=== PATIENT | male | born 1945 | race Caucasian/White ===

== ENCOUNTER 2020-11-02 16:21 | Observation (INO) ==
--- NOTE | 2020-11-02 16:33 | Emergency Department Note ---
Impression & Plan ICD (implantable cardioverter-defibrillator) discharge, Elevated troponin, High serum chloride ED Provider Note NAME: REGINA CONTI AGE: 75 SEX: M : 1945 ARRIVES VIA: Ambulance INFORMANT: Patient ED PROVIDER(S): Mark Mays DO CHIEF COMPLAINT: Pacemaker firing HPI: Patient is a 75-year-old male with a past medical history of A. fib and CVA with left-sided deficit that presents the to the ER from [facility]. Patient believes that he was shocked about 10-15 times over the course of 15 minutes. He has no other complaints at this time. Denies any headache or change in vision. No chest pain or shortness of breath. No nausea, vomiting, or diar boris. No dysuria, urgency, or frequency. ROS: See above HPI for pertinent positives & negatives. A total of 10 systems reviewed and were otherwise negative. PAST MEDICAL HISTORY:See Below PAST SURGICAL HISTORY:See Below FAMILY HISTORY:See Below SOCIAL HISTORY:See Below HOME MEDICATIONS:See Below ALLERGIES:See Below VITALS:See Below PHYSICAL EXAMINATION: GENERAL: Lying in bed, disheveled, chronically ill-appearing EYE EXAM: normal conjunctiva. PERRL and EOM's grossly intact. OROPHARYNX: no exudate, no erythema, lips, buccal mucosa, and tongue normal and mucous membranes are moist NECK: supple, no nuchal rigidity, no adenopathy, non-tender CHEST: Pacemaker located in left upper chest LUNGS: Clear to auscultation. Normal chest wall mechanics HEART: no murmurs, S1 normal and S2 normal ABDOMEN: abdomen soft, non-tender, normo-active bowel sounds, no masses, no rebound or guarding. UPPER EXTREMITIES: upper extremities are grossly normal. LOWER EXTREMITIES: No pitting edema. NEURO EXAM: Normal sensorium, cranial nerves II-XII grossly intact, normal speech, weakness of the left upper and left lower extremity which the patient notes is old MEDICAL DECISION MAKING: Patient is a 75-year-old male who presents to the ER for concerns of being shocked. IV was established blood work was obtained. Labs show no significant leukocytosis or anemia. INR was therapeutic at 2.3. BMP with LFTs bilirubin was unremarkable. Troponin was elevated at 0.1. Lipase was normal. Covid was negative. Per report patient was shocked about 10-15 times. It took us a protracted period of time to track down the type pacemaker that he had as it was a [employer]. He and his family were unsure of what it was and there is no records here. We are eventually able to track these records down. Following this we contacted the rep and she initially got back to us and noted that she did not see anything acutely and then eventually called back after she was able to review everything just before 9 PM and said that there is no shocks at that time. She said that she did review today and yesterday's. Previously had discussed with Dr. Juan Hoskins and he agreed placing/starting amiodarone bolus and drip. I updated Dr. Amin who admitted the patient. When she called back around 9 PM I did update Dr. Greer who who at that time noted that the patient had just been shocked. Shortly after I rediscussed with Dr. Juan Hoskins and we connected him with the rep and he was able to find out that she did not interrogate the device this afternoon but just reviewed previous old data. Patient was already up on the floor at this time. Triage Nursing notes reviewed. Limited review of prior medical records performed Vital Signs: reviewed and remarkable for no significant abnormalities Differential diagnosis: Differential diagnoses includes but is not limited to acute coronary syndrome, myocardial infarction, pericarditis, pulmonary embolus, aortic dissection, pneumonia, pneumothorax, musculoskeletal, shingles, esophageal. ER treatment provided: See below Diagnostics interpreted by me: ECG: Sinus rhythm rate of 62 Normal axis PVCs First-degree AV block T wave inversion in the inferior leads T wave inversion in the lateral leads QTC 466 Cardiac Monitoring: An order was placed for continuous cardiac monitoring. The monitor shows a rate of 70 with sinus rhythm. Laboratory studies: As stated above and show below. Imaging studies: Portable AP upright 1 view chest shows no focal infiltrate pneumothorax Consultation(s): As discussed above Procedures: none Critical Care: I have personally spent 45 minutes of critical care time in the direct management of this patient. This includes bedside care, interpretation of diagnostic studies, and testing, discussion with consultants, patient, and family members, and other required patient management activities. This 45 minutes is in excess of all separately billable procedures. 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 Beliefs That Will Affect Care: None Current Living Situation: Half-Way Feels Safe at Home: Yes Safety Concerns: Feels Safe At This Time Assistive Devices: Glasses and Wheelchair Allergies Allergies Allergy/AdvReac Type Severity Reaction Status Date / Time No Known Allergies Allergy Unverified 11/02/20 18:03 Home Meds Home Medications Medication Instructions Recorded Confirmed acetaminophen [Tylenol Extra 500 mg PO TID 11/02/20 11/02/20 Strength] acetaminophen [Tylenol] 650 mg PO Q4 PRN 11/02/20 11/02/20 bupropion HCl 150 mg PO QAM 11/02/20 11/02/20 calcium carbonate-simethicone 1 tab PO Q6 PRN 11/02/20 11/02/20 [Tums Anti-Gas/Antacid] carbamide peroxide [Orajel] 0 ml MUCOUS MEMBRANE .Q2HR PRN 11/02/20 11/02/20 carvedilol 6.25 mg PO AMHS 11/02/20 11/02/20 cholecalciferol (vitamin D3) 25 mcg PO DAILY 11/02/20 11/02/20 [Vitamin D3] docusate sodium 100 mg PO DAILY 11/02/20 11/02/20 guaifenesin [Siltussin] 200 mg PO Q4H PRN 11/02/20 11/02/20 ipratropium-albuterol 3 ml INHALATION Q4 PRN 11/02/20 11/02/20 magnesium hydroxide [Milk of 400 mg PO DAILY PRN 11/02/20 11/02/20 Magnesia] simvastatin 80 mg PO PM 11/02/20 11/02/20 sodium phosphates [Fleet Enema] 118 ml MA DAILY PRN 11/02/20 11/02/20 warfarin 2 mg PO TU@1600 11/02/20 11/02/20 warfarin 4 mg PO SUMOWETHFRSA@1600 11/02/20 11/02/20 Results & Data (ED) Vital Signs Vital Signs - 24 hr 11/02/20 16:31 11/02/20 16:45 11/02/20 16:50 Temperature Temperature Source Pulse Rate 62 63 59 L Pulse Rate from SpO2 Sensor 57 L 63 59 L Respiratory Rate 21 31 H 30 H Respiratory Depth Blood Pressure 166/72 H 162/83 H Blood Pressure Mean 103 109 Blood Pressure Position Pulse Oximetry 96 97 97 Oxygen Delivery Method Sepsis Recent Fever Within 48 Hours Sepsis New/Unexplained Change in Mental Status Sepsis Action Taken by Nursing 11/02/20 16:54 11/02/20 16:58 11/02/20 17:00 Temperature 36.7 C Temperature Source Oral Pulse Rate 59 L 62 62 Pulse Rate from SpO2 Sensor 62 Respiratory Rate 20 30 H Respiratory Depth Normal Blood Pressure 157/97 H 157/97 H Blood Pressure Mean 117 117 Blood Pressure Position Lying Pulse Oximetry 97 97 98 Oxygen Delivery Method Room Air Room Air Sepsis Recent Fever Within 48 Hours No Sepsis New/Unexplained Change in Mental Status N/A Sepsis Action Taken by Nursing No Action Required 11/02/20 17:10 11/02/20 17:20 11/02/20 17:30 Temperature Temperature Source Pulse Rate 61 61 66 Pulse Rate from SpO2 Sensor Respiratory Rate 23 30 H 31 H Respiratory Depth Blood Pressure 157/88 H Blood Pressure Mean 111 Blood Pressure Position Pulse Oximetry Oxygen Delivery Method Sepsis Recent Fever Within 48 Hours Sepsis New/Unexplained Change in Mental Status Sepsis Action Taken by Nursing 11/02/20 17:40 11/02/20 17:50 11/02/20 18:00 Temperature Temperature Source Pulse Rate 68 63 Pulse Rate from SpO2 Sensor Respiratory Rate 34 H 28 H 27 H Respiratory Depth Blood Pressure 152/72 H Blood Pressure Mean 98 Blood Pressure Position Pulse Oximetry Oxygen Delivery Method Sepsis Recent Fever Within 48 Hours Sepsis New/Unexplained Change in Mental Status Sepsis Action Taken by Nursing 11/02/20 18:10 11/02/20 18:20 11/02/20 18:28 Temperature Temperature Source Pulse Rate 62 64 62 Pulse Rate from SpO2 Sensor 62 63 61 Respiratory Rate 31 H 27 H 32 H Respiratory Depth Blood Pressure 165/85 H 157/76 H Blood Pressure Mean 111 103 Blood Pressure Position Pulse Oximetry 97 97 97 Oxygen Delivery Method Sepsis Recent Fever Within 48 Hours Sepsis New/Unexplained Change in Mental Status Sepsis Action Taken by Nursing 11/02/20 18:30 11/02/20 18:40 Temperature Temperature Source Pulse Rate 62 61 Pulse Rate from SpO2 Sensor 64 60 Respiratory Rate 21 29 H Respiratory Depth Blood Pressure 168/83 H Blood Pressure Mean 111 Blood Pressure Position Pulse Oximetry 98 98 Oxygen Delivery Method Sepsis Recent Fever Within 48 Hours Sepsis New/Unexplained Change in Mental Status Sepsis Action Taken by Nursing Laboratory Data Result diagrams: 11/02/20 16:42 11/02/20 16:42 Lab Results 11/02/20 11/02/20 11/02/20 Range/Units 16:42 16:42 16:42 WBC 4.86 (4.8-10.8) K/uL RBC 4.57 L (4.7-6.1) M/uL Hgb 15.5 (14.0-18.0) g/dL Hct 45.8 (42-52) % MCV 100.2 H (80-100) fL MCH 33.9 (25-34) pg MCHC 33.8 (32-36) g/dL RDW Std Deviation 52.3 H (36.4-46.3) fL RDW Coeff of Reyna 14.3 (11.5-14.5) % Plt Count 153 (130-400) K/uL MPV 11.5 H (7.4-10.4) fL Immature Gran % (Auto) 0.2 % Neut % (Auto) 64.3 % Lymph % (Auto) 23.5 % [place] % (Auto) 9.9 % Eos % (Auto) 1.9 % Baso % (Auto) 0.2 % Neut # (Auto) 3.13 (1.4-6.5) K/uL Lymph # (Auto) 1.14 L (1.2-3.4) K/uL [place] # (Auto) 0.48 (0.11-0.59) K/uL Eos # (Auto) 0.09 (0-0.5) K/uL Baso # (Auto) 0.01 (0-0.2) K/uL Immature Gran # (Auto) 0.01 (0.00-0.02) K/uL PT 21.6 H (9.0-12.0) Seconds INR 2.3 H (0.9-1.1) Sodium 143 (136-145) mmol/L Potassium 4.9 (3.5-5.1) mmol/L Chloride 112 H (98-107) mmol/L Carbon Dioxide 31 (21-32) mmol/L Anion Gap 0 L (3-11) BUN 24 H (7-18) mg/dl Creatinine 1.03 (0.6-1.4) mg/dl Est Cr Clr Drug Dosing 80.1 ml/min Est GFR ( Amer) 82.0 ml/min Est GFR (Non-Af Amer) 70.7 ml/min BUN/Creatinine Ratio 23.2 H (10-20) Glucose 102 H (70-99) mg/dl Calcium 7.2 L (8.5-10.1) mg/dl Total Bilirubin 0.7 (0.2-1) mg/dl AST 32 (15-37) U/L ALT 43 (12-78) U/L Alkaline Phosphatase 77 (45-117) U/L Troponin I 0.126 H* (0-0.045) ng/ml Total Protein 6.3 L (6.4-8.2) gm/dl Albumin 2.8 L (3.4-5.0) gm/dl Globulin 3.5 (2.5-4.0) gm/dl Albumin/Globulin Ratio 0.8 L (0.9-2) Lipase 106 (73-393) U/L Specimen Hemolysis COVID-19 Eval Order SARS-CoV-2 (PCR) (Negative) 11/02/20 11/02/20 Range/Units 17:52 17:52 WBC (4.8-10.8) K/uL RBC (4.7-6.1) M/uL Hgb (14.0-18.0) g/dL Hct (42-52) % MCV (80-100) fL MCH (25-34) pg MCHC (32-36) g/dL RDW Std Deviation (36.4-46.3) fL RDW Coeff of Reyna (11.5-14.5) % Plt Count (130-400) K/uL MPV (7.4-10.4) fL Immature Gran % (Auto) % Neut % (Auto) % Lymph % (Auto) % [place] % (Auto) % Eos % (Auto) % Baso % (Auto) % Neut # (Auto) (1.4-6.5) K/uL Lymph # (Auto) (1.2-3.4) K/uL [place] # (Auto) (0.11-0.59) K/uL Eos # (Auto) (0-0.5) K/uL Baso # (Auto) (0-0.2) K/uL Immature Gran # (Auto) (0.00-0.02) K/uL PT (9.0-12.0) Seconds INR (0.9-1.1) Sodium (136-145) mmol/L Potassium (3.5-5.1) mmol/L Chloride (98-107) mmol/L Carbon Dioxide (21-32) mmol/L Anion Gap (3-11) BUN (7-18) mg/dl Creatinine (0.6-1.4) mg/dl Est Cr Clr Drug Dosing ml/min Est GFR ( Amer) ml/min Est GFR (Non-Af Amer) ml/min BUN/Creatinine Ratio (10-20) Glucose (70-99) mg/dl Calcium (8.5-10.1) mg/dl Total Bilirubin (0.2-1) mg/dl AST (15-37) U/L ALT (12-78) U/L Alkaline Phosphatase (45-117) U/L Troponin I (0-0.045) ng/ml Total Protein (6.4-8.2) gm/dl Albumin (3.4-5.0) gm/dl Globulin (2.5-4.0) gm/dl Albumin/Globulin Ratio (0.9-2) Lipase (73-393) U/L Specimen Hemolysis COVID-19 Eval Order Covid19 at [facility] SARS-CoV-2 (PCR) NEGATIVE (Negative) Administered Medications Acetaminophen (Acetaminophen 500 Mg Tab) 500 mg PO TID TONYA Stop: 12/02/20 20:59 Last Admin: 11/02/20 21:22 Dose: 500 mg Documented by: [id number] Carvedilol (Carvedilol 6.25 Mg Tab) 6.25 mg PO AMHS TONYA Stop: 12/02/20 20:59 Last Admin: 11/02/20 21:22 Dose: 6.25 mg Documented by: [id number] Discontinued Medications Amiodarone HCl (Amiodarone Iv Bolus & Drip) 1 ea IV NOW STA; Protocol Stop: 11/02/20 17:59 Last Admin: 11/02/20 18:45 Dose: 1 ea Documented by: [id number] Amiodarone HCl/Dextrose (Nexterone / D5w) 150 mg in 100 mls @ 600 mls/hr IV NOW STA Stop: 11/02/20 18:07 Last Infusion: 11/02/20 18:48 Dose: 0 mls/hr Documented by: [id number] Cosigned by: [id number] Admin: 11/02/20 18:13 Dose: 600 mls/hr Documented by: [id number] Cosigned by: [id number] Amiodarone HCl/Dextrose (Nexterone / D5w) 360 mg in 200 mls @ 33.333 mls/hr IV ONE ONE Stop: 11/02/20 23:57 Last Infusion: 11/02/20 22:15 Dose: 0 mls/hr Documented by: [id number] Cosigned by: [id number] Infusion: 11/02/20 21:45 Dose: 0 mls/hr Documented by: [id number] Cosigned by: [id number] Admin: 11/02/20 18:44 Dose: 33.3 mls/hr Documented by: [id number] Cosigned by: [id number] Miscellaneous (Stat Iv Infusion Titration Per Protocol) 1 ea N/A NOW STA Stop: 11/02/20 17:59 Last Admin: 11/02/20 18:48 Dose: Not Given Documented by: [id number] Imaging Data Radiologist's Impression: Chest X-Ray 11/02/20 16:30 XR chest 1V portable CLINICAL HISTORY: Chest Pain COMPARISON STUDY: No previous studies for comparison. FINDINGS: The heart is enlarged. There is aortic tortuosity/ectasia. There is a left subclavian dual-chamber centimeters pacemaker there is no failure. There is no focal pulmonary consolidation. There are no large pleural effusions[ IMPRESSION: Avi abraham. No evidence of focal pulmonary consolidation ACT 112: Negative or not required by law. Electronically signed by: Avi Adkins M.D. 11/02/2020 5:05 PM Discharge Plan Visit Data Chief Complaint: Cardiac Assessment Stated Complaint: CARDIAC PACER/DEFIB KEPT FIRING ED Provider: Mark Mays Discharge Problem: ICD (implantable cardioverter-defibrillator) discharge, Elevated troponin, High serum chloride Patient Disposition: Admitted As Inpatient Discharge Instructions Interventions: ED Discharge Assessment Last Done: 11/02/20 20:01
[2020-11-02 16:58] LABS: Basophils # (auto) 0.01 K/uL (0-0.2); Basophils % (auto) 0.2 %; Eosinophils # (auto) 0.09 K/uL (0-0.5); Eosinophils % (auto) 1.9 %; Hematocrit (blood only) 45.8 % (42-52); Hemoglobin 15.5 g/dL (14.0-18.0); Immature Granulocytes # (auto) 0.01 K/uL (0.00-0.02); Immature Granulocytes % (auto) 0.2 %; Lymphocytes # (auto) 1.14 K/uL (1.2-3.4); Lymphocytes % (auto) 23.5 %; Mean Corpuscular Hemoglobin 33.9 pg (25-34); Mean Corpuscular Hgb Conc 33.8 g/dL (32-36); Mean Corpuscular Volume 100.2 fL (80-100); Mean Platelet Volume 11.5 fL (7.4-10.4); Monocytes # (auto) 0.48 K/uL (0.11-0.59); Monocytes % (auto) 9.9 %; Neutrophils # (auto) 3.13 K/uL (1.4-6.5); Neutrophils % (auto) 64.3 %; Platelet Count 153 K/uL (130-400); RDW Coefficient of Variation 14.3 % (11.5-14.5); RDW Standard Deviation 52.3 fL (36.4-46.3); Red Blood Count 4.57 M/uL (4.7-6.1); White Blood Count 4.86 K/uL (4.8-10.8)
--- NOTE | 2020-11-02 17:06 | XRay Report ---
XR chest 1V portable CLINICAL HISTORY: Chest Pain COMPARISON STUDY: No previous studies for comparison. FINDINGS: The heart is enlarged. There is aortic tortuosity/ectasia. There is a left subclavian dual- chamber centimeters pacemaker there is no failure. There is no focal pulmonary consolidation. There a re no large pleural effusions[ IMPRESSION: Avi abraham. No evidence of focal pulmonary consolidation ACT 112: Negative or not required by law. Electronically signed by: Avi Adkins M.D. 11/02/2020 5:05 PM
[2020-11-02 17:12] LABS: INR 2.3 (0.9-1.1); Prothrombin Time 21.6 Seconds (9.0-12.0)
[2020-11-02 17:29] LABS: Albumin Level 2.8 gm/dl (3.4-5.0); BUN Creatinine Ratio 23.2 (10-20); Calcium 7.2 mg/dl (8.5-10.1); Creatinine Clr Calc Pharmacy 80.1 ml/min; Est GFR (Non-African American) 70.7 ml/min; Potassium 4.9 mmol/L (3.5-5.1)
[2020-11-02 17:34] LABS: Albumin Globulin Ratio 0.8 (0.9-2); Bilirubin,Total 0.7 mg/dl (0.2-1); Globulin 3.5 gm/dl (2.5-4.0); Total Protein 6.3 gm/dl (6.4-8.2); Troponin I 0.126 ng/ml (0-0.045)
[2020-11-02] MEDS ORDERED: 0.2 MICRON FILTER SET 1 EA IV ONE (17:58)
[2020-11-02] MEDS ORDERED: STAT IV Infusion **Titration per Protocol STA (17:58)
[2020-11-02] MEDS ORDERED: AMIODARONE / D5W 360 MG/200 ML BAG IV ONE (17:58)
[2020-11-02] MEDS ORDERED: AMIODARONE / D5W 150 MG/100 ML BAG IV STA (17:58)
[2020-11-02] MEDS ORDERED: AMIODARONE IV BOLUS & DRIP IV STA (17:58)
--- NOTE | 2020-11-02 18:56 | History & Physical Report ---
Date of Service November 02, 2020 Assessment & Plan (1) ICD (implantable cardioverter-defibrillator) discharge: Shocks from ICD. ER physician already called [employer] rep for interrogation Awaiting interrogation to assess if appropriate and cause EKG at this time show sinus rhythm with first-degree AV block. No prior to compare Chest x-ray showed cardiomegaly. No evidence of focal pulmonary consolidation. Troponin elevated at 0.126. Trend Telemetry monitoring [place] Dr. Garza made aware. Patient currently on amiodarone. Continue amiodarone drip. Nurseryman Assistant informed. (2) CAD (coronary artery disease): (3) History of coronary artery bypass graft: (4) Ischemic cardiomyopathy with implantable cardioverter-defibrillator (ICD): Continue carvedilol, simvastatin Cardiology consult Get 2D echo (5) Atrial fibrillation: Telemetry monitoring Continue Coreg INR is therapeutic Continue warfarin (6) History of CVA (cerebrovascular accident): With left hemiplegia Fall precautions Assist with ADL as needed Regular turning and skin care (7) Adjustment disorder with depressed mood: Stable Continue home Wellbutrin (8) COPD (chronic obstructive pulmonary disease): Stable Continue nebs as needed (9) DVT prophylaxis: Continue warfarin History of Present Illness 75-year-old man with history of CAD status post CABG, ischemic cardiomyopathy with EF of 25 to 30% status post ICD, A. fib on Coumadin, hypertension, COPD, CVA with left hemiplegia who presented to the ER from [facility] for defibrillator shocks. History provided by patient and who was at bedside. Patient reported that around 2 PM today he had about 10 shocks from his ICD within an hour and a half. Denied any chest pain, palpitation, nausea, dizziness prior to episode. Only reported some 'rattling' breathing some days ago. Denied any cough, shortness of breath Patient has left hemiplegia and usually bedbound, transferred with left to wheelchair at long-term if needed. Denies any nausea, vomiting, abdominal pain, diarrhea or constipation Denies any dysuria, frequency, urgency, hematuria Patient currently denies any symptoms Per long-term records, patient had a recent echo on 09/24/2020 which showed EF of 25 to 30% side ER physician called [employer] rep to interrogate device Family history of heart disease in father Quit smoking over 7yrs ago Primary Care Provider: [facility] Allergies Allergy/AdvReac Type Severity Reaction Status Date / Time No Known Allergies Allergy Unverified 11/02/20 18:03 Home Medications Medication Instructions Recorded Confirmed Type acetaminophen [Tylenol Extra 500 mg PO TID 11/02/20 11/02/20 History Strength] acetaminophen [Tylenol] 650 mg PO Q4 PRN 11/02/20 11/02/20 History bupropion HCl 150 mg PO QAM 11/02/20 11/02/20 History calcium carbonate-simethicone 1 tab PO Q6 PRN 11/02/20 11/02/20 History [Tums Anti-Gas/Antacid] carbamide peroxide [Orajel] 0 ml MUCOUS MEMBRANE .Q2HR PRN 11/02/20 11/02/20 History carvedilol 6.25 mg PO AMHS 11/02/20 11/02/20 History cholecalciferol (vitamin D3) 25 mcg PO DAILY 11/02/20 11/02/20 History [Vitamin D3] docusate sodium 100 mg PO DAILY 11/02/20 11/02/20 History guaifenesin [Siltussin] 200 mg PO Q4H PRN 11/02/20 11/02/20 History ipratropium-albuterol 3 ml INHALATION Q4 PRN 11/02/20 11/02/20 History magnesium hydroxide [Milk of 400 mg PO DAILY PRN 11/02/20 11/02/20 History Magnesia] simvastatin 80 mg PO PM 11/02/20 11/02/20 History sodium phosphates [Fleet Enema] 118 ml ID DAILY PRN 11/02/20 11/02/20 History warfarin 2 mg PO TU@1600 11/02/20 11/02/20 History warfarin 4 mg PO SUMOWETHFRSA@1600 11/02/20 11/02/20 History Past Med/Surg History Medical History (Updated 11/02/20 @ 19:35 by Divine Meza MD) Adjustment disorder with depressed mood Atrial fibrillation CAD (coronary artery disease) COPD (chronic obstructive pulmonary disease) History of tobacco use ICD (implantable cardioverter-defibrillator) in place Surgical History (Updated 11/02/20 @ 19:30 by Divine Meza MD) Status post coronary artery bypass graft Social History Smoking Status: Former smoker Preferred Language: Romanian Feels Safe at Home: Yes Review of Systems Constitutional: no fever, no chills and no fatigue Eyes: no blind spots and no problem reported Ear, Nose, Mouth, Throat: no ear pain, no ear discharge, no hearing loss and no sore throat Respiratory: no cough, no chest congestion and no dyspnea Cardiovascular: no chest pain, no dyspnea, no orthopnea and no palpitations Additional Comments: ICD shocks Gastrointestinal: no abdominal pain, no heartburn, no nausea and no vomiting Genitourinary: no dysuria, no difficulty urinating and no urinary frequency Musculoskeletal: Left sided weakness Integumentary: Left elbow skin tear at long-term Neurologic: + paralysis (Left UE and LE) and + loss of sensation (Left leg) Psychiatric: no depression and no anxiety Physical Exam Constitutional: + well hydrated and + obese; no acute distress Eyes: PERRL, conjunctivae normal, anicteric sclerae ENMT: external ear and nose normal, oropharynx normal Respiratory: normal respiratory effort, lungs clear to auscultation Cardiovascular: Rate/Rhythm: regular rate and regular rhythm S1 S2 Chest (Breasts): Additional Comments: Old Surgical scar Gastrointestinal (Abdomen): normal bowel sounds, soft, nontender, no hepatosplenomegaly Musculoskeletal: No pedal edema Dressing over skin tear on left elbow Neurologic: PERRL, EOMI, accommodation nl, no face palsy, no dysarthria Left hemiplegia +sensory deficits to light touch on LLE Psychiatric: A+Ox3, euthymic affect Results & Data Results & Data ([facility]) Vital Signs (Past 12 Hours) Vital Signs Temp Pulse Resp BP Pulse Ox 11/02/20 16:58 36.7 C 62 20 157/97 H 97 11/02/20 16:54 59 L 97 Laboratory Results Laboratory Results - last 24 hr 11/02/20 11/02/20 11/02/20 16:42 16:42 16:42 WBC 4.86 RBC 4.57 L Hgb 15.5 Hct 45.8 MCV 100.2 H MCH 33.9 MCHC 33.8 RDW Std Deviation 52.3 H RDW Coeff of Reyna 14.3 Plt Count 153 MPV 11.5 H Immature Gran % (Auto) 0.2 Neut % (Auto) 64.3 Lymph % (Auto) 23.5 [place] % (Auto) 9.9 Eos % (Auto) 1.9 Baso % (Auto) 0.2 Neut # (Auto) 3.13 Lymph # (Auto) 1.14 L [place] # (Auto) 0.48 Eos # (Auto) 0.09 Baso # (Auto) 0.01 Immature Gran # (Auto) 0.01 PT 21.6 H INR 2.3 H Sodium 143 Potassium 4.9 Chloride 112 H Carbon Dioxide 31 Anion Gap 0 L BUN 24 H Creatinine 1.03 Est Cr Clr Drug Dosing 80.1 Est GFR ( Amer) 82.0 Est GFR (Non-Af Amer) 70.7 BUN/Creatinine Ratio 23.2 H Glucose 102 H Calcium 7.2 L Total Bilirubin 0.7 AST 32 ALT 43 Alkaline Phosphatase 77 Troponin I 0.126 H* Total Protein 6.3 L Albumin 2.8 L Globulin 3.5 Albumin/Globulin Ratio 0.8 L Lipase 106 Specimen Hemolysis COVID-19 Eval Order SARS-CoV-2 (PCR) 11/02/20 11/02/20 17:52 17:52 WBC RBC Hgb Hct MCV MCH MCHC RDW Std Deviation RDW Coeff of Reyna Plt Count MPV Immature Gran % (Auto) Neut % (Auto) Lymph % (Auto) [place] % (Auto) Eos % (Auto) Baso % (Auto) Neut # (Auto) Lymph # (Auto) [place] # (Auto) Eos # (Auto) Baso # (Auto) Immature Gran # (Auto) PT INR Sodium Potassium Chloride Carbon Dioxide Anion Gap BUN Creatinine Est Cr Clr Drug Dosing Est GFR ( Amer) Est GFR (Non-Af Amer) BUN/Creatinine Ratio Glucose Calcium Total Bilirubin AST ALT Alkaline Phosphatase Troponin I Total Protein Albumin Globulin Albumin/Globulin Ratio Lipase Specimen Hemolysis COVID-19 Eval Order Covid19 at [facility] SARS-CoV-2 (PCR) NEGATIVE Code Status & VTE Plan VTE Prophylaxis Plan VTE Prophylaxis will be ordered: Yes
[2020-11-02] MEDS ORDERED: MAGNESIUM HYDROXIDE SUSP 30 ML UDC PO PRN (20:29)
[2020-11-02] MEDS ORDERED: SOD PHOSPHATE/SOD BIPHOSPHATE ENEMA 132 ML BTL PR PRN (20:29)
[2020-11-02] MEDS ORDERED: CALCIUM CARBONATE 500 MG CHEWABLE TAB PO PRN (20:29)
[2020-11-02] MEDS ORDERED: ACETAMINOPHEN 325 MG TAB PO PRN (20:29)
[2020-11-02] MEDS ORDERED: ALBUT/IPRATROP 3MG/0.5MG NEB 3 ML VIAL INH PRN (20:29)
[2020-11-02] MEDS ORDERED: POLYETHYLENE (MIRALAX) 17 GM PACK PO PRN (20:29)
[2020-11-02] MEDS ORDERED: guaiFENesin 200 MG TAB PO PRN (20:29)
[2020-11-02] MEDS ORDERED: SIMVASTATIN 80 MG TAB PO SCH (21:00)
[2020-11-02] MEDS: carvediloL 6.25 MG TAB PO SCH (21:22)
[2020-11-02] MEDS: ACETAMINOPHEN 500 MG TAB PO SCH (21:22)
[2020-11-02] MEDS ORDERED: Nursing to Pharmacy Communication SCH (22:00)
--- NOTE | 2020-11-02 22:14 | Cardiology Consultation ---
Date of Consultation November 02, 2020 Assessment & Plan (1) Inappropriate shocks from ICD (implantable cardioverter-defibrillator): Telemetry reviewed demonstrating ICD discharges during sinus rhythm. Magnet placed on ICD to prevent further therapies. Intravenous amiodarone discontinued. Case discussed with [employer] auto body technician. She will come to hospital in a.m. 11/03 to interrogate device and likely deactivate defibrillator function. Electrophysiology consultation in a.m. (2) Ischemic cardiomyopathy with implantable cardioverter-defibrillator (ICD): Compensated without evidence of pulmonary edema on x-ray. Outpatient medication list reviewed, patient prescribed Aldactone 25 mg daily, lisinopril 10 mg daily and furosemide 20 mg daily in addition to carvedilol. Serum potassium top normal on admission. Review a.m. BMP prior to restarting Aldactone. (3) History of CVA (cerebrovascular accident): Left-sided hemiplegia. No new focal deficits. Continue warfarin. (4) Atrial fibrillation: Sinus rhythm on telemetry. Continue beta-felisha therapy and anticoagulation with warfarin. 45 minutes critical care time spent evaluating patient, implementing plan of care, and discussion with consultants, hospitalist, and device auto body technician. (5) Elevated troponin I level: History of Present Illness Reason for Consultation: Multiple ICD shocks Requesting Physician: Dr. Arauz Attending Physician: Divine Meza MD History of Present Illness 75-year-old patient presents from [facility] secondary to multiple ICD discharges. Patient describes at least 10 shocks earlier today. ICD shocks began at approximately 2 PM while he was watching a movie. Denies any associated palpitations, shortness of breath, or preceding chest discomfort. No recent weight gain, orthopnea, PND, or worsening edema. Carries a history of myocardial infarction, ischemic cardiomyopathy dating back to 2009. At that time he underwent coronary artery bypass grafting. His most recent ejection fraction is 30-35%. Suffered a cerebrovascular accident in 2013 resulting in left-sided hemiplegia. Patient was admitted to the telemetry floor. IV amiodarone initiated in the ER due to ICD discharges. While on telemetry, patient suffered additional 5 ICD discharges. Telemetry reviewed revealing sinus rhythm. No evidence of ventricular tachycardia, ventricular fibrillation, or tachydysrhythmia. Allergies Allergy/AdvReac Type Severity Reaction Status Date / Time No Known Allergies Allergy Unverified 11/02/20 18:03 Home Medications Medication Instructions Recorded Confirmed Type acetaminophen [Tylenol Extra 500 mg PO TID 11/02/20 11/02/20 History Strength] acetaminophen [Tylenol] 650 mg PO Q4 PRN 11/02/20 11/02/20 History bupropion HCl 150 mg PO QAM 11/02/20 11/02/20 History calcium carbonate-simethicone 1 tab PO Q6 PRN 11/02/20 11/02/20 History [Tums Anti-Gas/Antacid] carbamide peroxide [Orajel] 0 ml MUCOUS MEMBRANE .Q2HR PRN 11/02/20 11/02/20 History carvedilol 6.25 mg PO AMHS 11/02/20 11/02/20 History cholecalciferol (vitamin D3) 25 mcg PO DAILY 11/02/20 11/02/20 History [Vitamin D3] docusate sodium 100 mg PO DAILY 11/02/20 11/02/20 History guaifenesin [Siltussin] 200 mg PO Q4H PRN 11/02/20 11/02/20 History ipratropium-albuterol 3 ml INHALATION Q4 PRN 11/02/20 11/02/20 History magnesium hydroxide [Milk of 400 mg PO DAILY PRN 11/02/20 11/02/20 History Magnesia] simvastatin 80 mg PO PM 11/02/20 11/02/20 History sodium phosphates [Fleet Enema] 118 ml VT DAILY PRN 11/02/20 11/02/20 History warfarin 2 mg PO TU@1600 11/02/20 11/02/20 History warfarin 4 mg PO SUMOWETHFRSA@1600 11/02/20 11/02/20 History Patient History Medical History (Updated 11/02/20 @ 22:17 by Antwan Hoskins DO) Adjustment disorder with depressed mood Atrial fibrillation CAD (coronary artery disease) COPD (chronic obstructive pulmonary disease) History of tobacco use ICD (implantable cardioverter-defibrillator) in place Surgical History (Updated 11/02/20 @ 19:30 by Divine Meza MD) Status post coronary artery bypass graft Social History Smoking Status: Former smoker Hx Alcohol Use: No Hx Substance Use: No Preferred Language: Mongolian Senior Accounting Specialist Required: No Beliefs That Will Affect Care: None Current Living Situation: Custodial Feels Safe at Home: Yes Safety Concerns: Feels Safe At This Time Assistive Devices: Glasses and Wheelchair Review of Systems Review of Systems: All systems reviewed & are unremarkable except as noted in Subjective Physical Exam Constitutional: well nourished and + obese; no acute distress Respiratory: normal respiratory effort; no respiratory distress and no labored breathing Auscultation: no crackles, no rales, no rhonchi and no wheezes Cardiovascular: Rate/Rhythm: regular rate and regular rhythm Heart Sounds: normal S1 and normal S2; no murmur Vessels: no JVD and no carotid bruit Extremities: + edema (Trace to mild bilateral pedal edema.) Gastrointestinal (Abdomen): Inspection/Auscultation: abdomen normal to inspection and normal bowel sounds; abdomen not distended Percussion/Palpation: abdomen soft; abdomen nontender, no guarding and abdomen not rigid Neurologic: Motor/Sensory: + abnormal movement (Left-sided hemiplegia) Psychiatric: A+Ox3, euthymic affect Results & Data ([facility]) Vital Signs (Past 12 Hours) Vital Signs Temp Pulse Pulse Resp BP BP Pulse Ox 11/02/20 21:23 64 149/86 H 11/02/20 20:30 36.6 C 60 20 121/61 94 11/02/20 19:40 61 29 H 96 11/02/20 19:30 62 27 H 154/70 H 96 11/02/20 19:20 65 36 H 95 11/02/20 19:10 62 32 H 97 11/02/20 19:01 62 31 H 153/63 H 97 11/02/20 19:00 62 33 H 97 11/02/20 18:57 62 32 H 168/83 H 96 11/02/20 18:50 63 31 H 98 11/02/20 18:40 61 29 H 98 11/02/20 18:30 62 21 168/83 H 98 11/02/20 18:28 62 32 H 157/76 H 97 11/02/20 18:20 64 27 H 165/85 H 97 11/02/20 18:10 62 31 H 97 11/02/20 18:00 63 27 H 152/72 H 11/02/20 17:50 28 H 11/02/20 17:40 68 34 H 11/02/20 17:30 66 31 H 157/88 H 11/02/20 17:20 61 30 H 11/02/20 17:10 61 23 11/02/20 17:00 62 30 H 157/97 H 98 11/02/20 16:58 36.7 C 62 20 157/97 H 97 11/02/20 16:54 59 L 97 11/02/20 16:50 59 L 30 H 97 11/02/20 16:45 63 31 H 162/83 H 97 11/02/20 16:31 62 21 166/72 H 96 (1) Inappropriate shocks from ICD (implantable cardioverter-defibrillator) Encounter type: initial encounter Qualified Code(s): T82.198A - Other mechanical complication of other cardiac electronic device, initial encounter (2) Atrial fibrillation Atrial fibrillation type: paroxysmal Qualified Code(s): I48.0 - Paroxysmal atrial fibrillation
[2020-11-02] MEDS ORDERED: AMIODARONE / D5W 360 MG/200 ML BAG IV SCH (23:58)
[2020-11-03 05:18] LABS: Hematocrit (blood only) 45.7 % (42-52); Hemoglobin 14.9 g/dL (14.0-18.0); Mean Corpuscular Hemoglobin 32.5 pg (25-34); Mean Corpuscular Hgb Conc 32.6 g/dL (32-36); Mean Corpuscular Volume 99.8 fL (80-100); Mean Platelet Volume 11.2 fL (7.4-10.4); Platelet Count 108 K/uL (130-400); RDW Coefficient of Variation 14.4 % (11.5-14.5); RDW Standard Deviation 51.6 fL (36.4-46.3); Red Blood Count 4.58 M/uL (4.7-6.1); White Blood Count 4.81 K/uL (4.8-10.8)
[2020-11-03 05:38] LABS: BUN Creatinine Ratio 28.8 (10-20); Calcium 7.8 mg/dl (8.5-10.1); Creatinine Clr Calc Pharmacy 88.6 ml/min; Est GFR (Non-African American) 81.1 ml/min; Potassium 4.9 mmol/L (3.5-5.1)
[2020-11-03 05:43] LABS: Troponin I 0.25 ng/ml (0-0.045)
[2020-11-03] MEDS ORDERED: CHOLECALCIFEROL 1,000 UNITS 25 MCG TAB PO SCH (09:00)
--- NOTE | 2020-11-03 09:43 | Hospitalist Progress Note ---
Date of Service November 03, 2020 Assessment & Plan (1) Inappropriate shocks from ICD (implantable cardioverter-defibrillator): Had inappropriate shocks overnight while on telemetry which did not show dysrhythmia at the time Shank Inspector deactivated ICD therapies. Amiodarone discontinued. Patient will need generator change and lead revision versus lead extraction per corporate operations compliance manager. Neurologist recommendation appreciated (2) CAD (coronary artery disease): (3) History of coronary artery bypass graft: (4) Ischemic cardiomyopathy with implantable cardioverter-defibrillator (ICD): Continue carvedilol, simvastatin Cardiology recommendations appreciated. On lisinopril per card F/u BMP tomorrow and consider aldactone per recommendations (5) Atrial fibrillation: Currently in sinus Telemetry monitoring Continue Coreg INR is therapeutic Continue warfarin (6) History of CVA (cerebrovascular accident): With left hemiplegia Fall precautions Assist with ADL as needed Regular turning and skin care (7) Adjustment disorder with depressed mood: Stable Continue home Wellbutrin (8) COPD (chronic obstructive pulmonary disease): Stable Continue nebs as needed (9) DVT prophylaxis: Continue warfarin Admission and Anticipated Discharge Date Admission Date: November 02, 2020 Subjective 75-year-old man with history of CAD status post CABG, ischemic cardiomyopathy with EF of 25 to 30% status post ICD, A. fib on Coumadin, hypertension, COPD, CVA with left hemiplegia who presented to the ER from [facility] for defibrillator shocks. Patient seen and examined. Current more shocks overnight, requiring deactivation magnet. Patient has been seen by EP and ICD defibrillator deactivated. Denies any complaints at this time Review of Systems Constitutional: no fever and no chills Eyes: no problem reported Ear, Nose, Mouth, Throat: no problem reported Respiratory: no cough and no dyspnea Cardiovascular: Additional Comments: ICD shocks Gastrointestinal: no abdominal pain, no nausea and no vomiting Genitourinary: no dysuria, no urinary frequency and no hematuria Musculoskeletal: Left sided weakness Integumentary: Left elbow skin tear at [facility] Neurologic: + paralysis (Left UE and LE) and + loss of sensation (Left leg) Psychiatric: no depression and no anxiety Physical Exam Constitutional: + well hydrated and + obese; no acute distress Eyes: PERRL, conjunctivae normal, anicteric sclerae ENMT: external ear and nose normal, oropharynx normal Respiratory: normal respiratory effort, lungs clear to auscultation Cardiovascular: Rate/Rhythm: regular rate and regular rhythm S1 S2 Gastrointestinal (Abdomen): normal bowel sounds, soft, nontender, no hepatosplenomegaly Musculoskeletal: No pedal edema Neurologic: PERRL, EOMI, accommodation nl, no face palsy, no dysarthria Psychiatric: A+Ox3, euthymic affect Results & Data Results & Data ([facility]) Vital Signs (Past 12 Hours) Vital Signs Temp Pulse Resp BP Pulse Ox 11/03/20 07:48 37.4 C 65 20 145/82 H 95 11/03/20 04:09 36.7 C 69 20 116/61 95 11/02/20 23:00 36.7 C 63 16 144/87 H 94 Laboratory Results Abnormal lab results 11/02/20 11/02/20 11/02/20 Range/Units 16:42 16:42 16:42 RBC 4.57 L (4.7-6.1) M/uL MCV 100.2 H (80-100) fL RDW Std Deviation 52.3 H (36.4-46.3) fL Plt Count (130-400) K/uL MPV 11.5 H (7.4-10.4) fL Lymph # (Auto) 1.14 L (1.2-3.4) K/uL PT 21.6 H (9.0-12.0) Seconds INR 2.3 H (0.9-1.1) Chloride 112 H (98-107) mmol/L Anion Gap 0 L (3-11) BUN 24 H (7-18) mg/dl BUN/Creatinine Ratio 23.2 H (10-20) Glucose 102 H (70-99) mg/dl Calcium 7.2 L (8.5-10.1) mg/dl Troponin I 0.126 H* (0-0.045) ng/ml Total Protein 6.3 L (6.4-8.2) gm/dl Albumin 2.8 L (3.4-5.0) gm/dl Albumin/Globulin Ratio 0.8 L (0.9-2) Nasal Screen MRSA (PCR) (Negative) 11/02/20 11/02/20 11/02/20 Range/Units 20:43 21:10 22:17 RBC (4.7-6.1) M/uL MCV (80-100) fL RDW Std Deviation (36.4-46.3) fL Plt Count (130-400) K/uL MPV (7.4-10.4) fL Lymph # (Auto) (1.2-3.4) K/uL PT (9.0-12.0) Seconds INR (0.9-1.1) Chloride (98-107) mmol/L Anion Gap (3-11) BUN (7-18) mg/dl BUN/Creatinine Ratio (10-20) Glucose (70-99) mg/dl Calcium (8.5-10.1) mg/dl Troponin I 0.641 H* 0.623 H* (0-0.045) ng/ml Total Protein (6.4-8.2) gm/dl Albumin (3.4-5.0) gm/dl Albumin/Globulin Ratio (0.9-2) Nasal Screen MRSA (PCR) Positive A (Negative) 11/03/20 11/03/20 Range/Units 05:07 05:07 RBC 4.58 L (4.7-6.1) M/uL MCV (80-100) fL RDW Std Deviation 51.6 H (36.4-46.3) fL Plt Count 108 L (130-400) K/uL MPV 11.2 H (7.4-10.4) fL Lymph # (Auto) (1.2-3.4) K/uL PT (9.0-12.0) Seconds INR (0.9-1.1) Chloride 112 H (98-107) mmol/L Anion Gap 1.0 L (3-11) BUN 26 H (7-18) mg/dl BUN/Creatinine Ratio 28.8 H (10-20) Glucose 110 H (70-99) mg/dl Calcium 7.8 L (8.5-10.1) mg/dl Troponin I 0.250 H* (0-0.045) ng/ml Total Protein (6.4-8.2) gm/dl Albumin (3.4-5.0) gm/dl Albumin/Globulin Ratio (0.9-2) Nasal Screen MRSA (PCR) (Negative) (1) Atrial fibrillation Atrial fibrillation type: paroxysmal Qualified Code(s): I48.0 - Paroxysmal atrial fibrillation (2) Inappropriate shocks from ICD (implantable cardioverter-defibrillator) Encounter type: initial encounter Qualified Code(s): T82.198A - Other mechanical complication of other cardiac electronic device, initial encounter
[2020-11-03] MEDS: DOCUSATE SODIUM 100 MG CAP PO SCH (10:12)
[2020-11-03] MEDS: lisinopril 10 MG TAB PO SCH (10:12)
[2020-11-03] MEDS: carvediloL 6.25 MG TAB PO SCH ×2 (10:12→19:52)
[2020-11-03] MEDS: ACETAMINOPHEN 500 MG TAB PO SCH ×3 (10:12→19:52)
[2020-11-03] MEDS: CHOLECALCIFEROL 1,000 UNITS 25 MCG TAB PO SCH (10:13)
[2020-11-03] MEDS: buPROPion XL 150 MG TABCR PO SCH (10:13)
--- NOTE | 2020-11-03 10:46 | Cardiology Progress Note ---
Date of Service November 03, 2020 Assessment & Plan (1) Inappropriate shocks from ICD (implantable cardioverter-defibrillator): ICD therapies deactivated. Patient is scheduled for generator change with lead revision today. (2) Ischemic cardiomyopathy with implantable cardioverter-defibrillator (ICD): Compensated without evidence of pulmonary edema on x-ray. Outpatient medication list reviewed, patient prescribed Aldactone 25 mg daily, lisinopril 1 0 mg daily and furosemide 20 mg daily in the past. I have restarted lisinopril without side effects. Restart Aldactone today, 11/04/2020. (3) History of CVA (cerebrovascular accident): Left-sided hemiplegia. No new focal deficits. Continue warfarin at this time as discussed with electrophysiology (4) Atrial fibrillation: Sinus rhythm on telemetry. Continue beta-felisha and warfarin. Repeat INR today. (5) Elevated troponin I level: Admission and Anticipated Discharge Date Admission Date: November 02, 2020 Subjective Patient seen and examined the bedside. Denies chest pain or shortness of breath. No further ICD therapies on telemetry overnight. Denies shortness of breath, orthopnea, or PND. Tolerated a.m. meal. Denies palpitations, lightheadedness, or dizziness. Telemetry demonstrates sinus rhythm at 60 bpm and demand ventricular pacing. Review of Systems Review of Systems: All systems reviewed & are unremarkable except as noted in Subjective Physical Exam Constitutional: well nourished and + obese; no acute distress Respiratory: normal respiratory effort; no respiratory distress and no labored breathing Auscultation: no crackles, no rales, no rhonchi and no wheezes Cardiovascular: Rate/Rhythm: regular rate and regular rhythm Heart Sounds: normal S1 and normal S2; no murmur Vessels: no JVD and no carotid bruit Extremities: + edema (Trace to mild bilateral pedal edema.) Gastrointestinal (Abdomen): Inspection/Auscultation: abdomen normal to inspection and normal bowel sounds; abdomen not distended Per cussion/Palpation: abdomen soft; abdomen nontender, no guarding and abdomen not rigid Neurologic: Motor/Sensory: + abnormal movement (Left-sided hemiplegia) Psychiatric: A+Ox3, euthymic affect Results & Data ([facility]) Vital Signs (Past 12 Hours) Vital Signs Temp Pulse Resp BP Pulse Ox 11/03/20 07:48 37.4 C 65 20 145/82 H 95 11/03/20 04:09 36.7 C 69 20 116/61 95 11/02/20 23:00 36.7 C 63 16 144/87 H 94 (1) Inappropriate shocks from ICD (implantable cardioverter-defibrillator) Encounter type: initial encounter Qualified Code(s): T82.198A - Other mechanical complication of other cardiac electronic device, initial encounter (2) Atrial fibrillation Atrial fibrillation type: paroxysmal Qualified Code(s): I48.0 - Paroxysmal atrial fibrillation
[2020-11-03 12:17] LABS: INR 1.6 (0.9-1.1); Prothrombin Time 15.8 Seconds (9.0-12.0)
[2020-11-03] MEDS: WARFARIN SOD 4 MG TAB PO SCH (15:55)
--- NOTE | 2020-11-03 18:43 | Cardiology Consultation ---
Date of Consultation November 03, 2020 Assessment & Plan (1) ICD (implantable cardioverter-defibrillator) malfunction: He appears to have a right ventricular lead malfunction, likely a fracture. Review of his intracardiac electrograms associated with the therapies suggests artifact on the RV sensing channel. This resulted in appropriate therapies. He will require a lead revision. We discussed the nuances of a lead revision and options which would include abandoning the current lead and adding another RV lead. Alternatively the current lead could be extracted and a new lead added. This has the advantage of maintaining MRI compatibility of his device. However, this is at the cost of the higher procedural complication rate and risk. He has decided to simply have a lead revision in which case we will abandon the current RV lead. He does use the device for ventricular pacing on occasion. Proximally 30% ventricular pacing. He is a nonspecific interventricular conduction delay on EKG. We could debate whether he benefits from an upgrade of his device to include a coronary sinus lead. However, he does not have symptoms of heart failure, he does not pace more than 40% of the time, he does not have a classic left bundle branch block and I think with the advanced hysteresis we can achieve with the [employer] device addition of a left ventricular lead likely has little benefit. (2) Ischemic cardiomyopathy with implantable cardioverter-defibrillator (ICD): He continues to have severely reduced LV systolic function. He does not report symptoms consistent with decompensation. He is very sedentary. Currently on spironolactone, lisinopril and carvedilol. (3) Atrial fibrillation: On warfarin for anticoagulation. (4) CAD (coronary artery disease): No current symptoms suggestive of coronary insufficiency or ischemia. Mildly elevated cardiac troponins likely due to his defibrillations. He will continue on his outpatient medical regimen which includes carvedilol, warfarin and simvastatin. History of Present Illness Reason for Consultation: Defibrillator malfunction Requesting Physician: Aidee Attending Physician: Divine Meza MD History of Present Illness The patient is a 75-year-old gentleman with a history of coronary artery disease having previously undergone surgical revascularization, and ischemic cardiomyopathy and prior implantation of a dual-chamber Biotronik ICD. On the evening of admission the patient was in his usual state of health when he began to experience therapy from his device. He received several shocks from his ICD and was brought to the emergency room for evaluation. While in the hospital he received additional therapies. Telemetry at that time did not reveal any vent ricular arrhythmias and the device was felt to be malfunctioning. A magnet was applied and no additional events occurred. The patient had previously suffered a cerebrovascular accident and this resulted in dense left hemiplegia. As result, he is essentially bed-bound or mobile with an motorized scooter. He has not report any specific complaints recently. He has not report symptoms of chest discomfort or breathing difficulty. He has not been aware of any palpitations. He cannot recall ever receiving therapy from the device previously. Allergies Allergy/AdvReac Type Severity Reaction Status Date / Time No Known Allergies Allergy Unverified 11/02/20 18:03 Home Medications Medication Instructions Recorded Confirmed Type Fleet Enema 118 ml MD DAILY PRN 11/02/20 11/02/20 History acetaminophen [Tylenol Extra 500 mg PO TID 11/02/20 11/02/20 History Strength] acetaminophen [Tylenol] 650 mg PO Q4 PRN 11/02/20 11/02/20 History bupropion HCl 150 mg PO QAM 11/02/20 11/02/20 History calcium carbonate-simethicone 1 tab PO Q6 PRN 11/02/20 11/02/20 History carbamide peroxide 0 ml MUCOUS MEMBRANE .Q2HR PRN 11/02/20 11/02/20 History carvedilol 6.25 mg PO AMHS 11/02/20 11/02/20 History cholecalciferol (vitamin D3) 25 mcg PO DAILY 11/02/20 11/02/20 History [Vitamin D3] docusate sodium 100 mg PO DAILY 11/02/20 11/02/20 History guaifenesin 200 mg PO Q4H PRN 11/02/20 11/02/20 History ipratropium-albuterol 3 ml INHALATION Q4 PRN 11/02/20 11/02/20 History magnesium hydroxide [Milk of 400 mg PO DAILY PRN 11/02/20 11/02/20 History Magnesia] simvastatin 80 mg PO PM 11/02/20 11/02/20 History warfarin 2 mg PO TU@1600 11/02/20 11/02/20 History warfarin 4 mg PO SUMOWETHFRSA@1600 11/02/20 11/02/20 History lisinopril 10 mg PO QAM #30 tab 11/05/20 Rx Patient History Medical History Adjustment disorder with depressed mood Atrial fibrillation CAD (coronary artery disease) COPD (chronic obstructive pulmonary disease) History of tobacco use ICD (implantable cardioverter-defibrillator) in place Surgical History Status post coronary artery bypass graft Social History Smoking Status: Former smoker Hx Alcohol Use: No Hx Substance Use: No Preferred Language: [place] Islander Motor Pool Clerk Required: No Beliefs That Will Affect Care: None marital status: Current Living Situation: Senior Care How many Children do You have: 1 Feels Safe at Home: Yes Assistive Devices: Glasses and Mechanical Lift Review of Systems Review of Systems: Per HPI Physical Exam Physical Exam: The patient is alert and oriented. Mood and affect appeared normal. He answered all questions appropriately. HEENT: Pupils are equal and reactive to light and accommodation. Extraocular movements are intact. The sclerae are anicteric. Lungs: Clear to auscultation bilaterally. He has good air movement without use of accessory muscles. No rales wheezes or rhonchi. Cardiac: Heart demonstrates a regular rate and rhythm. Normal S1 and S2. No murmurs on examination. Chest: Well-healed ICD implant site in the left upper pectoral area. Pulses: The patient has palpable radial pulses bilaterally that are equal in intensity Extremities: There was no evidence of hypoperfusion. There is no cyanosis or clubbing. Skin: I did not appreciate any rashes on examination today. Abrasion to the left arm. Some ecchymosis on the left arm. Results & Data ([facility]) Vital Signs (Past 12 Hours) Vital Signs Temp Pulse Pulse Resp BP Pulse Ox 11/03/20 15:52 36.8 C 60 19 120/72 95 11/03/20 15:40 50 L 11/03/20 12:45 36.8 C 76 19 154/78 H 94 11/03/20 08:00 63 11/03/20 07:48 37.4 C 65 20 145/82 H 95 Laboratory Results Abnormal Lab Results 11/02/20 11/02/20 11/02/20 17:52 20:43 21:10 WBC RBC Hgb Hct MCV MCH MCHC RDW Std Deviation RDW Coeff of Reyna Plt Count MPV PT INR Sodium Potassium Chloride Carbon Dioxide Anion Gap BUN Creatinine Est Cr Clr Drug Dosing Est GFR ( Amer) Est GFR (Non-Af Amer) BUN/Creatinine Ratio Glucose Calcium Troponin I 0.641 H* Specimen Hemolysis Nasal Screen MRSA (PCR) Positive A SARS-CoV-2 (PCR) NEGATIVE 11/02/20 11/03/20 11/03/20 22:17 05:07 05:07 WBC 4.81 RBC 4.58 L Hgb 14.9 Hct 45.7 MCV 99.8 MCH 32.5 MCHC 32.6 RDW Std Deviation 51.6 H RDW Coeff of Reyna 14.4 Plt Count 108 L MPV 11.2 H PT INR Sodium 140 Potassium 4.9 Chloride 112 H Carbon Dioxide 27 Anion Gap 1.0 L BUN 26 H Creatinine 0.92 Est Cr Clr Drug Dosing 88.6 Est GFR ( Amer) 94.0 Est GFR (Non-Af Amer) 81.1 BUN/Creatinine Ratio 28.8 H Glucose 110 H Calcium 7.8 L Troponin I 0.623 H* 0.250 H* Specimen Hemolysis Nasal Screen MRSA (PCR) SARS-CoV-2 (PCR) 11/03/20 11:50 WBC RBC Hgb Hct MCV MCH MCHC RDW Std Deviation RDW Coeff of Reyna Plt Count MPV PT 15.8 H INR 1.6 H Sodium Potassium Chloride Carbon Dioxide Anion Gap BUN Creatinine Est Cr Clr Drug Dosing Est GFR ( Amer) Est GFR (Non-Af Amer) BUN/Creatinine Ratio Glucose Calcium Troponin I Specimen Hemolysis Nasal Screen MRSA (PCR) SARS-CoV-2 (PCR) Diagnostic Findings Chest x-ray obtained the time admission revealed no acute cardiopulmonary process. Echocardiogram performed today revealed severely reduced LV systolic function with an ejection fraction of 25-30%. Mild mitral regurgitation. PG Care Time/CCT Total # of Minutes Spent Total Time Spent with Patient: Total time spent is greater than 50% in coordination of care (as documented) at patient's floor/unit and/or counseling patient: Coding Level of Care Code 12151 Initial Inpt Care Lvl 3 Diagnoses ICD (implantable cardioverter-defibrillator) malfunction T82.118A Ischemic cardiomyopathy with implantable cardioverter-defibrillator (ICD) I25.5; Z95.810 Atrial fibrillation I48.0 Atrial fibrillation type: paroxysmal CAD (coronary artery disease) I25.10 (1) Atrial fibrillation Atrial fibrillation type: paroxysmal Qualified Code(s): I48.0 - Paroxysmal atrial fibrillation
--- NOTE | 2020-11-03 18:46 | Electrocardiogram Report ---
Test Reason : Blood Pressure : / mmHG Vent. Rate : 063 BPM Atrial Rate : 063 BPM P-R Int : 294 ms QRS Dur : 138 ms QT Int : 458 ms P-R-T Axes : 039 -11 220 degrees QTc Int : 468 ms Sinus rhythm with 1st degree A-V block Non-specific intra-ventricular conduction block Inferior infarct (cited on or before 02-NOV-2020) Anterolateral infarct (cited on or before 02-NOV-2020) Abnormal ECG When compared with ECG of 02-NOV-2020 16:31, (unconfirmed) Premature ventricular complexes are no longer Present Confirmed by Agustin Craft ([id number]) on 11/03/2020 6:46:16 PM Referred By: REFERRED SELF Confirmed By:Jonel Craft
--- NOTE | 2020-11-03 18:46 | Electrocardiogram Report ---
Test Reason : Blood Pressure : / mmHG Vent. Rate : 062 BPM Atrial Rate : 062 BPM P-R Int : 284 ms QRS Dur : 134 ms QT Int : 460 ms P-R-T Axes : 044 009 207 degrees QTc Int : 466 ms Sinus rhythm with 1st degree A-V block with occasional Premature ventricular complexes Non-specific intra-ventricular conduction block Inferior infarct , age undetermined Anterolateral infarct , age undetermined Abnormal ECG No previous ECGs available Confirmed by Agustin Craft ([id number]) on 11/03/2020 6:45:43 PM Referred By: REFERRED SELF Confirmed By:Jonel Craft
--- NOTE | 2020-11-03 18:47 | Electrocardiogram Report ---
Test Reason : Blood Pressure : / mmHG Vent. Rate : 063 BPM Atrial Rate : 063 BPM P-R Int : 306 ms QRS Dur : 130 ms QT Int : 470 ms P-R-T Axes : 030 -09 215 degrees QTc Int : 480 ms Sinus rhythm with 1st degree A-V block Non-specific intra-ventricular conduction block Inferior infarct (cited on or before 02-NOV-2020) Anterolateral infarct (cited on or before 02-NOV-2020) Abnormal ECG When compared with ECG of 02-NOV-2020 18:40, (unconfirmed) No significant change was found Confirmed by Agustin Craft ([id number]) on 11/03/2020 6:47:28 PM Referred By: REFERRED SELF Confirmed By:Jonel Craft
--- NOTE | 2020-11-03 18:51 | Electrocardiogram Report ---
Test Reason : Blood Pressure : / mmHG Vent. Rate : 063 BPM Atrial Rate : 063 BPM P-R Int : 296 ms QRS Dur : 130 ms QT Int : 464 ms P-R-T Axes : 023 -03 208 degrees QTc Int : 474 ms Sinus rhythm with 1st degree A-V block with Premature ventricular complexes or Fusion complexes Non-specific intra-ventricular conduction block Inferior infarct (cited on or before 02-NOV-2020) Anterolateral infarct (cited on or before 02-NOV-2020) Abnormal ECG When compared with ECG of 02-NOV-2020 22:27, (unconfirmed) Fusion complexes are now Present Premature ventricular complexes are now Present Confirmed by Agustin Craft ([id number]) on 11/03/2020 6:50:41 PM Referred By: REFERRED SELF Confirmed By:Jonel Craft
[2020-11-04 06:48] LABS: Appearance Urine Clear (Clear); Bacteria Urine Automated 4+ (Negative); Bilirubin Urine Negative (Negative); Blood Urine 3+ (Negative); Color Urine Dark Yellow; Glucose Urine UA Negative (Negative); Ketones Urine Trace (Negative); Leukocyte Esterase Urine 1+ (Negative); Nitrite Urine Negative (Negative); Protein Urine Negative (Negative); RBC Urine Automated >30 /hpf (0-4); Specific Gravity Urine 1.027 (1.000-1.030); Urobilinogen Urine Negative (Negative); WBC Urine Automated >30 /hpf (0-5)
[2020-11-04 07:15] LABS: Hematocrit (blood only) 46.4 % (42-52); Hemoglobin 15.2 g/dL (14.0-18.0); Mean Corpuscular Hemoglobin 33.8 pg (25-34); Mean Corpuscular Hgb Conc 32.8 g/dL (32-36); Mean Corpuscular Volume 103.1 fL (80-100); Mean Platelet Volume 11.6 fL (7.4-10.4); Platelet Count 131 K/uL (130-400); RDW Coefficient of Variation 14.6 % (11.5-14.5); RDW Standard Deviation 55.7 fL (36.4-46.3); White Blood Count 6.17 K/uL (4.8-10.8)
[2020-11-04 07:24] LABS: INR 1.5 (0.9-1.1); Prothrombin Time 14.3 Seconds (9.0-12.0)
[2020-11-04 07:39] LABS: BUN Creatinine Ratio 28.3 (10-20); Calcium 8.1 mg/dl (8.5-10.1); Creatinine Clr Calc Pharmacy 87.1 ml/min; Est GFR (African American) 91.6 ml/min; Potassium 4.5 mmol/L (3.5-5.1)
[2020-11-04] MEDS: DOCUSATE SODIUM 100 MG CAP PO SCH (08:57)
[2020-11-04] MEDS: carvediloL 6.25 MG TAB PO SCH ×2 (08:57→21:00)
[2020-11-04] MEDS: buPROPion XL 150 MG TABCR PO SCH (08:58)
[2020-11-04] MEDS: CHOLECALCIFEROL 1,000 UNITS 25 MCG TAB PO SCH (08:58)
[2020-11-04] MEDS: ACETAMINOPHEN 500 MG TAB PO SCH ×3 (08:58→22:36)
[2020-11-04] MEDS: lisinopril 10 MG TAB PO SCH (08:58)
--- NOTE | 2020-11-04 10:02 | Hospitalist Progress Note ---
Date of Service November 04, 2020 Assessment & Plan (1) Inappropriate shocks from ICD (implantable cardioverter-defibrillator): Had inappropriate shocks overnight while on telemetry which did not show dysrhythmia at the time Feller Buncher Operator deactivated ICD therapies. Planned for lead revision change today If only lead revision, Will have to avoid MRI in the future as much as possible per Dr Craft's note (2) CAD (coronary artery disease): (3) History of coronary artery bypass graft: (4) Ischemic cardiomyopathy with implantable cardioverter-defibrillator (ICD): Continue carvedilol, simvastatin Cardiology recommendations appreciated. On lisinopril per card Spironolactone added from tomorrow per Cardiology (5) Atrial fibrillation: Currently in sinus Telemetry monitoring Continue Coreg INR is subtherapeutic today. Continue warfarin. If still subtherapeutic tomorrow, will adjust dose as appropriate (6) History of CVA (cerebrovascular accident): With left hemiplegia Fall precautions Assist with ADL as needed Regular turning and skin care (7) Adjustment disorder with depressed mood: Stable Continue home Wellbutrin (8) COPD (chronic obstructive pulmonary disease): Stable Continue nebs as needed (9) DVT prophylaxis: Continue warfarin Admission and Anticipated Discharge Date Admission Date: November 02, 2020 Subjective 75-year-old man with history of CAD status post CABG, ischemic cardiomyopathy with EF of 25 to 30% status post ICD, A. fib on Coumadin, hypertension, COPD, CVA with left hemiplegia who presented to the ER from [facility] for defibrillator shocks. Patient seen and examined. Except for patient's known left hemiplegia, he has no new complaint Per Dr Craft's note, patient is planned for lead revision today Review of Systems Review of Systems: All systems reviewed & are unremarkable except as noted in Subjective Physical Exam Constitutional: + well hydrated and + obese; no acute distress Eyes: PERRL, conjunctivae normal, anicteric sclerae ENMT: external ear and nose normal, oropharynx normal Respiratory: normal respiratory effort, lungs clear to auscultation Cardiovascular: Rate/Rhythm: regular rate and regular rhythm S1 S2 Gastrointestinal (Abdomen): normal bowel sounds, soft, nontender, no hepatosplenomegaly Musculoskeletal: No pedal edema Neurologic: PERRL, EOMI, accommodation nl, no face palsy, no dysarthria +left hemiplegia Psychiatric: A+Ox3, euthymic affect Results & Data Results & Data ([facility]) Vital Signs (Past 12 Hours) Vital Signs Temp Pulse Resp BP Pulse Ox 11/04/20 08:17 36.6 C 65 18 127/75 97 11/04/20 03:30 36.9 C 67 18 127/75 94 11/03/20 23:39 36.9 C 69 19 108/68 108 H Laboratory Results Abnormal lab results 11/03/20 11/04/20 11/04/20 Range/Units 11:50 06:20 06:22 RBC (4.7-6.1) M/uL MCV (80-100) fL RDW Std Deviation (36.4-46.3) fL RDW Coeff of Reyna (11.5-14.5) % MPV (7.4-10.4) fL PT 15.8 H 14.3 H (9.0-12.0) Seconds INR 1.6 H 1.5 H (0.9-1.1) Chloride (98-107) mmol/L Anion Gap (3-11) BUN (7-18) mg/dl BUN/Creatinine Ratio (10-20) Calcium (8.5-10.1) mg/dl Urine Ketones Trace H (Negative) Urine Blood 3+ H (Negative) Ur Leukocyte Esterase 1+ H (Negative) Urine WBC (Auto) >30 H (0-5) /hpf Urine RBC (Auto) >30 H (0-4) /hpf U Hyaline Cast (Auto) 5-10 H (0-5) /lpf U Epithel Cells (Auto) 10-20 H (0-5) /lpf Urine Bacteria (Auto) 4+ H (Negative) 11/04/20 11/04/20 Range/Units 06:22 06:22 RBC 4.50 L (4.7-6.1) M/uL MCV 103.1 H (80-100) fL RDW Std Deviation 55.7 H (36.4-46.3) fL RDW Coeff of Reyna 14.6 H (11.5-14.5) % MPV 11.6 H (7.4-10.4) fL PT (9.0-12.0) Seconds INR (0.9-1.1) Chloride 109 H (98-107) mmol/L Anion Gap 2.0 L (3-11) BUN 27 H (7-18) mg/dl BUN/Creatinine Ratio 28.3 H (10-20) Calcium 8.1 L (8.5-10.1) mg/dl Urine Ketones (Negative) Urine Blood (Negative) Ur Leukocyte Esterase (Negative) Urine WBC (Auto) (0-5) /hpf Urine RBC (Auto) (0-4) /hpf U Hyaline Cast (Auto) (0-5) /lpf U Epithel Cells (Auto) (0-5) /lpf Urine Bacteria (Auto) (Negative) (1) Inappropriate shocks from ICD (implantable cardioverter-defibrillator) Encounter type: initial encounter Qualified Code(s): T82.198A - Other mechanical complication of other cardiac electronic device, initial encounter (2) Atrial fibrillation Atrial fibrillation type: paroxysmal Qualified Code(s): I48.0 - Paroxysmal atrial fibrillation
--- NOTE | 2020-11-04 13:06 | Pre Anesthesia Assessment ---
Date of Service November 04, 2020 Pre Sedation Assessment Vital Signs Temp Pulse Pulse Resp BP Pulse Ox 11/04/20 11:34 36.4 C L 62 18 119/71 94 11/04/20 09:00 62 11/04/20 08:17 36.6 C 65 18 127/75 97 11/04/20 03:30 36.9 C 67 18 127/75 94 11/03/20 23:39 36.9 C 69 19 108/68 108 H 11/03/20 19:46 36.8 C 63 20 121/78 96 11/03/20 15:52 36.8 C 60 19 120/72 95 11/03/20 15:40 50 L Cardiovascular + regular rate Respiratory + respiratory effort normal Pre-Sedation Airway Assessment Smoking Status: Former smoker Hx Sleep Apnea: No Hx Difficult Intubation: No Short, Thick Neck: No Thyromental Distance: > or= 3.5 Finger Breadths Oral Cavity: + WNL Mallampati Class: III ASA: ASA3 Procedure Planning Contraindications for Sedation: none Current Medications Reviewed: Yes Notes The planned sedation has been discussed with the patient. Informed Consent was obtained. I have identified the patient, determined the appropriateness of sedation and have assessed the patient immediately prior to the procedure. All medicine(s) and interventions are by my order.
[2020-11-04] MEDS ORDERED: VANCOMYCIN HCL 1000MG/20ML VIAL ONE (13:08)
[2020-11-04] MEDS ORDERED: BUPIVACAINE 0.25% 30 ML VIAL ONE (13:08)
[2020-11-04] MEDS ORDERED: WATER, STERILE FOR INJ 10 ML VIAL ONE (13:08)
[2020-11-04] MEDS ORDERED: fentaNYL citrate 100 MCG/2 ML VIAL ONE (13:08)
[2020-11-04] MEDS ORDERED: MIDAZOLAM HCL 5 MG/ML 1 ML VIAL ONE (13:08)
[2020-11-04] MEDS ORDERED: LIDOCAINE 1% LOCAL 20 ML VIAL ONE (13:08)
[2020-11-04] MEDS ORDERED: oxyCODONE HCL IR 5 MG TAB (IMMEDIATE RELEASE) PO PRN (14:37)
[2020-11-04] MEDS ORDERED: ACETAMINOPHEN 325 MG TAB PO PRN (14:37)
--- NOTE | 2020-11-04 14:37 | Post Anesthesia Assessment ---
Date of Service November 04, 2020 Post Sedation Assessment Vital Signs Temp Pulse Pulse Resp BP Pulse Ox 11/04/20 11:34 36.4 C L 62 18 119/71 94 11/04/20 09:00 62 11/04/20 08:17 36.6 C 65 18 127/75 97 11/04/20 03:30 36.9 C 67 18 127/75 94 11/03/20 23:39 36.9 C 69 19 108/68 108 H 11/03/20 19:46 36.8 C 63 20 121/78 96 11/03/20 15:52 36.8 C 60 19 120/72 95 11/03/20 15:40 50 L Recovery Score Activity: Moves 4 extremities Respiration: Deep Breath/Cough Circulation: +/-20% PreAnes Value Consciousness: Fully Awake Oxygen Saturation: > 92% On Room Air Discharge Sedation Level of Care: Fast Track Phase II Post Sedation Plan On clinical assessment, the patient appears to have tolerated the sedation without complications. Patient is recovering as anticipated. Patient will continue to be monitored by nursing and may be discharged when sedation discharge criteria are met per below protocol. Upon Completions of procedure up to 15 minutes continue every 5 minute vital signs and the P.A.R. score; then discharge to a Phase I or Fast Track to Phase II per the following guidelines: * Discharge Patient to appropriate Phase II area if PAR is 8 or greater or return to pre- procedure baseline. The post - procedure orders will be as directed. * If PAR score is less than 8 or not return to pre-procedure baseline then patient will follow Phase I monitoring till PAR is reached for Phase II. The Phase I may be done in procedure room or may call to secure a Phase I area. * If naloxone or flumazenil are used for reversal, hold in Phase I for continued monitoring from when last reversal dose was given for a minimum of 60 minutes or longer pending the nurse and/or physician discretion of patient condition before discharge to Phase II. Please call the Sedation Physician to re-evaluate and complete post-note for discharge to Phase II area. Do NOT discharge from procedure sedation or Phase 1 until post- sedation evaluation note is complete by procedure /sedation MD Sedation Discharge Instructions to be given to the patient at discharge to home.
--- NOTE | 2020-11-04 14:37 | Electrophysiology Report ---
Date of Service November 04, 2020 Electrophysiology Procedure Electrophysiology Procedure Report Procedure performed: Right ventricular lead revision and pulse generator change for dual-chamber ICD Staff cotton roll packer: Agustin Craft MD Indication: The patient is a 75-year-old gentleman with a history of an ischemic cardiomyopathy and prior implantation of a dual-chamber ICD. Patient received multiple inappropriate shocks from the device recently due to a RV lead fracture. He was therefore advised to undergo RV lead revision and based on the longevity of the device a pulse generator change. Procedure in detail: The patient was informed of the risks benefits and alternatives to the intended procedure and she wished to proceed. He was taken to the electrophysiology suite in a fasting state. A preoperative antibiotic had been administered. The patient was monitored electrocardiographically throughout today's procedure and conscious sedation was administered per protocol. The left upper pectoral area is prepped and draped in usual sterile fashion. This area was anesthetized using subcutaneous administration of a xylocaine solution. An incision was made over the previously implanted device with a PlasmaBlade. The PlasmaBlade was also used for hemostasis during the dissection. Dissection was performed down to the previously implanted device and leads which were freed from the surrounding scar tissue. At this point, a partial capsulotomy was performed. The left subclavian vein was subsequently accessed using modified Seldinger technique and a sheath was placed over guidewire at the site. It should be noted that the distal portion of the left subclavian and axillary vein would not pass a guidewire. The vein was accessed more proximally. This sheath was used to facilitate passage of a new ICD lead to the right ventricular apex under fluoroscopic guidance. Adequate sensing and threshold parameters were obtained prior to active-fixation of lead to the endocardial surface. The proximal portion of lead was then sutured to the prepectoral/using nonabsorbable suture. The leads were detached from the old pulse generator. The ICD lead was capped. The atrial lead and the new ICD lead were then inserted into a new pulse generator. The pocket was irrigated with an antibiotic solution. The new device was then placed in an antibiotic impregnated envelope and placed in the pocket. The device and leads were then placed in the pocket and pocket was closed in 3 layers of absorbable suture. Steri-Strips and sterile dressing were applied. The device was tested noninvasively prior to conclusion the procedure. The patient tolerated procedure well there no immediate complications. Equipment used: New pulse generator: 3D Modeler Tigerstripe. Model number: [id number] serial number [id number] Retained right atrial lead: 3D Modeler Biotronik. Model number: S53 serial #[id number] Right ventricular lead: 3D Modeler Medtronic. Model number: 6935M serial number [id number] Retained and capped right ventricular lead yard clerk Biotronik model number S65 serial #[id number] Explanted pulse generator: 3D Modeler Biotronik model #740 DR T serial #[id number] Measured data: Right atrial lead: P waves measured 2 mV. Pacing threshold 1 V at 0.4 ms with a pacing impedance of 532 ohms Right ventricular lead: R waves measured 7.1 mV. Pacing threshold was 0.75 V at 0.4 ms with a pacing impedance of 418 ohms Impression: Successful right ventricular lead revision for dual-chamber ICD Pulse generator change for dual-chamber ICD MN[facility] Electrophysiology codes ICD Procedure 1: ICD: 92168 Insert single or dual ICD system PG Moderate Sedation Codes Moderate Sedation Codes Procedure 1: Sedation/Anesthesia: 74870 Mod Sedation by the same physician;Init15 Min Child Age 5 & Up Procedure 2: Sedation/Anesthesia: 25619 Mod Sedation by the same physician; Ea [id number] Minutes
--- NOTE | 2020-11-04 15:17 | XRay Report ---
XR chest 1V portable HISTORY: 75 years-old Male sob post op ICD acute shortness of breath. COMPARISON: Chest radiograph 11/02/2020 TECHNIQUE: Portable AP view of the chest FINDINGS: Cardiac silhouette is enlarged. Prior median sternotomy. Surgical clips project over the mediastinum. Left subclavian pacer/AICD. No pneumothorax, pleural effusion, airspace consolidation or overt pulmo nary edema. Extravasated contrast within the left supraclavicular tissues. Degenerative changes of th e shoulders and spine. IMPRESSION: 1. Cardiomegaly. No acute cardiopulmonary abnormality. 2. Extravasated contrast of the left supraclavicular tissues. ACT 112: Negative or not required by law. The above report was generated using voice recognition software. It may contain grammatical, syntax o r spelling errors. Electronically signed by: Red Hess M.D. 11/04/2020 3:15 PM
[2020-11-04] MEDS: WARFARIN SOD 4 MG TAB PO SCH (16:51)
--- NOTE | 2020-11-04 17:58 | Electrocardiogram Report ---
Test Reason : Blood Pressure : / mmHG Vent. Rate : 062 BPM Atrial Rate : 062 BPM P-R Int : 352 ms QRS Dur : 130 ms QT Int : 456 ms P-R-T Axes : 026 -01 213 degrees QTc Int : 462 ms Sinus rhythm with 1st degree A-V block Non-specific intra-ventricular conduction block Inferior infarct (cited on or before 02-NOV-2020) Anterolateral infarct (cited on or before 02-NOV-2020) Abnormal ECG When compared with ECG of 03-NOV-2020 05:53, Fusion complexes are no longer Present Premature ventricular complexes are no longer Present Confirmed by Agustin Craft ([id number]) on 11/04/2020 5:58:22 PM Referred By: REFERRED SELF Confirmed By:Jonel Craft
--- NOTE | 2020-11-04 18:07 | Electrocardiogram Report ---
Test Reason : Blood Pressure : / mmHG Vent. Rate : 075 BPM Atrial Rate : 075 BPM P-R Int : 320 ms QRS Dur : 128 ms QT Int : 406 ms P-R-T Axes : 016 -02 215 degrees QTc Int : 453 ms Sinus rhythm with 1st degree A-V block with occasional Premature ventricular complexes Non-specific intra-ventricular conduction block Inferior infarct (cited on or before 02-NOV-2020) Anterolateral infarct (cited on or before 02-NOV-2020) Abnormal ECG When compared with ECG of 04-NOV-2020 06:04, (unconfirmed) Premature ventricular complexes are now Present Confirmed by Agustin Craft ([id number]) on 11/04/2020 6:07:30 PM Referred By: REFERRED SELF Confirmed By:Jonel Craft
[2020-11-04] MEDS: ceFAZolin 1000MG 1,000 MG/7.5 ML SYR IV SCH (21:02)
[2020-11-05] MEDS: ceFAZolin 1000MG 1,000 MG/7.5 ML SYR IV SCH ×2 (05:38→14:48)
[2020-11-05] MEDS: carvediloL 6.25 MG TAB PO SCH (08:02)
[2020-11-05] MEDS: DOCUSATE SODIUM 100 MG CAP PO SCH (08:03)
[2020-11-05] MEDS: lisinopril 10 MG TAB PO SCH (08:03)
[2020-11-05] MEDS: CHOLECALCIFEROL 1,000 UNITS 25 MCG TAB PO SCH (08:03)
[2020-11-05] MEDS: buPROPion XL 150 MG TABCR PO SCH (08:03)
[2020-11-05] MEDS: ACETAMINOPHEN 500 MG TAB PO SCH ×2 (08:09→14:48)
[2020-11-05 08:33] LABS: Hematocrit (blood only) 43.6 % (42-52); Hemoglobin 14.2 g/dL (14.0-18.0); Mean Corpuscular Hemoglobin 33.1 pg (25-34); Mean Corpuscular Hgb Conc 32.6 g/dL (32-36); Mean Corpuscular Volume 101.6 fL (80-100); Mean Platelet Volume 10.7 fL (7.4-10.4); Platelet Count 103 K/uL (130-400); RDW Coefficient of Variation 14.5 % (11.5-14.5); Red Blood Count 4.29 M/uL (4.7-6.1); White Blood Count 3.44 K/uL (4.8-10.8)
[2020-11-05 08:45] LABS: INR 1.6 (0.9-1.1); Prothrombin Time 15.8 Seconds (9.0-12.0)
[2020-11-05 08:55] LABS: BUN Creatinine Ratio 26.6 (10-20); Calcium 8.3 mg/dl (8.5-10.1); Creatinine Clr Calc Pharmacy 81.2 ml/min; Est GFR (Non-African American) 73.3 ml/min; Potassium 4.1 mmol/L (3.5-5.1)
[2020-11-05] MEDS ORDERED: SPIRONOLACTONE 25 MG TAB PO SCH (09:00)
--- NOTE | 2020-11-05 09:15 | XRay Report ---
XR chest 2V PA/lateral HISTORY: Status post pacemaker placement. EXACT TIME ORDERED Evaluate for pneumothorax and l COMPARISON: Chest 11/04/2020. FINDINGS: No pneumothorax. No pleural effusions. The heart remains mildly enlarged. There are postste rnotomy changes. Left-sided pacemaker/defibrillator is again noted. The leads appear intact. No new f ocal lung consolidations to suggest pneumonia. No evidence for pulmonary edema. IMPRESSION: 1. Left-sided pacemaker remains unchanged in position. No pneumothorax. 2. Stable mild cardiomegaly. ACT 112: Negative or not required by law. Electronically signed by: Jarrett Alfaro M.D. 11/05/2020 9:13 AM
--- NOTE | 2020-11-05 10:35 | Cardiology Progress Note ---
Date of Service November 05, 2020 Assessment & Plan (1) ICD (implantable cardioverter-defibrillator) malfunction: He underwent successful lead revision yesterday. There was some difficulty accessing the subclavian and axillary veins due to likely stenosis from prior lead implant. However, lead was successfully delivered without additional complication. Normal function today. I think he would be stable for discharge from a device standpoint. He should avoid getting the device incision wet for 7 days. He should have follow-up within a week for wound evaluation. Perhaps this could be done at his facility (2) Ischemic cardiomyopathy with implantable cardioverter-defibrillator (ICD): (3) Atrial fibrillation: On warfarin for anticoagulation. (4) CAD (coronary artery disease): Admission and Anticipated Discharge Date Admission Date: November 02, 2020 Subjective This morning patient claimed he feeling well. Did not describe significant discomfort at the device implant site. No breathing difficulty. Anxious for discharge Physical Exam Physical Exam: Evaluation of the device implant site did not reveal any significant drainage or hematoma. Mild erythema likely related to the adhesive. Nontender. Results & Data ([facility]) Vital Signs (Past 12 Hours) Vital Signs Temp Pulse Pulse Resp BP Pulse Ox 11/05/20 08:42 70 11/05/20 07:33 37.2 C 70 18 105/65 91 11/05/20 04:40 36.5 C 71 20 112/73 94 11/04/20 23:26 36.8 C 75 18 101/58 L 92 Diagnostic Findings Chest x-ray this morning demonstrated stable lead position without evidence of pneumothorax Device interrogation revealed good function on both atrial and ventricular leads. (1) Atrial fibrillation Atrial fibrillation type: paroxysmal Qualified Code(s): I48.0 - Paroxysmal atrial fibrillation
--- NOTE | 2020-11-05 11:47 | Discharge Summary ---
Date of Service November 05, 2020 Admission HPI Per Admitting Provider 75-year-old man with history of CAD status post CABG, ischemic cardiomyopathy with EF of 25 to 30% status post ICD, A. fib on Coumadin, hypertension, COPD, CVA with left hemiplegia who presented to the ER from [facility] for defibrillator shocks. History provided by patient and who was at bedside. Patient reported that around 2 PM today he had about 10 shocks from his ICD within an hour and a half. Denied any chest pain, palpitation, nausea, dizziness prior to episode. Only reported some 'rattling' breathing some days ago. Denied any cough, shortness of breath Patient has left hemiplegia and usually bedbound, transferred with left to wheelchair at [facility] if needed. Denies any nausea, vomiting, abdominal pain, diarrhea or constipation Denies any dysuria, frequency, urgency, hematuria Patient currently denies any symptoms Per [facility] records, patient had a recent echo on 09/24/2020 which showed EF of 25 to 30% side ER physician called [employer] to interrogate device Family history of heart disease in father Quit smoking over 7yrs ago Admission Exam Per Admitting Provider Constitutional: + well hydrated and + obese; no acute distress Eyes: PERRL, conjunctivae normal, anicteric sclerae ENMT: external ear and nose normal, oropharynx normal Respiratory: normal respiratory effort, lungs clear to auscultation Cardiovascular: Rate/Rhythm: regular rate and regular rhythm S1 S2 Chest (Breasts): Additional Comments: Old Surgical scar Gastrointestinal (Abdomen): normal bowel sounds, soft, nontender, no hepatosplenomegaly Musculoskeletal: No pedal edema Dressing over skin tear on left elbow Neurologic: PERRL, EOMI, accommodation nl, no face palsy, no dysarthria Left hemiplegia +sensory deficits to light touch on LLE Psychiatric: A+Ox3, euthymic affect Principal Diagnosis Inappropriate ICD firing ICD malfunction S/P Lead revision on 11/04/20 Discharge Exam Constitutional + well hydrated and + obese; no acute distress Eyes PERRL, conjunctivae normal, anicteric sclerae ENMT external ear and nose normal, oropharynx normal Respiratory normal respiratory effort, lungs clear to auscultation Cardiovascular Rate/Rhythm: regular rate and regular rhythm S1 S2 Chest (Breasts) Additional Comments: Clean dressing over surgical site anterior chest wall Gastrointestinal (Abdomen) normal bowel sounds, soft, nontender, no hepatosplenomegaly Neurologic PERRL, EOMI, accommodation nl, no face palsy, no dysarthria +Left hemiplegia Psychiatric A+Ox3, euthymic affect Discharge Data Allergies Allergy/AdvReac Type Severity Reaction Status Date / Time No Known Allergies Allergy Unverified 11/02/20 18:03 Consultations 11/02/20 18:01 ED Decision to Admit Stat 11/02/20 20:29 Consult Cardiology Routine 11/03/20 07:22 Consult Cardiac Electrophysiology Routine Procedures Performed Operation Date: 11/04/20 12:00 Actual Procedures p Insertion ICD w/Existing Dual - Micky Craft MD s Venogram, Unilateral - Micky Craft MD Electrophysiology Procedure Report Procedure performed: Right ventricular lead revision and pulse generator change for dual-chamber ICD Staff risk management director: Agustin Craft MD Indication: The patient is a 75-year-old gentleman with a history of an ischemic cardiomyopathy and prior implantation of a dual-chamber ICD. Patient received multiple inappropriate shocks from the device recently due to a RV lead fracture. He was therefore advised to undergo RV lead revision and based on the longevity of the device a pulse generator change. Procedure in detail: The patient was informed of the risks benefits and alternatives to the intended procedure and she wished to proceed. He was taken to the electrophysiology suite in a fasting state. A preoperative antibiotic had been administered. The patient was monitored electrocardiographically throughout today's procedure and conscious sedation was administered per protocol. The left upper pectoral area is prepped and draped in usual sterile fashion. This area was anesthetized using subcutaneous administration of a xylocaine solution. An incision was made over the previously implanted device with a PlasmaBlade. The PlasmaBlade was also us ed for hemostasis during the dissection. Dissection was performed down to the previously implanted device and leads which were freed from the surrounding scar tissue. At this point, a partial capsulotomy was performed. The left subclavian vein was subsequently accessed using modified Seldinger technique and a sheath was placed over guidewire at the site. It should be noted that the distal portion of the left subclavian and axillary vein would not pass a guidewire. The vein was accessed more proximally. This sheath was used to facilitate passage of a new ICD lead to the right ventricular apex under fluoroscopic guidance. Adequate sensing and threshold parameters were obtained prior to active-fixation of lead to the endocardial surface. The proximal portion of lead was then sutured to the prepectoral/using nonabsorbable suture. The leads were detached from the old pulse generator. The ICD lead was capped. The atrial lead and the new ICD lead were then inserted into a new pulse generator. The pocket was irrigated with an antibiotic solution. The new device was then placed in an antibiotic impregnated envelope and placed in the pocket. The device and leads were then placed in the pocket and pocket was closed in 3 layers of absorbable suture. Steri-Strips and sterile dressing were applied. The device was tested noninvasively prior to conclusion the procedure. The patient tolerated procedure well there no immediate complications. Equipment used: New pulse generator: Plasma Specialist Medtronic. Model number: [id number] serial number [id number] Retained right atrial lead: Plasma Specialist Biotronik. Model number: S53 serial #[id number] Right ventricular lead: Plasma Specialist Medtronic. Model number: 6935M serial number [id number] Retained and capped right ventricular lead scale mechanic Biotronik model number S65 serial #[id number] Explanted pulse generator: Plasma Specialist Biotronik model #740 DR T serial #[id number] Measured data: Right atrial lead: P waves measured 2 mV. Pacing threshold 1 V at 0.4 ms with a pacing impedance of 532 ohms Right ventricular lead: R waves measured 7.1 mV. Pacing threshold was 0.75 V at 0.4 ms with a pacing impedance of 418 ohms Impression: Successful right ventricular lead revision for dual-chamber ICD Pulse generator change for dual-chamber ICD Ordered Studies 11/04/20 06:39 CL Cath Imgs for PACS use only Routine Hospital Course (1) Inappropriate shocks from ICD (implantable cardioverter-defibrillator): Had inappropriate shocks overnight while on telemetry which did not show dysrhythmia at the time Equity Analyst deactivated ICD therapies. Had lead revision on 11/04/20. Device changed from biotronik to medtronik Old lead retained. Hence, patient should not have MRIs in the future. Patient and updated about this Should avoid getting device incision site wet for the next 7 days. Should follow up within a week for wound evaluation or can have that done at facility Avoid using left upper extremity much in the next week (2) CAD (coronary artery disease): (3) History of coronary artery bypass graft: (4) Ischemic cardiomyopathy with implantable cardioverter-defibrillator (ICD): Continue carvedilol, simvastatin Was evaluated by Cardiology while inpatient Lisinopril 10mg daily was added to home meds. Patient needs BMP in 1 week to monitor renal function and potassium. Follow up with Cardiology outpatient (5) Atrial fibrillation: Currently in sinus Continue Coreg INR is subtherapeutic today 1.6 Continue warfarin Monitor INR and adjust dose as needed (6) History of CVA (cerebrovascular accident): With left hemiplegia Fall precautions Assist with ADL as needed (7) Adjustment disorder with depressed mood: Stable Continue home Wellbutrin (8) COPD (chronic obstructive pulmonary disease): Stable Continue nebs as needed Total Time Total Time Spent Total Time Spent (In Minutes): 50 Total Time Includes: Examination of the Patient, Discharge Planning, Medication Reconciliation and Communication With Other Providers Discharge Plan Discharge Items Patient Disposition: Transfer [facility] Reason For Visit: PACER FIRING Discharge Diagnosis: Inappropriate ICD firing S/P Lead revision on 11/04/20 Activity: Resume your previous activity Non-emergency contact: Primary Care Provider and Chief Solution Architect Call non-emergency contact if: you have any medication questions Follow-up/Referrals: Mike Mcknight [Primary Care Provider] - Diet: Heart Healthy Ambulatory Orders: Basic Metabolic Panel (Routine) Timeframe: 1 Week Location: Determined by Patient Ordered By: Divine Garrido Attending Provider Instructions: Mr Funez. You presented to the hospital after multiple shocks by your ICD. You were evaluated and found to have inappropriate ICD firing. You required change of your ICD lead. Your previous reduced change from Biotronik to Medtronic. The old lead was not removed as will be a higher risk procedure. Due to this, please avoid MRIs in the future You were also evaluated by cardiology and started on lisinopril 10 mg daily. Please continue days in addition to your other home medication. Please get the blood work [basic metabolic panel] in 1 week and follow-up results with your risk management director. Please avoid getting the device incision wet for 7days and you can have follow- up within a week for wound evaluation. This can also be done at your facility. It was a pleasure taking care of you Pending Studies at Discharge: No Stand-Alone Forms: My [facility] Skilled Items Patient informed of condition?: Yes DNR: No Discharge Level of Care: Skilled Communicable Disease: No Discharge Prognosis: Stable Lines: None Urinary Catheter: No Medications and DC Order Prescriptions: New lisinopril 10 mg Tablet 10 mg PO QAM Qty: 30 RF: 0 Continued carvedilol 6.25 mg Tablet 6.25 mg PO AMHS RF: 0 simvastatin 80 mg Tablet 80 mg PO PM RF: 0 acetaminophen [Tylenol Extra Strength] 500 mg Tablet 500 mg PO TID RF: 0 warfarin 4 mg Tablet 4 mg PO SUMOWETHFRSA@1600 RF: 0 warfarin 2 mg Tablet 2 mg PO TU@1600 RF: 0 docusate sodium 100 mg Tablet 100 mg PO DAILY RF: 0 bupropion HCl 150 mg Tablet Extended Release 24 Hr 150 mg PO QAM RF: 0 cholecalciferol (vitamin D3) [Vitamin D3] 25 mcg (1,000 unit) Tablet 25 mcg PO DAILY RF: 0 acetaminophen [Tylenol] 325 mg Tablet 650 mg PO Q4 PRN (Reason: Fever Or Pain) RF: 0 ipratropium-albuterol 0.5 mg-3 mg(2.5 mg base)/3 mL solution for nebulization 3 ml INHALATION Q4 PRN (Reason: Shortness Of Breath Or Wheezing) RF: 0 carbamide peroxide 10 % Solution 0 ml MUCOUS MEMBRANE .Q2HR PRN (Reason: DISCOMFORT) RF: 0 magnesium hydroxide [Milk of Magnesia] 400 mg/5 mL Suspension 400 mg PO DAILY PRN (Reason: Constipation) RF: 0 calcium carbonate-simethicone 500-20 mg Tablet,Chewable 1 tab PO Q6 PRN (Reason: Indigestion) RF: 0 Fleet Enema 19-7 gram/118 mL Enema 118 ml DC DAILY PRN (Reason: Constipation) RF: 0 guaifenesin 100 mg/5 mL Syrup 200 mg PO Q4H PRN (Reason: Cough) RF: 0 Discharge Orders: Discharge Order (Routine); Ordered 11/05/20 Ordered By: Divine Meza Admission Data Admit Date/Time: 11/02/20 18:49 Attending Provider: Divine Meza I. Admit Provider: Divine Meza I. Primary Care Provider: Mike Mcknight Other Providers: Divien Meza I. ; Antwan Hoskins ; Micky Craft Other Interventions: Discharge Summary Assessment (RN) Last Done: 11/05/20 14:55
--- NOTE | 2020-11-05 12:34 | Cardiology Progress Note ---
Date of Service November 05, 2020 Assessment & Plan (1) Inappropriate shocks from ICD (implantable cardioverter-defibrillator): Status post Medtronic ICD implant with lead revision. No complications. Patient will require a wound check in 1 week. (2) Ischemic cardiomyopathy with implantable cardioverter-defibrillator (ICD): Patient remains compensated during hospitalization. Lisinopril and Aldactone added during hospitalization, however, borderline hypotension noted. Will hold Aldactone at this time. Continue lisinopril and carvedilol. Repeat basic metabolic panel in the outpatient setting in 1 week. Cardiology follow-up in 2 weeks. (3) History of CVA (cerebrovascular accident): Left-sided hemiplegia. No new focal deficits. Continue warfarin at this time as discussed with electrophysiology (4) Atrial fibrillation: Sinus rhythm on telemetry. Continue beta-felisha and warfarin. Repeat INR today. (5) Elevated troponin I level: Admission and Anticipated Discharge Date Admission Date: November 02, 2020 Subjective Patient seen and examined the bedside. ICD implanted 11/04/2020 without complication. Telemetry reveals sinus rhythm with intermittent pacing. No sustained dysrhythmias. Denies chest pain or shortness of breath. Lisinopril and Aldactone restarted during hospitalization. Borderline hypotension noted. Patient offers no complaints. Review of Systems Review of Systems: All systems reviewed & are unremarkable except as noted in Subjective Physical Exam Constitutional: well nourished and + obese; no acute distress Respiratory: normal respiratory effort; no respiratory distress and no labored breathing Auscultation: no crackles, no rales, no rhonchi and no wheezes Cardiovascular: Rate/Rhythm: regular rate and regular rhythm Heart Sounds: normal S1 and normal S2; no murmur Vessels: no JVD and no carotid bruit Extremities: + edema (Trace to mild bilateral pedal edema.) Chest (Breasts): Additional Comments: Pacemaker site clean, dry, intact. No erythema or drainage. Gastrointestinal (Abdomen): Inspection/Auscultation: abdomen normal to inspection and normal bowel sounds; abdomen not distended Percussion/Palpation: abdomen soft; abdomen nontender, no guarding and abdomen not rigid Neurologic: Motor/Sensory: + abnormal movement (Left-sided hemiplegia) Psychiatric: A+Ox3, euthymic affect Results & Data ([facility]) Vital Signs (Past 12 Hours) Vital Signs Temp Pulse Pulse Resp BP Pulse Ox 05/18/21 11:45 36.6 C 61 16 114/49 L 94 11/05/20 08:42 70 11/05/20 07:33 37.2 C 70 18 105/65 91 11/05/20 04:40 36.5 C 71 20 112/73 94 (1) Inappropriate shocks from ICD (implantable cardioverter-defibrillator) Encounter type: initial encounter Qualified Code(s): T82.198A - Other mechanical complication of other cardiac electronic device, initial encounter (2) Atrial fibrillation Atrial fibrillation type: paroxysmal Qualified Code(s): I48.0 - Paroxysmal atrial fibrillation
[2020-11-05] MEDS ORDERED: WARFARIN SOD 2 MG TAB PO SCH (16:00)
== END 2020-11-05 15:17 | DRG 243 ==
LOC: ED 16:21 → 2S 18:49 → INTOOBSV 18:49 → 2S 20:01 → 2E 11-05 07:15

== ENCOUNTER 2023-03-24 03:55 | Inpatient (IN) ==
[2023-03-24] MEDS ORDERED: ALBUT/IPRATROP 3MG/0.5MG NEB 3 ML VIAL INH STA (04:02)
--- NOTE | 2023-03-24 04:11 | Emergency Department Note ---
Impression & Plan Respiratory failure, COPD (chronic obstructive pulmonary disease), Fluid overload, Elevated troponin, Acute hyperkalemia ED Provider Note Provider: Charles Herring MD DATE OF SERVICE: 03/23/2023 CHIEF COMPLAINT: Shortness of breath HISTORY OF PRESENT ILLNESS: Patient is a 78-year-old gentleman past medical history including COPD, CVA with left hemiplegia, AICD, CAD, atrial fibrillation on warfarin presenting here today via ambulance from his nursing facility. Patient evidently states that just this evening began more short of breath. EMS report that facility noted to be somewhat hypoxic and placed him on 3 L of oxygen. Upon arrival the patient was satting in the 50s on room air. Improved and the low 90s with a nonrebreather prior to arrival. Patient states he feels short of breath. Denies any pain. No falls reported. Discussion with the patient upon arrival he does state very clearly he does not want to be intubated or to have CPR. Was agreeable to a trial of BiPAP. Received IM dose of steroids at the facility. PAST MEDICAL HISTORY: As noted above MEDICATIONS: Reviewed home medication list from facility SOCIAL HISTORY: Former smoker quit 10 years ago by his report PHYSICAL EXAM: GENERAL: alert and oriented on nonrebreather somewhat tachypneic upon arrival and appears somewhat fatigued Head: normocephalic and atraumatic EYES: No injection, discharge or icterus. NECK: Trachea midline. ENT: Mucous membranes pink and moist. LUNGS: Airway patent. Some tachypnea and increased work of breathing with diminished lung sounds throughout HEART: Regular rate and rhythm. No chest wall tenderness ABDOMEN: Soft and non-tender, without guarding or rebound. SKIN: Acyanotic, warm, dry with some scattered contusions on the upper extremities. EXTREMITIES: Patient with trace bilateral edema of the lower extremities NEUROLOGICAL: Chronic left-sided hemiplegia. No obvious facial droop. Will answer some questions a little bit drowsy. Arousable to stimuli verbally EK bpm sinus tachycardia with first-degree AV block. What appears to be an intraventricular conduction delay like left bundle is present with a QTc of 526. No clear acute ischemic ST segment elevation. Compared to previous from November 04, 2020 appears to have a much more prominent interventricular conduction delay at this time. CONTINUOUS CARDIAC MONITORING: was ordered and showed a heart rate of 90s-100s bpm in sinus rhythm to sinus tach 1 view chest x-ray by my interpretation: Diffuse bilateral infiltrates questioning some pulmonary edema versus multifocal pneumonia. Prior sternotomy and AICD noted without pneumothorax or free air. Patient's laboratory studies and imaging reviewed. Differential includes Reactive airway disease, pneumonia, pneumothorax, COPD, CHF, infections, cardiac ischemia, pulmonary embolism, musculoskeletal, gastrointestinal, as well as other pathologies. IMPRESSION/MEDICAL DECISION MAKING: Alerted by EMS prior to arrival. Patient upon arrival switch from nonrebreather to BiPAP with his permission but declines any further interventions such as intubation or CPR by his report. Sent respiratory viral panel. History of COPD. Received IM dose of steroids prior to arrival. Blood work sent including VBG. Anticoagulated and INR checked but lower suspicion with this for PE/DVT. Chest x-ray ordered to look for signs of pneumonia, pneumothorax, or fluid overload. Patient denying any chest pain. EKG with intraventricular conduction delay but lower suspicion for acute ACS given his lack of pain. Troponin was sent again as well as BNP. Cultures and lactate sent. Given additional DuoNeb here given his significant history of COPD. Chest x-ray is concerning for possibly pneumonia versus more likely pulmonary edema. Positive pressure ventilation hopefully will help as well as some hypercarbia on the VBG. Again patient is already stated he declines intubation or CPR. Lactate noted to be elevated. Given his critical illness will cover empirically with a dose of ceftriaxone. Given concern for heart failure and some listed CHF on paperwork from the facility with the x-ray results, will avoid aggressive fluid hydration and only received about 10 mL of IV fluid here. Small additional volume with medications. Lactate elevated 3.1. White blood count of 10.5 not severely elevated and again lower suspicion for sepsis. He moglobin normal. BNP elevated again concerning for fluid overload. INR therapeutic. Stable renal function. Hyperkalemia noted to 6.3. Troponin is elevated 122. Will need to be trended. Given hyperkalemia and the elevated blood sugar given a dose of insulin here as well as calcium gluconate. Does have some interventricular conduction delay. Given the hypercarbia will need to try to avoid bicarb if possible. Already receiving DuoNeb. Will need to monitor blood sugars but elevated already. Procalcitonin not significantly elevated again low suspicion this represents sepsis or bacteremia. 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 Respiratory viral panel negative. DIAGNOSIS: Hypoxic respiratory failure, hyperkalemia, elevated troponin, fluid overload DISPOSITION: Hospitalist will evaluate Patient was agreeable with this plan. Critical Care I have personally spent 36 minutes of critical care time in the direct management of this patient. This includes bedside care, interpretation of diagnostic studies, and testing, discussion with consultants, patient, and other required patient management activities. These 36 minutes is in excess of all separately billable procedures. Past Med/Surg History Medical History Adjustment disorder with depressed mood Atrial fibrillation CAD (coronary artery disease) COPD (chronic obstructive pulmonary disease) History of tobacco use ICD (implantable cardioverter-defibrillator) in place Surgical History Status post coronary artery bypass graft Social History Smoking Status: Former smoker Hx Alcohol Use: No Hx Substance Use: No Preferred Language: Lithuanian Math Instructor Required: No Beliefs That Will Affect Care: None marital status: Current Living Situation: [facility] How many Children do You have: 1 Feels Safe at Home: Yes Assistive Devices: Glasses and Mechanical Lift Allergies Allergies Allergy/AdvReac Type Severity Reaction Status Date / Time No Known Allergies Allergy Unverified 11/02/20 18:03 Home Meds Home Medications Medication Instructions Recorded Confirmed acetaminophen 325 mg tablet 650 mg PO Q4 PRN Fever Or Pain 11/02/20 11/02/20 (Tylenol) acetaminophen 500 mg tablet 500 mg PO TID 11/02/20 11/02/20 (Tylenol Extra Strength) bupropion HCl 150 mg 24 hr tablet, 150 mg PO QAM 11/02/20 11/02/20 extended release calcium carbonate 500 1 tab PO Q6 PRN Indigestion 11/02/20 11/02/20 mg-simethicone 20 mg chewable tablet carbamide peroxide 10 % oral rinse 0 ml mucous membrane .Q2HR PRN 11/02/20 11/02/20 DISCOMFORT carvedilol 6.25 mg tablet 6.25 mg PO AMHS 11/02/20 11/02/20 cholecalciferol (vitamin D3) 25 25 mcg PO DAILY 11/02/20 11/02/20 mcg (1,000 unit) tablet (Vitamin D3) docusate sodium 100 mg tablet 100 mg PO DAILY 11/02/20 11/02/20 guaifenesin 100 mg/5 mL oral syrup 200 mg PO Q4H PRN Cough 11/02/20 11/02/20 ipratropium 0.5 mg-albuterol 3 mg 3 ml inhalation Q4 PRN Shortness 11/02/20 11/02/20 (2.5 mg base)/3 mL nebulization Of Breath Or Wheezing soln magnesium hydroxide 400 mg/5 mL 400 mg PO DAILY PRN Constipation 11/02/20 oral suspension (Milk of Magnesia) simvastatin 80 mg tablet 80 mg PO PM 11/02/20 11/02/20 sodium phosphates 19 gram-7 118 ml SC DAILY PRN Constipation 11/02/20 11/02/20 gram/118 mL enema (Fleet Enema) warfarin 2 mg tablet 2 mg PO TU@1600 11/02/20 11/02/20 warfarin 4 mg tablet 4 mg PO SUMOWETHFRSA@1600 11/02/20 11/02/20 Previous Rx's Medication Instructions Recorded lisinopril 10 mg tablet 10 mg PO QAM #30 tabs 11/05/20 Results & Data (ED) Vital Signs Vital Signs - 24 hr 03/24/23 03:58 03/24/23 04:04 03/24/23 04:00 Pulse Rate 100 H 100 H Pulse Rate [Apical] Pulse Rate from SpO2 Sensor Pulse Rhythm Regular Pulse Rhythm [Apical] Pulse Strength Normal Respiratory Rate 41 H 35 H Respiratory Effort / Characteristics Spontaneous Labored Short of Breath Spontaneous Labored Spontaneous Short of Breath Respiratory Depth Normal Shallow Respiratory Pattern Rapid/Shallow Tachypnea Tachypnea Blood Pressure 112/86 Blood Pressure [Right Arm] Blood Pressure Mean 94 Blood Pressure Mean [Right Arm] Blood Pressure Position Sitting Pulse Oximetry 94 91 Oxygen Delivery Method BiPAP BiPAP Fraction of Inspired Oxygen 40 Sepsis Recent Fever Within 48 Hours No Sepsis New/Unexplained Change in Mental Status N/A Sepsis Action Taken by Nursing No Action Required 03/24/23 04:28 03/24/23 04:07 03/24/23 04:17 Pulse Rate 102 H 113 H Pulse Rate [Apical] 101 H Pulse Rate from SpO2 Sensor 100 H Pulse Rhythm Pulse Rhythm [Apical] Pulse Strength Respiratory Rate 34 H 34 H Respiratory Effort / Characteristics Spontaneous Short of Breath Respiratory Depth Respiratory Pattern Blood Pressure 120/84 Blood Pressure [Right Arm] Blood Pressure Mean 96 Blood Pressure Mean [Right Arm] Blood Pressure Position Pulse Oximetry 91 94 Oxygen Delivery Method BiPAP BiPAP Fraction of Inspired Oxygen 40 Sepsis Recent Fever Within 48 Hours Sepsis New/Unexplained Change in Mental Status Sepsis Action Taken by Nursing 03/24/23 04:30 03/24/23 05:00 03/24/23 05:08 Pulse Rate 103 H 91 H 93 H Pulse Rate [Apical] Pulse Rate from SpO2 Sensor 104 H 91 H 87 Pulse Rhythm Pulse Rhythm [Apical] Pulse Strength Respiratory Rate 29 H 36 H 39 H Respiratory Effort / Characteristics Respiratory Depth Respiratory Pattern Blood Pressure 112/75 91/68 L 103/71 Blood Pressure [Right Arm] Blood Pressure Mean 87 75 81 Blood Pressure Mean [Right Arm] Blood Pressure Position Pulse Oximetry 96 93 91 Oxygen Delivery Method BiPAP BiPAP BiPAP Fraction of Inspired Oxygen Sepsis Recent Fever Within 48 Hours Sepsis New/Unexplained Change in Mental Status Sepsis Action Taken by Nursing 03/24/23 05:44 03/24/23 05:30 03/24/23 05:30 Pulse Rate 91 H Pulse Rate [Apical] 88 Pulse Rate from SpO2 Sensor 91 H Pulse Rhythm Pulse Rhythm [Apical] Regular Pulse Strength Respiratory Rate 30 H 35 H Respiratory Effort / Characteristics Accessory Muscle Use Labored Respiratory Depth Deep Respiratory Pattern Tachypnea Blood Pressure 92/67 L Blood Pressure [Right Arm] 103/68 Blood Pressure Mean 71 Blood Pressure Mean [Right Arm] 79 Blood Pressure Position Pulse Oximetry 90 Oxygen Delivery Method BiPAP Fraction of Inspired Oxygen 50 Sepsis Recent Fever Within 48 Hours Sepsis New/Unexplained Change in Mental Status Sepsis Action Taken by Nursing 03/24/23 05:47 Pulse Rate 88 Pulse Rate [Apical] Pulse Rate from SpO2 Sensor 87 Pulse Rhythm Pulse Rhythm [Apical] Pulse Strength Respiratory Rate 29 H Respiratory Effort / Characteristics Respiratory Depth Respiratory Pattern Blood Pressure 104/66 Blood Pressure [Right Arm] Blood Pressure Mean 78 Blood Pressure Mean [Right Arm] Blood Pressure Position Pulse Oximetry 90 Oxygen Delivery Method BiPAP Fraction of Inspired Oxygen 50 Sepsis Recent Fever Within 48 Hours Sepsis New/Unexplained Change in Mental Status Sepsis Action Taken by Nursing Laboratory Data 03/24/23 04:10 03/24/23 04:10 Lab Results 03/24/23 03/24/23 03/24/23 Range/Units 04:10 04:10 04:10 WBC 10.57 (4.8-10.8) K/ul RBC 4.98 (4.70-6.10) M/uL Hgb 15.8 (14.0-18.0) g/dl Hct 49.6 (42.0-52.0) % MCV 99.6 (80.0-100.0) fL MCH 31.7 (25.0-34.0) pg MCHC 31.9 L (32.0-36.0) g/dL RDW Std Deviation 55.2 H (36.4-46.3) fL RDW Coeff of Reyna 15.0 H (11.5-14.5) % Plt Count 210 (130-400) K/uL MPV 11.3 (9.4-12.4) fL Immature Gran % (Auto) 1.2 % Neut % (Auto) 69.5 % Lymph % (Auto) 22.6 % [place] % (Auto) 5.8 % Eos % (Auto) 0.7 % Baso % (Auto) 0.2 % Neut # (Auto) 7.35 H (1.40-6.50) K/uL Lymph # (Auto) 2.39 (1.20-3.40) K/uL [place] # (Auto) 0.61 H (0.11-0.59) K/uL Eos # (Auto) 0.07 (0.00-0.50) K/uL Baso # (Auto) 0.02 (0.00-0.20) K/uL Immature Gran # (Auto) 0.13 (0.01-0.20) K/uL PT 24.0 H (9.0-12.0) Seconds INR 2.3 H (0.9-1.1) APTT 26.8 (21.0-31.0) Seconds PTT Ratio 1.0 VBG pH (7.36-7.41) VBG pCO2 (38-50) mmHg VBG pO2 mmHg VBG HCO3 mmol/L VBG O2 Saturation % VBG Base Excess mEq/L Sodium 130 L (136-145) mmol/L Potassium 6.3 H* (3.5-5.1) mmol/L Chloride 97 L (98-107) mmol/L Carbon Dioxide 26 (21-32) mmol/L Anion Gap 7 (3-11) BUN 23 (6-23) mg/dl Creatinine 1.30 (0.6-1.4) mg/dl Est Cr Clr Drug Dosing Not Reportable Est GFR ( Amer) 60.6 ml/min Est GFR (Non-Af Amer) 52.3 ml/min BUN/Creatinine Ratio 17.7 (10-20) Glucose 303 H* (70-99(Fasting)) mg/dl POC Glucose (70-99) mg/dl Lactate (0.4-2.0) mmol/L Calcium 8.2 L (8.6-10.3) mg/dl Magnesium 2.1 (1.7-2.4) mg/dl Total Bilirubin 1.0 (0.2-1.0) mg/dl AST 53 H (13-39) U/L ALT 58 H (7-52) U/L Alkaline Phosphatase 89 (34-104) U/L Troponin I High Sens 122.8 H* (0-20) pg/ml B-Natriuretic Peptide (0-100) pg/ml Total Protein 6.8 (6.0-8.3) gm/dl Albumin 3.9 (3.4-5.0) gm/dl Globulin 2.9 (2.5-4.0) gm/dl Albumin/Globulin Ratio 1.3 (0.9-2) Procalcitonin (0-0.5) ng/ml Adenovirus (PCR) (NotDetected) B. pertussis DNA (PCR) (NotDetected) B.parapertussis DNA PCR (NotDetected) C. pneumoniae DNA (PCR) (NotDetected) Coronavirus OC43 (PCR) (NotDetected) Coronavirus HKU1 (PCR) (NotDetected) Coronavirus 229E (PCR) (NotDetected) SARS-CoV-2 (PCR) (NotDetected) Coronavirus NL63 (PCR) (NotDetected) Human Metapneumovir PCR (NotDetected) Influenza Type A (PCR) (NotDetected) Influenza Type B (PCR) (NotDetected) M. pneumoniae (PCR) (NotDetected) Parainfluenza 1 (PCR) (NotDetected) Parainfluenza 2 (PCR) (NotDetected) Parainfluenza 3 (PCR) (NotDetected) Parainfluenza 4 (PCR) (NotDetected) RSV (PCR) (NotDetected) Entero/Rhino (PCR) (NotDetected) 03/24/23 03/24/23 03/24/23 Range/Units 04:10 04:10 04:10 WBC (4.8-10.8) K/ul RBC (4.70-6.10) M/uL Hgb (14.0-18.0) g/dl Hct (42.0-52.0) % MCV (80.0-100.0) fL MCH (25.0-34.0) pg MCHC (32.0-36.0) g/dL RDW Std Deviation (36.4-46.3) fL RDW Coeff of Reyna (11.5-14.5) % Plt Count (130-400) K/uL MPV (9.4-12.4) fL Immature Gran % (Auto) % Neut % (Auto) % Lymph % (Auto) % [place] % (Auto) % Eos % (Auto) % Baso % (Auto) % Neut # (Auto) (1.40-6.50) K/uL Lymph # (Auto) (1.20-3.40) K/uL [place] # (Auto) (0.11-0.59) K/uL Eos # (Auto) (0.00-0.50) K/uL Baso # (Auto) (0.00-0.20) K/uL Immature Gran # (Auto) (0.01-0.20) K/uL PT (9.0-12.0) Seconds INR (0.9-1.1) APTT (21.0-31.0) Seconds PTT Ratio VBG pH 7.19 L (7.36-7.41) VBG pCO2 76 H (38-50) mmHg VBG pO2 68 mmHg VBG HCO3 29 mmol/L VBG O2 Saturation 90.1 % VBG Base Excess -1.2 mEq/L Sodium (136-145) mmol/L Potassium (3.5-5.1) mmol/L Chloride (98-107) mmol/L Carbon Dioxide (21-32) mmol/L Anion Gap (3-11) BUN (6-23) mg/dl Creatinine (0.6-1.4) mg/dl Est Cr Clr Drug Dosing Est GFR ( Amer) ml/min Est GFR (Non-Af Amer) ml/min BUN/Creatinine Ratio (10-20) Glucose (70-99(Fasting)) mg/dl POC Glucose (70-99) mg/dl Lactate (0.4-2.0) mmol/L Calcium (8.6-10.3) mg/dl Magnesium (1.7-2.4) mg/dl Total Bilirubin (0.2-1.0) mg/dl AST (13-39) U/L ALT (7-52) U/L Alkaline Phosphatase (34-104) U/L Troponin I High Sens (0-20) pg/ml B-Natriuretic Peptide 813 H (0-100) pg/ml Total Protein (6.0-8.3) gm/dl Albumin (3.4-5.0) gm/dl Globulin (2.5-4.0) gm/dl Albumin/Globulin Ratio (0.9-2) Procalcitonin 0.06 (0-0.5) ng/ml Adenovirus (PCR) (NotDetected) B. pertussis DNA (PCR) (NotDetected) B.parapertussis DNA PCR (NotDetected) C. pneumoniae DNA (PCR) (NotDetected) Coronavirus OC43 (PCR) (NotDetected) Coronavirus HKU1 (PCR) (NotDetected) Coronavirus 229E (PCR) (NotDetected) SARS-CoV-2 (PCR) (NotDetected) Coronavirus NL63 (PCR) (NotDetected) Human Metapneumovir PCR (NotDetected) Influenza Type A (PCR) (NotDetected) Influenza Type B (PCR) (NotDetected) M. pneumoniae (PCR) (NotDetected) Parainfluenza 1 (PCR) (NotDetected) Parainfluenza 2 (PCR) (NotDetected) Parainfluenza 3 (PCR) (NotDetected) Parainfluenza 4 (PCR) (NotDetected) RSV (PCR) (NotDetected) Entero/Rhino (PCR) (NotDetected) 03/24/23 03/24/23 03/24/23 Range/Units 04:11 04:29 05:47 WBC (4.8-10.8) K/ul RBC (4.70-6.10) M/uL Hgb (14.0-18.0) g/dl Hct (42.0-52.0) % MCV (80.0-100.0) fL MCH (25.0-34.0) pg MCHC (32.0-36.0) g/dL RDW Std Deviation (36.4-46.3) fL RDW Coeff of Reyna (11.5-14.5) % Plt Count (130-400) K/uL MPV (9.4-12.4) fL Immature Gran % (Auto) % Neut % (Auto) % Lymph % (Auto) % [place] % (Auto) % Eos % (Auto) % Baso % (Auto) % Neut # (Auto) (1.40-6.50) K/uL Lymph # (Auto) (1.20-3.40) K/uL [place] # (Auto) (0.11-0.59) K/uL Eos # (Auto) (0.00-0.50) K/uL Baso # (Auto) (0.00-0.20) K/uL Immature Gran # (Auto) (0.01-0.20) K/uL PT (9.0-12.0) Seconds INR (0.9-1.1) APTT (21.0-31.0) Seconds PTT Ratio VBG pH (7.36-7.41) VBG pCO2 (38-50) mmHg VBG pO2 mmHg VBG HCO3 mmol/L VBG O2 Saturation % VBG Base Excess mEq/L Sodium (136-145) mmol/L Potassium (3.5-5.1) mmol/L Chloride (98-107) mmol/L Carbon Dioxide (21-32) mmol/L Anion Gap (3-11) BUN (6-23) mg/dl Creatinine (0.6-1.4) mg/dl Est Cr Clr Drug Dosing Est GFR ( Amer) ml/min Est GFR (Non-Af Amer) ml/min BUN/Creatinine Ratio (10-20) Glucose (70-99(Fasting)) mg/dl POC Glucose 143 H (70-99) mg/dl Lactate 3.1 H* (0.4-2.0) mmol/L Calcium (8.6-10.3) mg/dl Magnesium (1.7-2.4) mg/dl Total Bilirubin (0.2-1.0) mg/dl AST (13-39) U/L ALT (7-52) U/L Alkaline Phosphatase (34-104) U/L Troponin I High Sens (0-20) pg/ml B-Natriuretic Peptide (0-100) pg/ml Total Protein (6.0-8.3) gm/dl Albumin (3.4-5.0) gm/dl Globulin (2.5-4.0) gm/dl Albumin/Globulin Ratio (0.9-2) Procalcitonin (0-0.5) ng/ml Adenovirus (PCR) Not Detected (NotDetected) B. pertussis DNA (PCR) Not Detected (NotDetected) B.parapertussis DNA PCR Not Detected (NotDetected) C. pneumoniae DNA (PCR) Not Detected (NotDetected) Coronavirus OC43 (PCR) Not Detected (NotDetected) Coronavirus HKU1 (PCR) Not Detected (NotDetected) Coronavirus 229E (PCR) Not Detected (NotDetected) SARS-CoV-2 (PCR) Not Detected (NotDetected) Coronavirus NL63 (PCR) Not Detected (NotDetected) Human Metapneumovir PCR Not Detected (NotDetected) Influenza Type A (PCR) Not Detected (NotDetected) Influenza Type B (PCR) Not Detected (NotDetected) M. pneumoniae (PCR) Not Detected (NotDetected) Parainfluenza 1 (PCR) Not Detected (NotDetected) Parainfluenza 2 (PCR) Not Detected (NotDetected) Parainfluenza 3 (PCR) Not Detected (NotDetected) Parainfluenza 4 (PCR) Not Detected (NotDetected) RSV (PCR) Not Detected (NotDetected) Entero/Rhino (PCR) Not Detected (NotDetected) Administered Medications Discontinued Medications Albuterol (Albut/Ipratrop 3mg/0.5mg Neb 3 Ml Vial) 12 ml INH ONE STA Stop: 03/24/23 04:03 Last Admin: 03/24/23 04:08 Dose: 12 ml Documented By: LAUREANO Furosemide (Furosemide 40 Mg/4 Ml Vial) 40 mg IV ONE ONE Stop: 03/24/23 04:40 Last Admin: 03/24/23 05:04 Dose: 40 mg Documented By: LAUREANO Ceftriaxone Sodium (Rocephin) 2,000 mg in 70 mls @ 140 mls/hr IV NOW STA Stop: 03/24/23 05:08 Last Infusion: 03/24/23 05:27 Dose: 0 mls/hr Documented By: Admin: 03/24/23 05:04 Dose: 140 mls/hr Documented By: LAUREANO Calcium Gluconate () 1,000 mg in 60 mls @ 240 mls/hr IV Q15M TONYA Stop: 03/24/23 05:29 Last Infusion: 03/24/23 05:51 Dose: 0 mls/hr Documented By: Admin: 03/24/23 05:29 Dose: 240 mls/hr Documented By: Infusion: 03/24/23 05:29 Dose: 240 mls/hr Documented By: Admin: 03/24/23 05:15 Dose: 240 mls/hr Documented By: LAUREANO Insulin Human Regular (Novolin-R Insulin Per Unit Charge) 10 units IV NOW STA Stop: 03/24/23 04:59 Last Admin: 03/24/23 05:14 Dose: 10 units Documented By: LAUREANO Co-signed By: AW Discharge Plan Visit Data Chief Complaint: Respiratory Distress Stated Complaint: SOB ED Provider: Charles Herring Discharge Problem: Respiratory failure, COPD (chronic obstructive pulmonary disease), Fluid overload, Elevated troponin, Acute hyperkalemia Patient Disposition: Being Evaluated by Hospitalist Forms Stand Alone Forms: [employer] Prescriptions Prescriptions: No Action carvedilol 6.25 mg Tablet 6.25 mg PO AMHS Rx Instructions: HOLD IF SBP <100 OR PULSE < 60 PER MIN simvastatin 80 mg Tablet 80 mg PO PM acetaminophen [Tylenol Extra Strength] 500 mg Tablet 500 mg PO TID warfarin 4 mg Tablet 4 mg PO SUMOWETHFRSA@1600 Rx Instructions: TAKE ALL DAYS EXCEPT WEDNESDAY TAKE 2 MG. START 11/02/20 warfarin 2 mg Tablet 2 mg PO TU@1600 Rx Instructions: START ON 11/05/20 docusate sodium 100 mg Tablet 100 mg PO DAILY bupropion HCl 150 mg Tablet Extended Release 24 Hr 150 mg PO QAM cholecalciferol (vitamin D3) [Vitamin D3] 25 mcg (1,000 unit) Tablet 25 mcg PO DAILY acetaminophen [Tylenol] 325 mg Tablet 650 mg PO Q4 PRN (Reason: Fever Or Pain) ipratropium-albuterol 0.5 mg-3 mg(2.5 mg base)/3 mL solution for nebulization 3 ml INHALATION Q4 PRN (Reason: Shortness Of Breath Or Wheezing) carbamide peroxide 10 % Solution 0 ml MUCOUS MEMBRANE .Q2HR PRN (Reason: DISCOMFORT) magnesium hydroxide [Milk of Magnesia] 400 mg/5 mL Suspension 400 mg PO DAILY PRN (Reason: Constipation) Rx Instructions: IF NO BM FOR 4 DAYS calcium carbonate-simethicone 500-20 mg Tablet,Chewable 1 tab PO Q6 PRN (Reason: Indigestion) Fleet Enema 19-7 gram/118 mL Enema 118 ml SC DAILY PRN (Reason: Constipation) Rx Instructions: IF DULCOLAX SUPP NOT EFFECTIVE PER BOWEL PROTOCOL guaifenesin 100 mg/5 mL Syrup 200 mg PO Q4H PRN (Reason: Cough) Rx Instructions: END DATE 11/03/20 lisinopril 10 mg Tablet 10 mg PO QAM Qty: 30 0RF [facility] - Respiratory failure Qualifiers: Chronicity: acute Respiratory failure complication: hypoxia and hypercapnia Qualified Code(s): J96.01 - Acute respiratory failure with hypoxia
[2023-03-24 04:20] LABS: Base Excess VBG -1.2 mEq/L; HCO3 VBG 29 mmol/L; Oxygen Saturation VBG 90.1 %; PCO2 VBG 76 mmHg (38-50); PO2 VBG 68 mmHg; pH VBG 7.19 (7.36-7.41)
[2023-03-24 04:39] LABS: Basophils # (auto) 0.02 K/uL (0.00-0.20); Basophils % (auto) 0.2 %; Eosinophils # (auto) 0.07 K/uL (0.00-0.50); Eosinophils % (auto) 0.7 %; Hematocrit (blood only) 49.6 % (42.0-52.0); Hemoglobin 15.8 g/dl (14.0-18.0); Immature Granulocytes # (auto) 0.13 K/uL (0.01-0.20); Immature Granulocytes % (auto) 1.2 %; Lymphocytes # (auto) 2.39 K/uL (1.20-3.40); Lymphocytes % (auto) 22.6 %; Mean Corpuscular Hemoglobin 31.7 pg (25.0-34.0); Mean Corpuscular Hgb Conc 31.9 g/dL (32.0-36.0); Mean Corpuscular Volume 99.6 fL (80.0-100.0); Mean Platelet Volume 11.3 fL (9.4-12.4); Monocytes # (auto) 0.61 K/uL (0.11-0.59); Monocytes % (auto) 5.8 %; Neutrophils # (auto) 7.35 K/uL (1.40-6.50); Neutrophils % (auto) 69.5 %; Platelet Count 210 K/uL (130-400); RDW Standard Deviation 55.2 fL (36.4-46.3); Red Blood Count 4.98 M/uL (4.70-6.10); White Blood Count 10.57 K/ul (4.8-10.8)
[2023-03-24] MEDS ORDERED: FUROSEMIDE 40 MG/4 ML VIAL IV ONE (04:39)
[2023-03-24] MEDS ORDERED: cefTRIAXone SODIUM 2,000 MG/70 ML BAG IV STA (04:39)
[2023-03-24] MEDS ORDERED: NovoLIN-R INSULIN PER UNIT CHARGE IV STA (04:58)
[2023-03-24 04:59] LABS: Alanine Aminotransferase 58 U/L (7-52); Albumin Globulin Ratio 1.3 (0.9-2); Albumin Level 3.9 gm/dl (3.4-5.0); Alkaline Phosphatase 89 U/L (34-104); Anion Gap 7 (3-11); Aspartate Aminotransferase 53 U/L (13-39); BUN Creatinine Ratio 17.7 (10-20); Blood Urea Nitrogen 23 mg/dl (6-23); Calcium 8.2 mg/dl (8.6-10.3); Carbon Dioxide 26 mmol/L (21-32); Chloride 97 mmol/L (98-107); Est GFR (African American) 60.6 ml/min; Est GFR (Non-African American) 52.3 ml/min; Globulin 2.9 gm/dl (2.5-4.0); Glucose 303 mg/dl (70-99(Fasting)); INR 2.3 (0.9-1.1); Magnesium 2.1 mg/dl (1.7-2.4); Partial Thromboplastin Time 26.8 Seconds (21.0-31.0); Potassium 6.3 mmol/L (3.5-5.1); Sodium 130 mmol/L (136-145); Total Protein 6.8 gm/dl (6.0-8.3); Troponin I High Sensitivity 122.8 pg/ml (0-20)
[2023-03-24 05:10] LABS: Adenovirus PCR Not Detected (NotDetected); Bordetella parapertussis PCR Not Detected (NotDetected); Bordetella pertussis PCR Not Detected (NotDetected); Chlamydia pneumoniae PCR Not Detected (NotDetected); Coronavirus 229E PCR Not Detected (NotDetected); Coronavirus CoV-2 (COVID19)PCR Not Detected (NotDetected); Coronavirus HKU1 PCR Not Detected (NotDetected); Coronavirus NL63 PCR Not Detected (NotDetected); Coronavirus OC43PCR Not Detected (NotDetected); Human Metapneumovirus PCR Not Detected (NotDetected); Influenza A PCR Not Detected (NotDetected); Influenza B PCR Not Detected (NotDetected); Mycoplasma pneumoniae PCR Not Detected (NotDetected); Parainfluenza Virus 1 PCR Not Detected (NotDetected); Parainfluenza Virus 2 PCR Not Detected (NotDetected); Parainfluenza Virus 3 PCR Not Detected (NotDetected); Parainfluenza Virus 4 PCR Not Detected (NotDetected); Respiratory Syncytial VirusPCR Not Detected (NotDetected); Rhinovirus/Enterovirus PCR Not Detected (NotDetected)
[2023-03-24] MEDS: CALCIUM GLUCONATE 1,000 MG/60 ML BAG IV SCH ×2 (05:15→05:29)
[2023-03-24 06:27] LABS: Appearance Urine Clear (Clear); Bilirubin Urine Negative (Negative); Blood Urine Negative (Negative); Color Urine Yellow; Glucose Urine UA Negative (Negative); Ketones Urine Negative (Negative); Leukocyte Esterase Urine Negative (Negative); Nitrite Urine Negative (Negative); Protein Urine Negative (Negative); Specific Gravity Urine 1.007 (1.000-1.030); Urobilinogen Urine Negative (Negative); pH Urine 5.5 (4.5-7.5)
[2023-03-24 06:44] LABS: iSTAT Arterial Blood Gas HCO3 32 meg/L (19-24); iSTAT Arterial Blood Gas pCO2 64 mmHg (35-46); iSTAT Arterial Blood Gas pH 7.31 (7.35-7.45); iSTAT Arterial Blood Gas pO2 74 mmHg (80-95); iSTAT Carbon Dioxide 34 mmol/L (24-31); iSTAT Hematocrit 47 % (42-52); iSTAT Potassium 4.3 mmol/L (3.3-5.0); iSTAT Sodium 134 mmol/L (135-144)
--- NOTE | 2023-03-24 07:29 | XRay Report ---
SINGLE VIEW CHEST CLINICAL HISTORY: Dyspnea FINDINGS: An AP, portable, upright chest radiograph is compared to study dated 03/24/2023. The patient is status post midline sternotomy. A 3-lead cardiac AICD is unchanged in position. The heart is enla rged noting atherosclerotic calcification of the thoracic aorta. There is pulmonary vascular congesti on with evidence of interstitial edema. There are small pleural effusions with dependent consolidatio n. Trace fluid is seen along the right minor fissure. No pneumothorax is seen. The skeletal structure s are osteopenic. The bony thorax is grossly intact. IMPRESSION: 1. Cardiomegaly and AICD with evidence of congestive failure and pulmonary edema. Radiographic follow -up to resolution is recommended. 2. Small pleural effusions with dependent consolidation. ACT 112: Negative or not required by law. Electronically signed by: Duglas Felton M.D. 03/24/2023 7:28 AM
[2023-03-24 07:46] LABS: Anion Gap 5 (3-11); BUN Creatinine Ratio 19.3 (10-20); Blood Urea Nitrogen 23 mg/dl (6-23); Calcium 8.4 mg/dl (8.6-10.3); Carbon Dioxide 33 mmol/L (21-32); Chloride 97 mmol/L (98-107); Est GFR (African American) 67.4 ml/min; Est GFR (Non-African American) 58.2 ml/min; Glucose 111 mg/dl (70-99(Fasting)); Potassium 4.6 mmol/L (3.5-5.1); Sodium 135 mmol/L (136-145)
--- NOTE | 2023-03-24 08:06 | CT Scan Report ---
CT SCAN OF THE CHEST WITHOUT IV CONTRAST CLINICAL HISTORY: Dyspnea. Congestive heart failure. COMPARISON STUDY: Chest x-ray dated 03/24/2023. TECHNIQUE: CT scan of the thorax was performed from the thoracic inlet to the upper abdomen. Images are reviewed in the axial, sagittal, and coronal planes. IV contrast was not administered for this ex amination as per the referring clinician. A dose lowering technique was utilized [facility]. The examination is degraded by motion artifact, as well as by streak artifact from the arms which could not be elevated above the chest. CT DOSE: 909.95 mGy.cm FINDINGS: Thyroid: Imaged portions of the thyroid gland are normal in size and attenuation. Thoracic aorta: There is atherosclerotic calcification of the thoracic aorta, which is normal in itz jose juan and demonstrates standard 3-vessel arch anatomy. Heart: A cardiac ICD is present in the left chest wall. The patient is status post midline sternotomy . The heart is enlarged and without pericardial effusion. The coronary arteries are densely calcified . Lungs and pleural spaces: Evaluation of the lung parenchyma is degraded by motion artifact. 2. Centrilobular septal thickening indicates congestive failure. Multifocal groundglass opacities thr oughout both lungs likely represent pulmonary edema. There are small pleural effusions with dependent consolidation. Mediastinum: There is no mediastinal lymphadenopathy. Susan: Not well assessed without IV contrast. Axillae: There is no axillary lymphadenopathy. Upper abdomen: There is a small hiatal hernia. The gallbladder is surgically absent. A 2.4 cm periphe rally calcified structure is noted in the hepatic hilum. A 9.3 cm simple-appearing cyst is partially visualized arising from the upper pole of left kidney. Skeletal structures: The skeletal structures are osteopenic. Degenerative change is noted in the shou lders and spine. No lytic or blastic bony lesions are seen. IMPRESSION: 1. Cardiomegaly and AICD with evidence of congestive failure and pulmonary edema. 2. Small pleural effusions with dependent consolidation. Correlate clinically for evidence of superim posed pneumonia. Radiographic follow-up to resolution is recommended. 3. Additional findings as above. ACT 112: Negative or not required by law. Electronically signed by: Duglas Felton M.D. 03/24/2023 8:05 AM
--- NOTE | 2023-03-24 08:09 | History & Physical Report ---
Date of Service March 24, 2023 Assessment & Plan (1) Acute respiratory failure with hypoxia and hypercapnia: Plan: 78-year-old male with past med significant for COPD, chronic systolic CHF, chronic atrial fibrillation on Coumadin, history of CAD, s/p CABG, s/p ICD, hypertension, peripheral vascular disease, hyperlipidemia, prediabetes, GERD, morbid obesity, history of COVID-19, history of stroke with left hemiplegia and bedbound currently residing at [facility] was brought in because of acute respiratory distress. Acute respiratory failure with hypoxia and hypercapnia Acute on chronic systolic CHF COPD exacerbation On home oxygen 2 L in the nighttime and daytime mostly takes off Short of breath since last night 10 PM Initial VBG pH 7.19, PCO2 76. Placed On BiPAP. Repeat [id number] ABG pH 7.31 PCO2 64 Elevated BNP Currently saturating fine on BiPAP Feeling better Pulmonary edema on chest x-ray Acute on chronic systolic CHF EF 25 to 30%. S/p ICD received IV Lasix 40 mg in the ER We will continue with IV Lasix 40 mils twice daily Continue BiPAP We will follow echo S/p Villatoro Follow daily weights and I's and O's Cardiology consulted Close monitoring telemetry floor COPD exacerbation Possible Placed on IV Solu-Medrol, nebs [id number] and as needed Continue home inhalers Empiric antibiotics Zosyn and doxycycline We will follow CT chest rule out any underlying pneumonia Respiratory bio fire negative MRSA screen Pulmonary consulted Hyperkalemia Potassium 6.3 Received insulin and dextrose and IV calcium gluconate We will follow repeat labs We will hold the potassium supplement and lisinopril Low potassium diet Consult nephrology Non-ST elevated MO Denies any chest pain Initial troponin 122. Repeat 1037 On Coumadin INR therapeutic On beta-felisha We will follow echo We will keep him n.p.o. for now Cardiology consulted Close monitor Elevated lactic acid Mostly from hypoxia On empiric antibiotics Blood pressure okay Repeat levels normalized. Chronic atrial fibrillation On Coreg and Coumadin INR 2.3 Monitor PT/INR CAD s/p CABG On Coreg, statin and Coumadin Follow echo Hypertension Coreg with holding parameters Holding lisinopril We will monitor Hyperlipidemia On statin History of CVA Left hemiplegia Bedbound On statin and Coumadin Peripheral vascular disease On statin and Coumadin Prediabetes we will follow HbA1c levels Monitor blood sugars Insulin sliding scale for now DVT prophylaxis On Coumadin and INR therapeutic Disposition Telemetry floor CODE STATUS DNR/DNI as per discussion with the patient and also and also the custodial. History of Present Illness Chief Complaint: Acute respiratory failure Primary Care Provider: Lurdes Salter MD 78-year-old male with past med significant for COPD, chronic systolic CHF, chronic atrial fibrillation on Coumadin, history of CAD, s/p CABG, s/p ICD, hypertension, peripheral vascular disease, hyperlipidemia, prediabetes, GERD, morbid obesity, history of COVID-19, history of stroke with left hemiplegia and bedbound currently residing at [facility] was brought in because of acute respiratory distress. Patient feeling short of breath since last night 10 PM but progressively got worse. As per nursing staff complaining of short of breaths nighttime was nothing unusual for the patient. Someone goes and sits with him he gets relax and does okay. Uses 2 L oxygen at nighttime. Daytime generally takes of the oxygen most of the time as per nursing staff. Last night also complained of shortness of breath but got progressively worse they could not bring up his oxygen saturations. Seems saturating only 50%. Was placed on 100% nonrebreather and brought to the ER. Oxygen sats improved to low 90's by the time was brought to Er. In the ER he was placed on BiPAP and saturating okay. Patient is DNR/DNI. Patient alert and awake. Says he has been short of breath since last night 10 PM. Has cough which seems to be chronic. Denies any fevers. No nausea or vomiting. Denies Chest pains. No abdominal pain. States micturating okay. States had a normal bowel movement yesterday morning. Denies any headaches. He is on regular diet as per custodial. They use lift to put to put him on wheelchair. Later came to ER and agrees with DNR/DNI status. Past medical history as mentioned above Past surgical history. CABG. S/p ICD. Lead revision due to RV lead fracture Social history. Currently living at [facility]. Quit smoking 2015. No alcohol use. No drug use. Family history. No family history on file Allergies Allergy/AdvReac Type Severity Reaction Status Date / Time No Known Allergies Allergy Unverified 11/02/20 18:03 Home Medications Medication Instructions Recorded Confirmed Type acetaminophen 500 mg tablet 500 mg PO BID 03/24/23 03/24/23 History atorvastatin 40 mg tablet 40 mg PO HS 03/24/23 03/24/23 History carvedilol 3.125 mg tablet 3.125 mg PO BID 03/24/23 03/24/23 History fluticasone 250 mcg-salmeterol 50 1 inh inhalation BID 03/24/23 03/24/23 History mcg/dose blistr powdr for inhalation fluticasone 500 mcg-salmeterol 50 1 inh inhalation BID 03/24/23 03/24/23 History mcg/dose blistr powdr for inhalation ipratropium 0.5 mg-albuterol 3 mg 3 ml inhalation Q4H PRN Shortness 03/24/23 03/24/23 History (2.5 mg base)/3 mL nebulization Of Breath Or Wheezing soln lisinopril 2.5 mg tablet 2.5 mg PO DAILY 03/24/23 03/24/23 History potassium chloride 10 mEq 10 meq PO DAILY 03/24/23 03/24/23 History capsule,extended release sennosides 8.6 mg tablet (senna) 8.6 mg PO HS 03/24/23 03/24/23 History warfarin 2 mg tablet 2 mg PO UD 03/24/23 03/24/23 History warfarin 4 mg tablet 4 mg PO UD 03/24/23 03/24/23 History Past Med/Surg History Medical History Adjustment disorder with depressed mood Atrial fibrillation CAD (coronary artery disease) COPD (chronic obstructive pulmonary disease) History of tobacco use ICD (implantable cardioverter-defibrillator) in place Surgical History Status post coronary artery bypass graft Social History Smoking Status: Former smoker Hx Alcohol Use: No Hx Substance Use: No Preferred Language: [place] Lieutenant Governor Required: No Beliefs That Will Affect Care: None marital status: Current Living Situation: Snf How many Children do You have: 1 Feels Safe at Home: Yes Assistive Devices: Glasses and Mechanical Lift Review of Systems Review of Systems: All systems reviewed & are unremarkable except as noted in HPI & below Physical Exam Physical Exam: General- Currently not in distress Head- atraumatic Eyes- PERRL. Neck- supple, no JVD Lungs- Diminished breath sounds bilaterally, No obvious wheezing or crackles heard. Heart- regular rhythm; no murmur, no gallop. Abdomen- normal bowel sounds, soft, nontender, no distension. Extremities- b/l lower extremity edema present. No erythema seen. Neuro- alert, oriented ; PERRL, no facial palsy; no dysarthria;Left sided weakness. Skin- warm & dry Results & Data Results & Data Vital Signs (Past 12 Hours) Vital Signs Pulse Pulse Resp BP BP Pulse Ox O2 Del Method 03/24/23 06:45 85 27 H 107/68 93 BiPAP 03/24/23 06:30 89 30 H 116/74 93 BiPAP 03/24/23 06:15 89 30 H 123/89 96 BiPAP 03/24/23 06:01 86 32 H 111/73 91 BiPAP 03/24/23 06:00 88 30 H 90 03/24/23 05:47 88 29 H 104/66 90 BiPAP 03/24/23 05:30 91 H 35 H 90 03/24/23 05:30 92/67 L 03/24/23 05:44 88 30 H 103/68 BiPAP 03/24/23 05:08 93 H 39 H 103/71 91 BiPAP 03/24/23 05:00 91 H 36 H 91/68 L 93 BiPAP 03/24/23 04:30 103 H 29 H 112/75 96 BiPAP 03/24/23 04:17 113 H 34 H 120/84 94 BiPAP 03/24/23 04:07 102 H 03/24/23 04:28 101 H 34 H 91 BiPAP 03/24/23 04:00 100 H 35 H 91 03/24/23 04:04 BiPAP 03/24/23 03:58 100 H 41 H 112/86 94 BiPAP FiO2 03/24/23 06:45 45 03/24/23 06:30 45 03/24/23 06:15 45 03/24/23 06:01 50 03/24/23 06:00 03/24/23 05:47 50 03/24/23 05:30 03/24/23 05:30 03/24/23 05:44 50 03/24/23 05:08 03/24/23 05:00 03/24/23 04:30 03/24/23 04:17 03/24/23 04:07 03/24/23 04:28 40 03/24/23 04:00 40 03/24/23 04:04 03/24/23 03:58 Diagnostic Findings Laboratory Results WBC 10.57 K/ul (4.8-10.8) 03/24/23 04:10 RBC 4.98 M/uL (4.70-6.10) 03/24/23 04:10 Hgb 15.8 g/dl (14.0-18.0) 03/24/23 04:10 POC Hgb 16.0 g/dl (14.0-18.0) 03/24/23 06:31 Hct 49.6 % (42.0-52.0) 03/24/23 04:10 POC Hct 47 % (42-52) 03/24/23 06:31 MCV 99.6 fL (80.0-100.0) 03/24/23 04:10 MCH 31.7 pg (25.0-34.0) 03/24/23 04:10 MCHC 31.9 g/dL (32.0-36.0) L 03/24/23 04:10 RDW Std Deviation 55.2 fL (36.4-46.3) H 03/24/23 04:10 RDW Coeff of Reyna 15.0 % (11.5-14.5) H 03/24/23 04:10 Plt Count 210 K/uL (130-400) 03/24/23 04:10 MPV 11.3 fL (9.4-12.4) 03/24/23 04:10 Immature Gran % (Auto) 1.2 % 03/24/23 04:10 Neut % (Auto) 69.5 % 03/24/23 04:10 Lymph % (Auto) 22.6 % 03/24/23 04:10 [place] % (Auto) 5.8 % 03/24/23 04:10 Eos % (Auto) 0.7 % 03/24/23 04:10 Baso % (Auto) 0.2 % 03/24/23 04:10 Neut # (Auto) 7.35 K/uL (1.40-6.50) H 03/24/23 04:10 Lymph # (Auto) 2.39 K/uL (1.20-3.40) 03/24/23 04:10 [place] # (Auto) 0.61 K/uL (0.11-0.59) H 03/24/23 04:10 Eos # (Auto) 0.07 K/uL (0.00-0.50) 03/24/23 04:10 Baso # (Auto) 0.02 K/uL (0.00-0.20) 03/24/23 04:10 Immature Gran # (Auto) 0.13 K/uL (0.01-0.20) 03/24/23 04:10 PT 24.0 Seconds (9.0-12.0) H 03/24/23 04:10 INR 2.3 (0.9-1.1) H 03/24/23 04:10 APTT 26.8 Seconds (21.0-31.0) 03/24/23 04:10 PTT Ratio 1.0 03/24/23 04:10 POC pH 7.31 (7.35-7.45) L 03/24/23 06:31 POC pCO2 64 mmHg (35-46) H 03/24/23 06:31 POC pO2 74 mmHg (80-95) L 03/24/23 06:31 POC HCO3 32 marguerite/L (19-24) H 03/24/23 06:31 POC Total CO2 34 mmol/L (24-31) H 03/24/23 06:31 POC Base Excess 5.0 marguerite/L (-9-1.8) H 03/24/23 06:31 POC ABG O2 Sat 93.0 % (90-95) 03/24/23 06:31 VBG pH 7.19 (7.36-7.41) L 03/24/23 04:10 VBG pCO2 76 mmHg (38-50) H 03/24/23 04:10 VBG pO2 68 mmHg 03/24/23 04:10 VBG HCO3 29 mmol/L 03/24/23 04:10 VBG O2 Saturation 90.1 % 03/24/23 04:10 VBG Base Excess -1.2 mEq/L 03/24/23 04:10 POC Sodium 134 mmol/L (135-144) L 03/24/23 06:31 Sodium 130 mmol/L (136-145) L 03/24/23 04:10 POC Potassium 4.3 mmol/L (3.3-5.0) 03/24/23 06:31 Potassium 6.3 mmol/L (3.5-5.1) H* 03/24/23 04:10 Chloride 97 mmol/L (98-107) L 03/24/23 04:10 Carbon Dioxide 26 mmol/L (21-32) 03/24/23 04:10 Anion Gap 7 (3-11) 03/24/23 04:10 BUN 23 mg/dl (6-23) 03/24/23 04:10 Creatinine 1.30 mg/dl (0.6-1.4) 03/24/23 04:10 Est Cr Clr Drug Dosing Not Reportable 03/24/23 04:10 Est GFR ( Amer) 60.6 ml/min 03/24/23 04:10 Est GFR (Non-Af Amer) 52.3 ml/min 03/24/23 04:10 BUN/Creatinine Ratio 17.7 (10-20) 03/24/23 04:10 Glucose 303 mg/dl (70-99(Fasting)) H* 03/24/23 04:10 POC Glucose 101 mg/dl (70-99) H 03/24/23 07:13 Lactate 1.6 mmol/L (0.4-2.0) 03/24/23 06:18 Calcium 8.2 mg/dl (8.6-10.3) L 03/24/23 04:10 Magnesium 2.1 mg/dl (1.7-2.4) 03/24/23 04:10 Total Bilirubin 1.0 mg/dl (0.2-1.0) 03/24/23 04:10 AST 53 U/L (13-39) H 03/24/23 04:10 ALT 58 U/L (7-52) H 03/24/23 04:10 Alkaline Phosphatase 89 U/L (34-104) 03/24/23 04:10 Troponin I High Sens 1037.3 pg/ml (0-20) H* D 03/24/23 05:55 B-Natriuretic Peptide 813 pg/ml (0-100) H 03/24/23 04:10 Total Protein 6.8 gm/dl (6.0-8.3) 03/24/23 04:10 Albumin 3.9 gm/dl (3.4-5.0) 03/24/23 04:10 Globulin 2.9 gm/dl (2.5-4.0) 03/24/23 04:10 Albumin/Globulin Ratio 1.3 (0.9-2) 03/24/23 04:10 Procalcitonin 0.06 ng/ml (0-0.5) 03/24/23 04:10 Urine Color Yellow 03/24/23 06:10 Urine Appearance Clear (Clear) 03/24/23 06:10 Urine pH 5.5 (4.5-7.5) 03/24/23 06:10 Ur Specific Orr 1.007 (1.000-1.030) 03/24/23 06:10 Urine Protein Negative (Negative) 03/24/23 06:10 Urine Glucose (UA) Negative (Negative) 03/24/23 06:10 Urine Ketones Negative (Negative) 03/24/23 06:10 Urine Blood Negative (Negative) 03/24/23 06:10 Urine Nitrite Negative (Negative) 03/24/23 06:10 Urine Bilirubin Negative (Negative) 03/24/23 06:10 Urine Urobilinogen Negative (Negative) 03/24/23 06:10 Ur Leukocyte Esterase Negative (Negative) 03/24/23 06:10 Adenovirus (PCR) Not Detected (NotDetected) 03/24/23 04:11 B. pertussis DNA (PCR) Not Detected (NotDetected) 03/24/23 04:11 B.parapertussis DNA PCR Not Detected (NotDetected) 03/24/23 04:11 C. pneumoniae DNA (PCR) Not Detected (NotDetected) 03/24/23 04:11 Coronavirus OC43 (PCR) Not Detected (NotDetected) 03/24/23 04:11 Coronavirus HKU1 (PCR) Not Detected (NotDetected) 03/24/23 04:11 Coronavirus 229E (PCR) Not Detected (NotDetected) 03/24/23 04:11 SARS-CoV-2 (PCR) Not Detected (NotDetected) 03/24/23 04:11 Coronavirus NL63 (PCR) Not Detected (NotDetected) 03/24/23 04:11 Human Metapneumovir PCR Not Detected (NotDetected) 03/24/23 04:11 Influenza Type A (PCR) Not Detected (NotDetected) 03/24/23 04:11 Influenza Type B (PCR) Not Detected (NotDetected) 03/24/23 04:11 M. pneumoniae (PCR) Not Detected (NotDetected) 03/24/23 04:11 Parainfluenza 1 (PCR) Not Detected (NotDetected) 03/24/23 04:11 Parainfluenza 2 (PCR) Not Detected (NotDetected) 03/24/23 04:11 Parainfluenza 3 (PCR) Not Detected (NotDetected) 03/24/23 04:11 Parainfluenza 4 (PCR) Not Detected (NotDetected) 03/24/23 04:11 RSV (PCR) Not Detected (NotDetected) 03/24/23 04:11 Entero/Rhino (PCR) Not Detected (NotDetected) 03/24/23 04:11 Impressions Chest X-Ray 03/24/23 04:02 SINGLE VIEW CHEST CLINICAL HISTORY: Dyspnea FINDINGS: An AP, portable, upright chest radiograph is compared to study dated 03/24/2023. The patient is status post midline sternotomy. A 3-lead cardiac AICD is unchanged in position. The heart is enlarged noting atherosclerotic calcification of the thoracic aorta. There is pulmonary vascular congestion with evidence of interstitial edema. There are small pleural effusions with dependent consolidation. Trace fluid is seen along the right minor fissure. No pneumothorax is seen. The skeletal structures are osteopenic. The bony thorax is grossly intact. IMPRESSION: 1. Cardiomegaly and AICD with evidence of congestive failure and pulmonary edema. Radiographic follow-up to resolution is recommended. 2. Small pleural effusions with dependent consolidation. ACT 112: Negative or not required by law. Electronically signed by: Duglas Felton M.D. 03/24/2023 7:28 AM ECG Additional Comments: ECG: Sinus tachycardia rate of 101 with first-degree AV block. Nonspecific intraventricular block Code Status & VTE Plan VTE Prophylaxis Plan VTE Prophylaxis will be ordered: Yes
[2023-03-24] MEDS ORDERED: GLUCOSE 10 TAB/TUBE PO PRN (09:01)
[2023-03-24] MEDS ORDERED: GLUCAGON FOR INJ 1 MG VIAL SQ PRN (09:01)
[2023-03-24] MEDS ORDERED: carvediloL 3.125 MG TAB PO SCH (09:01)
[2023-03-24] MEDS ORDERED: ALBUT/IPRATROP 3MG/0.5MG NEB 3 ML VIAL INH PRN (09:01)
[2023-03-24] MEDS ORDERED: GLUCOSE 40% GEL 15 GM TUBE PO PRN (09:01)
[2023-03-24] MEDS ORDERED: DEXTROSE 50% 50 ML SYRINGE IV PRN (09:01)
[2023-03-24] MEDS ORDERED: NITROGLYCERIN SL 0.4 MG/TAB TAB SL PRN (09:01)
[2023-03-24] MEDS ORDERED: CARBOHYDRATES FOR HYPOGLYCEMIA PO PRN (09:01)
[2023-03-24] MEDS ORDERED: POLYETHYLENE (MIRALAX) 17 GM PACK PO PRN (09:01)
[2023-03-24] MEDS ORDERED: ACETAMINOPHEN 325 MG TAB PO PRN (09:01)
[2023-03-24] MEDS ORDERED: PIPERACILLIN/TAZOBACTAM 4.5 GM in DEXTROSE 5% MINI-B 100 ML IV ONE (09:30)
[2023-03-24] MEDS: ALBUT/IPRATROP 3MG/0.5MG NEB 3 ML VIAL NEB SCH ×4 (09:35→19:04)
[2023-03-24 09:43] LABS: Anion Gap 6 (3-11); BUN Creatinine Ratio 16.8 (10-20); Blood Urea Nitrogen 23 mg/dl (6-23); Calcium 8.4 mg/dl (8.6-10.3); Carbon Dioxide 34 mmol/L (21-32); Chloride 96 mmol/L (98-107); Est GFR (African American) 56.9 ml/min; Est GFR (Non-African American) 49.1 ml/min; Glucose 122 mg/dl (70-99(Fasting)); Potassium 4.6 mmol/L (3.5-5.1); Sodium 136 mmol/L (136-145)
[2023-03-24 09:51] LABS: Troponin I High Sensitivity 1838.6 pg/ml (0-20)
[2023-03-24] MEDS ORDERED: Nursing to Pharmacy Communication SCH (10:15)
[2023-03-24] MEDS: FUROSEMIDE 40 MG/4 ML VIAL IV SCH ×2 (10:21→21:42)
[2023-03-24] MEDS: DOXYCYCLINE HYCLATE 100 MG in DEXTROSE 5% MINI-B 100 ML IV SCH ×2 (10:26→21:33)
[2023-03-24] MEDS: methylPREDNISolone 40 MG in SYRINGE 0 ML IV SCH ×2 (10:59→14:22)
[2023-03-24] MEDS: ACETAMINOPHEN 500 MG TAB PO SCH ×2 (11:00→21:35)
[2023-03-24] MEDS: FLUTICASONE/VILANTEROL 200/25MCG 14 PUFFS/INHALER INH SCH (11:01)
--- NOTE | 2023-03-24 11:06 | Nephrology Consultation ---
Date of Consultation March 24, 2023 Assessment & Plan (1) Acute hyperkalemia: Sec to Pulm edema and worsening acidosis. Now with iv lasix and diureis K is better. With adequate diuresis shoud be fine as his renal function is close to normal. No need of other treatments for high K. There might be some rise in creat in the coming days. trop is very high so can also check total CK. (2) Acute respiratory failure with hypoxia and hypercapnia: Severe underlying problems and now pulm edema on top. responding for now. Continue current management (3) Respiratory failure: (4) Fluid overload: (5) Elevated troponin: Check total CK also. History of Present Illness Reason for Consultation: High K Attending Physician: Pj Munoz MD History of Present Illness 78/M with underlying COPD, chronic systolic CHF EF 25%, chronic atrial fibrillation on Coumadin, s/p CABG, s/p ICD and very poor baseline health morbid obesity, history of COVID-19, history of stroke with left hemiplegia and bedbound sent over from [facility] because of short of breath since last night.Uses 2 L oxygen at nighttime.usual treatment of lasix and o2 did not make him better so was brought to ED. Saturating only 50%. Was placed on 100% nonrebreather and brought to the ER. In the ER he was placed on BiPAP and saturating okay.K was high at 6. with e/o lactic acidosis. Got iv lasix x 2 and now k is normal and he also did make lot of urine. Patient is DNR/DNI.Has cough which seems to be chronic. Denies any fevers. No nausea or vomiting. Denies Chest pains. No abdominal pain. I disucssed with who was present in the room. ROS: All systems reviewed & are unremarkable except as noted in HPI. Positive for SOB, low o2 and cough Allergies Allergy/AdvReac Type Severity Reaction Status Date / Time No Known Allergies Allergy Unverified 11/02/20 18:03 Home Medications Medication Instructions Recorded Confirmed Type acetaminophen 500 mg tablet 500 mg PO BID 03/24/23 03/24/23 History atorvastatin 40 mg tablet 40 mg PO HS 03/24/23 03/24/23 History carvedilol 3.125 mg tablet 3.125 mg PO BID 03/24/23 03/24/23 History fluticasone 250 mcg-salmeterol 50 1 inh inhalation BID 03/24/23 03/24/23 History mcg/dose blistr powdr for inhalation fluticasone 500 mcg-salmeterol 50 1 inh inhalation BID 03/24/23 03/24/23 History mcg/dose blistr powdr for inhalation ipratropium 0.5 mg-albuterol 3 mg 3 ml inhalation Q4H PRN Shortness 03/24/23 03/24/23 History (2.5 mg base)/3 mL nebulization Of Breath Or Wheezing soln lisinopril 2.5 mg tablet 2.5 mg PO DAILY 03/24/23 03/24/23 History potassium chloride 10 mEq 10 meq PO DAILY 03/24/23 03/24/23 History capsule,extended release sennosides 8.6 mg tablet (senna) 8.6 mg PO HS 03/24/23 03/24/23 History warfarin 2 mg tablet 2 mg PO UD 03/24/23 03/24/23 History warfarin 4 mg tablet 4 mg PO UD 03/24/23 03/24/23 History Patient History Medical History Adjustment disorder with depressed mood Atrial fibrillation CAD (coronary artery disease) COPD (chronic obstructive pulmonary disease) History of tobacco use ICD (implantable cardioverter-defibrillator) in place Surgical History Status post coronary artery bypass graft Social History Smoking Status: Former smoker Hx Alcohol Use: No Hx Substance Use: No Preferred Language: Salvadorean Faculty Neuropsychologist Required: No Beliefs That Will Affect Care: None marital status: Current Living Situation: [facility] How many Children do You have: 1 Feels Safe at Home: Yes Assistive Devices: Glasses and Mechanical Lift Results & Data Vital Signs (Past 12 Hours) Vital Signs Temp Pulse Pulse Resp BP BP Pulse Ox 03/24/23 10:49 78 03/24/23 09:52 84 33 H 03/24/23 09:52 84 33 H 45 L 03/24/23 09:00 81 28 H 112/66 95 03/24/23 08:00 79 28 H 117/79 98 03/24/23 08:22 79 03/24/23 07:40 80 28 H 109/75 97 03/24/23 07:15 36.4 C L 83 30 H 109/75 96 03/24/23 07:33 84 30 H 92 03/24/23 06:45 85 27 H 107/68 93 03/24/23 06:30 89 30 H 116/74 93 03/24/23 06:15 89 30 H 123/89 96 03/24/23 06:01 86 32 H 111/73 91 03/24/23 06:00 88 30 H 90 03/24/23 05:47 88 29 H 104/66 90 03/24/23 05:30 91 H 35 H 90 03/24/23 05:30 92/67 L 03/24/23 05:44 88 30 H 103/68 03/24/23 05:08 93 H 39 H 103/71 91 03/24/23 05:00 91 H 36 H 91/68 L 93 03/24/23 04:30 103 H 29 H 112/75 96 03/24/23 04:17 113 H 34 H 120/84 94 03/24/23 04:07 102 H 03/24/23 04:28 101 H 34 H 91 03/24/23 04:00 100 H 35 H 91 03/24/23 04:04 03/24/23 03:58 100 H 41 H 112/86 94 O2 Del Method FiO2 03/24/23 10:49 03/24/23 09:52 45 03/24/23 09:52 BiPAP 03/24/23 09:00 BiPAP 03/24/23 08:00 BiPAP 50 03/24/23 08:22 03/24/23 07:40 BiPAP 50 03/24/23 07:15 BiPAP 50 03/24/23 07:33 45 03/24/23 06:45 BiPAP 45 03/24/23 06:30 BiPAP 45 03/24/23 06:15 BiPAP 45 03/24/23 06:01 BiPAP 50 03/24/23 06:00 03/24/23 05:47 BiPAP 50 03/24/23 05:30 03/24/23 05:30 03/24/23 05:44 BiPAP 50 03/24/23 05:08 BiPAP 03/24/23 05:00 BiPAP 03/24/23 04:30 BiPAP 03/24/23 04:17 BiPAP 03/24/23 04:07 03/24/23 04:28 BiPAP 40 03/24/23 04:00 40 03/24/23 04:04 BiPAP 03/24/23 03:58 BiPAP Laboratory Results reveiwed Diagnostic Findings reveiwed (3) Respiratory failure Chronicity: acute Respiratory failure complication: hypoxia and hypercapnia Qualified Code(s): J96.01 - Acute respiratory failure with hypoxia; J96.02 - Acute respiratory failure with hypercapnia
--- NOTE | 2023-03-24 11:53 | Cardiology Consultation ---
Date of Consultation March 24, 2023 Assessment & Plan (1) Acute respiratory failure with hypoxia and hypercapnia: (2) NSTEMI (non-ST elevated myocardial infarction): (3) Heart failure, systolic, with acute decompensation: (4) Hyperkalemia: (5) Paroxysmal atrial fibrillation: (6) Ischemic cardiomyopathy: (7) History of CVA (cerebrovascular accident): Plan 78-year-old male admitted with acute hypoxic and hypercapnic respiratory failure secondary to acute decompensated systolic congestive heart failure and probable pneumonia, elevated troponin concentration, NSTEMI. Continue IV diuresis with furosemide 40 mg every 12 hours Add aspirin 81 mg/day Replace carvedilol with metoprolol succinate, RE: borderline low blood pressures, observed heart rates, underlying COPD/emphysema Continue atorvastatin 40 mg/day Continue anticoagulation for the PAF, [id number] Score 7 points. Refer for resting echocardiography Interrogate (ActiveReplay) device Agree with antibiotics for suspected pneumonia Daily laboratory work, strict I/O's, baltazar catheter in place, low sodium diet Supervising Physician Co-Signing Physician Notes 78-year-old male admitted with hypoxic and hypercapnic respiratory failure. Patient reports symptoms beginning abruptly last evening. notes several episodes over the past few weeks which spontaneously resolved. Denies chest discomfort or heaviness. No orthopnea, PND, lower extreme edema, or weight gain. Reports cough with scant sputum production. PE: VSS. Gen: NAD, obese. Heart: Regular rhythm, normal S1-S2. No murmur. Lungs: Crackles at the bases bilateral. No wheeze. Extremities: No edema. Neuro: Left-sided paralysis. A/P: Agree with above PA-C history, physical exam, assessment and plan. 78-year-old male admitted with acute on chronic decompensated heart failure with reduced ejection fraction and possible pneumonia. Assess 2D transthoracic echocardiogram. Continue IV diuresis with furosemide 40 mg every 12 hours. Transition carvedilol to metoprolol as noted above due to borderline hypotension. Monitor daily weight, fluid balance, GFR, and electrolytes. History of Present Illness Reason for Consultation: Acute systolic congestive heart failure Requesting Physician: Dr. Arauz Attending Physician: Dr. Munoz History of Present Illness Mr. Forrest Funez is a 78-year-old male resident of [facility] who was transferred to the [facility] ER last in the evening on 03/23/2023 due to acute on chronic shortness of breath with observed hypoxia. Patient initially placed on a nonrebreather mask then BiPAP. Chest x-ray was interpreted by the radiologist as revealing cardiomegaly with evidence of congestive heart failure and pulmonary edema along with small pleural effusions with dependent consolidation. Personal review raises concern for possible right lower lobe infiltrate. CT of the chest also revealed cardiomegaly with evidence of congestive heart failure and pulmonary edema, small pleural effusions with dependent consolidation, possible superimposed pneumonia. Laboratory work in the ER notable for hyperkalemia with a potassium of 6.3. In the ER patient received 40 mg of IV furosemide, insulin and calcium gluconate for the hyperkalemia, and ceftriaxone. Patient admitted with a working diagnosis of acute respiratory failure with hypoxia and hypercapnia secondary to acute on chronic systolic congestive heart failure as well as COPD exacerbation, possible pneumonia. Patient receiving IV furosemide at 40 mg twice per day along with IV Solu- Medrol, nebulizer treatments, Zosyn and doxycycline. Initial EKG revealed wide QRS complex tachycardia, suspected underlying atrial fibrillation/flutter EKG this morning reveals sinus rhythm with a first-degree AV block, nonspecific interventricular conduction block, old inferior infarct, old anterolateral infarct. QRS duration 160 ms High-sensitivity troponin elevated at 122.8 initially, rising to 1037.3 then 1838.6 pg/mL On BiPAP. at bedside. Breathing improved compared to presentation. Patient denies chest pain or angina. No palpitations. No device alarms or discharges noted. Follows with Dr. Ku in [place] Problem List - Multivessel coronary artery disease status post remote CABG circa 2010 - Ischemic cardiomyopathy with NYHA class III CHF, EF 20%, 25 to 30% via October 2022 echo - Status post Biotronik ICD implantation in 2012 with subsequent inappropriate shocks due to lead fracture, Medtronic generator and new RV lead placed at [facility] in 2020 - Paroxysmal atrial fibrillation - History of CVA with left-sided paralysis - Hypertension - Dyslipidemia - Reformed smoker - Hyponatremia - Rheumatoid arthritis Family History: Father with a CVA. Mother with cancer. Social History: Reformed smoker, 50 pack years. No significant alcohol. No illegal drug use. Resident of [facility] x 2 years. Allergies Allergy/AdvReac Type Severity Reaction Status Date / Time No Known Allergies Allergy Unverified 11/02/20 18:03 Home Medications Medication Instructions Recorded Confirmed Type acetaminophen 500 mg tablet 500 mg PO BID 03/24/23 03/24/23 History atorvastatin 40 mg tablet 40 mg PO HS 03/24/23 03/24/23 History carvedilol 3.125 mg tablet 3.125 mg PO BID 03/24/23 03/24/23 History fluticasone 250 mcg-salmeterol 50 1 inh inhalation BID 03/24/23 03/24/23 History mcg/dose blistr powdr for inhalation fluticasone 500 mcg-salmeterol 50 1 inh inhalation BID 03/24/23 03/24/23 History mcg/dose blistr powdr for inhalation ipratropium 0.5 mg-albuterol 3 mg 3 ml inhalation Q4H PRN Shortness 03/24/23 03/24/23 History (2.5 mg base)/3 mL nebulization Of Breath Or Wheezing soln lisinopril 2.5 mg tablet 2.5 mg PO DAILY 03/24/23 03/24/23 History potassium chloride 10 mEq 10 meq PO DAILY 03/24/23 03/24/23 History capsule,extended release sennosides 8.6 mg tablet (senna) 8.6 mg PO HS 03/24/23 03/24/23 History warfarin 2 mg tablet 2 mg PO UD 03/24/23 03/24/23 History warfarin 4 mg tablet 4 mg PO UD 03/24/23 03/24/23 History Patient History Medical History Adjustment disorder with depressed mood Atrial fibrillation CAD (coronary artery disease) COPD (chronic obstructive pulmonary disease) History of tobacco use ICD (implantable cardioverter-defibrillator) in place Surgical History Status post coronary artery bypass graft Social History Smoking Status: Former smoker Smoking End Date: 10 years ago; Second Hand Exposure: No; Tobacco Cessation Education Requested by Patient: No Hx Alcohol Use: No Hx Substance Use: No Preferred Language: Panamanian Communication Ability: Effective Sheet Heater Required: No Beliefs That Will Affect Care: None marital status: Current Living Situation: Other Current Living Situation Comment: [facility] How many Children do You have: 1 Other Information That Helps Us Care for You: No Feels Safe at Home: Yes Safety Concerns: Feels Safe At This Time Assistive Devices: Glasses Review of Systems Review of Systems: A complete and accurate review of systems was unable to be obtained due to the patient's status, on BiPAP Physical Exam Physical Exam: General: Alert to person and place. at bedside. On BiPAP. HENT: Normocephalic. Atraumatic. Eyes: PER. Conjunctiva pink, sclera clear. Neck: Very thick. Neck veins not appreciated. Heart: Slightly irregular, 74 bpm. Systolic murmur. No rub. Lungs: Clear to auscultation anteriorly. Abdomen: +BS. Soft. Nontender. No masses or organomegaly. Extremities: Mild pretibial edema. No clubbing. No cyanosis. Limited neurological examination is without focal deficits. Pulses: Posterior tibial=2/4. Results & Data Vital Signs (Past 12 Hours) Vital Signs Temp Pulse Pulse Pulse Resp BP BP 03/24/23 09:54 37.0 C 75 28 H 112/72 03/24/23 10:49 78 03/24/23 09:52 84 33 H 03/24/23 09:52 84 33 H 03/24/23 09:00 81 28 H 112/66 03/24/23 08:00 79 28 H 117/79 03/24/23 08:22 79 03/24/23 07:40 80 28 H 109/75 03/24/23 07:15 36.4 C L 83 30 H 109/75 03/24/23 07:33 84 30 H 03/24/23 06:45 85 27 H 107/68 03/24/23 06:30 89 30 H 116/74 03/24/23 06:15 89 30 H 123/89 03/24/23 06:01 86 32 H 111/73 03/24/23 06:00 88 30 H 03/24/23 05:47 88 29 H 104/66 03/24/23 05:30 91 H 35 H 03/24/23 05:30 92/67 L 03/24/23 05:44 88 30 H 103/68 03/24/23 05:08 93 H 39 H 103/71 03/24/23 05:00 91 H 36 H 91/68 L 03/24/23 04:30 103 H 29 H 112/75 03/24/23 04:17 113 H 34 H 120/84 03/24/23 04:07 102 H 03/24/23 04:28 101 H 34 H 03/24/23 04:00 100 H 35 H 03/24/23 04:04 03/24/23 03:58 100 H 41 H 112/86 Pulse Ox O2 Del Method FiO2 03/24/23 09:54 99 BiPAP 50 03/24/23 10:49 03/24/23 09:52 45 03/24/23 09:52 45 L BiPAP 03/24/23 09:00 95 BiPAP 03/24/23 08:00 98 BiPAP 50 03/24/23 08:22 03/24/23 07:40 97 BiPAP 50 03/24/23 07:15 96 BiPAP 50 03/24/23 07:33 92 45 03/24/23 06:45 93 BiPAP 45 03/24/23 06:30 93 BiPAP 45 03/24/23 06:15 96 BiPAP 45 03/24/23 06:01 91 BiPAP 50 03/24/23 06:00 90 03/24/23 05:47 90 BiPAP 50 03/24/23 05:30 90 03/24/23 05:30 03/24/23 05:44 BiPAP 50 03/24/23 05:08 91 BiPAP 03/24/23 05:00 93 BiPAP 03/24/23 04:30 96 BiPAP 03/24/23 04:17 94 BiPAP 03/24/23 04:07 03/24/23 04:28 91 BiPAP 40 03/24/23 04:00 91 40 03/24/23 04:04 BiPAP 03/24/23 03:58 94 BiPAP Laboratory Results Cardiac Enzymes 03/24/23 03/24/23 03/24/23 Range/Units 04:10 04:10 05:55 AST 53 H (13-39) U/L Troponin I High Sens 122.8 H* 1037.3 H* D (0-20) pg/ml B-Natriuretic Peptide 813 H (0-100) pg/ml 03/24/23 Range/Units 09:08 AST (13-39) U/L Troponin I High Sens 1838.6 H* D (0-20) pg/ml B-Natriuretic Peptide (0-100) pg/ml Coagulation 03/24/23 03/24/23 Range/Units 04:10 04:10 PT 24.0 H (9.0-12.0) Seconds APTT 26.8 (21.0-31.0) Seconds B-Natriuretic Peptide 813 H (0-100) pg/ml CBC 03/24/23 Range/Units 04:10 WBC 10.57 (4.8-10.8) K/ul RBC 4.98 (4.70-6.10) M/uL Hgb 15.8 (14.0-18.0) g/dl Hct 49.6 (42.0-52.0) % Plt Count 210 (130-400) K/uL Neut # (Auto) 7.35 H (1.40-6.50) K/uL Lymph # (Auto) 2.39 (1.20-3.40) K/uL [place] # (Auto) 0.61 H (0.11-0.59) K/uL Eos # (Auto) 0.07 (0.00-0.50) K/uL Baso # (Auto) 0.02 (0.00-0.20) K/uL Comprehensive Metabolic Panel 03/24/23 03/24/23 03/24/23 Range/Units 04:10 07:15 09:08 Sodium 130 L 135 L 136 (136-145) mmol/L Potassium 6.3 H* 4.6 D 4.6 (3.5-5.1) mmol/L Chloride 97 L 97 L 96 L (98-107) mmol/L Carbon Dioxide 26 33 H 34 H (21-32) mmol/L BUN 23 23 23 (6-23) mg/dl Creatinine 1.30 1.19 1.37 (0.6-1.4) mg/dl Glucose 303 H* 111 H 122 H (70-99(Fasting)) mg/dl Calcium 8.2 L 8.4 L 8.4 L (8.6-10.3) mg/dl AST 53 H (13-39) U/L ALT 58 H (7-52) U/L Alkaline Phosphatase 89 (34-104) U/L Total Protein 6.8 (6.0-8.3) gm/dl Albumin 3.9 (3.4-5.0) gm/dl Intake and Output 03/23/23 03/24/23 03/24/23 22:59 06:59 14:59 Intake Total 190 / 190 Output Total 800 / 800 Balance 190 / 190 -800 / -800 Intake: IV 190 / 190 Calcium Gluconate 1,000 mg In 120 / 120 60 ml @ 240 mls/hr IV Q15M [facility] Rx#:[id number] cefTRIAXone SODIUM 2,000 mg In 70 / 70 70 ml @ 140 mls/hr IV NOW [facility] Rx#:[id number] Output: Urine Amount (Catheter) 800 / 800 Baltazar/Indwelling 800 / 800 Other: Weight 116.4 kg 113.489 kg Weight Measurement Method Built in [facility] Built in [facility] Patient Weight 03/25/23 06:59 Weight 113.489 kg Diagnostic Findings Telemetry: Sinus. Occasional ectopy. Occasional pacing spikes.
[2023-03-24] MEDS ORDERED: INSULIN ASPART PER UNIT CHARGE SC SCH (12:00)
--- NOTE | 2023-03-24 12:28 | Pulmonary Consultation ---
Date of Consultation March 24, 2023 Assessment & Plan (1) Acute respiratory failure with hypoxia and hypercapnia: (2) COPD (chronic obstructive pulmonary disease): (3) Ex-smoker: (4) Pleural effusion: (5) Obesity: Plan CT chest 03/24/2023 personally reviewed: Motion degraded study Bilateral pleural effusion with dependent atelectasis Interlobular thickening and patchy opacities appreciated in the upper as well as the lower lobes likely presenting pulmonary edema Mucus in the trachea Cardiomegaly No significant mediastinal lymphadenopathy 2D echo 11/03/2020: EF 25-30%, mild MR, grade 1 diastolic dysfunction ABG 03/24/2023: 7.31/64/74 -- Acute hypoxic hypercapnic respiratory failure Hypoxia is multifactorial, likely from CHF exacerbation with bilateral pleural effusion Hypercapnia could be from underlying IVANIA as well as central apneas given the systolic CHF O2 supplementation to keep oxygen saturation between 88-92%, do not over oxygenate the patient BiPAP nightly and as needed shortness of breath Respiratory bio fire negative for everything on 03/24/2023 Procalcitonin 0.06 --COPD On Breo 250-50 at home Would recommend to change it to Anoro/Stiolto on discharge -- Ex-smoker > [id number] smoking history Quit at the age of 68 -- 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 Possibility of central sleep apnea is also there given the systolic CHF Patient will benefit from a polysomnography as an outpatient -- Obesity Advised to lose with diet and exercise Plan: Change BiPAP settings to 16/8 with backup rate of 18 Do not over oxygenate the patient, keep saturation between 88-92% Patient does not seem to be in bronchospasm, decrease Solu-Medrol to 40 daily Complete the course of doxycycline for total of 5-7 days Incentive spirometry will be beneficial Mucinex and flutter valve to be added for mucus in the trachea Case was discussed with RN at bedside Please note the above document was generated using voice recognition software. It may contain grammatical, syntax or spelling errors.Any formal questions or concerns about the content, text or information contained within the body of this dictation should be directly addressed to the provider for clarification. History of Present Illness Attending Physician: Pj Munoz MD History of Present Illness 78-year-old male presents to the hospital for shortness of breath Past medical history: Systolic CHF, A-fib on warfarin, coronary artery disease s/p CABG, hypertension, peripheral vascular disease, dyslipidemia, GERD, history of stroke Pulmonary consulted for hypoxia and hypercapnia Patient's was in the room at the time of examination. Patient was saturating 97% on 8 L nasal cannula. I was gradually able to titrate down to 3 L while examining the patient and getting history Patient is a resident of a [place] [facility]. He is on 2-3 L oxygen at home Does not have CPAP/BiPAP. The shortness of breath is better compared to when he presented to the hospital with. Denies any nausea or vomiting. Does complain of cough and is able to bring it up easily Denies any chest congestion No fever or chills No dysuria, no diarrhea No headache, no blurry vision Social history: Greater than [id number] smoking history, quit approximately 10 years ago. 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 History of lung cancer in father was a smoker Allergies Allergy/AdvReac Type Severity Reaction Status Date / Time No Known Allergies Allergy Unverified 11/02/20 18:03 Home Medications Medication Instructions Recorded Confirmed Type acetaminophen 500 mg tablet 500 mg PO BID 03/24/23 03/24/23 History atorvastatin 40 mg tablet 40 mg PO HS 03/24/23 03/24/23 History carvedilol 3.125 mg tablet 3.125 mg PO BID 03/24/23 03/24/23 History fluticasone 250 mcg-salmeterol 50 1 inh inhalation BID 03/24/23 03/24/23 History mcg/dose blistr powdr for inhalation fluticasone 500 mcg-salmeterol 50 1 inh inhalation BID 03/24/23 03/24/23 History mcg/dose blistr powdr for inhalation ipratropium 0.5 mg-albuterol 3 mg 3 ml inhalation Q4H PRN Shortness 03/24/23 03/24/23 History (2.5 mg base)/3 mL nebulization Of Breath Or Wheezing soln lisinopril 2.5 mg tablet 2.5 mg PO DAILY 03/24/23 03/24/23 History potassium chloride 10 mEq 10 meq PO DAILY 03/24/23 03/24/23 History capsule,extended release sennosides 8.6 mg tablet (senna) 8.6 mg PO HS 03/24/23 03/24/23 History warfarin 2 mg tablet 2 mg PO UD 03/24/23 03/24/23 History warfarin 4 mg tablet 4 mg PO UD 03/24/23 03/24/23 History Patient History Medical History Adjustment disorder with depressed mood Atrial fibrillation CAD (coronary artery disease) COPD (chronic obstructive pulmonary disease) History of tobacco use ICD (implantable cardioverter-defibrillator) in place Surgical History Status post coronary artery bypass graft Social History Smoking Status: Former smoker Smoking End Date: 10 years ago; Second Hand Exposure: No; Tobacco Cessation Education Requested by Patient: No Hx Alcohol Use: No Hx Substance Use: No Preferred Language: Divehi Communication Ability: Effective Site Foreman Required: No Beliefs That Will Affect Care: None marital status: Current Living Situation: Other Current Living Situation Comment: [facility] How many Children do You have: 1 Other Information That Helps Us Care for You: No Feels Safe at Home: Yes Safety Concerns: Feels Safe At This Time Assistive Devices: Glasses Review of Systems Review of Systems: All systems reviewed & are unremarkable except as noted in HPI & below Physical Exam Physical Exam: Constitutional: No acute distress HEENT: EOMI, PERRLA, short thick neck Respiratory system: Decreased air entry bilaterally, no wheeze, no rhonchi, pos itive crackles bilateral lower lobes CVS: S1-S2 positive, positive 2 out of 6 systolic murmur appreciated best at aorta Abdomen: Soft, nontender, nondistended, positive bowel sounds x4, obese Extremities: +2 pulses bilaterally radialis/ dorsalis pedis, no cyanosis, +2 pitting edema bilateral lower extremity, left upper extremity 0 out of 5 strength Neuro: Awake alert oriented x3 Psych: Normal mood and affect G/U: Positive Villatoro Skin: no rashes, warm and dry Lymphatic: no cervical or axillary lymphadenopathy Results & Data Results & Data Vital Signs (Past 12 Hours) Vital Signs Temp Pulse Pulse Pulse Resp BP BP 03/24/23 09:54 37.0 C 75 28 H 112/72 03/24/23 10:49 78 03/24/23 09:52 84 33 H 03/24/23 09:52 84 33 H 03/24/23 09:00 81 28 H 112/66 03/24/23 08:00 79 28 H 117/79 03/24/23 08:22 79 03/24/23 07:40 80 28 H 109/75 03/24/23 07:15 36.4 C L 83 30 H 109/75 03/24/23 07:33 84 30 H 03/24/23 06:45 85 27 H 107/68 03/24/23 06:30 89 30 H 116/74 03/24/23 06:15 89 30 H 123/89 03/24/23 06:01 86 32 H 111/73 03/24/23 06:00 88 30 H 03/24/23 05:47 88 29 H 104/66 03/24/23 05:30 91 H 35 H 03/24/23 05:30 92/67 L 03/24/23 05:44 88 30 H 103/68 03/24/23 05:08 93 H 39 H 103/71 03/24/23 05:00 91 H 36 H 91/68 L 03/24/23 04:30 103 H 29 H 112/75 03/24/23 04:17 113 H 34 H 120/84 03/24/23 04:07 102 H 03/24/23 04:28 101 H 34 H 03/24/23 04:00 100 H 35 H 03/24/23 04:04 03/24/23 03:58 100 H 41 H 112/86 Pulse Ox O2 Del Method FiO2 03/24/23 09:54 99 BiPAP 50 03/24/23 10:49 03/24/23 09:52 45 03/24/23 09:52 45 L BiPAP 03/24/23 09:00 95 BiPAP 03/24/23 08:00 98 BiPAP 50 03/24/23 08:22 03/24/23 07:40 97 BiPAP 50 03/24/23 07:15 96 BiPAP 50 03/24/23 07:33 92 45 03/24/23 06:45 93 BiPAP 45 03/24/23 06:30 93 BiPAP 45 03/24/23 06:15 96 BiPAP 45 03/24/23 06:01 91 BiPAP 50 03/24/23 06:00 90 03/24/23 05:47 90 BiPAP 50 03/24/23 05:30 90 03/24/23 05:30 03/24/23 05:44 BiPAP 50 03/24/23 05:08 91 BiPAP 03/24/23 05:00 93 BiPAP 03/24/23 04:30 96 BiPAP 03/24/23 04:17 94 BiPAP 03/24/23 04:07 03/24/23 04:28 91 BiPAP 40 03/24/23 04:00 91 40 03/24/23 04:04 BiPAP 03/24/23 03:58 94 BiPAP Laboratory Results 03/24/23 04:10 03/24/23 09:08 PG Care Time/CCT Total # of Minutes Spent Total Time Spent with Patient: Total time spent is greater than 50% in coordination of care (as documented) at patient's floor/unit and/or counseling patient: Coding Level of Care Code 18115 INT INP/OBS CARE 3/75MIN Diagnoses Acute respiratory failure with hypoxia and hypercapnia J96.01; J96.02 COPD (chronic obstructive pulmonary disease) J44.9 Ex-smoker Z87.891 Pleural effusion J90 Obesity E66.9
--- NOTE | 2023-03-24 12:32 | Electrocardiogram Report ---
Test Reason : Blood Pressure : / mmHG Vent. Rate : 101 BPM Atrial Rate : 101 BPM P-R Int : 210 ms QRS Dur : 182 ms QT Int : 406 ms P-R-T Axes : 038 -11 186 degrees QTc Int : 526 ms Sinus tachycardia with 1st degree A-V block Left bundle branch block Abnormal ECG When compared with ECG of 04-NOV-2020 15:53, Premature ventricular complexes are no longer Present Confirmed by Agustin Craft ([id number]) on 03/24/2023 12:32:21 PM Referred By: Mike Castillo Confirmed By:Jonel Craft
--- NOTE | 2023-03-24 12:37 | Electrocardiogram Report ---
Test Reason : Blood Pressure : / mmHG Vent. Rate : 080 BPM Atrial Rate : 080 BPM P-R Int : 216 ms QRS Dur : 160 ms QT Int : 398 ms P-R-T Axes : 034 -25 160 degrees QTc Int : 459 ms Sinus rhythm with 1st degree A-V block Left bundle branch block Abnormal ECG When compared with ECG of 24-MAR-2023 04:02, (unconfirmed) QT has shortened Confirmed by Agustin Craft ([id number] on 03/24/2023 12:37:03 PM Referred By: Mike Castillo Confirmed By:Jonel Craft
[2023-03-24] MEDS: INSULIN ASPART PER UNIT CHARGE SC SCH ×3 (13:05→21:20)
[2023-03-24] MEDS: PIPERACILLIN/TAZOBACTAM 4.5 GM in DEXTROSE 5% MINI-B 100 ML IV SCH (15:53)
[2023-03-24] MEDS: WARFARIN SOD 4 MG TAB PO SCH (16:10)
[2023-03-24] MEDS: SENNA 8.6 MG TAB PO SCH (21:35)
[2023-03-24] MEDS: ATORVASTATIN 40 MG TAB PO SCH (21:35)
[2023-03-24] MEDS: METOPROLOL SUCC 25MG EXT REL TAB PO SCH (21:35)
[2023-03-24] MEDS: guaiFENesin 600 MG TABCR PO SCH (21:36)
[2023-03-25] MEDS: PIPERACILLIN/TAZOBACTAM 4.5 GM in DEXTROSE 5% MINI-B 100 ML IV SCH ×2 (00:03→07:29)
[2023-03-25] MEDS: ALBUT/IPRATROP 3MG/0.5MG NEB 3 ML VIAL NEB SCH ×4 (07:02→19:39)
[2023-03-25 07:22] LABS: Basophils # (auto) 0.01 K/uL (0.00-0.20); Basophils % (auto) 0.1 %; Hematocrit (blood only) 42.4 % (42.0-52.0); Hemoglobin 14.2 g/dl (14.0-18.0); Immature Granulocytes # (auto) 0.07 K/uL (0.01-0.20); Immature Granulocytes % (auto) 0.6 %; Lymphocytes # (auto) 0.82 K/uL (1.20-3.40); Lymphocytes % (auto) 7.3 %; Mean Corpuscular Hemoglobin 31.8 pg (25.0-34.0); Mean Corpuscular Hgb Conc 33.5 g/dL (32.0-36.0); Mean Corpuscular Volume 94.9 fL (80.0-100.0); Mean Platelet Volume 11.3 fL (9.4-12.4); Monocytes # (auto) 0.59 K/uL (0.11-0.59); Monocytes % (auto) 5.2 %; Neutrophils # (auto) 9.76 K/uL (1.40-6.50); Neutrophils % (auto) 86.8 %; Platelet Count 137 K/uL (130-400); RDW Coefficient of Variation 14.4 % (11.5-14.5); RDW Standard Deviation 50.5 fL (36.4-46.3); Red Blood Count 4.47 M/uL (4.70-6.10); White Blood Count 11.25 K/ul (4.8-10.8)
[2023-03-25 07:27] LABS: Estimated Average Glucose 131 mg/dl; Hemoglobin A1C 6.2 % (4.5-5.6)
[2023-03-25 07:32] LABS: Calcium 8.1 mg/dl (8.6-10.3); Creatinine Clr Calc Pharmacy 59.5 ml/min; Est GFR (African American) 61.1 ml/min; Est GFR (Non-African American) 52.8 ml/min; Potassium 4.2 mmol/L (3.5-5.1)
[2023-03-25 07:53] LABS: INR 2.6 (0.9-1.1); Prothrombin Time 26.9 Seconds (9.0-12.0)
--- NOTE | 2023-03-25 08:00 | Pulmonology Progress Note ---
Date of Service March 25, 2023 Assessment & Plan (1) Acute respiratory failure with hypoxia and hypercapnia: (2) COPD (chronic obstructive pulmonary disease): (3) Ex-smoker: (4) Pleural effusion: (5) Obesity: Plan CT chest 03/24/2023 personally reviewed: Motion degraded study Bilateral pleural effusion with dependent atelectasis Interlobular thickening and patchy opacities appreciated in the upper as well as the lower lobes likely presenting pulmonary edema Mucus in the trachea Cardiomegaly No significant mediastinal lymphadenopathy 2D echo 11/03/2020: EF 25-30%, mild MR, grade 1 diastolic dysfunction ABG 03/24/2023: 7.31/64/74 -- Acute hypoxic hypercapnic respiratory failure Hypoxia is multifactorial, likely from CHF exacerbation with bilateral pleural effusion Hypercapnia could be from underlying IVANIA as well as central apneas given the systolic CHF O2 supplementation to keep oxygen saturation between 88-92%, do not over oxygenate the patient BiPAP nightly and as needed shortness of breath Respiratory bio fire negative for everything on 03/24/2023 Procalcitonin 0.06 --COPD On Breo 250-50 at home Would recommend to change it to Anoro/Stiolto on discharge -- Ex-smoker > [id number] smoking history Quit at the age of 68 -- 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 Possibility of central sleep apnea is also there given the systolic CHF Patient will benefit from a polysomnography as an outpatient -- Obesity Advised to lose with diet and exercise Plan: ABG from today does show improvement compared to yesterday but he still hypercapnic I do think he is going to benefit from BiPAP even when he goes back to [facility]. Would recommend 03/02 with backup rate of 18 and 35% FiO2 Do not over oxygenate the patient, keep saturation between 88-92% Can DC Solu-Medrol start prednisone 40 mg for 3 days followed by 20 mg for 3 days Complete the course of doxycycline for total of 5-7 days Continue with spirometry will be beneficial Continue with Mucinex and flutter valve Case was discussed with RN at bedside Please note the above document was generated using voice recognition software. It may contain grammatical, syntax or spelling errors.Any formal questions or concerns about the content, text or information contained within the body of this dictation should be directly addressed to the provider for clarification. Admission and Anticipated Discharge Date Admission Date: March 24, 2023 Subjective Patient seen and examined at bedside. No acute distress, no adverse events overnight He was saturating 97-98% on 3 L nasal cannula, I went down to 1 L Complaining of pain at the right antecubital fossa where he was getting doxycycline. Nurse was made aware regarding that and that drip. Denies any nausea or vomiting Mild headache. Review of Systems Review of Systems: All systems reviewed & are unremarkable except as noted in Subjective Physical Exam Physical Exam: Constitutional: No acute distress HEENT: EOMI, PERRLA, short thick neck Respiratory system: Decreased air entry bilaterally, no wheeze, no rhonchi, positive crackles bilateral lower lobes CVS: S1-S2 positive, positive 2 out of 6 systolic murmur appreciated best at aorta Abdomen: Soft, nontender, nondistended, positive bowel sounds x4, obese Extremities: +2 pulses bilaterally radialis/ dorsalis pedis, no cyanosis, +2 pitting edema bilateral lower extremity, left upper extremity 0 out of 5 strength Neuro: Awake alert oriented x3 Psych: Normal mood and affect G/U: Positive Villatoro Skin: no rashes, warm and dry Lymphatic: no cervical or axillary lymphadenopathy Results & Data Results & Data Vital Signs (Past 12 Hours) Vital Signs Temp Pulse Pulse Resp BP Pulse Ox O2 Del Method 03/25/23 07:56 63 03/25/23 07:28 36.8 C 61 19 103/57 L 94 Nasal Cannula 03/25/23 07:02 62 29 H 98 03/25/23 07:02 62 29 H 98 BiPAP 03/25/23 05:02 37.0 C 67 18 108/67 94 BiPAP 03/25/23 02:32 26 H 96 03/24/23 22:59 36.6 C 62 20 110/67 97 BiPAP 03/24/23 22:15 28 H 94 O2 Flow Rate FiO2 03/25/23 07:56 03/25/23 07:28 2 03/25/23 07:02 40 03/25/23 07:02 40 03/25/23 05:02 03/25/23 02:32 40 03/24/23 22:59 03/24/23 22:15 40 PG Care Time/CCT Total # of Minutes Spent Total Time Spent with Patient: Total time spent is greater than 50% in coordination of care (as documented) at patient's floor/unit and/or counseling patient: Coding Level of Care Code 18480 SUB INP/OBS CARE 350MIN Diagnoses Acute respiratory failure with hypoxia and hypercapnia J96.01; J96.02 COPD (chronic obstructive pulmonary disease) J44.9 Ex-smoker Z87.891 Pleural effusion J90 Obesity E66.9
[2023-03-25] MEDS: FUROSEMIDE 40 MG/4 ML VIAL IV SCH ×3 (08:12→21:57)
[2023-03-25] MEDS: DOXYCYCLINE HYCLATE 100 MG in DEXTROSE 5% MINI-B 100 ML IV SCH ×2 (08:16→21:08)
[2023-03-25] MEDS: FLUTICASONE/VILANTEROL 200/25MCG 14 PUFFS/INHALER INH SCH (08:17)
[2023-03-25 08:23] LABS: Base Excess ABG 6.9 mEq/L (-9-1.8); HCO3 ABG 33 mmol/L (19-24); Oxygen Saturation ABG 97.9 % (90-95); PCO2 ABG 49 mmHg (35-46); PO2 ABG 82 mmHg (80-95); pH ABG 7.43 (7.35-7.45)
[2023-03-25 08:50] LABS: Allen Test Pos (Pos)
[2023-03-25] MEDS ORDERED: methylPREDNISolone 40 MG in SYRINGE 0 ML IV SCH (09:00)
[2023-03-25] MEDS: INSULIN ASPART PER UNIT CHARGE SC SCH ×4 (09:09→21:56)
[2023-03-25] MEDS: METOPROLOL SUCC 25MG EXT REL TAB PO SCH ×2 (09:37→21:53)
[2023-03-25] MEDS: guaiFENesin 600 MG TABCR PO SCH ×2 (09:38→21:06)
[2023-03-25] MEDS: ACETAMINOPHEN 500 MG TAB PO SCH ×2 (09:38→21:06)
[2023-03-25] MEDS: ASPIRIN 81 MG ECTAB PO SCH (09:38)
--- NOTE | 2023-03-25 11:11 | Cardiology Progress Note ---
Date of Service March 25, 2023 Assessment & Plan (1) Acute respiratory failure with hypoxia and hypercapnia: (2) NSTEMI (non-ST elevated myocardial infarction): (3) Heart failure, systolic, with acute decompensation: (4) Hyperkalemia: (5) Paroxysmal atrial fibrillation: (6) Ischemic cardiomyopathy: (7) History of CVA (cerebrovascular accident): Plan 78-year-old male admitted with acute hypoxic and hypercapnic respiratory failure, acute decompensated systolic congestive heart failure, NSTEMI. Increase IV furosemide to 40 mg every 8 hours Monitor labs daily, maintaining normokalemia and normomagnesemia (presented with hyperkalemia at 6.3 mmol/L Strict I/O's, baltazar catheter in place, low sodium diet Continue aspirin, beta-felisha, moderate intensity statin therapy, and anticoagulation for the PAF ([id number] Score 7 points). Add GDMT for HFrEF as tolerated. Admission and Anticipated Discharge Date Admission Date: March 24, 2023 Supervising Physician Co-Signing Physician Notes 78-year-old male admitted with hypoxic and hypercapnic respiratory failure. Denies chest discomfort or heaviness. No orthopnea, PND, lower extreme edema, or weight gain. Reports cough with scant sputum production. PE: VSS. Gen: NAD, obese. Heart: Regular rhythm, normal S1-S2. No murmur. Lungs: Crackles at the bases bilateral. No wheeze. Extremities: No edema. Neuro: Left-sided paralysis. A/P: Agree with above PA-C history, physical exam, assessment and plan. 78-year-old male admitted with acute on chronic decompensated heart failure with reduced ejection fraction and possible pneumonia. Titrate furosemide to 40 mg 3 times daily. Monitor daily weight, fluid balance, GFR, and electrolytes. Subjective Patient seen and examined. Chart, medications, and telemetry reviewed. Feeling better. Less shortness of breath. No chest pain. No palpitations. Telemetry: Sinus, paced. Resting echocardiography on March 24, 2023 demonstrated the following: Severely reduced LV systolic function, EF 15 to 20%. Severe global hypokinesis of the LV. Moderate aortic valve sclerosis without significant stenosis. Moderate mitral regurgitation. I/O's + 190 mL, -830 mL, -51 mL (-691.4 mL's overall) Review of Systems Review of Systems: A complete and accurate review of systems was unable to be obtained due to the patient's status, on BiPAP Physical Exam Physical Exam: General: Alert and oriented x 3. NAD. HENT: Normocephalic. Atraumatic. Eyes: PER. Conjunctiva pink, sclera clear. Neck: Thick. Neck veins not appreciated. Heart: Slightly irregular, 74 bpm. Systolic murmur. No rub. Lungs: Clear to auscultation anteriorly. Abdomen: +BS. Soft. Nontender. No masses or organomegaly. Extremities: Mild pretibial edema. No clubbing. No cyanosis. Limited neurological examination is without focal deficits. Pulses: Posterior tibial=2/4. Results & Data Vital Signs (Past 12 Hours) Vital Signs Temp Pulse Pulse Resp BP Pulse Ox O2 Del Method 03/25/23 11:08 55 L 17 98 Nasal Cannula 03/25/23 09:36 67 110/64 03/25/23 07:56 63 03/25/23 07:28 36.8 C 61 19 103/57 L 94 Nasal Cannula 03/25/23 07:02 62 29 H 98 03/25/23 07:02 62 29 H 98 BiPAP 03/25/23 05:02 37.0 C 67 18 108/67 94 BiPAP 03/25/23 02:32 26 H 96 O2 Flow Rate FiO2 03/25/23 11:08 2 03/25/23 09:36 03/25/23 07:56 03/25/23 07:28 2 03/25/23 07:02 40 03/25/23 07:02 40 03/25/23 05:02 03/25/23 02:32 40 Laboratory Results Cardiac Enzymes 03/24/23 03/24/23 Range/Units 15:38 20:25 Troponin I High Sens 1399.7 H* D 923.6 H* D (0-20) pg/ml Coagulation 03/25/23 Range/Units 06:29 PT 26.9 H (9.0-12.0) Seconds CBC 03/25/23 Range/Units 06:29 WBC 11.25 H (4.8-10.8) K/ul RBC 4.47 L (4.70-6.10) M/uL Hgb 14.2 (14.0-18.0) g/dl Hct 42.4 (42.0-52.0) % Plt Count 137 (130-400) K/uL Neut # (Auto) 9.76 H (1.40-6.50) K/uL Lymph # (Auto) 0.82 L (1.20-3.40) K/uL Armstrong # (Auto) 0.59 (0.11-0.59) K/uL Eos # (Auto) 0.00 (0.00-0.50) K/uL Baso # (Auto) 0.01 (0.00-0.20) K/uL Comprehensive Metabolic Panel 03/25/23 Range/Units 06:29 Sodium 134 L (136-145) mmol/L Potassium 4.2 (3.5-5.1) mmol/L Chloride 95 L (98-107) mmol/L Carbon Dioxide 32 (21-32) mmol/L BUN 31 H (6-23) mg/dl Creatinine 1.29 (0.6-1.4) mg/dl Glucose 149 H (70-99(Fasting)) mg/dl Calcium 8.1 L (8.6-10.3) mg/dl Intake and Output 03/24/23 03/25/23 03/25/23 22:59 06:59 14:59 Intake Total 700 / 1094.583 194.583 / 1094.583 450 / 450 Output Total 1125 501 / 501 Balance -425 / -830.417 194.583 / -830.417 -51 / -51 Intake: IV 100 / 494.583 194.583 / 494.583 100 / 100 Doxycycline Hyclate 100 mg In 100 / 200 100 / 100 Dextrose 5% Mini-B 100 ml @ 50 mls/hr IV Q12H [facility] Rx#:[id number] Piperacillin/Tazobactam 4.5 gm 100 / 194.583 94.583 / 194.583 In Dextrose 5% Mini-B 100 ml @ 25 mls/hr IV Q8H [facility] Rx#: [id number] Oral 600 / 600 350 / 350 Output: Urine Amount (Catheter) 1124 500 / 500 Baltazar/Indwelling [id number] 500 / 500 # Bowel Movements Other: Other Intake Source SIPS Weight 113.9 kg 113.4 kg Weight Measurement Method Built in [facility] Built in [facility] Patient Weight 03/26/23 06:59 Weight 113.4 kg
--- NOTE | 2023-03-25 14:48 | Hospitalist Progress Note ---
Date of Service March 25, 2023 Assessment & Plan (1) Acute respiratory failure with hypoxia and hypercapnia: Plan: per admitting service notes with addendum: 78-year-old male with past med significant for COPD, chronic systolic CHF, chronic atrial fibrillation on Coumadin, history of CAD, s/p CABG, s/p ICD, hypertension, peripheral vascular disease, hyperlipidemia, prediabetes, GERD, morbid obesity, history of COVID-19, history of stroke with left hemiplegia and bedbound currently residing at [facility] was brought in because of acute respiratory distress. Acute respiratory failure with hypoxia and hypercapnia Acute on chronic systolic CHF COPD exacerbation On home oxygen 2 L in the nighttime and daytime mostly takes off Short of breath since last night 10 PM Initial VBG pH 7.19, PCO2 76. Placed On BiPAP. Repeat [id number] ABG pH 7.31 PCO2 64 Elevated BNP Currently saturating fine on BiPAP Feeling better Pulmonary edema on chest x-ray 03/25 Echo: EF 15-20% improving on 1.5 L NC continue Lasix IV continue Zosyn + Doxy, Nebs, Steroid check stool pcr and c diff Acute on chronic systolic CHF EF 25 to 30%. S/p ICD received IV Lasix 40 mg in the ER We will continue with IV Lasix 40 mils twice daily Continue BiPAP We will follow echo S/p Villatoro Follow daily weights and I's and O's Cardiology consulted Close monitoring telemetry floor 03/25 Cardiology on board Lasix increased to q8h COPD exacerbation Possible Placed on IV Solu-Medrol, nebs [id number] and as needed Continue home inhalers Empiric antibiotics Zosyn and doxycycline We will follow CT chest rule out any underlying pneumonia Respiratory bio fire negative MRSA screen Pulmonary consulted 03/25 Pulm on board: BiPAP even when he goes back to assisted. Would recommend 16/8 with backup rate of 18 and 35% FiO2 Do not over oxygenate the patient, keep saturation between 88-92% Can DC Solu-Medrol start prednisone 40 mg for 3 days followed by 20 mg for 3 days Complete the course of doxycycline for total of 5-7 days Continue with spirometry will be beneficial Continue with Mucinex and flutter valve Hyperkalemia Potassium 6.3 Received insulin and dextrose and IV calcium gluconate We will follow repeat labs We will hold the potassium supplement and lisinopril 03/25 resolved Non-ST elevated TN Denies any chest pain Initial troponin 122. Repeat 1037 On Coumadin INR therapeutic On beta-felisha likely from acute respiratory failure Elevated lactic acid Mostly from hypoxia On empiric antibiotics Blood pressure okay Repeat levels normalized. Chronic atrial fibrillation On Coreg and Coumadin INR 2.6 Monitor PT/INR CAD s/p CABG On Coreg, statin and Coumadin Follow echo Hypertension Coreg with holding parameters Holding lisinopril BP on the lower side Hyperlipidemia On statin History of CVA Left hemiplegia Bedbound On statin and Coumadin Peripheral vascular disease On statin and Coumadin Prediabetes we will follow HbA1c levels Monitor blood sugars Insulin sliding scale for now DVT prophylaxis On Coumadin and INR therapeutic Disposition Telemetry floor CODE STATUS DNR/DNI as per discussion with the patient and also and also the assisted. Admission and Anticipated Discharge Date Admission Date: March 24, 2023 Subjective ff up for acute respiratory failure, etc seen resting in bed, comfortable on 1.5 L NC states he feels he is improving breathing is better than yesterday cough improving able to expectorate more no chest pain (+) diarrhea x 3,loose water no abdominal pain, nausea no other symptoms Review of Systems Review of Systems: all noted and negative except for above Physical Exam Physical Exam: General- oriented x 3, not in distress, speaks in sentences with no effort or accessory muscle use Eyes- anicteric Neck- no JVD Lungs- mild rhonchi at the bases no wheezing Heart- normal rate, regular rhythm; no murmurs Abdomen- normal bowel sounds, nondistended, soft, nontender Extremities- no pretibial edema, no calf tenderness Neuro- alert, oriented x 3; no gross focal neurologic deficits Skin- warm & dry Results & Data Results & Data Vital Signs (Past 12 Hours) Vital Signs Temp Pulse Pulse Resp BP Pulse Ox O2 Del Method 03/25/23 11:55 36.6 C 60 19 97/59 L 96 Nasal Cannula 03/25/23 11:08 55 L 17 98 Nasal Cannula 03/25/23 09:36 67 110/64 03/25/23 07:56 63 03/25/23 07:28 36.8 C 61 19 103/57 L 94 Nasal Cannula 03/25/23 07:02 62 29 H 98 03/25/23 07:02 62 29 H 98 BiPAP 03/25/23 05:02 37.0 C 67 18 108/67 94 BiPAP O2 Flow Rate FiO2 03/25/23 11:55 2 03/25/23 11:08 2 03/25/23 09:36 03/25/23 07:56 03/25/23 07:28 2 03/25/23 07:02 40 03/25/23 07:02 40 03/25/23 05:02 all noted and reviewed including below
[2023-03-25 15:44] LABS: Adenovirus F 40/41 PCR Not Detected (NotDetected); Astrovirus PCR Not Detected (NotDetected); Campylobacter PCR Not Detected (NotDetected); Cryptosporidium PCR Not Detected (NotDetected); Cyclospora cayetanensis PCR Not Detected (NotDetected); E.coli O157 PCR Not Detected (NotDetected); Entamoeba histolytica PCR Not Detected (NotDetected); Enteroaggregative E.coli(EAEC) Not Detected (NotDetected); Enterotoxigenic E.coli (ETEC) Not Detected (NotDetected); Giardia lamblia PCR Not Detected (NotDetected); Norovirus GI/GII PCR Not Detected (NotDetected); Plesiomonas shigelloides PCR Not Detected (NotDetected); Rotavirus A PCR Not Detected (NotDetected); Salmonella PCR Not Detected (NotDetected); Sapovirus PCR Not Detected (NotDetected); Shigella/Enteroinvasive E.coli Not Detected (NotDetected); Vibrio cholerae PCR Not Detected (NotDetected); Vibrio species PCR Not Detected (NotDetected); Yersinia enterocolitica PCR Not Detected (NotDetected)
[2023-03-25] MEDS: WARFARIN SOD 2 MG TAB PO SCH (16:08)
[2023-03-25 16:10] LABS: Shiga-like Toxin E.coli (STEC) DETECTED (NotDetected)
[2023-03-25] MEDS: ATORVASTATIN 40 MG TAB PO SCH (21:06)
[2023-03-25] MEDS: SENNA 8.6 MG TAB PO SCH (21:53)
[2023-03-26 06:56] LABS: INR 2.6 (0.9-1.1); Prothrombin Time 26.5 Seconds (9.0-12.0)
[2023-03-26] MEDS: ALBUT/IPRATROP 3MG/0.5MG NEB 3 ML VIAL NEB SCH ×4 (06:58→19:24)
--- NOTE | 2023-03-26 07:32 | Pulmonology Progress Note ---
Date of Service March 26, 2023 Assessment & Plan (1) Acute respiratory failure with hypoxia and hypercapnia: (2) COPD (chronic obstructive pulmonary disease): (3) Ex-smoker: (4) Pleural effusion: (5) Obesity: Plan CT chest 03/24/2023 personally reviewed: Motion degraded study Bilateral pleural effusion with dependent atelectasis Interlobular thickening and patchy opacities appreciated in the upper as well as the lower lobes likely presenting pulmonary edema Mucus in the trachea Cardiomegaly No significant mediastinal lymphadenopathy 2D echo 11/03/2020: EF 25-30%, mild MR, grade 1 diastolic dysfunction ABG 03/24/2023: 7.31/64/74 -- Acute hypoxic hypercapnic respiratory failure Hypoxia is multifactorial, likely from CHF exacerbation with bilateral pleural effusion Hypercapnia could be from underlying IVANIA as well as central apneas given the systolic CHF O2 supplementation to keep oxygen saturation between 88-92%, do not over oxygenate the patient BiPAP nightly and as needed shortness of breath Respiratory bio fire negative for everything on 03/24/2023 Procalcitonin 0.06 --COPD On Breo 250-50 at home Would recommend to change it to Anoro/Stiolto on discharge -- Ex-smoker > [id number] smoking history Quit at the age of 68 -- 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 Possibility of central sleep apnea is also there given the systolic CHF Patient will benefit from a polysomnography as an outpatient -- Obesity Advised to lose with diet and exercise Plan: Patient will benefit from BiPAP even when he goes back to retirement. Would recommend 03/02 with backup rate of 18 and 35% FiO2 Do not over oxygenate the patient, keep saturation between 88-92% Taper prednisone 40 mg for 3 days followed by 20 mg for 3 days Complete the course of doxycycline for total of 5-7 days Continue with spirometry will be beneficial Continue with Mucinex and flutter valve Case discussed with Dr. Scott No further recommendation from pulmonary perspective, will sign off Please call directly with any questions Please note the above document was generated using voice recognition software. It may contain grammatical, syntax or spelling errors.Any formal questions or concerns about the content, text or information contained within the body of this dictation should be directly addressed to the provider for clarification. Admission and Anticipated Discharge Date Admission Date: March 24, 2023 Subjective Patient seen and examined at bedside. No acute distress, no adverse events overnight Did use BiPAP overnight Overall he says he is feeling better when it comes to his breathing Did have loose bowel movement yesterday. None today Denies any pain in the right arm today No headache, no blurry vision Review of Systems Review of Systems: All systems reviewed & are unremarkable except as noted in Subjective Physical Exam Physical Exam: Constitutional: No acute distress HEENT: EOMI, PERRLA, short thick neck Respiratory system: Decreased air entry bilaterally, no wheeze, no rhonchi, positive crackles bilateral lower lobes CVS: S1-S2 positive, positive 2 out of 6 systolic murmur appreciated best at aorta Abdomen: Soft, nontender, nondistended, positive bowel sounds x4, obese Extremities: +2 pulses bilaterally radialis/ dorsalis pedis, no cyanosis, +2 pitting edema bilateral lower extremity, left upper extremity 0 out of 5 strength Neuro: Awake alert oriented x3 Psych: Normal mood and affect G/U: Positive Villatoro Skin: no rashes, warm and dry Lymphatic: no cervical or axillary lymphadenopathy Results & Data Results & Data Vital Signs (Past 12 Hours) Vital Signs Temp Pulse Pulse Resp BP BP Pulse Ox 03/26/23 07:00 81 20 99 03/26/23 03:51 37.0 C 58 L 20 122/72 100 03/26/23 02:34 63 25 H 98 03/25/23 23:02 36.5 C 61 20 108/69 98 03/25/23 22:35 26 H 96 03/25/23 21:30 03/25/23 20:55 98/54 L 03/25/23 19:40 80 18 97 03/25/23 19:32 36.8 C 59 L 20 89/53 L 97 O2 Del Method O2 Flow Rate FiO2 03/26/23 07:00 BiPAP 03/26/23 03:51 BiPAP 03/26/23 02:34 40 03/25/23 23:02 Nasal Cannula 1.5 03/25/23 22:35 40 03/25/23 21:30 Nasal Cannula 2 03/25/23 20:55 03/25/23 19:40 Nasal Cannula 2 03/25/23 19:32 Nasal Cannula 1.5 Laboratory Results 03/25/23 06:29 10/05/23 06:29 PG Care Time/CCT Total # of Minutes Spent Total Time Spent with Patient: Total time spent is greater than 50% in coordination of care (as documented) at patient's floor/unit and/or counseling patient: Coding Level of Care Code 17323 SUB INP/OBS CARE 2/35MIN Diagnoses Acute respiratory failure with hypoxia and hypercapnia J96.01; J96.02 COPD (chronic obstructive pulmonary disease) J44.9 Ex-smoker Z87.891 Pleural effusion J90 Obesity E66.9
[2023-03-26] MEDS: INSULIN ASPART PER UNIT CHARGE SC SCH ×4 (09:12→21:50)
[2023-03-26] MEDS: predniSONE 20 MG TAB PO SCH (09:14)
[2023-03-26] MEDS: ASPIRIN 81 MG ECTAB PO SCH (09:14)
[2023-03-26] MEDS: FLUTICASONE/VILANTEROL 200/25MCG 14 PUFFS/INHALER INH SCH (09:15)
[2023-03-26] MEDS: guaiFENesin 600 MG TABCR PO SCH ×2 (09:15→22:01)
[2023-03-26] MEDS: FUROSEMIDE 40 MG/4 ML VIAL IV SCH ×3 (09:15→17:13)
[2023-03-26] MEDS: METOPROLOL SUCC 25MG EXT REL TAB PO SCH ×2 (09:16→22:02)
[2023-03-26] MEDS: ACETAMINOPHEN 500 MG TAB PO SCH ×2 (09:42→22:00)
[2023-03-26] MEDS: DOXYCYCLINE HYCLATE 100 MG in DEXTROSE 5% MINI-B 100 ML IV SCH ×2 (09:42→21:58)
--- NOTE | 2023-03-26 10:41 | Cardiology Progress Note ---
Date of Service March 26, 2023 Assessment & Plan (1) Acute respiratory failure with hypoxia and hypercapnia: (2) NSTEMI (non-ST elevated myocardial infarction): (3) Heart failure, systolic, with acute decompensation: (4) Hyperkalemia: (5) Paroxysmal atrial fibrillation: (6) Ischemic cardiomyopathy: (7) History of CVA (cerebrovascular accident): Plan 78-year-old male admitted with acute hypoxic and hypercapnic respiratory failure, acute decompensated systolic congestive heart failure, NSTEMI. 1. Awaiting AM labs for review. 2. Continue IV furosemide at 40 mg every 8 hours for now, pending #1. 3. Attempt to add/resume low dose timothy inhibition pending #1 4. Continue aspirin, beta-felisha, statin, and anticoagulation for the PAF ([id number] Score 7 points). Admission and Anticipated Discharge Date Admission Date: March 24, 2023 Supervising Physician Co-Signing Physician Notes 78-year-old male admitted with hypoxic and hypercapnic respiratory failure. Denies chest discomfort or heaviness. No orthopnea, PND, lower extreme edema, or weight gain. Reports cough with scant sputum production. Lasix titrated to 40 mg 3 times daily yesterday 03/25/2023. Urine output has improved. Renal function remained stable. PE: VSS. Gen: NAD, obese. Heart: Regular rhythm, normal S1-S2. No murmur. Lungs: Crackles at the bases bilateral. No wheeze. Extremities: No edema. Neuro: Left-sided paralysis. A/P: Agree with above PA-C history, physical exam, assessment and plan. 78-year-old male admitted with acute on chronic decompensated heart failure with reduced ejection fraction and possible pneumonia. Continue furosemide 40 mg 3 times daily. Resume lisinopril 2.5 mg daily. Monitor daily weight, fluid andreas nce, GFR, and electrolytes. Subjective Patient seen and examined. Chart, medications, and telemetry reviewed. Feeling OK. No chest pain. No palpitations. Breathing stable. Telemetry: Sinus, paced in the 60's Resting echocardiography on March 24, 2023 demonstrated the following: Severely reduced LV systolic function, EF 15 to 20%. Severe global hypokinesis of the LV. Moderate aortic valve sclerosis without significant stenosis. Moderate mitral regurgitation. I/O's + 190 mL, -830 mL, -1161 mL (-1,801 mL's overall) Review of Systems Review of Systems: As above. Otherwise, negative or noncontributory. Physical Exam Physical Exam: General: Alert and oriented x 3. NAD. HENT: Normocephalic. Atraumatic. Eyes: PER. Conjunctiva pink, sclera clear. Neck: Thick. Neck veins not appreciated. Heart: Slightly irregular, 70 bpm. Systolic murmur. No rub. Lungs: Clear to auscultation anteriorly. Abdomen: +BS. Soft. Nontender. No masses or organomegaly. Extremities: Minimal edema. No clubbing. No cyanosis. Limited neurological examination is without focal deficits. Pulses: Posterior tibial=2/4. Results & Data Vital Signs (Past 12 Hours) Vital Signs Temp Pulse Pulse Resp BP Pulse Ox O2 Del Method 03/26/23 08:09 37.1 C 53 L 18 117/68 94 Nasal Cannula 03/26/23 07:00 81 20 99 BiPAP 03/26/23 03:51 37.0 C 58 L 20 122/72 100 BiPAP 03/26/23 02:34 63 25 H 98 03/25/23 23:02 36.5 C 61 20 108/69 98 Nasal Cannula O2 Flow Rate FiO2 03/26/23 08:09 3 03/26/23 07:00 03/26/23 03:51 03/26/23 02:34 40 03/25/23 23:02 1.5 Laboratory Results Coagulation 03/26/23 Range/Units 06:03 PT 26.5 H (9.0-12.0) Seconds Intake and Output 03/25/23 03/26/23 03/26/23 22:59 06:59 14:59 Intake Total 540 / 1340 250 / 1340 Output Total 1700 / 2501 300 / 2501 Balance -1160 / -1161 -50 / -1161 Intake: IV 100 / 300 Doxycycline Hyclate 100 mg In 100 / 200 Dextrose 5% Mini-B 100 ml @ 50 mls/hr IV Q12H [facility] Rx#:[id number] Oral 540 / 1040 150 / 1040 Output: Urine 1100 / 1100 Urine Amount (Catheter) 600 / 1400 300 / 1400 Villatoro/Indwelling 600 / 1400 300 / 1400 Other: Weight 114 kg Weight Measurement Method Built in [facility]
[2023-03-26 11:44] LABS: BUN Creatinine Ratio 29.9 (10-20); Creatinine Clr Calc Pharmacy 71.9 ml/min; Est GFR (African American) 76.7 ml/min; Est GFR (Non-African American) 66.1 ml/min; Magnesium 1.9 mg/dl (1.7-2.4); Potassium 3.7 mmol/L (3.5-5.1)
[2023-03-26] MEDS: WARFARIN SOD 4 MG TAB PO SCH (16:33)
[2023-03-26] MEDS ORDERED: POTASSIUM CHLORIDE 10 MEQ TABCR PO ONE (17:01)
--- NOTE | 2023-03-26 17:27 | Hospitalist Progress Note ---
Date of Service March 26, 2023 Assessment & Plan (1) Acute respiratory failure with hypoxia and hypercapnia: Plan: per admitting service notes with addendum: 78-year-old male with past med significant for COPD, chronic systolic CHF, chronic atrial fibrillation on Coumadin, history of CAD, s/p CABG, s/p ICD, hypertension, peripheral vascular disease, hyperlipidemia, prediabetes, GERD, morbid obesity, history of COVID-19, history of stroke with left hemiplegia and bedbound currently residing at [facility] was brought in because of acute respiratory distress. Acute respiratory failure with hypoxia and hypercapnia Acute on chronic systolic CHF COPD exacerbation On home oxygen 2 L in the nighttime and daytime mostly takes off Short of breath since last night 10 PM Initial VBG pH 7.19, PCO2 76. Placed On BiPAP. Repeat [id number]-is-[id number] ABG pH 7.31 PCO2 64 Elevated BNP Currently saturating fine on BiPAP Feeling better Pulmonary edema on chest x-ray 03/25 Echo: EF 15-20% improving on 1.5 L NC continue Lasix IV continue Zosyn + Doxy, Nebs, Steroid 03/26 Gradually improving On 2 L of nasal cannula On BiPAP at night, will also need as an outpatient Continue Lasix 40 mg IV twice daily Continue doxycycline plus nebs plus prednisone 40 mg daily Acute on chronic systolic CHF EF 25 to 30%. S/p ICD received IV Lasix 40 mg in the ER We will continue with IV Lasix 40 mils twice daily 03/26 Cardiology on board Management per above COPD exacerbation Possible Placed on IV Solu-Medrol, nebs [id number] and as needed Continue home inhalers Empiric antibiotics Zosyn and doxycycline We will follow CT chest rule out any underlying pneumonia Respiratory bio fire negative MRSA screen Pulmonary consulted 03/25 Pulm on board: BiPAP even when he goes back to care home. Would recommend 16 with backup rate of 18 and 35% FiO2 Do not over oxygenate the patient, keep saturation between 88-92% Can DC Solu-Medrol start prednisone 40 mg for 3 days followed by 20 mg for 3 days Complete the course of doxycycline for total of 5-7 days Continue with spirometry will be beneficial Continue with Mucinex and flutter valve Diarrhea Resolved Stool PCR positive for E. coli with Shiga toxin Continue supportive care Hyperkalemia Potassium 6.3 Received insulin and dextrose and IV calcium gluconate We will follow repeat labs We will hold the potassium supplement and lisinopril 03/26 resolved Non-ST elevated MD Denies any chest pain Initial troponin 122. Repeat 1037 On Coumadin INR therapeutic On beta-felisha likely from acute respiratory failure Elevated lactic acid Mostly from hypoxia On empiric antibiotics Blood pressure okay Repeat levels normalized. Chronic atrial fibrillation On Coreg and Coumadin INR 2.6 Monitor PT/INR CAD s/p CABG On Coreg, statin and Coumadin Hypertension Coreg with holding parameters Holding lisinopril BP on the lower side Hyperlipidemia On statin History of CVA Left hemiplegia Bedbound On statin and Coumadin Frequent repositioning every 4 hours at least, discussed with RN Peripheral vascular disease On statin and Coumadin Prediabetes a1c 6.2 Monitor blood sugars Insulin sliding scale for now DVT prophylaxis On Coumadin and INR therapeutic Disposition Telemetry floor CODE STATUS DNR/DNI as per discussion with the patient and also and also the care home. Admission and Anticipated Discharge Date Admission Date: March 24, 2023 Subjective Follow-up for acute CHF, COPD exacerbation, etc. Seen resting in bed, comfortable, not in distress On 2 L of oxygen via nasal cannula States he feels okay, improving overall Cough improving Diarrhea resolved, now with soft formed stools No abdominal pain, nausea vomiting No other new symptoms Review of Systems Review of Systems: all noted and negative except for above Physical Exam Physical Exam: General- oriented x 3, not in distress, speaks in sentences with no effort or accessory muscle use Eyes- anicteric Neck- no JVD Lungs-mild rhonchi bilateral bases Heart- normal rate, regular rhythm; no murmurs Abdomen- normal bowel sounds, nondistended, soft, nontender Extremities- mild pretibial edema, no calf tenderness Neuro- alert, oriented x 3; no gross focal neurologic deficits Skin- warm & dry Results & Data Results & Data Vital Signs (Past 12 Hours) Vital Signs Temp Pulse Resp BP BP Pulse Ox O2 Del Method 03/26/23 15:57 36.5 C 62 18 114/72 99 Nasal Cannula 03/26/23 15:58 Nasal Cannula 03/26/23 15:37 80 18 99 Nasal Cannula 03/26/23 11:25 78 20 100 Nasal Cannula 03/26/23 11:04 36.5 C 72 18 97/59 L 98 Nasal Cannula 03/26/23 08:09 37.1 C 53 L 18 117/68 94 Nasal Cannula 03/26/23 07:00 81 20 99 BiPAP O2 Flow Rate 03/26/23 15:57 03/26/23 15:58 2 03/26/23 15:37 4 03/26/23 11:25 2 03/26/23 11:04 5 03/26/23 08:09 3 03/26/23 07:00 all noted and reviewed including below
--- NOTE | 2023-03-26 17:59 | XRay Report ---
XR chest 1V portable HISTORY: 78 years-old Male ff up chf, pneumonia acute shortness of breath COMPARISON: 03/24/2023 TECHNIQUE: AP view of the chest FINDINGS: Cardiac silhouette is enlarged. Prior median sternotomy. Left subclavian pacer/AICD. Improving pulmon abigail edema with small persistent pleural effusions. No pneumothorax. Bones appear grossly intact. IMPRESSION: 1. Cardiomegaly with moderately improved pulmonary edema. 2. Small pleural effusions. ACT 112: Negative or not required by law. The above report was generated using voice recognition software. It may contain grammatical, syntax o r spelling errors. Electronically signed by: Red Hess M.D. 03/26/2023 5:58 PM
--- NOTE | 2023-03-26 18:13 | Electrocardiogram Report ---
Test Reason : Blood Pressure : / mmHG Vent. Rate : 059 BPM Atrial Rate : 059 BPM P-R Int : 224 ms QRS Dur : 150 ms QT Int : 512 ms P-R-T Axes : 037 097 -62 degrees QTc Int : 506 ms Atrial-sensed ventricular-paced rhythm fusion beats Abnormal ECG When compared with ECG of 24-MAR-2023 07:50, Electronic ventricular pacemaker has replaced Sinus rhythm Confirmed by Agustin Craft ([id number]) on 03/26/2023 6:13:03 PM Referred By: Mike Castillo Confirmed By:Jonel Craft
--- NOTE | 2023-03-26 18:14 | Electrocardiogram Report ---
Test Reason : Blood Pressure : / mmHG Vent. Rate : 062 BPM Atrial Rate : 062 BPM P-R Int : 246 ms QRS Dur : 164 ms QT Int : 502 ms P-R-T Axes : 021 -25 166 degrees QTc Int : 509 ms Atrial-paced rhythm with prolonged AV conduction with frequent ventricular-paced complexes in a patte rn of bebejohn possible atrial oversensing Non-specific intra-ventricular conduction block Abnormal ECG When compared with ECG of 25-MAR-2023 06:57, (unconfirmed) Vent. rate has increased BY 3 BPM Confirmed by Agustin Craft ([id number] on 03/26/2023 6:14:02 PM Referred By: [facility] Confirmed By:Jonel Craft
[2023-03-26] MEDS: SENNA 8.6 MG TAB PO SCH (22:01)
[2023-03-26] MEDS: ATORVASTATIN 40 MG TAB PO SCH (22:01)
[2023-03-27] MEDS: ALBUT/IPRATROP 3MG/0.5MG NEB 3 ML VIAL NEB SCH ×4 (06:55→19:49)
[2023-03-27 07:42] LABS: INR 2.7 (0.9-1.1); Prothrombin Time 27.6 Seconds (9.0-12.0)
[2023-03-27] MEDS: INSULIN ASPART PER UNIT CHARGE SC SCH ×4 (08:02→20:59)
[2023-03-27] MEDS: ASPIRIN 81 MG ECTAB PO SCH (08:59)
[2023-03-27] MEDS: guaiFENesin 600 MG TABCR PO SCH ×2 (08:59→21:34)
[2023-03-27] MEDS: FUROSEMIDE 40 MG/4 ML VIAL IV SCH ×2 (09:00→17:12)
[2023-03-27] MEDS: METOPROLOL SUCC 25MG EXT REL TAB PO SCH ×2 (09:01→21:34)
[2023-03-27] MEDS: FLUTICASONE/VILANTEROL 200/25MCG 14 PUFFS/INHALER INH SCH (09:01)
[2023-03-27] MEDS: predniSONE 20 MG TAB PO SCH (09:02)
[2023-03-27] MEDS: ACETAMINOPHEN 500 MG TAB PO SCH ×2 (09:21→21:37)
[2023-03-27] MEDS: DOXYCYCLINE HYCLATE 100 MG in DEXTROSE 5% MINI-B 100 ML IV SCH (09:24)
[2023-03-27 09:55] LABS: Calcium 8.1 mg/dl (8.6-10.3); Potassium 4.2 mmol/L (3.5-5.1)
[2023-03-27 10:00] LABS: BUN Creatinine Ratio 32.6 (10-20); Est GFR (African American) 88.5 ml/min; Est GFR (Non-African American) 76.4 ml/min
--- NOTE | 2023-03-27 11:09 | Pulmonology Progress Note ---
Date of Service March 27, 2023 Assessment & Plan (1) Acute respiratory failure with hypoxia and hypercapnia: (2) COPD (chronic obstructive pulmonary disease): (3) Ex-smoker: (4) Pleural effusion: (5) Obesity: Plan CT chest 03/24/2023 personally reviewed: Motion degraded study Bilateral pleural effusion with dependent atelectasis Interlobular thickening and patchy opacities appreciated in the upper as well as the lower lobes likely presenting pulmonary edema Mucus in the trachea Cardiomegaly No significant mediastinal lymphadenopathy 2D echo 11/03/2020: EF 25-30%, mild MR, grade 1 diastolic dysfunction ABG 03/24/2023: 7.31/64/74 -- Acute hypoxic hypercapnic respiratory failure Hypoxia is multifactorial, likely from CHF exacerbation with bilateral pleural effusion Hypercapnia could be from underlying IVANIA as well as central apneas given the systolic CHF O2 supplementation to keep oxygen saturation between 88-92%, do not over oxygenate the patient BiPAP nightly and as needed shortness of breath Respiratory bio fire negative for everything on 03/24/2023 Procalcitonin 0.06 --COPD On Breo 250-50 at home Would recommend to change it to Anoro/Stiolto on discharge -- Ex-smoker > [id number]-[id number] smoking history Quit at the age of 68 -- 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 Possibility of central sleep apnea is also there given the systolic CHF Patient will benefit from a polysomnography as an outpatient -- Obesity Advised to lose with diet and exercise Plan: Patient will benefit from BiPAP [facility] when [facility] to [facility]. Would recommend 03/02 with backup rate of 18 and 35% FiO2 Do not over oxygenate the patient, keep saturation between 88-92% Taper prednisone 40 mg for 2 days followed by 20 mg for 3 days Complete the course of doxycycline for total of 5-7 days Continue with spirometry will be beneficial Continue with Mucinex and flutter valve Case discussed with RN at bedside No further recommendation from pulmonary perspective, will sign off Please call directly with any questions Please note the above document was generated using voice recognition software. It may contain grammatical, syntax or spelling errors.Any formal questions or concerns about the content, text or information contained within the body of this dictation should be directly addressed to the provider for clarification. Admission and Anticipated Discharge Date Admission Date: March 24, 2023 Subjective Patient seen and examined at bedside. No acute distress, no adverse events overnight He was saturating 95% on 4 L nasal cannula. I went down to 2 L Denies any nausea vomiting Still complains of occasional cough with clear phlegm. Denies any significant c hest congestion No headache Review of Systems Review of Systems: All systems reviewed & are unremarkable except as noted in Subjective Physical Exam Physical Exam: Constitutional: No acute distress HEENT: EOMI, PERRLA, short thick neck Respiratory system: Decreased air entry bilaterally, no wheeze, no rhonchi, positive crackles bilateral lower lobes CVS: S1-S2 positive, positive 2 out of 6 systolic murmur appreciated best at aorta Abdomen: Soft, nontender, nondistended, positive bowel sounds x4, obese Extremities: +2 pulses bilaterally radialis/ dorsalis pedis, no cyanosis, +2 pitting edema bilateral lower extremity, left upper extremity 0 out of 5 strength Neuro: Awake alert oriented x3 Psych: Normal mood and affect G/U: Positive Villatoro Skin: no rashes, warm and dry Lymphatic: no cervical or axillary lymphadenopathy Results & Data Results & Data Vital Signs (Past 12 Hours) Vital Signs Temp Pulse Pulse Resp BP BP Pulse Ox 03/27/23 11:00 36.4 C L 60 18 88/54 L 95 03/27/23 07:40 03/27/23 08:00 36.4 C L 61 18 113/52 L 95 03/27/23 07:05 83 20 98 03/26/23 23:47 56 L 03/27/23 02:42 36.5 C 62 18 100/56 L 94 O2 Del Method O2 Flow Rate FiO2 03/27/23 11:00 Nasal Cannula 4 03/27/23 07:40 Nasal Cannula 4 03/27/23 08:00 Nasal Cannula 4 03/27/23 07:05 BiPAP 40 03/26/23 23:47 03/27/23 02:42 Nasal Cannula Laboratory Results 03/25/23 06:29 03/27/23 06:29 PG Care Time/CCT Total # of Minutes Spent Total Time Spent with Patient: Total time spent is greater than 50% in coordination of care (as documented) at patient's floor/unit and/or counseling patient: Coding Level of Care Code 18294 SUB INP/OBS CARE 2/35MIN Diagnoses Acute respiratory failure with hypoxia and hypercapnia J96.01; J96.02 COPD (chronic obstructive pulmonary disease) J44.9 Ex-smoker Z87.891 Pleural effusion J90 Obesity E66.9
[2023-03-27] MEDS: lisinopril 2.5 MG TAB PO SCH (12:16)
--- NOTE | 2023-03-27 13:51 | Cardiology Progress Note ---
Date of Service March 27, 2023 Assessment & Plan (1) Acute respiratory failure with hypoxia and hypercapnia: (2) NSTEMI (non-ST elevated myocardial infarction): (3) Heart failure, systolic, with acute decompensation: (4) Hyperkalemia: (5) Paroxysmal atrial fibrillation: (6) Ischemic cardiomyopathy: (7) History of CVA (cerebrovascular accident): Plan 78-year-old male admitted with acute hypoxic and hypercapnic respiratory failure, acute decompensated systolic congestive heart failure, NSTEMI. Slowly improving. We will continue IV diuretics but hold dose in a.m. until reviewed will require oral diuretic on discharge Continue other medications as prescribed including anticoagulation with Lisinopril added we will follow closely given marginal blood pressure Admission and Anticipated Discharge Date Admission Date: March 24, 2023 Subjective Slowly improving with IV diuretics Appreciate pulmonology input Minimal cough Review of Systems Review of Systems: All systems reviewed & are unremarkable except as noted in Subjective Results & Data Vital Signs (Past 12 Hours) Vital Signs Temp Pulse Pulse Resp BP BP Pulse Ox 03/27/23 07:10 62 03/27/23 12:14 66 93/53 L 03/27/23 12:31 65 99/51 L 03/27/23 11:26 89/59 L 03/27/23 11:19 88 22 96 03/27/23 11:00 36.4 C L 60 18 88/54 L 95 03/27/23 07:40 03/27/23 08:00 36.4 C L 61 18 113/52 L 95 03/27/23 07:05 83 20 98 03/27/23 02:42 36.5 C 62 18 100/56 L 94 O2 Del Method O2 Flow Rate FiO2 03/27/23 07:10 03/27/23 12:14 03/27/23 12:31 03/27/23 11:26 03/27/23 11:19 Nasal Cannula 4 03/27/23 11:00 Nasal Cannula 4 03/27/23 07:40 Nasal Cannula 4 03/27/23 08:00 Nasal Cannula 4 03/27/23 07:05 BiPAP 40 03/27/23 02:42 Nasal Cannula Laboratory Results Laboratory Results - last 24 hr 03/26/23 03/26/23 03/27/23 16:22 20:23 06:29 PT 27.6 H INR 2.7 H Sodium Potassium Chloride Carbon Dioxide Anion Gap BUN Creatinine Est Cr Clr Drug Dosing Est GFR ( Amer) Est GFR (Non-Af Amer) BUN/Creatinine Ratio Glucose POC Glucose 225 H 149 H Calcium Magnesium 03/27/23 03/27/23 03/27/23 06:29 07:21 11:21 PT INR Sodium 135 L Potassium 4.2 Chloride 95 L Carbon Dioxide 35 H Anion Gap 5 BUN 31 H Creatinine 0.95 Est Cr Clr Drug Dosing 81.0 Est GFR ( Amer) 88.5 Est GFR (Non-Af Amer) 76.4 BUN/Creatinine Ratio 32.6 H Glucose 114 H POC Glucose 95 106 H Calcium 8.1 L Magnesium 2.0
--- NOTE | 2023-03-27 16:08 | Hospitalist Progress Note ---
Date of Service March 27, 2023 Assessment & Plan (1) Acute respiratory failure with hypoxia and hypercapnia: Plan: per admitting service notes with addendum: 78-year-old male with past med significant for COPD, chronic systolic CHF, chronic atrial fibrillation on Coumadin, history of CAD, s/p CABG, s/p ICD, hypertension, peripheral vascular disease, hyperlipidemia, prediabetes, GERD, morbid obesity, history of COVID-19, history of stroke with left hemiplegia and bedbound currently residing at [facility] was brought in because of acute respiratory distress. Acute respiratory failure with hypoxia and hypercapnia Acute on chronic systolic CHF COPD exacerbation On home oxygen 2 L in the nighttime and daytime mostly takes off Short of breath since last night 10 PM Initial VBG pH 7.19, PCO2 76. Placed On BiPAP. Repeat [id number] ABG pH 7.31 PCO2 64 Elevated BNP Currently saturating fine on BiPAP Feeling better Pulmonary edema on chest x-ray 03/25 Echo: EF 15-20% improving on 1.5 L NC continue Lasix IV continue Zosyn + Doxy, Nebs, Steroid 03/26 Gradually improving On 2 L of nasal cannula On BiPAP at night, will also need as an outpatient Continue Lasix 40 mg IV twice daily Continue doxycycline plus nebs plus prednisone 40 mg daily 03/27 continues to improve On 2 L of nasal cannula On BiPAP at night, will also need as an outpatient plan to transition to PO Lasix tomorrow Doxy + Prednisone Acute on chronic systolic CHF EF 25 to 30%. S/p ICD received IV Lasix 40 mg in the ER We will continue with IV Lasix 40 mils twice daily 03/27 Cardiology on board Management per above COPD exacerbation Possible Placed on IV Solu-Medrol, nebs [id number] and as needed Continue home inhalers Empiric antibiotics Zosyn and doxycycline We will follow CT chest rule out any underlying pneumonia Respiratory bio fire negative MRSA screen Pulmonary consulted Pulm on board: BiPAP even when [facility] goes [facility] to [facility]. Would recommend 03/02 with backup rate of 18 and 35% FiO2 Do not over oxygenate the patient, keep saturation between 88-92% Can DC Solu-Medrol start prednisone 40 mg for 3 days followed by 20 mg for 3 days Complete the course of doxycycline for total of 5-7 days Continue with spirometry will be beneficial Continue with Mucinex and flutter valve Diarrhea Stool PCR positive for E. coli with Shiga toxin clear liquid diet tonight hold Senna, Statin Hyperkalemia Potassium 6.3 Received insulin and dextrose and IV calcium gluconate We will follow repeat labs We will hold the potassium supplement and lisinopril 03/26 resolved Non-ST elevated FL Denies any chest pain Initial troponin 122. Repeat 1037 On Coumadin INR therapeutic On beta-felisha likely from acute respiratory failure Elevated lactic acid Mostly from hypoxia On empiric antibiotics Blood pressure okay Repeat levels normalized. Chronic atrial fibrillation On Coreg and Coumadin INR 2.7 Monitor PT/INR CAD s/p CABG On Coreg, statin and Coumadin Hypertension Coreg with holding parameters Holding lisinopril BP on the lower side Hyperlipidemia On statin History of CVA Left hemiplegia Bedbound On statin and Coumadin Frequent repositioning every 4 hours at least, discussed with RN Peripheral vascular disease On statin and Coumadin Prediabetes a1c 6.2 Monitor blood sugars Insulin sliding scale for now DVT prophylaxis On Coumadin and INR therapeutic Disposition Telemetry floor CODE STATUS DNR/DNI as per discussion with the patient and also and also the halfway. Admission and Anticipated Discharge Date Admission Date: March 24, 2023 Subjective ff up for acute respiratory failure, etc seen resting in bed, watching TV comfortable states he feels fine overall breathing continues to improve no cough has diarrhea again 2-3x loose stools so far no abdominal pain, nausea/vomiting no other new symptoms Review of Systems Review of Systems: all noted and negative except for above Physical Exam Physical Exam: General- oriented x 3, not in distress, speaks in sentences with no effort or accessory muscle use Eyes- anicteric Neck- no JVD Lungs- mild rales at the bases Heart- normal rate, regular rhythm; no murmurs Abdomen- normal bowel sounds, nondistended, soft, no tenderness Extremities- no pretibial edema, no calf tenderness Neuro- alert, oriented x 3; no gross focal neurologic deficits Skin- warm & dry Results & Data Results & Data Vital Signs (Past 12 Hours) Vital Signs Temp Pulse Pulse Resp BP BP Pulse Ox 03/27/23 14:12 65 111/51 L 03/27/23 14:01 82 108/50 L 03/27/23 14:58 66 14 88 L 03/27/23 07:10 62 03/27/23 12:14 66 93/53 L 03/27/23 12:31 65 99/51 L 03/27/23 11:26 89/59 L 03/27/23 11:19 88 22 96 03/27/23 11:00 36.4 C L 60 18 88/54 L 95 03/27/23 07:40 03/27/23 08:00 36.4 C L 61 18 113/52 L 95 03/27/23 07:05 83 20 98 O2 Del Method O2 Flow Rate FiO2 03/27/23 14:12 03/27/23 14:01 03/27/23 14:58 Nasal Cannula 2 03/27/23 07:10 03/27/23 12:14 03/27/23 12:31 03/27/23 11:26 03/27/23 11:19 Nasal Cannula 4 03/27/23 11:00 Nasal Cannula 4 03/27/23 07:40 Nasal Cannula 4 03/27/23 08:00 Nasal Cannula 4 03/27/23 07:05 BiPAP 40 all noted and reviewed including below
[2023-03-27] MEDS: WARFARIN SOD 4 MG TAB PO SCH (17:11)
[2023-03-27] MEDS: DOXYCYCLINE HYCLATE 100 MG CAP PO SCH (21:34)
[2023-03-28] MEDS: ALBUT/IPRATROP 3MG/0.5MG NEB 3 ML VIAL NEB SCH ×4 (07:21→19:05)
[2023-03-28] MEDS: INSULIN ASPART PER UNIT CHARGE SC SCH ×4 (07:51→21:40)
[2023-03-28] MEDS: guaiFENesin 600 MG TABCR PO SCH ×2 (08:11→21:50)
[2023-03-28] MEDS: predniSONE 20 MG TAB PO SCH (08:11)
[2023-03-28] MEDS: lisinopril 2.5 MG TAB PO SCH (08:14)
[2023-03-28] MEDS: FUROSEMIDE 40 MG/4 ML VIAL IV SCH ×2 (08:14→17:04)
[2023-03-28] MEDS: METOPROLOL SUCC 25MG EXT REL TAB PO SCH (08:16)
[2023-03-28] MEDS: DOXYCYCLINE HYCLATE 100 MG CAP PO SCH ×2 (08:16→21:50)
[2023-03-28] MEDS: FLUTICASONE/VILANTEROL 200/25MCG 14 PUFFS/INHALER INH SCH (08:18)
[2023-03-28] MEDS: ACETAMINOPHEN 500 MG TAB PO SCH ×2 (08:25→21:50)
[2023-03-28 08:42] LABS: BUN Creatinine Ratio 34.1 (10-20); Calcium 8.4 mg/dl (8.6-10.3); Creatinine Clr Calc Pharmacy 84.6 ml/min; Est GFR (African American) 93.2 ml/min; Est GFR (Non-African American) 80.4 ml/min; Magnesium 2.2 mg/dl (1.7-2.4)
[2023-03-28 08:51] LABS: INR 2.7 (0.9-1.1)
--- NOTE | 2023-03-28 13:59 | Cardiology Progress Note ---
Date of Service March 28, 2023 Assessment & Plan (1) Acute respiratory failure with hypoxia and hypercapnia: (2) NSTEMI (non-ST elevated myocardial infarction): (3) Heart failure, systolic, with acute decompensation: (4) Hyperkalemia: (5) Paroxysmal atrial fibrillation: (6) Ischemic cardiomyopathy: (7) History of CVA (cerebrovascular accident): Plan 78-year-old male admitted with acute hypoxic and hypercapnic respiratory failure, acute decompensated systolic congestive heart failure, NSTEMI. Slowly improving. We will continue IV furosemide an additional 24 hours. Renal function appears to allow Lisinopril not being given due to relative hypotension We will reduce metoprolol succinate slightly to 25 mg a.m. 12.5 mg p.o. Admission and Anticipated Discharge Date Admission Date: March 24, 2023 Subjective Patient seen and examined, chart and telemetry reviewed. Patient denies acute complaints I's and O's reflect diuresis though little change in weight Review of Systems Review of Systems: Unobtainable due to cognitive status Physical Exam Physical Exam: General: Alert and oriented x 3. NAD. HENT: Normocephalic. Atraumatic. Eyes: PER. Conjunctiva pink, sclera clear. Neck: Thick. Neck veins not appreciated. Heart: Slightly irregular, 70 bpm. Systolic murmur. No rub. Lungs: Clear to auscultation anteriorly. Abdomen: +BS. Soft. Nontender. No masses or organomegaly. Extremities: Minimal edema. No clubbing. No cyanosis. Limited neurological examination is without focal deficits. Pulses: Posterior tibial=2/4. Results & Data Vital Signs (Past 12 Hours) Vital Signs Temp Pulse Pulse Resp BP Pulse Ox O2 Del Method 03/28/23 11:23 57 L 18 94 Nasal Cannula 03/28/23 11:20 59 L 19 102/62 95 Nasal Cannula 03/28/23 08:00 Nasal Cannula 03/28/23 08:00 63 03/28/23 07:38 66 20 94 Nasal Cannula 03/28/23 07:33 36.4 C L 65 19 100/63 94 Nasal Cannula 03/28/23 03:00 36.5 C 60 19 96/55 L 99 Nasal Cannula 03/28/23 03:13 61 22 95 O2 Flow Rate FiO2 03/28/23 11:23 2 03/28/23 11:20 2.0 10/08/23 08:00 2 03/28/23 08:00 03/28/23 07:38 2 03/28/23 07:33 2.0 03/28/23 03:00 03/28/23 03:13 30 Laboratory Results Laboratory Results - last 24 hr 03/27/23 03/27/23 03/28/23 16:18 20:30 07:27 PT INR Sodium Potassium Chloride Carbon Dioxide Anion Gap BUN Creatinine Est Cr Clr Drug Dosing Est GFR ( Amer) Est GFR (Non-Af Amer) BUN/Creatinine Ratio Glucose POC Glucose 127 H 123 H 92 Calcium Magnesium 03/28/23 03/28/23 03/28/23 07:45 07:45 11:35 PT 28.0 H INR 2.7 H Sodium 137 Potassium 4.0 Chloride 95 L Carbon Dioxide 38 H Anion Gap 4 BUN 31 H Creatinine 0.91 Est Cr Clr Drug Dosing 84.6 Est GFR ( Amer) 93.2 Est GFR (Non-Af Amer) 80.4 BUN/Creatinine Ratio 34.1 H Glucose 97 POC Glucose 123 H Calcium 8.4 L Magnesium 2.2
--- NOTE | 2023-03-28 14:13 | Hospitalist Progress Note ---
Date of Service March 28, 2023 Assessment & Plan (1) Acute respiratory failure with hypoxia and hypercapnia: Plan: per admitting service notes with addendum: 78-year-old male with past med significant for COPD, chronic systolic CHF, chronic atrial fibrillation on Coumadin, history of CAD, s/p CABG, s/p ICD, hypertension, peripheral vascular disease, hyperlipidemia, prediabetes, GERD, morbid obesity, history of COVID-19, history of stroke with left hemiplegia and bedbound currently residing at [facility] was brought in because of acute respiratory distress. Acute respiratory failure with hypoxia and hypercapnia Acute on chronic systolic CHF COPD exacerbation On home oxygen 2 L in the nighttime and daytime mostly takes off Short of breath since last night 10 PM Initial VBG pH 7.19, PCO2 76. Placed On BiPAP. Repeat [id number] ABG pH 7.31 PCO2 64 Elevated BNP Currently saturating fine on BiPAP Feeling better Pulmonary edema on chest x-ray 03/25 Echo: EF 15-20% improving on 1.5 L NC continue Lasix IV continue Zosyn + Doxy, Nebs, Steroid 03/26 Gradually improving On 2 L of nasal cannula On BiPAP at night, will also need as an outpatient Continue Lasix 40 mg IV twice daily Continue doxycycline plus nebs plus prednisone 40 mg daily 03/27 continues to improve On 2 L of nasal cannula On BiPAP at night, will also need as an outpatient plan to transition to PO Lasix tomorrow Doxy + Prednisone 03/28 BP on the lower side Lasix held monitor Acute on chronic systolic CHF EF 25 to 30%. S/p ICD received IV Lasix 40 mg in the ER 03/28 Cardiology on board Management per above COPD exacerbation Possible Placed on IV Solu-Medrol, nebs [id number] and as needed Continue home inhalers Empiric antibiotics Zosyn and doxycycline Respiratory bio fire negative MRSA screen Pulmonary consulted CT chest: 1. Cardiomegaly and AICD with evidence of congestive failure and pulmonary edema. 2. Small pleural effusions with dependent consolidation. Correlate clinically for evidence of superimposed pneumonia. Radiographic follow-up to resolution is recommended. 3. Additional findings as above. Pulm on board: BiPAP even when he goes back to [facility]. Would recommend 168 with backup rate of 18 and 35% FiO2 Do not over oxygenate the patient, keep saturation between 88-92% Can DC Solu-Medrol start prednisone 40 mg for 3 days followed by 20 mg for 3 days Complete the course of doxycycline for total of 5-7 days Continue with spirometry will be beneficial Continue with Mucinex and flutter valve Diarrhea Stool PCR positive for E. coli with Shiga toxin improving Hyperkalemia Potassium 6.3 Received insulin and dextrose and IV calcium gluconate We will follow repeat labs We will hold the potassium supplement and lisinopril 03/26 resolved Non-ST elevated [place] Denies any chest pain Initial troponin 122. Repeat 1037 On Coumadin INR therapeutic On beta-felisha likely from acute respiratory failure Elevated lactic acid Mostly from hypoxia On empiric antibiotics Blood pressure okay Repeat levels normalized. Chronic atrial fibrillation On Coreg and Coumadin INR 2.7 Monitor PT/INR CAD s/p CABG On Coreg, statin and Coumadin Hypertension Coreg with holding parameters Holding lisinopril BP on the lower side Hyperlipidemia On statin History of CVA Left hemiplegia Bedbound On statin and Coumadin Frequent repositioning every 4 hours at least, discussed with RN Peripheral vascular disease On statin and Coumadin Prediabetes a1c 6.2 Monitor blood sugars Insulin sliding scale for now DVT prophylaxis On Coumadin and INR therapeutic Disposition Telemetry floor CODE STATUS DNR/DNI as per discussion with the patient and also and also the [facility]. Admission and Anticipated Discharge Date Admission Date: March 24, 2023 Subjective ff up for acute respiratory failure, etc seen resting in bed, comfortable had 1 loose BM this morning states he feels ok overall breathing is fine no cough no chest pain, dizziness no other new symptoms Review of Systems Review of Systems: all noted and negative except for above Physical Exam Physical Exam: General- oriented x 3, not in distress, speaks in sentences with no effort or accessory muscle use Eyes- anicteric Neck- no JVD Lungs- mild rales at the bases Heart- normal rate, regular rhythm; no murmurs Abdomen- normal bowel sounds, nondistended, soft, no tenderness Extremities- no pretibial edema, no calf tenderness Neuro- alert, oriented x 3; no new gross focal neurologic deficits Skin- warm & dry Results & Data Results & Data Vital Signs (Past 12 Hours) Vital Signs Temp Pulse Pulse Resp BP Pulse Ox O2 Del Method 03/28/23 11:23 57 L 18 94 Nasal Cannula 03/28/23 11:20 59 L 19 102/62 95 Nasal Cannula 03/28/23 08:00 Nasal Cannula 03/28/23 08:00 63 03/28/23 07:38 66 20 94 Nasal Cannula 03/28/23 07:33 36.4 C L 65 19 100/63 94 Nasal Cannula 03/28/23 03:00 36.5 C 60 19 96/55 L 99 Nasal Cannula 03/28/23 03:13 61 22 95 O2 Flow Rate FiO2 03/28/23 11:23 2 03/28/23 11:20 2.0 03/28/23 08:00 2 03/28/23 08:00 03/28/23 07:38 2 03/28/23 07:33 2.0 03/28/23 03:00 03/28/23 03:13 30 all noted and reviewed including below
[2023-03-28] MEDS: WARFARIN SOD 4 MG TAB PO SCH (17:00)
[2023-03-28] MEDS ORDERED: METOPROLOL SUCC 25MG EXT REL TAB PO SCH (21:00)
[2023-03-29] MEDS: ALBUT/IPRATROP 3MG/0.5MG NEB 3 ML VIAL NEB SCH ×4 (07:21→19:07)
[2023-03-29 07:39] LABS: INR 4.7 (0.9-1.1); Prothrombin Time 46.3 Seconds (9.0-12.0)
[2023-03-29] MEDS: INSULIN ASPART PER UNIT CHARGE SC SCH ×4 (08:07→20:35)
[2023-03-29] MEDS: ACETAMINOPHEN 500 MG TAB PO SCH ×2 (08:11→21:03)
[2023-03-29] MEDS: DOXYCYCLINE HYCLATE 100 MG CAP PO SCH ×2 (08:12→21:03)
[2023-03-29] MEDS: predniSONE 20 MG TAB PO SCH (08:13)
[2023-03-29] MEDS: guaiFENesin 600 MG TABCR PO SCH ×2 (08:13→21:03)
[2023-03-29] MEDS: FLUTICASONE/VILANTEROL 200/25MCG 14 PUFFS/INHALER INH SCH (08:14)
--- NOTE | 2023-03-29 08:48 | Cardiology Progress Note ---
Date of Service March 29, 2023 Assessment & Plan (1) Acute respiratory failure with hypoxia and hypercapnia: (2) NSTEMI (non-ST elevated myocardial infarction): (3) Heart failure, systolic, with acute decompensation: (4) Hyperkalemia: (5) Paroxysmal atrial fibrillation: (6) Ischemic cardiomyopathy: (7) History of CVA (cerebrovascular accident): Plan IMPRESSION: 78-year-old male admitted with acute hypoxic and hypercapnic respiratory failure, acute decompensated systolic congestive heart failure, NSTEMI. PLAN: Volume status appears to be improving, but patient remains hypervolemic on exam. Continue IV Lasix 40 mg BID. BMP in the am. Replace electrolytes as needed. +Cough and course lung sounds on exam today-- pulmonary disease vs fluid vs other. CXR ordered to assess this am. Lisinopril not being given due to relative hypotension- on Hold. HR in the mid 60s continue reduce metoprolol succinate to 12.5 mg p.o. every evening Case discussed with Dr. Carnes- will follow. Admission and Anticipated Discharge Date Admission Date: March 24, 2023 Supervising Physician Co-Signing Physician Notes Patient seen and examined, chart, medications, telemetry reviewed. Assessment and plan as above Medications intermittently being held including IV furosemide. Received 40 mg o f furosemide yesterday and today Will likely transition to oral dosing in a.m. Abdominal distention and lower extremity edema improved Optimally would like to resume lisinopril as blood pressure allows following IV diuresis Continue metoprolol succinate 12.5 mg twice per day Subjective 78-year-old male admitted with acute hypoxic and hypercapnic respiratory failure, acute decompensated systolic congestive heart failure, NSTEMI. Currently being diuresed with IV Lasix- 40 mg BID. Labs this am: Stable renal function. Upon entrance into the room patient resting in bed. HOB minimally elevated. Notes significant improvement in his breathing, has noted a worsening cough though- course and nonproductive. On supplemental o2 (2L- chronic). No chest pain or palpitations. Lower extremity dependent edema noted. I&O: -4.6 L Weight: 116 kg >> 111.6 kg Tele: SR IVCD PVCs 60s Review of Systems Review of Systems: All systems reviewed & are unremarkable except as noted in HPI & below Physical Exam Physical Exam: General: Alert and oriented x 3. NAD. HENT: Normocephalic. Atraumatic. Eyes: PER. Conjunctiva pink, sclera clear. Neck: Thick. Neck veins not appreciated. Heart: Slightly irregular, 60 bpm. Systolic murmur. No rub. Lungs: Course lung sounds. +cough Abdomen: +BS. Soft. Nontender. No masses or organomegaly. Extremities: Minimal edema, dependent. No clubbing. No cyanosis. Limited neurological examination is without focal deficits. Pulses: Posterior tibial=2/4. Results & Data Vital Signs (Past 12 Hours) Vital Signs Temp Pulse Pulse Pulse Resp BP Pulse Ox 03/29/23 07:50 03/29/23 07:21 61 20 94 03/29/23 07:07 36.6 C 61 19 100/56 L 94 03/28/23 23:29 66 03/29/23 03:00 36.5 C 60 19 89/57 L 98 03/29/23 02:47 62 22 95 03/28/23 23:00 36.5 C 50 L 19 120/75 97 03/28/23 21:30 03/28/23 22:34 60 26 H 98 03/28/23 21:45 60 107/55 L O2 Del Method O2 Flow Rate FiO2 03/29/23 07:50 Nasal Cannula 2 03/29/23 07:21 Nasal Cannula 2 03/29/23 07:07 Nasal Cannula 2.0 03/28/23 23:29 03/29/23 03:00 Nasal Cannula 03/29/23 02:47 30 03/28/23 23:00 Nasal Cannula 03/28/23 21:30 Nasal Cannula 2 03/28/23 22:34 30 03/28/23 21:45 Laboratory Results Coagulation 03/29/23 Range/Units 06:43 PT 46.3 H (9.0-12.0) Seconds Comprehensive Metabolic Panel 03/29/23 Range/Units 06:39 Sodium 138 (136-145) mmol/L Potassium 3.8 (3.5-5.1) mmol/L Chloride 96 L (98-107) mmol/L Carbon Dioxide 37 H (21-32) mmol/L BUN 30 H (6-23) mg/dl Creatinine 0.93 (0.6-1.4) mg/dl Glucose 93 (70-99(Fasting)) mg/dl Calcium 8.1 L (8.6-10.3) mg/dl Intake and Output 03/28/23 03/29/23 03/29/23 22:59 06:59 14:59 Intake Total 240 / 720 Output Total 1400 / 2150 400 / 2150 Balance -1160 / -1430 -400 / -1430 Intake: Oral 240 / 720 Output: Urine Amount (Catheter) 1400 / 2150 400 / 2150 Villatoro/Indwelling 1400 / 2149 400 / 2150 Other: Weight 111.6 kg
[2023-03-29] MEDS ORDERED: METOPROLOL SUCC 25MG EXT REL TAB PO SCH (09:00)
[2023-03-29 09:25] LABS: BUN Creatinine Ratio 32.3 (10-20); Calcium 8.1 mg/dl (8.6-10.3); Creatinine Clr Calc Pharmacy 81.9 ml/min; Est GFR (African American) 90.8 ml/min; Est GFR (Non-African American) 78.4 ml/min; Potassium 3.8 mmol/L (3.5-5.1)
[2023-03-29] MEDS ORDERED: POTASSIUM CHLORIDE CRTAB 20 MEQ TABCR PO STA (09:47)
[2023-03-29] MEDS ORDERED: FUROSEMIDE 40 MG/4 ML VIAL IV ONE (09:47)
[2023-03-29] MEDS ORDERED: POTASSIUM CHLORIDE CRTAB 20 MEQ TABCR PO SCH (09:47)
[2023-03-29] MEDS: lisinopril 2.5 MG TAB PO SCH (10:20)
--- NOTE | 2023-03-29 10:34 | XRay Report ---
XR chest 1V portable HISTORY: cough COMPARISON: Chest 03/26/2023. FINDINGS: No pneumothorax. The heart remains enlarged. There are poststernotomy changes and left-side d pacemaker/defibrillator again noted. Mild interstitial pulmonary edema, small bilateral pleural eff usions, and bibasilar densities persist. IMPRESSION: No change in the mild interstitial pulmonary edema and small bilateral pleural effusions. ACT 112: Negative or not required by law. Electronically signed by: Jarrett Alfaro M.D. 03/29/2023 10:32 AM
--- NOTE | 2023-03-29 11:31 | Hospitalist Progress Note ---
Date of Service March 29, 2023 Assessment & Plan (1) Acute respiratory failure with hypoxia and hypercapnia: Plan: per admitting service notes with addendum: 78-year-old male with past med significant for COPD, chronic systolic CHF, chronic atrial fibrillation on Coumadin, history of CAD, s/p CABG, s/p ICD, hypertension, peripheral vascular disease, hyperlipidemia, prediabetes, GERD, morbid obesity, history of COVID-19, history of stroke with left hemiplegia and bedbound currently residing at [facility] was brought in because of acute respiratory distress. Acute respiratory failure with hypoxia and hypercapnia Acute on chronic systolic CHF COPD exacerbation On home oxygen 2 L in the nighttime and daytime mostly takes off Short of breath since last night 10 PM Initial VBG pH 7.19, PCO2 76. Placed On BiPAP. Repeat [id number] ABG pH 7.31 PCO2 64 Elevated BNP Pulmonary edema on chest x-ray 03/25 Echo: EF 15-20% improving on 1.5 L NC continue Lasix IV continue Zosyn + Doxy, Nebs, Steroid 03/26 Gradually improving On 2 L of nasal cannula On BiPAP at night, will also need as an outpatient Continue Lasix 40 mg IV twice daily Continue doxycycline plus nebs plus prednisone 40 mg daily 03/27 continues to improve On 2 L of nasal cannula On BiPAP at night, will also need as an outpatient plan to transition to PO Lasix tomorrow Doxy + Prednisone 03/28 BP on the lower side Lasix held monitor Acute on chronic systolic CHF EF 25 to 30%. S/p ICD received IV Lasix 40 mg in the ER 03/28 Cardiology on board Management per above 03/29 Lasix has been on hold due to marginal BP CXR personally reviewed, pulm edema improved Metoprolol, Lisinopril decreased COPD exacerbation Possible Placed on IV Solu-Medrol, nebs [id number] and as needed Continue home inhalers Empiric antibiotics Zosyn and doxycycline Respiratory bio fire negative MRSA screen Pulmonary consulted CT chest: 1. Cardiomegaly and AICD with evidence of congestive failure and pulmonary edema. 2. Small pleural effusions with dependent consolidation. Correlate clinically for evidence of superimposed pneumonia. Radiographic follow-up to resolution is recommended. 3. Additional findings as above. Pulm on board: BiPAP even when he goes back to [facility] living. Would recommend 03/02 with backup rate of 18 and 35% FiO2 Do not over oxygenate the patient, keep saturation between 88-92% Can DC Solu-Medrol start prednisone 40 mg for 3 days followed by 20 mg for 3 days Complete the course of doxycycline for total of 5-7 days Continue with spirometry will be beneficial Continue with Mucinex and flutter valve Diarrhea Stool PCR positive for E. coli with Shiga toxin resolved Hyperkalemia Potassium 6.3 Received insulin and dextrose and IV calcium gluconate resolved Non-ST elevated [place] Denies any chest pain Initial troponin 122. Repeat 1037 On Coumadin INR therapeutic On beta-felisha likely from acute respiratory failure Elevated lactic acid Mostly from hypoxia On empiric antibiotics Blood pressure okay Repeat levels normalized. Chronic atrial fibrillation On Coreg and Coumadin INR 4.7 Monitor PT/INR CAD s/p CABG On Coreg, statin and Coumadin Hypertension Coreg and Lisinopril titrated due to marginal BP Hyperlipidemia On statin History of CVA Left hemiplegia Bedbound On statin and Coumadin Frequent repositioning every 4 hours at least, discussed with RN Peripheral vascular disease On statin and Coumadin Prediabetes a1c 6.2 Monitor blood sugars Insulin sliding scale for now DVT prophylaxis INR 4 Disposition Telemetry floor CODE STATUS DNR/DNI as per discussion with the patient and also and also the senior living. Admission and Anticipated Discharge Date Admission Date: March 24, 2023 Subjective ff up for acute respiratory failure, etc seen resting in bed, comfortable on 1.5 L states he feels ok overall breathing fine no cough no abdominal pain, nausea no diarrhea since this AM no other symptoms Review of Systems Review of Systems: all noted and negative except for above Physical Exam Physical Exam: General- oriented x 3, not in distress, speaks in sentences with no effort or accessory muscle use Eyes- anicteric Neck- no JVD Lungs- mild rales at the bases no wheezing Heart- normal rate, regular rhythm; no murmurs Abdomen- normal bowel sounds, nondistended, soft, nontender Extremities- mild pretibial edema, no calf tenderness Neuro- alert, oriented x 3; no gross focal neurologic deficits Skin- warm & dry Results & Data Results & Data Vital Signs (Past 12 Hours) Vital Signs Temp Pulse Pulse Pulse Resp BP Pulse Ox 03/29/23 11:17 70 20 94 03/29/23 09:50 62 87/52 L 03/29/23 09:32 60 94/60 L 03/29/23 09:00 59 L 101/65 03/29/23 07:50 03/29/23 07:21 61 20 94 03/29/23 07:07 36.6 C 61 19 100/56 L 94 03/28/23 23:29 66 03/29/23 03:00 36.5 C 60 19 89/57 L 98 03/29/23 02:47 62 22 95 O2 Del Method O2 Flow Rate FiO2 03/29/23 11:17 Nasal Cannula 2 03/29/23 09:50 03/29/23 09:32 03/29/23 09:00 03/29/23 07:50 Nasal Cannula 2 03/29/23 07:21 Nasal Cannula 2 03/29/23 07:07 Nasal Cannula 2.0 03/28/23 23:29 03/29/23 03:00 Nasal Cannula 03/29/23 02:47 30 all noted and reviewed including below
[2023-03-29] MEDS ORDERED: Nursing to Pharmacy Communication SCH (12:30)
[2023-03-29] MEDS: FUROSEMIDE 40 MG/4 ML VIAL IV SCH (17:48)
[2023-03-29] MEDS: METOPROLOL SUCC 25MG EXT REL TAB PO SCH (23:47)
[2023-03-30] MEDS: ALBUT/IPRATROP 3MG/0.5MG NEB 3 ML VIAL NEB SCH ×4 (06:53→19:51)
--- NOTE | 2023-03-30 07:31 | Cardiology Progress Note ---
Date of Service March 30, 2023 Assessment & Plan (1) Acute respiratory failure with hypoxia and hypercapnia: (2) NSTEMI (non-ST elevated myocardial infarction): (3) Heart failure, systolic, with acute decompensation: (4) Hyperkalemia: (5) Paroxysmal atrial fibrillation: (6) Ischemic cardiomyopathy: (7) History of CVA (cerebrovascular accident): Plan IMPRESSION: 78-year-old male admitted with acute hypoxic and hypercapnic respiratory failure, acute decompensated systolic congestive heart failure, NSTEMI. PLAN: Volume status improved and patient appears to be at baseline, transition IV Lasix to oral Lasix 40 mg daily. Patient did receive 40 mg IV Lasix this morning. Monitor renal function and electrolytes. replace K to a goal of 4.0 and mag to a goal of 2.0 Resume goal directed medication therapy with low dose Lisinopril 2.5 mg daily. Continue metoprolol succinate to 12.5 mg BID CHF EDU Strict I&O + daily weights 2g sodium diet Case discussed with Dr. Carnes- will follow. Admission and Anticipated Discharge Date Admission Date: March 24, 2023 Supervising Physician Co-Signing Physician Notes Patient seen and examined, chart, medications, telemetry reviewed Patient clinically improving blood pressure somewhat marginal but will continue guideline directed medical therapies patient asymptomatic. Switch IV furosemide to oral likely add spironolactone either this admission or post discharge. Supplement potassium today Subjective 78-year-old male admitted with acute hypoxic and hypercapnic respiratory failure, acute decompensated systolic congestive heart failure, NSTEMI. 03/29: Hypotension noted-- lisinopril held and metoprolol reduced to 12.5 mg twice daily Hypervolemia persisted-- Diuresed with 40 mg IV Lasix BID 03/30: Upon entrance into the room patient resting in bed. HOB minimally elevated. Note s significant improvement in his breathing. On supplemental o2 (2L- chronic). No chest pain or palpitations. Lower extremity dependent edema noted- but improved compared to admission. Eager for discharge. LABS: Renal function and electrolytes stable. I&O: -6.4 L Weight: 116 kg >> 111.5 kg Tele: SR/Paced IVCD PVCs 60s Review of Systems Review of Systems: All systems reviewed & are unremarkable except as noted in HPI & below Physical Exam Physical Exam: General: Alert and oriented x 3. NAD. HENT: Normocephalic. Atraumatic. Eyes: PER. Conjunctiva pink, sclera clear. Neck: Thick. Neck veins not appreciated. Heart: Slightly irregular, 60 bpm. Systolic murmur. No rub. Lungs: +Rhonchi +cough Abdomen: +BS. Soft. Nontender. No masses or organomegaly. Extremities: Minimal edema, dependent. No clubbing. No cyanosis. Limited neurological examination is without focal deficits. Pulses: Posterior tibial=2/4. Results & Data Vital Signs (Past 12 Hours) Vital Signs Temp Pulse Pulse Resp BP Pulse Ox O2 Del Method 03/30/23 07:22 36.8 C 61 20 98/56 L 97 Nasal Cannula 03/30/23 06:53 60 16 93 Nasal Cannula 03/30/23 03:04 29 H 03/30/23 02:47 36.7 C 61 18 90/53 L 98 BiPAP 03/29/23 22:00 60 03/29/23 21:30 Nasal Cannula 03/29/23 23:07 63 22 97 03/29/23 22:49 36.6 C 61 18 93/59 L 97 Nasal Cannula 03/29/23 21:54 61 92/54 L 03/29/23 20:59 62 94/54 L O2 Flow Rate FiO2 03/30/23 07:22 2.0 03/30/23 06:53 1.5 03/30/23 03:04 30 03/30/23 02:47 03/29/23 22:00 03/29/23 21:30 1.5 03/29/23 23:07 30 03/29/23 22:49 03/29/23 21:54 03/29/23 20:59 Laboratory Results Coagulation 03/30/23 Range/Units 07:48 PT 26.0 H (9.0-12.0) Seconds Comprehensive Metabolic Panel 03/30/23 Range/Units 07:48 Sodium 139 (136-145) mmol/L Potassium 3.4 L (3.5-5.1) mmol/L Chloride 93 L (98-107) mmol/L Carbon Dioxide 40 H (21-32) mmol/L BUN 33 H (6-23) mg/dl Creatinine 1.03 (0.6-1.4) mg/dl Glucose 126 H (70-99(Fasting)) mg/dl Calcium 8.4 L (8.6-10.3) mg/dl Intake and Output 03/29/23 03/30/23 03/30/23 22:59 06:59 14:59 Intake Total 240 / 980 100 / 980 Output Total 1200 / 2750 350 / 2750 Balance -960 / -1770 -250 / -1770 Intake: Oral 240 / 980 100 / 980 Output: Urine Amount (Catheter) 1200 / 2750 350 / 2750 Villatoro/Indwelling 1200 / 2750 350 / 2750 Other: Weight 111.5 kg
[2023-03-30] MEDS: ACETAMINOPHEN 500 MG TAB PO SCH ×2 (08:03→20:15)
[2023-03-30] MEDS: METOPROLOL SUCC 25MG EXT REL TAB PO SCH ×2 (08:04→20:12)
[2023-03-30] MEDS: predniSONE 20 MG TAB PO SCH (08:05)
[2023-03-30] MEDS: guaiFENesin 600 MG TABCR PO SCH ×2 (08:05→20:13)
[2023-03-30] MEDS: DOXYCYCLINE HYCLATE 100 MG CAP PO SCH ×2 (08:06→20:12)
[2023-03-30] MEDS: FLUTICASONE/VILANTEROL 200/25MCG 14 PUFFS/INHALER INH SCH (08:06)
[2023-03-30] MEDS: FUROSEMIDE 40 MG/4 ML VIAL IV SCH (08:07)
[2023-03-30] MEDS: INSULIN ASPART PER UNIT CHARGE SC SCH ×4 (08:12→20:13)
[2023-03-30 08:33] LABS: Calcium 8.4 mg/dl (8.6-10.3); Creatinine Clr Calc Pharmacy 73.9 ml/min; Est GFR (African American) 80.3 ml/min; Est GFR (Non-African American) 69.3 ml/min; Magnesium 2.2 mg/dl (1.7-2.4); Potassium 3.4 mmol/L (3.5-5.1)
[2023-03-30 08:45] LABS: INR 2.5 (0.9-1.1)
--- NOTE | 2023-03-30 16:06 | Hospitalist Progress Note ---
Date of Service March 30, 2023 Assessment & Plan (1) Acute respiratory failure with hypoxia and hypercapnia: Plan: per admitting service notes with addendum: 78-year-old male with past med significant for COPD, chronic systolic CHF, chronic atrial fibrillation on Coumadin, history of CAD, s/p CABG, s/p ICD, hypertension, peripheral vascular disease, hyperlipidemia, prediabetes, GERD, morbid obesity, history of COVID-19, history of stroke with left hemiplegia and bedbound currently residing at [facility] was brought in because of acute respiratory distress. ACUTE RESPIRATORY FAILURE WITH HYPOXIA AND HYPERCAPNIA ACUTE ON CHRONIC SYSTOLIC CHF COPD EXACERBATION On home oxygen 2 L in the nighttime and daytime mostly takes off Initial VBG pH 7.19, PCO2 76. Placed On BiPAP. Repeat vgquv-of-ualn ABG pH 7.31 PCO2 64 Elevated BNP Pulmonary edema on chest x-ray Echo: EF 15-20% Cardiology service consulted Placed on IV Lasix Diuresed well Also placed on metoprolol and lisinopril Blood pressure marginal To be transitioned to p.o. Lasix tomorrow Pulmonary service also consulted Weaned off BiPAP Placed on Zosyn + Doxy, Nebs 4 times daily, prednisone Patient will complete antibiotic regimen today Will need 2 more days of prednisone 20 mg daily Continue nebs Patient gradually improving Currently back to baseline of 1.5 L by nasal cannula ACUTE ON CHRONIC SYSTOLIC CHF S/p ICD Management per above COPD exacerbation Respiratory bio fire negative MRSA screen Pulmonary consulted CT chest: 1. Cardiomegaly and AICD with evidence of congestive failure and pulmonary edema. 2. Small pleural effusions with dependent consolidation. Correlate clinically for evidence of superimposed pneumonia. Radiographic follow-up to resolution is recommended. 3. Additional findings as above. Pulm on board: BiPAP even when he goes back to long-term. Would recommend 16/8 with backup rate of 18 and 35% FiO2 Do not over oxygenate the patient, keep saturation between 88-92% Can DC Solu-Medrol start prednisone 40 mg for 3 days followed by 20 mg for 3 days Complete the course of doxycycline for total of 5-7 days Continue with spirometry will be beneficial Continue with Mucinex and flutter valve Diarrhea Stool PCR positive for E. coli with Shiga toxin resolved Hyperkalemia Potassium 6.3 Received insulin and dextrose and IV calcium gluconate resolved Non-ST elevated [place] Denies any chest pain Initial troponin 122. Repeat 1037 On Coumadin INR therapeutic On beta-felisha likely from acute respiratory failure Elevated lactic acid Mostly from hypoxia On empiric antibiotics Blood pressure okay Repeat levels normalized. Chronic atrial fibrillation On Coreg and Coumadin INR 2.5 Monitor PT/INR CAD s/p CABG On Coreg, statin and Coumadin Hypertension Coreg and Lisinopril titrated due to marginal BP Hyperlipidemia On statin History of CVA Left hemiplegia Bedbound On statin and Coumadin Frequent repositioning every 4 hours at least, discussed with RN Peripheral vascular disease On statin and Coumadin Prediabetes a1c 6.2 Monitor blood sugars Insulin sliding scale for now DVT prophylaxis on coumadin Disposition Return to [facility] in 1 to 2 days CODE STATUS DNR/DNI as per discussion with the patient and also and also the long-term. Admission and Anticipated Discharge Date Admission Date: March 24, 2023 Subjective Follow-up for acute on chronic hypoxic respiratory failure secondary to acute CHF, COPD exacerbation, etc. Seen resting in bed, comfortable, watching TV on 1.5 L by nasal cannula Patient's at the bedside visiting Patient states he feels better overall Breathing is continuing to improve Denies cough, shortness of breath, chest pain, palpitations Diarrhea resolved, no abdominal pain Review of Systems Review of Systems: all noted and negative except for above Physical Exam Physical Exam: General- oriented x 3, not in distress, speaks in sentences with no effort or accessory muscle use Eyes- anicteric Neck- no JVD Lungs-faint rhonchi at the bases, no wheezing Heart- normal rate, regular rhythm; no murmurs Abdomen- normal bowel sounds, nondistended, soft, no tenderness Extremities- no pretibial edema, no calf tenderness Neuro- alert, oriented x 3; no gross focal neurologic deficits Skin- warm & dry Results & Data Results & Data Vital Signs (Past 12 Hours) Vital Signs Temp Pulse Resp BP Pulse Ox O2 Del Method O2 Flow Rate 03/30/23 15:36 61 18 93 Nasal Cannula 1 03/30/23 15:12 36.9 C 60 19 99/55 L 92 Nasal Cannula 1.0 03/30/23 11:18 36.7 C 62 17 109/61 92 Nasal Cannula 1.5 03/30/23 10:53 63 18 91 Nasal Cannula 1 03/30/23 07:50 Nasal Cannula 1.5 03/30/23 07:22 36.8 C 61 20 98/56 L 97 Nasal Cannula 2.0 03/30/23 06:53 60 16 93 Nasal Cannula 1.5 all noted and reviewed including below
[2023-03-30] MEDS: WARFARIN SOD 2 MG TAB PO SCH (16:45)
[2023-03-31] MEDS: ALBUT/IPRATROP 3MG/0.5MG NEB 3 ML VIAL NEB SCH ×4 (06:47→19:14)
[2023-03-31 07:02] LABS: BUN Creatinine Ratio 32.9 (10-20); Calcium 8.1 mg/dl (8.6-10.3); Creatinine Clr Calc Pharmacy 89.5 ml/min; Est GFR (African American) 96.7 ml/min; Est GFR (Non-African American) 83.5 ml/min; Magnesium 2.2 mg/dl (1.7-2.4); Potassium 3.6 mmol/L (3.5-5.1)
[2023-03-31 07:11] LABS: INR 1.9 (0.9-1.1); Prothrombin Time 19.6 Seconds (9.0-12.0)
--- NOTE | 2023-03-31 07:33 | Cardiology Progress Note ---
Date of Service March 31, 2023 Assessment & Plan (1) Acute respiratory failure with hypoxia and hypercapnia: (2) NSTEMI (non-ST elevated myocardial infarction): (3) Heart failure, systolic, with acute decompensation: (4) Hyperkalemia: (5) Paroxysmal atrial fibrillation: (6) Ischemic cardiomyopathy: (7) History of CVA (cerebrovascular accident): Plan IMPRESSION: 78-year-old male admitted with acute hypoxic and hypercapnic respiratory failure, acute decompensated systolic congestive heart failure, NSTEMI. PLAN: Volume status improved and patient appears to be at baseline- transition to oral Lasix today, 40 mg daily. Resume goal directed medication therapy with low dose Lisinopril 2.5 mg daily. Continue metoprolol succinate to 12.5 mg BID. Start Aldactone 12.5 mg daily Monitor renal function and electrolytes. replace K to a goal of 4.0 and mag to a goal of 2.0 CHF EDU Strict I&O + daily weights 2g sodium diet Case discussed with Dr. Carnes. No further recommendations from a cardiology standpoint. Will sign off. Admission and Anticipated Discharge Date Admission Date: March 24, 2023 Supervising Physician Co-Signing Physician Notes Patient seen and examined, chart, medications, telemetry reviewed. Assessment and plan as above hemodynamically stable Diuretics changed to oral including furosemide and spironolactone Continue CHF instructions Daily weights Subjective 78-year-old male admitted with acute hypoxic and hypercapnic respiratory failure, acute decompensated systolic congestive heart failure, NSTEMI. 03/29: Hypotension noted-- lisinopril held and metoprolol reduced to 12.5 mg twice daily Hypervolemia persisted-- Diuresed with 40 mg IV Lasix BID 03/30: IV Lasix given with plans to transition to PO tomorrow, 03/31. + restart Lisinopril 2.5 mg daily 03/31: Upon entrance into the room patient resting in bed. No acute concerns. No chest pain. Denies shortness of breath. No lightheadedness of dizziness. Overall volume status appears to be at baseline. Tolerating GDMT. LABS: Renal function and electrolytes stable. I&O: -7.3 L Weight: 116 kg >>111.4 kg Tele: SR/Paced IVCD PVCs 60s Review of Systems Review of Systems: All systems reviewed & are unremarkable except as noted in HPI & below Physical Exam Physical Exam: General: Alert and oriented x 3. NAD. HENT: Normocephalic. Atraumatic. Eyes: PER. Conjunctiva pink, sclera clear. Neck: Thick. Neck veins not appreciated. Heart: Slightly irregular, 60 bpm. Systolic murmur. No rub. Lungs: diminished BL Abdomen: +BS. Soft. Nontender. No masses or organomegaly. Extremities: Minimal edema, dependent. No clubbing. No cyanosis. Limited neurological examination is without focal deficits. Pulses: Posterior tibial=2/4. Results & Data Vital Signs (Past 12 Hours) Vital Signs Temp Pulse Pulse Resp BP Pulse Ox O2 Del Method 03/31/23 06:47 59 L 16 92 Nasal Cannula 03/31/23 02:45 36.8 C 59 L 18 105/57 L 95 Nasal Cannula 03/30/23 20:00 Nasal Cannula 03/30/23 22:45 36.6 C 60 18 104/63 97 Nasal Cannula 03/30/23 22:31 61 26 H 96 03/30/23 19:51 61 18 96 Nasal Cannula 03/30/23 19:34 37 C 60 18 102/67 93 Nasal Cannula O2 Flow Rate FiO2 03/31/23 06:47 1 03/31/23 02:45 03/30/23 20:00 1.5 03/30/23 22:45 03/30/23 22:31 30 03/30/23 19:51 1 03/30/23 19:34 Laboratory Results Coagulation 03/31/23 Range/Units 05:45 PT 19.6 H (9.0-12.0) Seconds Comprehensive Metabolic Panel 03/31/23 Range/Units 05:45 Sodium 137 (136-145) mmol/L Potassium 3.6 (3.5-5.1) mmol/L Chloride 95 L (98-107) mmol/L Carbon Dioxide 36 H (21-32) mmol/L BUN 28 H (6-23) mg/dl Creatinine 0.85 (0.6-1.4) mg/dl Glucose 87 (70-99(Fasting)) mg/dl Calcium 8.1 L (8.6-10.3) mg/dl Intake and Output 03/30/23 03/31/23 03/31/23 22:59 06:59 14:59 Intake Total 120 / 940 100 / 940 Output Total 1774 Balance -330 / -835 -225 / -835 Intake: Oral 120 / 940 100 / 940 Output: Urine Amount (Catheter) 1774 Villatoro/Indwelling 1774 Other: Weight 111.4 kg
[2023-03-31] MEDS: INSULIN ASPART PER UNIT CHARGE SC SCH ×4 (08:27→21:25)
[2023-03-31] MEDS: guaiFENesin 600 MG TABCR PO SCH ×2 (08:53→20:47)
[2023-03-31] MEDS: ACETAMINOPHEN 500 MG TAB PO SCH ×2 (08:53→20:49)
[2023-03-31] MEDS: predniSONE 20 MG TAB PO SCH (09:07)
[2023-03-31] MEDS: DOXYCYCLINE HYCLATE 100 MG CAP PO SCH ×2 (09:07→20:47)
[2023-03-31] MEDS: METOPROLOL SUCC 25MG EXT REL TAB PO SCH ×3 (09:08→21:25)
[2023-03-31] MEDS: FUROSEMIDE 40 MG TAB PO SCH (09:09)
[2023-03-31] MEDS: FLUTICASONE/VILANTEROL 200/25MCG 14 PUFFS/INHALER INH SCH (09:09)
[2023-03-31] MEDS: lisinopril 2.5 MG TAB PO SCH (09:10)
--- NOTE | 2023-03-31 09:54 | Hospitalist Progress Note ---
Date of Service March 31, 2023 Assessment & Plan (1) Acute respiratory failure with hypoxia and hypercapnia: Plan: per admitting service notes with addendum: 78-year-old male with past med significant for COPD, chronic systolic CHF, chronic atrial fibrillation on Coumadin, history of CAD, s/p CABG, s/p ICD, hypertension, peripheral vascular disease, hyperlipidemia, prediabetes, GERD, morbid obesity, history of COVID-19, history of stroke with left hemiplegia and bedbound currently residing at [facility] was brought in because of acute respiratory distress. ACUTE RESPIRATORY FAILURE WITH HYPOXIA AND HYPERCAPNIA ACUTE ON CHRONIC SYSTOLIC CHF COPD EXACERBATION On home oxygen 2 L in the nighttime and daytime mostly takes off Initial VBG pH 7.19, PCO2 76. Placed On BiPAP. Repeat [id number] ABG pH 7.31 PCO2 64 Elevated BNP Pulmonary edema on chest x-ray Echo: EF 15-20% Cardiology service consulted Placed on IV Lasix Diuresed well Also placed on metoprolol and lisinopril Blood pressure marginal transitioned to p.o. Lasix 40 daily. Cont. lisinopril 2.5, metoprolol succinate 12.5 twice daily, Aldactone 12.5 daily Pulmonary service also consulted Weaned off BiPAP Placed on Zosyn + Doxy, Nebs 4 times daily, prednisone Patient to complete antibiotic regimen today Will need 1 more day of prednisone 20 mg daily Continue nebs Patient gradually improving Currently back to baseline of 1.5 L by nasal cannula ACUTE ON CHRONIC SYSTOLIC CHF S/p ICD Management per above COPD exacerbation Respiratory bio fire negative MRSA screen Pulmonary consulted CT chest: 1. Cardiomegaly and AICD with evidence of congestive failure and pulmonary edema. 2. Small pleural effusions with dependent consolidation. Correlate clinically for evidence of superimposed pneumonia. Radiographic follow-up to resolution is recommended. 3. Additional findings as above. Pulm consulted: BiPAP even when he goes back to long-term. Would recommend 16/8 with backup rate of 18 and 35% FiO2 Do not over oxygenate the patient, keep saturation between 88-92% Complete prednisone taper. Complete the course of doxycycline for total of 5-7 days Continue with spirometry will be beneficial Continue with Mucinex and flutter valve Diarrhea Stool PCR positive for E. coli with Shiga toxin resolved Hyperkalemia Potassium 6.3 Received insulin and dextrose and IV calcium gluconate resolved Non-ST elevated DE Denies any chest pain Initial troponin 122. Repeat 1037 On Coumadin INR therapeutic On beta-felisha likely from acute respiratory failure Elevated lactic acid Mostly from hypoxia On empiric antibiotics Blood pressure okay Repeat levels normalized. Chronic atrial fibrillation On Coreg and Coumadin INR 2.5 Monitor PT/INR CAD s/p CABG On Coreg, statin and Coumadin Hypertension metoprolol (instead of coreg) and Lisinopril titrated due to marginal BP Hyperlipidemia On statin History of CVA Left hemiplegia Bedbound On statin and Coumadin Frequent repositioning every 4 hours at least, discussed with RN Peripheral vascular disease On statin and Coumadin Prediabetes a1c 6.2 Monitor blood sugars Insulin sliding scale for now DVT prophylaxis on coumadin Disposition Return to [facility] in 1 to 2 days CODE STATUS DNR/DNI as per discussion with the patient and also and also the long-term. Admission and Anticipated Discharge Date Admission Date: March 24, 2023 Subjective Follow-up for acute on chronic hypoxic respiratory failure secondary to acute CHF, COPD exacerbation, etc. Seen resting in bed, comfortable, on 1 L by nasal cannula Patient's at the bedside visiting Patient states he feels well and asking about being discharged Breathing is continuing to improve Denies cough, shortness of breath, chest pain, palpitations no abdominal pain Review of Systems Review of Systems: All systems reviewed & are unremarkable except as noted in Subjective Physical Exam Physical Exam: General- oriented x 3, not in distress, speaks in sentences with no effort or accessory muscle use Eyes- anicteric Neck- no JVD Lungs-faint rhonchi at the bases, no wheezing Heart- normal rate, regular rhythm; syst. murmur Abdomen- normal bowel sounds, nondistended, soft, no tenderness Extremities- no pretibial edema, no calf tenderness Neuro- alert, oriented x 3; no gross focal neurologic deficits Skin- warm & dry Results & Data Results & Data Vital Signs (Past 12 Hours) Vital Signs Temp Pulse Pulse Pulse Resp BP Pulse Ox 03/31/23 09:05 72 103/56 L 03/31/23 07:59 36.5 C 60 20 91/61 L 97 03/31/23 06:47 59 L 16 92 03/31/23 02:45 36.8 C 59 L 18 105/57 L 95 03/30/23 22:45 36.6 C 60 18 104/63 97 03/30/23 22:31 61 26 H 96 O2 Del Method O2 Flow Rate FiO2 03/31/23 09:05 03/31/23 07:59 Nasal Cannula 1 03/31/23 06:47 Nasal Cannula 1 03/31/23 02:45 Nasal Cannula 03/30/23 22:45 Nasal Cannula 03/30/23 22:31 30 Laboratory Results 03/31/23 03/31/23 03/31/23 Range/Units 07:28 05:45 05:45 PT 19.6 H (9.0-12.0) Seconds INR 1.9 H (0.9-1.1) Sodium 137 (136-145) mmol/L Potassium 3.6 (3.5-5.1) mmol/L Chloride 95 L (98-107) mmol/L Carbon Dioxide 36 H (21-32) mmol/L Anion Gap 6 (3-11) BUN 28 H (6-23) mg/dl Creatinine 0.85 (0.6-1.4) mg/dl Est Cr Clr Drug Dosing 89.5 ml/min Est GFR ( Amer) 96.7 ml/min Est GFR (Non-Af Amer) 83.5 ml/min BUN/Creatinine Ratio 32.9 H (10-20) Glucose 87 (70-99(Fasting)) mg/dl POC Glucose 88 (70-99) mg/dl Calcium 8.1 L (8.6-10.3) mg/dl Magnesium 2.2 (1.7-2.4) mg/dl 03/30/23 03/30/23 03/30/23 Range/Units 20:04 16:27 11:17 PT (9.0-12.0) Seconds INR (0.9-1.1) Sodium (136-145) mmol/L Potassium (3.5-5.1) mmol/L Chloride (98-107) mmol/L Carbon Dioxide (21-32) mmol/L Anion Gap (3-11) BUN (6-23) mg/dl Creatinine (0.6-1.4) mg/dl Est Cr Clr Drug Dosing ml/min Est GFR ( Amer) ml/min Est GFR (Non-Af Amer) ml/min BUN/Creatinine Ratio (10-20) Glucose (70-99(Fasting)) mg/dl POC Glucose 117 H 115 H 97 (70-99) mg/dl Calcium (8.6-10.3) mg/dl Magnesium (1.7-2.4) mg/dl Medications Administered Current Inpatient Medications Acetaminophen (Acetaminophen 325 Mg Tab) 650 mg PO Q4H PRN PRN Reason: Pain or Fever Stop: 04/23/23 09:00 Acetaminophen (Acetaminophen 500 Mg Tab) 500 mg PO BID TONYA Stop: 04/23/23 09:00 Last Admin: 03/31/23 08:53 Dose: 500 mg Albuterol (Albut/Ipratrop 3mg/0.5mg Neb 3 Ml Vial) 3 ml INH Q4H PRN; Protocol PRN Reason: Shortness Of Breath Or Wheezing Stop: 04/23/23 09:00 Albuterol (Albut/Ipratrop 3mg/0.5mg Neb 3 Ml Vial) 3 ml NEB QIDR TNOYA; Protocol Stop: 04/23/23 09:00 Last Admin: 03/31/23 06:47 Dose: 3 ml Aspirin (Aspirin 81 Mg Ectab) 81 mg PO QAM TONYA Stop: 04/24/23 08:59 Last Admin: 03/27/23 08:59 Dose: 81 mg Atorvastatin Calcium (Atorvastatin 40 Mg Tab) 40 mg PO HS TONYA Stop: 04/23/23 20:59 Last Admin: 03/26/23 22:01 Dose: 40 mg Dextrose (Dextrose 50% 50 Ml Syringe) 25 - 50 ml IV UD PRN; Protocol PRN Reason: Hypoglycemia Protocol Stop: 04/23/23 09:00 Doxycycline Hyclate (Doxycycline Hyclate 100 Mg Cap) 100 mg PO BID [facility] Stop: 04/03/23 20:59 Last Admin: 03/31/23 09:07 Dose: 100 mg Fluticasone/Vilanterol (Fluticasone/Vilanterol 200/25mcg 14 Puffs/Inhaler) 1 puffs INH DAILY TONYA Stop: 04/23/23 09:29 Last Admin: 03/31/23 09:09 Dose: 1 puffs Furosemide (Furosemide 40 Mg Tab) 40 mg PO QAM TONYA Stop: 04/30/23 08:59 Last Admin: 03/31/23 09:09 Dose: 40 mg Glucagon (Glucagon For Inj 1 Mg Vial) 1 mg SQ UD PRN; Protocol PRN Reason: Hypoglycemia Protocol Stop: 04/23/23 09:00 Glucose (Glucose 10 Tab/Tube) 4 - 8 tab PO UD PRN; Protocol PRN Reason: Hypoglycemia Treatment Stop: 04/23/23 09:00 Glucose (Glucose 40% Gel 15 Gm Tube) 15 - 30 gm PO UD PRN; Protocol PRN Reason: Hypoglycemia Protocol Stop: 04/23/23 09:00 Guaifenesin (Guaifenesin 600 Mg Tabcr) 600 mg PO Q12 TONYA Stop: 04/23/23 20:59 Last Admin: 03/31/23 08:53 Dose: 600 mg Insulin Aspart (Insulin Aspart Per Unit Charge) 0 units SC ACHS TONYA Stop: 04/23/23 11:29 Last Admin: 03/31/23 08:27 Dose: Not Given Lisinopril (Lisinopril 2.5 Mg Tab) 2.5 mg PO QAM [facility] Stop: 04/26/23 08:59 Last Admin: 03/31/23 09:10 Dose: 2.5 mg Metoprolol Succinate (Metoprolol Succ 25mg Ext Rel Tab) 12.5 mg PO BID [facility] Stop: 04/28/23 20:59 Last Admin: 03/31/23 09:08 Dose: 12.5 mg Miscellaneous (Carbohydrates For Hypoglycemia ) 15 - 30 gm PO UD PRN PRN Reason: Hypoglycemia Protocol Stop: 04/23/23 09:00 Nitroglycerin (Nitroglycerin Sl 0.4 Mg/Tab Tab) 0.4 mg SL Q5M PRN PRN Reason: Chest Pain Stop: 04/23/23 09:00 Polyethylene Glycol (Polyethylene (Miralax) 17 Gm Pack) 17 gm PO DAILY PRN PRN Reason: Constipation Stop: 04/23/23 09:00 Prednisone (Prednisone 20 Mg Tab) 20 mg PO DAILY TONYA Stop: 04/29/23 08:59 Last Admin: 03/31/23 09:07 Dose: 20 mg Sennosides (Senna 8.6 Mg Tab) 8.6 mg PO HS [facility] Stop: 04/23/23 20:59 Last Admin: 03/26/23 22:01 Dose: 8.6 mg Spironolactone (Spironolactone 12.5 Mg Tab) 12.5 mg PO DAILY [facility] Stop: 04/30/23 08:59 Warfarin Sodium (Warfarin Sod 4 Mg Tab) 4 mg PO [id number] [facility] Stop: 04/23/23 15:59 Last Admin: 03/28/23 17:00 Dose: 4 mg Warfarin Sodium (Warfarin Sod 2 Mg Tab) 2 mg PO [id number] [facility] Stop: 04/24/23 15:59 Last Admin: 03/30/23 16:45 Dose: 2 mg
[2023-03-31] MEDS: SPIRONOLACTONE 12.5 MG TAB PO SCH (11:02)
[2023-03-31] MEDS: WARFARIN SOD 4 MG TAB PO SCH (17:22)
[2023-04-01] MEDS: ALBUT/IPRATROP 3MG/0.5MG NEB 3 ML VIAL NEB SCH (06:57)
[2023-04-01 07:37] LABS: BUN Creatinine Ratio 28.1 (10-20); Calcium 8.2 mg/dl (8.6-10.3); Creatinine Clr Calc Pharmacy 79.2 ml/min; Est GFR (African American) 87.4 ml/min; Est GFR (Non-African American) 75.4 ml/min; Magnesium 2.1 mg/dl (1.7-2.4); Potassium 3.5 mmol/L (3.5-5.1)
[2023-04-01 07:49] LABS: INR 1.8 (0.9-1.1); Prothrombin Time 19.3 Seconds (9.0-12.0)
[2023-04-01] MEDS: INSULIN ASPART PER UNIT CHARGE SC SCH ×2 (07:54→12:34)
[2023-04-01] MEDS: FLUTICASONE/VILANTEROL 200/25MCG 14 PUFFS/INHALER INH SCH (07:58)
[2023-04-01] MEDS: SPIRONOLACTONE 12.5 MG TAB PO SCH (08:00)
[2023-04-01] MEDS: FUROSEMIDE 40 MG TAB PO SCH (08:00)
[2023-04-01] MEDS: predniSONE 20 MG TAB PO SCH (08:00)
[2023-04-01] MEDS: guaiFENesin 600 MG TABCR PO SCH (08:02)
[2023-04-01] MEDS: DOXYCYCLINE HYCLATE 100 MG CAP PO SCH (08:03)
[2023-04-01] MEDS: lisinopril 2.5 MG TAB PO SCH (08:05)
[2023-04-01] MEDS: ACETAMINOPHEN 500 MG TAB PO SCH (08:17)
[2023-04-01] MEDS: METOPROLOL SUCC 25MG EXT REL TAB PO SCH (08:17)
--- NOTE | 2023-04-01 10:56 | Discharge Summary ---
Date of Service April 01, 2023 Admission HPI Per Admitting Provider 78-year-old male with past med significant for COPD, chronic systolic CHF, chronic atrial fibrillation on Coumadin, history of CAD, s/p CABG, s/p ICD, hypertension, peripheral vascular disease, hyperlipidemia, prediabetes, GERD, morbid obesity, history of COVID-19, history of stroke with left hemiplegia and bedbound currently residing at [facility] was brought in because of acute respiratory distress. Patient feeling short of breath since last night 10 PM but progressively got worse. As per nursing staff complaining of short of breaths nighttime was nothing unusual for the patient. Someone goes and sits with him he gets relax and does okay. Uses 2 L oxygen at nighttime. Daytime generally takes of the oxygen most of the time as per nursing staff. Last night also complained of shortness of breath but got progressively worse they could not bring up his oxygen saturations. Seems saturating only 50%. Was placed on 100% nonrebreather and brought to the ER. Oxygen sats improved to low 90's by the time was brought to Er. In the ER he was placed on BiPAP and saturating okay. Patient is DNR/DNI. Patient alert and awake. Says he has been short of breath since last night 10 PM. Has cough which seems to be chronic. Denies any fevers. No nausea or vomiting. Denies Chest pains. No abdominal pain. States micturating okay. States had a normal bowel movement yesterday morning. Denies any headaches. He is on regular diet as per correction. They use lift to put to put him on wheelchair. Later came to ER and agrees with DNR/DNI status. Past medical history as mentioned above Past surgical history. CABG. S/p ICD. Lead revision due to RV lead fracture Social history. Currently living at [facility]. Quit smoking 2016. No alcohol use. No drug use. Family history. No family history on file Admission Exam Per Admitting Provider General- Currently not in distress Head- atraumatic Eyes- PERRL. Neck- supple, no JVD Lungs- Diminished breath sounds bilaterally, No obvious wheezing or crackles heard. Heart- regular rhythm; no murmur, no gallop. Abdomen- normal bowel sounds, soft, nontender, no distension. Extremities- b/l lower extremity edema present. No erythema seen. Neuro- alert, oriented ; PERRL, no facial palsy; no dysarthria;Left sided weakness. Skin- warm & dry Principal Diagnosis Acute resp. failure with hypoxia and hypercapnia Acute CHF COPD exacerbation Discharge Exam General- oriented x 3, not in distress, speaks in sentences with no effort or accessory muscle use Eyes- anicteric Neck- no JVD Lungs-faint rhonchi at the bases, no wheezing Heart- normal rate, regular rhythm; syst. murmur Abdomen- normal bowel sounds, nondistended, soft, no tenderness Extremities- no pretibial edema, no calf tenderness Neuro- alert, oriented x 3; no gross focal neurologic deficits Skin- warm & dry Discharge Data Allergies Allergy/AdvReac Type Severity Reaction Status Date / Time No Known Allergies Allergy Unverified 11/02/20 18:03 Consultations 03/24/23 05:07 ED Decision to Admit Stat 03/24/23 09:01 Consult Cardiology Routine Consult Nephrology Routine Consult Pulmonology Routine Ordered Studies 03/24/23 06:28 CT chest diagnostic wo con Urgent FINDINGS: Thyroid: Imaged portions of the thyroid gland are normal in size and attenuation. Thoracic aorta: There is atherosclerotic calcification of the thoracic aorta, which is normal in caliber and demonstrates standard 3-vessel arch anatomy. Heart: A cardiac ICD is present in the left chest wall. The patient is status post midline sternotomy. The heart is enlarged and without pericardial effusion. The coronary arteries are densely calcified. Lungs and pleural spaces: Evaluation of the lung parenchyma is degraded by motion artifact. 2. Centrilobular septal thickening indicates congestive failure. Multifocal groundglass opacities throughout both lungs likely represent pulmonary edema. There are small pleural effusions with dependent consolidation. Mediastinum: There is no mediastinal lymphadenopathy. Susan: Not well assessed without IV contrast. Axillae: There is no axillary lymphadenopathy. Upper abdomen: There is a small hiatal hernia. The gallbladder is surgically absent. A 2.4 cm peripherally calcified structure is noted in the hepatic hilum. A 9.3 cm simple-appearing cyst is partially visualized arising from the upper pole of left kidney. Skeletal structures: The skeletal structures are osteopenic. Degenerative change is noted in the shoulders and spine. No lytic or blastic bony lesions are seen. IMPRESSION: 1. Cardiomegaly and AICD with evidence of congestive failure and pulmonary edema. 2. Small pleural effusions with dependent consolidation. Correlate clinically for evidence of superimposed pneumonia. Radiographic follow-up to resolution is recommended. 3. Additional findings as above. Hospital Course (1) Acute respiratory failure with hypoxia and hypercapnia: 78-year-old male with past med significant for COPD, chronic systolic CHF, chronic atrial fibrillation on Coumadin, history of CAD, s/p CABG, s/p ICD, hypertension, peripheral vascular disease, hyperlipidemia, prediabetes, GERD, morbid obesity, history of COVID-19, history of stroke with left hemiplegia and bedbound currently residing at [facility] was brought in because of acute respiratory distress. ACUTE RESPIRATORY FAILURE WITH HYPOXIA AND HYPERCAPNIA ACUTE ON CHRONIC SYSTOLIC CHF COPD EXACERBATION On home oxygen 2 L in the nighttime and daytime mostly takes off Initial VBG pH 7.19, PCO2 76. Placed On BiPAP. Repeat [id number]-hjkt ABG pH 7.31 PCO2 64 Elevated BNP Pulmonary edema on chest x-ray Echo: EF 15-20% Cardiology service consulted Placed on IV Lasix Diuresed well Also placed on metoprolol and lisinopril (coreg stopped) Blood pressure marginal transitioned to p.o. Lasix 40 daily. Cont. lisinopril 2.5, metoprolol succinate 12.5 twice daily, Aldactone 12.5 daily Pulmonary service also consulted Weaned off BiPAP Placed on Zosyn + Doxy, Nebs 4 times daily, prednisone Patient to completed antibiotic regimen Completed prednisone taper Continue nebs, guaifenesin Patient gradually improving Currently back to baseline of 1.5 L by nasal cannula ACUTE ON CHRONIC SYSTOLIC CHF S/p ICD Management per above COPD exacerbation Respiratory bio fire negative MRSA screen Pulmonary consulted CT chest: 1. Cardiomegaly and AICD with evidence of congestive failure and pulmonary edema. 2. Small pleural effusions with dependent consolidation. Correlate clinically for evidence of superimposed pneumonia. Radiographic follow-up to resolution is recommended. 3. Additional findings as above. Pulm consulted: BiPAP even when he goes back to correction. Would recommend 16/8 with backup rate of 18 and 35% FiO2 Do not over oxygenate the patient, keep saturation between 88-92% Completed prednisone taper. Completed the course of doxycycline. Continue with spirometry will be beneficial Continue with Mucinex and flutter valve Diarrhea Stool PCR positive for E. coli with Shiga toxin resolved Hyperkalemia Potassium 6.3 Received insulin and dextrose and IV calcium gluconate resolved Non-ST elevated MT Denies any chest pain Initial troponin 122. Repeat 1037 On Coumadin INR therapeutic On beta-felisha likely from acute respiratory failure Elevated lactic acid Mostly from hypoxia On empiric antibiotics Blood pressure okay Repeat levels normalized. Chronic atrial fibrillation On Coreg and Coumadin, coreg switched to metoprolol succinate INR 2.5 Monitor PT/INR CAD s/p CABG On Coreg, statin and Coumadin Hypertension metoprolol (instead of coreg) and Lisinopril titrated due to marginal BP Hyperlipidemia On statin History of CVA Left hemiplegia Bedbound On statin and Coumadin Frequent repositioning every 4 hours at least, discussed with RN Peripheral vascular disease On statin and Coumadin Prediabetes a1c 6.2 Monitor blood sugars Insulin sliding scale for now DVT prophylaxis on coumadin Disposition Return to [facility] Total Time Total Time Spent Total Time Spent (In Minutes): 40 Discharge Plan Discharge Items Patient Disposition: Transfer Residential Fac Reason For Visit: ACUTE RESP FAILURE, ACUTE CHF/COPD Discharge Diagnosis: Acute resp. failure with hypoxia and hypercapnia Acute CHF COPD exacerbation Activity: Per Instructions section Non-emergency contact: Primary Care Provider, Specialist, Pin Drafter and Completion Engineer Call non-emergency contact if: you have any medication questions and your symptoms worsen Follow-up/Referrals: Lurdes Salter MD [Primary Care Provider] - Diet: Heart Healthy and Low Sodium (2gm) Diet Texture: Dental soft (bite-sized) Addtl Attending Provider Instructions: Follow up with your primary care physician within 1 week. Use bipap at night and as needed. You may need to follow up with pulmonology. Your carvedilol was changed to metoprolol succinate 12.5 mg twice a day. Also take lisinopril 2.5 mg daily, spironolactone 12.5 mg daily and furosemide (lasix) 40 mg daily. Monitor your weight daily. Read further instructions below. Addtl Tent Assembler Provider Instructions: Call your Primary Care doctor if any of the following symptoms or problems start or get worse: * Shortness of breath or difficulty breathing * Wake up at night short of breath * Chest pain * Cough * Swelling of your hands, feet, or legs * More fatigued or tired with your normal activity * Palpitations - sudden fast heart beats WEIGHT * Weigh yourself every morning after using the bathroom. * Use the same scale. * Wear the same amount of clothing. * Write your weight down on a chart. * Call your Primary Care doctor if you gain more than 2-3 pounds in 1-2 days. MEDICATIONS * Use this discharge instruction sheet for medication instructions. * Take your medications at the time your doctor ordered. * Do not skip a dose of your medicines. * If you miss a dose of medicine, take it as soon as possible, but DO NOT DOUBLE A DOSE. * Read your medicine information when you get home. * Know all of the side effects of your medicine. If in doubt, ask your pharmacist * Call your Primary Care doctor's office if you have any side effects. * Be sure all of your doctors know what medicine and herbs you take (including cold, flu, and herbal medicine). Take the following with you to your follow-up doctor appointments: * Weight Chart * Medication List * List of questions Do not drink excessive alcohol, beer or wine. Pending Studies at Discharge: No Stand-Alone Forms: My [facility] Skilled Items Patient informed of condition?: Yes DNR: Yes Discharge Level of Care: Skilled Communicable Disease: No Discharge Prognosis: Stable Lines: None Urinary Catheter: Yes Medications and DC Order Prescriptions: New metoprolol succinate 25 mg Tablet Extended Release 24 Hr 12.5 mg PO BID 30 Days Qty: 30 0RF spironolactone 25 mg Tablet 12.5 mg PO DAILY 30 Days Qty: 15 0RF furosemide 40 mg Tablet 40 mg PO QAM Qty: 30 0RF guaifenesin [Mucinex] 600 mg Tablet Extended Release 12hr 600 mg PO Q12 5 Days Qty: 10 0RF Continued atorvastatin 40 mg tablet 40 mg PO HS fluticasone propion-salmeterol 250-50 mcg/dose blister with device 1 inh INHALATION BID sennosides [senna] 8.6 mg tablet 8.6 mg PO HS ipratropium-albuterol 0.5 mg-3 mg(2.5 mg base)/3 mL solution for nebulization 3 ml INHALATION Q4H PRN (Reason: Shortness Of Breath Or Wheezing) acetaminophen 500 mg tablet 500 mg PO BID warfarin 4 mg tablet 4 mg PO UD Rx Instructions: coumadin 4mg daily on wednesday, wed, wed , wed and wednesday warfarin 2 mg tablet 2 mg PO UD Rx Instructions: on wednesday and fluticasone propion-salmeterol 500-50 mcg/dose blister with device 1 inh INHALATION BID lisinopril 2.5 mg tablet 2.5 mg PO DAILY potassium chloride 10 mEq Capsule, Extended Release 10 meq PO DAILY Discontinued carvedilol 3.125 mg tablet 3.125 mg PO BID Discharge Orders: Discharge Order- CHF (Routine); Ordered 04/01/23 Ordered By: Joe Tucker/Other Patient Handouts: Prediabetes, 5 Steps for Eating Healthier Admission Data Admit Date/Time: 03/24/23 06:21 Attending Provider: Joe Recio Admit Provider: Glynn Arauz Primary Care Provider: Lurdes Salter Other Providers: Glynn Arauz ; Antwan Hoskins [place] ; Pj Munoz ; John Scott
== END 2023-04-01 14:33 | DRG 280 ==
LOC: ED 03:55 → SUATTDRO 06:21 → EDINP 06:21 → 2S 09:02

== ENCOUNTER 2024-10-05 23:42 | Inpatient (IN) ==
--- NOTE | 2024-10-05 23:51 | Emergency Department Note ---
Impression & Plan Acute hypoxemic respiratory failure, COPD (chronic obstructive pulmonary disease), Elevated troponin, CHF (congestive heart failure), RSV infection ED Provider Note NAME: REGINA CONTI AGE: 79 SEX: M : 1945 ARRIVES VIA: Ambulance INFORMANT: Patient, EMS/nursing report ED PROVIDER(S): Sin Choudhury MD CHIEF COMPLAINT: Dyspnea MEDICAL DECISION MAKING: Patient presents due to concern for dyspnea. The patient was maintained on BiPAP. IV was established and blood work was obtained. Reviewed the patient's chest x-ray does show some pulmonary vascular congestion but no obvious pneumonia. Patient was ordered 250 cc of IV fluids over 2 hours given the patient's initial lower blood pressure 90s over 60s. Patient was ordered a Xopenex treatment. The patient reportedly had gotten Lasix 80 mg prior to presenting here today. Patient with a white count of 12 with a hemoglobin of 13.4. Platelet count is unremarkable. Patient's VBG does not show any evidence of acidosis or hypercarbia. Kidney function unremarkable. Glucose 189. Patient is also troponin of 565. BNP of 856. Urinalysis does show blood but no signs of infection. Patient is tolerated the BiPAP well. Patient's blood pressure did improve. Patient's initial troponin of 565. Initial EKG does show a tachycardic and regular rhythm. It is wide-complex but the patient does appear to have prior history of left bundle branch block. Likely too slow for true V. tach. Patient does appear to have P waves present. No obvious pacer spikes noted. BNP is elevated 856. I did speak with the on-call hospitalist Dr. Herrera and the patient was admitted to the medicine service. Critical Care: I have personally spent 85 minutes of critical care time in direct management of this patient. This includes bedside care, interpretation of diagnostic studies, and testing, discussion with consultants, patient, and family members, and other require inpatient management activities. This 85 minutes is in excess of all separately billable procedures. Discussion w/ other healthcare providers: Dr. Herrera inpatient medicine service Prior /Outside records reviewed: I reviewed part of a discharge summary from Dr. Recio from March 2023 known history of COPD chronic systolic CHF A-fib on Coumadin CAD CABG ICD hypertension PVD hyperlipidemia stroke with left hemiplegia residing at [facility] and was brought in due to concerns for respiratory distress. Patient reportedly is DNR/DNI. Patient reportedly on home oxygen 2 L in the nighttime daytime Differential diagnosis: Reactive airway disease, pneumonia, pneumothorax, COPD, CHF, ACS, pulmonary embolism, musculoskeletal, GERD as well as other pathologies were considered. Diagnostics, as interpreted by me: ECG:Wide-complex tachycardia, rate of 104, normal axis. Rate is increased. Patient's overall morphology looks unchanged from comparison although the rate is faster. Comparison EKGs from March 26, 2023 Cardiac monitoring: An order was placed for continuous cardiac monitoring. The monitor shows a rate of 98 with sinus rhythm. Patient was placed on pulse oximetry Medical decision rules: None Imaging studies: I informally interpreted the patient's Chest x-ray with cardiomegaly and pulmonary vascular congestion no obvious effusion, possible trace effusion in the right chest. with formal report to follow. HPI: Patient presents from his care facility this evening due to concern for worsening shortness of breath. Patient reportedly is supposed be wearing a CPAP at nighttime but does not do so. He does occasionally wear oxygen. Reportedly was hypoxic for EMS placed him on CPAP as they thought he appeared to be mottled in his extremities but did have improvement with the CPAP. Patient reportedly did receive IV Lasix 80 mg prior to EMS arrival. Patient states he is had some cough but no fever. Patient denies any significant changes in leg swelling. No abdominal pain. Patient denies any chest pain. PAST MEDICAL HISTORY: See Below PAST SURGICAL HISTORY: See Below SOCIAL HISTORY: See Below HOME MEDICATIONS: See Below ALLERGIES: See Below VITALS: See Below PHYSICAL EXAMINATION: GENERAL: NAD, non-toxic. CPAP in place. EYE EXAM: Normal conjunctiva. PERRL, no anisocoria and EOM's grossly intact w/o pain. OROPHARYNX: Dry mucus membranes, grossly normal dentition. NECK: Trachea midline, no stridor. Supple, no nuchal rigidity, no adenopathy, non-tender. No signs of meningismus. FROM of the neck with good chin to chest and neck extension. LUNGS: Coarse sounds throughout. Normal chest wall mechanics. HEART: Tachycardic and regular, no MRG. ABDOMEN: Abdomen soft, non-tender, no masses, no rebound or guarding. BACK: No CVA TTP. SKIN: No rashes and no bruising. UPPER EXTREMITIES: Upper extremities are grossly normal. LOWER EXTREMITIES: Grossly normal, 1+ symmetric lower extremity edema without calf pain or erythema. NEURO EXAM: A&O x3, cranial nerves II-XII grossly intact, normal speech, deficits to the left side when compared to the right. Past Med/Surg History Problem List (Updated 10/06/24 @ 06:57 by Sin Choudhury MD) RSV infection (Acute) CHF (congestive heart failure) (Acute) Elevated troponin (Acute) Acute hypoxemic respiratory failure (Acute) Acute hypoxemic respiratory failure Obesity Pleural effusion Ex-smoker Ischemic cardiomyopathy Paroxysmal atrial fibrillation Hyperkalemia Heart failure, systolic, with acute decompensation NSTEMI (non-ST elevated myocardial infarction) Acute respiratory failure with hypoxia and hypercapnia Respiratory failure (Acute) Fluid overload (Acute) Elevated troponin (Acute) Acute hyperkalemia (Acute) ICD (implantable cardioverter-defibrillator) malfunction Elevated troponin I level Inappropriate shocks from ICD (implantable cardioverter-defibrillator) COPD (chronic obstructive pulmonary disease) (Acute) Adjustment disorder with depressed mood History of CVA (cerebrovascular accident) DVT prophylaxis Ischemic cardiomyopathy with implantable cardioverter-defibrillator (ICD) History of coronary artery bypass graft CAD (coronary artery disease) Atrial fibrillation ICD (implantable cardioverter-defibrillator) discharge Medical History History of tobacco use ICD (implantable cardioverter-defibrillator) in place Surgical History Status post coronary artery bypass graft Social History Smoking Status: Former smoker Tobacco Type: Cigarettes Second Hand Exposure: No; Do You Dip or Chew Tobacco: No; Hx Alcohol Use: No Hx Substance Use: No Preferred Language: Cameroonian Communication Ability: Effective Cotton Stomper Required: No Beliefs That Will Affect Care: None marital status: Current Living Situation: Other Current Living Situation Comment: [facility] How many Children do You have: 1 Feels Safe at Home: Yes Assistive Devices: Hospital Bed, Mechanical Lift and Wheelchair Allergies Allergies Allergy/AdvReac Type Severity Reaction Status Date / Time No Known Allergies Allergy Unverified 10/06/24 00:31 Home Meds Home Medications Medication Instructions Recorded Confirmed acetaminophen 500 mg tablet 500 mg PO [facility] 03/24/23 10/06/24 atorvastatin 40 mg tablet 40 mg PO HS 03/24/23 10/06/24 fluticasone 500 mcg-salmeterol 50 1 inh inhalation [facility] 03/24/23 10/06/24 mcg/dose blistr powdr for inhalation ipratropium 0.5 mg-albuterol 3 mg 3 ml inhalation Q4H PRN Shortness 03/24/23 10/06/24 (2.5 mg base)/3 mL nebulization Of Breath Or Wheezing soln lisinopril 2.5 mg tablet 2.5 mg PO DAILY 03/24/23 10/06/24 potassium chloride 10 mEq 10 meq PO DAILY 03/24/23 10/06/24 capsule,extended release sennosides 8.6 mg tablet (senna) 17.2 mg PO DAILY 03/24/23 10/06/24 warfarin 2 mg tablet 2 mg PO 3XWK 03/24/23 10/06/24 warfarin 4 mg tablet 4 mg PO 4XWK 03/24/23 10/06/24 acetaminophen 325 mg tablet 650 mg PO Q4 PRN MILD TO SEVERE 10/06/24 10/06/24 PAIN acetaminophen 325 mg tablet 650 mg PO Q4 PRN TEMP >100 10/06/24 10/06/24 cholecalciferol (vitamin D3) 25 25 mcg PO DAILY 10/06/24 10/06/24 mcg (1,000 unit) tablet (Vitamin D3) dextran 70-hypromellose eye drops 2 drp OPB TID 10/06/24 10/06/24 in a dropperette (Artificial Tears (PF) drops in a dropperette) famotidine 20 mg tablet 20 mg PO BID 10/06/24 10/06/24 guaifenesin 100 mg/5 mL oral liquid 200 mg PO Q4H PRN Cough 10/06/24 10/06/24 guaifenesin 600 mg tablet, 600 mg PO [facility] 10/06/24 10/06/24 extended release 12 hr (Mucinex) metoprolol succinate 25 mg 12.5 mg PO DAILY 10/06/24 10/06/24 tablet,extended release 24 hr oseltamivir 75 mg capsule 75 mg PO DAILY 10/06/24 10/06/24 spironolactone 25 mg tablet 12.5 mg PO DAILY 10/06/24 10/06/24 Previous Rx's Medication Instructions Recorded furosemide 40 mg tablet 40 mg PO QAM #30 tabs 04/01/23 Results & Data (ED) Vital Signs Vital Signs - 24 hr 10/05/24 23:45 10/05/24 23:47 10/05/24 23:50 Temperature 37.2 C Temperature Source Oral Pulse Rate 103 H 104 H 105 H Respiratory Rate 40 H 40 H Respiratory Effort / Characteristics Non-Labored Short of Breath Respiratory Depth Normal Respiratory Pattern Tachypnea Tachypnea Blood Pressure 93/51 L Blood Pressure Mean 65 Blood Pressure Position Semi-fowlers Pulse Oximetry 99 100 Oxygen Delivery Method BiPAP Fraction of Inspired Oxygen 40 40 SaO2/FiO2 Ratio 250 Sepsis Recent Fever Within 48 Hours No Sepsis New/Unexplained Change in Mental Status N/A Sepsis Action Taken by Nursing Physician Notified 10/05/24 23:56 10/05/24 23:58 10/05/24 23:58 Temperature Temperature Source Pulse Rate 102 H Respiratory Rate 34 H Respiratory Effort / Characteristics Spontaneous Short of Breath Respiratory Depth Respiratory Pattern Tachypnea Blood Pressure 113/84 Blood Pressure Mean 94 Blood Pressure Position Pulse Oximetry 97 100 Oxygen Delivery Method BiPAP CPAP Fraction of Inspired Oxygen 40 10 SaO2/FiO2 Ratio Sepsis Recent Fever Within 48 Hours Sepsis New/Unexplained Change in Mental Status Sepsis Action Taken by Nursing 10/06/24 00:25 10/06/24 00:30 10/06/24 01:18 Temperature Temperature Source Pulse Rate 97 H 87 Respiratory Rate 36 H 37 H Respiratory Effort / Characteristics Respiratory Depth Respiratory Pattern Blood Pressure 110/68 100/56 L Blood Pressure Mean 86 70 Blood Pressure Position Pulse Oximetry 97 96 95 Oxygen Delivery Method BiPAP BiPAP BiPAP Fraction of Inspired Oxygen 40 40 40 SaO2/FiO2 Ratio 242 Sepsis Recent Fever Within 48 Hours Sepsis New/Unexplained Change in Mental Status Sepsis Action Taken by Nursing 10/06/24 02:00 Temperature Temperature Source Pulse Rate 84 Respiratory Rate 33 H Respiratory Effort / Characteristics Respiratory Depth Respiratory Pattern Blood Pressure 108/64 Blood Pressure Mean 78 Blood Pressure Position Pulse Oximetry 94 Oxygen Delivery Method BiPAP Fraction of Inspired Oxygen 10 SaO2/FiO2 Ratio Sepsis Recent Fever Within 48 Hours Sepsis New/Unexplained Change in Mental Status Sepsis Action Taken by [facility] Medications Current Medication List: was personally reviewed by me Laboratory Data Attestation: I reviewed the patient's lab results. 10/05/24 23:56 10/05/24 23:56 Lab Results 10/05/24 10/05/24 10/06/24 Range/Units 23:56 23:57 00:01 WBC 12.90 H (4.8-10.8) K/ul RBC 4.57 L (4.70-6.10) M/uL Hgb 13.4 L (14.0-18.0) g/dl Hct 42.1 (42.0-52.0) % MCV 92.1 (80.0-100.0) fL MCH 29.3 (25.0-34.0) pg MCHC 31.8 L (32.0-36.0) g/dL RDW Std Deviation 59.3 H (36.4-46.3) fL RDW Coeff of Reyna 17.6 H (11.5-14.5) % Plt Count 194 (130-400) K/uL MPV 10.1 (9.4-12.4) fL Immature Gran % (Auto) 0.4 % Neut % (Auto) 91.8 % Lymph % (Auto) 2.0 % [place] % (Auto) 5.5 % Eos % (Auto) 0.1 % Baso % (Auto) 0.2 % Neut # (Auto) 11.85 H (1.40-6.50) K/uL Lymph # (Auto) 0.26 L (1.20-3.40) K/uL [place] # (Auto) 0.71 H (0.11-0.59) K/uL Eos # (Auto) 0.01 (0.00-0.50) K/uL Baso # (Auto) 0.02 (0.00-0.20) K/uL Immature Gran # (Auto) 0.05 (0.01-0.20) K/uL Toxic Granulation 1+ Toxic Vacuolation 1+ Polychromasia 1+ Ovalocytes 1+ PT 23.7 H (9.0-12.0) Seconds INR 2.4 H (0.9-1.1) APTT 29 (21-31) Seconds PTT Ratio 1.1 VBG pH 7.36 (7.36-7.41) VBG pCO2 48 (38-50) mmHg VBG pO2 52 mmHg VBG HCO3 27 mmol/L VBG O2 Saturation 84.4 % VBG Base Excess 1.0 mEq/L Sodium 136 (136-145) mmol/L Potassium 4.3 (3.5-5.1) mmol/L Chloride 100 (98-107) mmol/L Carbon Dioxide 28 (21-32) mmol/L Anion Gap 8 (3-11) BUN 19 (6-23) mg/dl Creatinine 1.37 (0.6-1.4) mg/dl Est Cr Clr Drug Dosing 53.8 ml/min eGFR 52.47 BUN/Creatinine Ratio 13.9 (10-20) Glucose 189 H (70-99(Fasting)) mg/dl Calcium 8.6 (8.6-10.3) mg/dl Magnesium 1.8 (1.7-2.4) mg/dl Total Bilirubin 1.9 H (0.2-1.0) mg/dl AST 23 (13-39) U/L ALT 15 (7-52) U/L Alkaline Phosphatase 87 (34-104) U/L Troponin I High Sens 565.7 H* (0-20) pg/ml B-Natriuretic Peptide 856 H (0-100) pg/ml Total Protein 7.1 (6.0-8.3) gm/dl Albumin 3.9 (3.4-5.0) gm/dl Globulin 3.2 (2.5-4.0) gm/dl Albumin/Globulin Ratio 1.2 (0.9-2) Procalcitonin (0-0.5) ng/ml TSH (0.300-4.500) uIu/ml Urine Color Urine Appearance (Clear) Urine pH (4.5-7.5) Ur Specific [place] (1.000-1.030) Urine Protein (Negative) Urine Glucose (UA) (Negative) Urine Ketones (Negative) Urine Blood (Negative) Urine Nitrite (Negative) Urine Bilirubin (Negative) Urine Urobilinogen (Negative) Ur Leukocyte Esterase (Negative) Urine WBC (Auto) (0-5) /hpf Urine RBC (Auto) (0-2) /hpf U Hyaline Cast (Auto) (0-2) /lpf U Epithel Cells (Auto) (0-2) /hpf Urine Bacteria (Auto) (None Seen) Adenovirus (PCR) (NotDetected) B. pertussis DNA (PCR) (NotDetected) B.parapertussis DNA PCR (NotDetected) C. pneumoniae DNA (PCR) (NotDetected) Coronavirus OC43 (PCR) (NotDetected) Coronavirus HKU1 (PCR) (NotDetected) Coronavirus 229E (PCR) (NotDetected) SARS-CoV-2 (PCR) (NotDetected) Coronavirus NL63 (PCR) (NotDetected) Human Metapneumovir PCR (NotDetected) Influenza Type A (PCR) (NotDetected) Influenza Type B (PCR) (NotDetected) M. pneumoniae (PCR) (NotDetected) Parainfluenza 1 (PCR) (NotDetected) Parainfluenza 2 (PCR) (NotDetected) Parainfluenza 3 (PCR) (NotDetected) Parainfluenza 4 (PCR) (NotDetected) RSV (PCR) (NotDetected) Entero/Rhino (PCR) (NotDetected) 10/06/24 10/06/24 10/06/24 Range/Units 00:30 00:34 01:27 WBC (4.8-10.8) K/ul RBC (4.70-6.10) M/uL Hgb (14.0-18.0) g/dl Hct (42.0-52.0) % MCV (80.0-100.0) fL MCH (25.0-34.0) pg MCHC (32.0-36.0) g/dL RDW Std Deviation (36.4-46.3) fL RDW Coeff of Reyna (11.5-14.5) % Plt Count (130-400) K/uL MPV (9.4-12.4) fL Immature Gran % (Auto) % Neut % (Auto) % Lymph % (Auto) % [place] % (Auto) % Eos % (Auto) % Baso % (Auto) % Neut # (Auto) (1.40-6.50) K/uL Lymph # (Auto) (1.20-3.40) K/uL [place] # (Auto) (0.11-0.59) K/uL Eos # (Auto) (0.00-0.50) K/uL Baso # (Auto) (0.00-0.20) K/uL Immature Gran # (Auto) (0.01-0.20) K/uL Toxic Granulation Toxic Vacuolation Polychromasia Ovalocytes PT (9.0-12.0) Seconds INR (0.9-1.1) APTT (21-31) Seconds PTT Ratio VBG pH (7.36-7.41) VBG pCO2 (38-50) mmHg VBG pO2 mmHg VBG HCO3 mmol/L VBG O2 Saturation % VBG Base Excess mEq/L Sodium (136-145) mmol/L Potassium (3.5-5.1) mmol/L Chloride (98-107) mmol/L Carbon Dioxide (21-32) mmol/L Anion Gap (3-11) BUN (6-23) mg/dl Creatinine (0.6-1.4) mg/dl Est Cr Clr Drug Dosing ml/min eGFR BUN/Creatinine Ratio (10-20) Glucose (70-99(Fasting)) mg/dl Calcium (8.6-10.3) mg/dl Magnesium (1.7-2.4) mg/dl Total Bilirubin (0.2-1.0) mg/dl AST (13-39) U/L ALT (7-52) U/L Alkaline Phosphatase (34-104) U/L Troponin I High Sens (0-20) pg/ml B-Natriuretic Peptide (0-100) pg/ml Total Protein (6.0-8.3) gm/dl Albumin (3.4-5.0) gm/dl Globulin (2.5-4.0) gm/dl Albumin/Globulin Ratio (0.9-2) Procalcitonin 0.20 (0-0.5) ng/ml TSH (0.300-4.500) uIu/ml Urine Color Yellow Urine Appearance Clear (Clear) Urine pH 5.0 (4.5-7.5) Ur Specific [place] 1.007 (1.000-1.030) Urine Protein Trace H (Negative) Urine Glucose (UA) Negative (Negative) Urine Ketones Negative (Negative) Urine Blood 2+ H (Negative) Urine Nitrite Negative (Negative) Urine Bilirubin Negative (Negative) Urine Urobilinogen Negative (Negative) Ur Leukocyte Esterase Negative (Negative) Urine WBC (Auto) 0-5 (0-5) /hpf Urine RBC (Auto) 11-20 H (0-2) /hpf U Hyaline Cast (Auto) 3-5 H (0-2) /lpf U Epithel Cells (Auto) 0-2 (0-2) /hpf Urine Bacteria (Auto) None Seen (None Seen) Adenovirus (PCR) Not Detected (NotDetected) B. pertussis DNA (PCR) Not Detected (NotDetected) B.parapertussis DNA PCR Not Detected (NotDetected) C. pneumoniae DNA (PCR) Not Detected (NotDetected) Coronavirus OC43 (PCR) Not Detected (NotDetected) Coronavirus HKU1 (PCR) Not Detected (NotDetected) Coronavirus 229E (PCR) Not Detected (NotDetected) SARS-CoV-2 (PCR) Not Detected (NotDetected) Coronavirus NL63 (PCR) Not Detected (NotDetected) Human Metapneumovir PCR Not Detected (NotDetected) Influenza Type A (PCR) Not Detected (NotDetected) Influenza Type B (PCR) Not Detected (NotDetected) M. pneumoniae (PCR) Not Detected (NotDetected) Parainfluenza 1 (PCR) Not Detected (NotDetected) Parainfluenza 2 (PCR) Not Detected (NotDetected) Parainfluenza 3 (PCR) Not Detected (NotDetected) Parainfluenza 4 (PCR) Not Detected (NotDetected) RSV (PCR) DETECTED A (NotDetected) Entero/Rhino (PCR) Not Detected (NotDetected) 10/06/24 Range/Units 02:00 WBC (4.8-10.8) K/ul RBC (4.70-6.10) M/uL Hgb (14.0-18.0) g/dl Hct (42.0-52.0) % MCV (80.0-100.0) fL MCH (25.0-34.0) pg MCHC (32.0-36.0) g/dL RDW Std Deviation (36.4-46.3) fL RDW Coeff of Reyna (11.5-14.5) % Plt Count (130-400) K/uL MPV (9.4-12.4) fL Immature Gran % (Auto) % Neut % (Auto) % Lymph % (Auto) % [place] % (Auto) % Eos % (Auto) % Baso % (Auto) % Neut # (Auto) (1.40-6.50) K/uL Lymph # (Auto) (1.20-3.40) K/uL [place] # (Auto) (0.11-0.59) K/uL Eos # (Auto) (0.00-0.50) K/uL Baso # (Auto) (0.00-0.20) K/uL Immature Gran # (Auto) (0.01-0.20) K/uL Toxic Granulation Toxic Vacuolation Polychromasia Ovalocytes PT (9.0-12.0) Seconds INR (0.9-1.1) APTT (21-31) Seconds PTT Ratio VBG pH (7.36-7.41) VBG pCO2 (38-50) mmHg VBG pO2 mmHg VBG HCO3 mmol/L VBG O2 Saturation % VBG Base Excess mEq/L Sodium (136-145) mmol/L Potassium (3.5-5.1) mmol/L Chloride (98-107) mmol/L Carbon Dioxide (21-32) mmol/L Anion Gap (3-11) BUN (6-23) mg/dl Creatinine (0.6-1.4) mg/dl Est Cr Clr Drug Dosing ml/min eGFR BUN/Creatinine Ratio (10-20) Glucose (70-99(Fasting)) mg/dl Calcium (8.6-10.3) mg/dl Magnesium (1.7-2.4) mg/dl Total Bilirubin (0.2-1.0) mg/dl AST (13-39) U/L ALT (7-52) U/L Alkaline Phosphatase (34-104) U/L Troponin I High Sens 3048.3 H* D (0-20) pg/ml B-Natriuretic Peptide (0-100) pg/ml Total Protein (6.0-8.3) gm/dl Albumin (3.4-5.0) gm/dl Globulin (2.5-4.0) gm/dl Albumin/Globulin Ratio (0.9-2) Procalcitonin (0-0.5) ng/ml TSH 1.092 (0.300-4.500) uIu/ml Urine Color Urine Appearance (Clear) Urine pH (4.5-7.5) Ur Specific [place] (1.000-1.030) Urine Protein (Negative) Urine Glucose (UA) (Negative) Urine Ketones (Negative) Urine Blood (Negative) Urine Nitrite (Negative) Urine Bilirubin (Negative) Urine Urobilinogen (Negative) Ur Leukocyte Esterase (Negative) Urine WBC (Auto) (0-5) /hpf Urine RBC (Auto) (0-2) /hpf U Hyaline Cast (Auto) (0-2) /lpf U Epithel Cells (Auto) (0-2) /hpf Urine Bacteria (Auto) (None Seen) Adenovirus (PCR) (NotDetected) B. pertussis DNA (PCR) (NotDetected) B.parapertussis DNA PCR (NotDetected) C. pneumoniae DNA (PCR) (NotDetected) Coronavirus OC43 (PCR) (NotDetected) Coronavirus HKU1 (PCR) (NotDetected) Coronavirus 229E (PCR) (NotDetected) SARS-CoV-2 (PCR) (NotDetected) Coronavirus NL63 (PCR) (NotDetected) Human Metapneumovir PCR (NotDetected) Influenza Type A (PCR) (NotDetected) Influenza Type B (PCR) (NotDetected) M. pneumoniae (PCR) (NotDetected) Parainfluenza 1 (PCR) (NotDetected) Parainfluenza 2 (PCR) (NotDetected) Parainfluenza 3 (PCR) (NotDetected) Parainfluenza 4 (PCR) (NotDetected) RSV (PCR) (NotDetected) Entero/Rhino (PCR) (NotDetected) Administered Medications Discontinued Medications Furosemide (Furosemide Inj 20 Mg/2 Ml Vial) 20 mg IV ONE ONE Stop: 10/06/24 01:30 Last Admin: 10/06/24 01:59 Dose: 20 mg Documented By: TANIA Sodium Chloride (Nss) 250 mls @ 125 mls/hr IV .Q2H ONE Stop: 10/06/24 01:56 Last Infusion: 10/06/24 01:46 Dose: Infused Documented By: Admin: 04/18/25 00:14 Dose: 125 mls/hr Documented By: TANIA Albumin Human (Albumin 25%) 12.5 gm in 50 mls @ 50 mls/hr IV ONE ONE Stop: 10/06/24 02:29 Last Infusion: 10/06/24 03:35 Dose: Infused Documented By: Admin: 10/06/24 01:59 Dose: 50 mls/hr Documented By: TANIA Magnesium Sulfate/Dextrose (Magnesium Sulfate / D5w) 1 gm in 100 mls @ 50 mls/hr IV ONE ONE Stop: 10/06/24 04:29 Last Infusion: 10/06/24 04:48 Dose: Infused Documented By: Admin: 10/06/24 02:43 Dose: 50 mls/hr Documented By: TANIA Levalbuterol HCl (Levalbuterol 1.25 Mg/3 Ml Neb) 1.25 mg NEB NOW STA Stop: 10/05/24 23:58 Last Admin: 10/06/24 00:14 Dose: 1.25 mg Documented By: TANIA Methylprednisolone (Methylprednisolone 125 Mg/2 Ml Vial) 20 mg IV NOW STA Stop: 10/06/24 02:29 Last Admin: 10/06/24 02:43 Dose: 20 mg Documented By: TANIA Metoprolol Succinate (Metoprolol Succ 25mg Ext Rel Tab) 12.5 mg PO NOW STA Stop: 10/06/24 06:02 Last Admin: 10/06/24 06:42 Dose: 12.5 mg Documented By: LEXII Imaging Data Radiologist's Impression: Chest X-Ray 10/05/24 23:56 EXAM: XR chest 1V portable CLINICAL HISTORY: Dyspnea TECHNIQUE: An X-ray image of the chest is obtained in AP projection. COMPARISON: Compared to the prior chest x-ray dated 03/29/2023. FINDINGS: Pulmonary Parenchyma: Lungs are clear bilaterally. No evidence of consolidation, collapse, or focal opacities. No pulmonary nodules are identified. No evidence of pleural effusion or pleural thickening. Heart and Mediastinum: Heart size is increased. There is mediastinal widening. No hilar or mediastinal lymphadenopathy. Implantable cardioverter defibrilator . Triple leads, two seen at the right ventricle and one at the right atrium. Bony Thorax: Median sternotomy metallic sutures. Soft Tissues: Soft tissues overlying the chest wall are unremarkable. IMPRESSION: 1. Cardiomegaly with mediastinal widening. Stable. 2. Implnatable cardioverter defibrilator . Triple leads, two seen at the right ventricle and one at the right atrium. Suggest a clinical assessment. (unchanged) Electronically signed by Jamison Ferguson 10-06-2024 01:21 AM Discharge Plan Visit Data Chief Complaint: Shortness of Breath/Dyspnea Stated Complaint: SOB ED Provider: Sin Choudhury Discharge Problem: Acute hypoxemic respiratory failure, COPD (chronic obstructive pulmonary disease), Elevated troponin, CHF (congestive heart failure), RSV infection Patient Disposition: Admitted As Inpatient Discharge Instructions Interventions: ED Discharge Assessment Last Done: 10/06/24 03:02 Discharge Problem: COPD (chronic obstructive pulmonary disease) Qualifiers: COPD type: unspecified COPD Qualified Code(s): J44.9 - Chronic obstructive pulmonary disease, unspecified CHF (congestive heart failure) Qualifiers: Heart failure type: unspecified Heart failure chronicity: acute on chronic Q ualified Code(s): I50.9 - Heart failure, unspecified RSV infection Qualifiers: RSV infection type: unspecified Qualified Code(s): B33.8 - Other specified viral diseases
[2024-10-06] MEDS: SODIUM CHLORIDE 0.9% 250 ML IV ONE (00:14)
[2024-10-06] MEDS: LEVALBUTEROL 1.25 MG/3 ML NEB NEB STA (00:14)
[2024-10-06 00:19] LABS: HCO3 VBG 27 mmol/L; Oxygen Saturation VBG 84.4 %; PCO2 VBG 48 mmHg (38-50); PO2 VBG 52 mmHg; pH VBG 7.36 (7.36-7.41)
[2024-10-06 00:30] LABS: Hematocrit (blood only) 42.1 % (42.0-52.0); Hemoglobin 13.4 g/dl (14.0-18.0); Mean Corpuscular Hemoglobin 29.3 pg (25.0-34.0); Mean Corpuscular Hgb Conc 31.8 g/dL (32.0-36.0); Mean Corpuscular Volume 92.1 fL (80.0-100.0); Mean Platelet Volume 10.1 fL (9.4-12.4); Platelet Count 194 K/uL (130-400); RDW Coefficient of Variation 17.6 % (11.5-14.5); RDW Standard Deviation 59.3 fL (36.4-46.3); Red Blood Count 4.57 M/uL (4.70-6.10)
[2024-10-06 00:41] LABS: Albumin Globulin Ratio 1.2 (0.9-2); Albumin Level 3.9 gm/dl (3.4-5.0); BUN Creatinine Ratio 13.9 (10-20); Bilirubin,Total 1.9 mg/dl (0.2-1.0); Calcium 8.6 mg/dl (8.6-10.3); Creatinine Clr Calc Pharmacy 53.8 ml/min; Globulin 3.2 gm/dl (2.5-4.0); Potassium 4.3 mmol/L (3.5-5.1); Total Protein 7.1 gm/dl (6.0-8.3)
[2024-10-06 00:44] LABS: Appearance Urine Clear (Clear); Bacteria Urine Automated None Seen (None Seen); Bilirubin Urine Negative (Negative); Blood Urine 2+ (Negative); Color Urine Yellow; Epithelial Cell Urine Auto 0-2 /hpf (0-2); Glucose Urine UA Negative (Negative); Ketones Urine Negative (Negative); Leukocyte Esterase Urine Negative (Negative); Nitrite Urine Negative (Negative); Protein Urine Trace (Negative); Specific Gravity Urine 1.007 (1.000-1.030); Urobilinogen Urine Negative (Negative); WBC Urine Automated 0-5 /hpf (0-5)
[2024-10-06 00:58] LABS: INR 2.4 (0.9-1.1); Partial Thromboplastin Ratio 1.1; Partial Thromboplastin Time 29 Seconds (21-31); Prothrombin Time 23.7 Seconds (9.0-12.0)
[2024-10-06 01:19] LABS: Troponin I High Sensitivity 565.7 pg/ml (0-20)
--- NOTE | 2024-10-06 01:22 | XRay Report ---
EXAM: XR chest 1V portable CLINICAL HISTORY: Dyspnea TECHNIQUE: An X-ray image of the chest is obtained in AP projection. COMPARISON: Compared to the prior chest x-ray dated 03/29/2023. FINDINGS: Pulmonary Parenchyma: Lungs are clear bilaterally. No evidence of consolidation, collapse, or focal opacities. No pulmonary nodules are identified. No evidence of pleural effusion or pleural thickening. Heart and Mediastinum: Heart size is increased. There is mediastinal widening. No hilar or mediastinal lymphadenopathy. Implantable cardioverter defibrilator . Triple leads, two seen at the right ventricle and one at the right atrium. Bony Thorax: Median sternotomy metallic sutures. Soft Tissues: Soft tissues overlying the chest wall are unremarkable. IMPRESSION: 1. Cardiomegaly with mediastinal widening. Stable. 2. Implnatable cardioverter defibrilator . Triple leads, two seen at the right ventricle and one at the right atrium. Suggest a clinical assessment. (unchanged) Electronically signed by Jamison Ferguson 10-06-2024 01:21 AM
[2024-10-06 01:28] LABS: Basophils # (auto) 0.02 K/uL (0.00-0.20); Basophils % (auto) 0.2 %; Eosinophils # (auto) 0.01 K/uL (0.00-0.50); Eosinophils % (auto) 0.1 %; Immature Granulocytes # (auto) 0.05 K/uL (0.01-0.20); Immature Granulocytes % (auto) 0.4 %; Lymphocytes # (auto) 0.26 K/uL (1.20-3.40); Monocytes # (auto) 0.71 K/uL (0.11-0.59); Monocytes % (auto) 5.5 %; Neutrophils # (auto) 11.85 K/uL (1.40-6.50); Neutrophils % (auto) 91.8 %; Ovalocytes 1+; Polychromasia 1+; Toxic Granulation 1+; Toxic Vacuolation 1+
[2024-10-06 01:36] LABS: Adenovirus PCR Not Detected (NotDetected); Bordetella parapertussis PCR Not Detected (NotDetected); Bordetella pertussis PCR Not Detected (NotDetected); Chlamydia pneumoniae PCR Not Detected (NotDetected); Coronavirus 229E PCR Not Detected (NotDetected); Coronavirus CoV-2 (COVID19)PCR Not Detected (NotDetected); Coronavirus HKU1 PCR Not Detected (NotDetected); Coronavirus NL63 PCR Not Detected (NotDetected); Coronavirus OC43PCR Not Detected (NotDetected); Human Metapneumovirus PCR Not Detected (NotDetected); Influenza A PCR Not Detected (NotDetected); Influenza B PCR Not Detected (NotDetected); Mycoplasma pneumoniae PCR Not Detected (NotDetected); Parainfluenza Virus 1 PCR Not Detected (NotDetected); Parainfluenza Virus 2 PCR Not Detected (NotDetected); Parainfluenza Virus 3 PCR Not Detected (NotDetected); Parainfluenza Virus 4 PCR Not Detected (NotDetected); Respiratory Syncytial VirusPCR DETECTED (NotDetected); Rhinovirus/Enterovirus PCR Not Detected (NotDetected)
[2024-10-06 01:40] LABS: Magnesium 1.8 mg/dl (1.7-2.4)
[2024-10-06] MEDS: ALBUMIN 25% 12.5 GM/50 ML VIAL IV ONE (01:59)
[2024-10-06] MEDS: FUROSEMIDE INJ 20 MG/2 ML VIAL IV ONE (01:59)
--- NOTE | 2024-10-06 02:05 | History & Physical Report ---
Date of Service October 06, 2024 Assessment & Plan (1) Acute hypoxemic respiratory failure: Plan: Acute hypoxemic respiratory failure Multifactorial: decompensated heart failure status post ICD, history of systolic dysfunction COPD exacerbation, RSV illness Troponin elevation second to above hx CAD status post CABG PE/A-fib on Coumadin, INR therapeutic moderate MR hypertension, BP on the lower side hyperlipidemia, on statin Rx hx CVA chronic anemia, hemoglobin better than baseline prediabetes, hemoglobin A1c of 6 last year hypothyroidism, euthyroid as of today's TSH past tobacco abuse Admit to PCU Supplemental O2 Wean off BiPAP Diuretic Rx Strict I/Os, daily weights, CHF education, fluid restriction Follow troponin TTE, Cardiology consult re: decompensated heart failure Steroid course, nebs RTC for COPD exacerbation Pulmonology consult if without improvement DVT prophylaxis. Coumadin INR goal between 2 and 3 DNR as per prior directives. Total critical care time was 40 minutes. Patient requesting updates providers. Ms. Romaine Funez, contact #[phone]. Text document was generated using F[employer] voice recognition software. It may contain grammatical or spelling errors. Kindly contact undersigned for clarification of any documentation item in question. History of Present Illness Chief Complaint: Shortness of breath Primary Care Provider: Lurdes Salter MD History obtained from patient, family, and records. Medical history significant for chronic systolic heart failure status post ICD (EF 20 to 24%, TTE 2023), CAD status post CABG, PE/A-fib on Coumadin, moderate MR, hypertension, hyperlipidemia, CVA, COPD, chronic anemia (baseline hemoglobin 12), rheumatoid arthritis, prediabetes, hypothyroidism, mood disorder, past tobacco abuse. Last confinement March 2023 for respiratory failure secondary to CHF/COPD exacerbation. 2 days history of worsening SOB without chest pain or cough. Fluid retention as per patient. Compliant with home meds. Patient started on prophylactic Tamiflu Rx at intermediate due to flu outbreak as per [facility] staff. O2 sats 70s upon EMS arrival at [facility]. Patient noted to be mottled. BiPAP initiated. Lasix IM administered prior to ED transport. 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 Allergies Allergy/AdvReac Type Severity Reaction Status Date / Time No Known Allergies Allergy Unverified 10/06/24 00:31 Home Medications Medication Instructions Recorded Confirmed Type acetaminophen 500 mg tablet 500 mg PO AMHS 03/24/23 10/06/24 History atorvastatin 40 mg tablet 40 mg PO HS 03/24/23 10/06/24 History fluticasone 500 mcg-salmeterol 50 1 inh inhalation AMHS 03/24/23 10/06/24 History mcg/dose blistr powdr for inhalation ipratropium 0.5 mg-albuterol 3 mg 3 ml inhalation Q4H PRN Shortness 03/24/23 10/06/24 History (2.5 mg base)/3 mL nebulization Of Breath Or Wheezing soln lisinopril 2.5 mg tablet 2.5 mg PO DAILY 03/24/23 10/06/24 History potassium chloride 10 mEq 10 meq PO DAILY 03/24/23 10/06/24 History capsule,extended release sennosides 8.6 mg tablet (senna) 17.2 mg PO DAILY 03/24/23 10/06/24 History warfarin 2 mg tablet 2 mg PO 3XWK 03/24/23 10/06/24 History warfarin 4 mg tablet 4 mg PO 4XWK 03/24/23 10/06/24 History furosemide 40 mg tablet 40 mg PO QAM #30 tabs 04/01/23 10/06/24 Rx acetaminophen 325 mg tablet 650 mg PO Q4 PRN MILD TO SEVERE 10/06/24 10/06/24 History PAIN acetaminophen 325 mg tablet 650 mg PO Q4 PRN TEMP >100 10/06/24 10/06/24 History cholecalciferol (vitamin D3) 25 25 mcg PO DAILY 10/06/24 10/06/24 History mcg (1,000 unit) tablet (Vitamin D3) dextran 70-hypromellose eye drops 2 drp OPB TID 10/06/24 10/06/24 History in a dropperette (Artificial Tears (PF) drops in a dropperette) famotidine 20 mg tablet 20 mg PO BID 10/06/24 10/06/24 History guaifenesin 100 mg/5 mL oral liquid 200 mg PO Q4H PRN Cough 10/06/24 10/06/24 History guaifenesin 600 mg tablet, 600 mg PO AMHS 10/06/24 10/06/24 History extended release 12 hr (Mucinex) metoprolol succinate 25 mg 12.5 mg PO DAILY 10/06/24 10/06/24 History tablet,extended release 24 hr oseltamivir 75 mg capsule 75 mg PO DAILY 10/06/24 10/06/24 History spironolactone 25 mg tablet 12.5 mg PO DAILY 10/06/24 10/06/24 History Past Med/Surg History Problem List (Updated 10/06/24 @ 06:57 by Sin Choudhury MD) RSV infection (Acute) CHF (congestive heart failure) (Acute) Elevated troponin (Acute) Acute hypoxemic respiratory failure (Acute) Acute hypoxemic respiratory failure Obesity Pleural effusion Ex-smoker Ischemic cardiomyopathy Paroxysmal atrial fibrillation Hyperkalemia Heart failure, systolic, with acute decompensation NSTEMI (non-ST elevated myocardial infarction) Acute respiratory failure with hypoxia and hypercapnia Respiratory failure (Acute) Fluid overload (Acute) Elevated troponin (Acute) Acute hyperkalemia (Acute) ICD (implantable cardioverter-defibrillator) malfunction Elevated troponin I level Inappropriate shocks from ICD (implantable cardioverter-defibrillator) COPD (chronic obstructive pulmonary disease) (Acute) Adjustment disorder with depressed mood History of CVA (cerebrovascular accident) DVT prophylaxis Ischemic cardiomyopathy with implantable cardioverter-defibrillator (ICD) History of coronary artery bypass graft CAD (coronary artery disease) Atrial fibrillation ICD (implantable cardioverter-defibrillator) discharge Medical History History of tobacco use ICD (implantable cardioverter-defibrillator) in place Surgical History Status post coronary artery bypass graft Social History Smoking Status: Former smoker Tobacco Type: Cigarettes Second Hand Exposure: No; Do You Dip or Chew Tobacco: No; Hx Alcohol Use: No Hx Substance Use: No Preferred Language: Wallisian Communication Ability: Effective Human Intelligence Required: No Beliefs That Will Affect Care: None marital status: Current Living Situation: Other Current Living Situation Comment: [facility] How many Children do You have: 1 Feels Safe at Home: Yes Assistive Devices: Hospital Bed, Mechanical Lift and Wheelchair Review of Systems Review of Systems: As per HPI, all other systems reviewed and negative Physical Exam Physical Exam: GENERAL: Slightly uncomfortable, obese, minimal respiratory distress SKIN: Normal color, warm HEENT: [place] palpebral conjunctivae, no ptosis, dry buccal mucosa, BiPAP in place NECK : Supple, short neck, no tenderness CHEST : Decreased breath sounds, no tenderness HEART : Tachycardic, systolic murmur ABDOMEN: Some distention, nontender EXTREMITIES : Minimal LE swelling without LE tenderness, palpable pulses, no other conspicuous deformities noted NEUROLOGIC : Coherent, no facial asymmetry, chronic left hemiplegia, gait and stance not assessed Results & Data Results & Data Vital Signs (Past 12 Hours) Vital Signs Temp Pulse Resp BP Pulse Ox O2 Del Method FiO2 10/06/24 02:00 84 33 H 108/64 94 BiPAP 10 10/06/24 01:18 87 37 H 100/56 L 95 BiPAP 40 10/06/24 00:30 97 H 36 H 110/68 96 BiPAP 40 10/06/24 00:25 97 BiPAP 40 10/05/24 23:58 100 CPAP 10 10/05/24 23:56 102 H 34 H 113/84 97 BiPAP 40 10/05/24 23:50 37.2 C 105 H 40 H 93/51 L 100 BiPAP 40 10/05/24 23:47 104 H 10/05/24 23:45 103 H 40 H 99 40 Laboratory Results Laboratory Results WBC 12.90 K/ul (4.8-10.8) H 10/05/24 23:56 RBC 4.57 M/uL (4.70-6.10) L 10/05/24 23:56 Hgb 13.4 g/dl (14.0-18.0) L 10/05/24 23:56 Hct 42.1 % (42.0-52.0) 10/05/24 23:56 MCV 92.1 fL (80.0-100.0) 10/05/24 23:56 MCH 29.3 pg (25.0-34.0) 10/05/24 23:56 MCHC 31.8 g/dL (32.0-36.0) L 10/05/24 23:56 RDW Std Deviation 59.3 fL (36.4-46.3) H 10/05/24 23:56 RDW Coeff of Reyna 17.6 % (11.5-14.5) H 10/05/24 23:56 Plt Count 194 K/uL (130-400) 10/05/24 23:56 MPV 10.1 fL (9.4-12.4) 10/05/24 23:56 Immature Gran % (Auto) 0.4 % 10/05/24 23:56 Neut % (Auto) 91.8 % 10/05/24 23:56 Lymph % (Auto) 2.0 % 10/05/24 23:56 Weber % (Auto) 5.5 % 10/05/24 23:56 Eos % (Auto) 0.1 % 10/05/24 23:56 Baso % (Auto) 0.2 % 10/05/24 23:56 Neut # (Auto) 11.85 K/uL (1.40-6.50) H 10/05/24 23:56 Lymph # (Auto) 0.26 K/uL (1.20-3.40) L 10/05/24 23:56 Weber # (Auto) 0.71 K/uL (0.11-0.59) H 10/05/24 23:56 Eos # (Auto) 0.01 K/uL (0.00-0.50) 10/05/24 23:56 Baso # (Auto) 0.02 K/uL (0.00-0.20) 10/05/24 23:56 Immature Gran # (Auto) 0.05 K/uL (0.01-0.20) 10/05/24 23:56 Toxic Granulation 1+ 10/05/24 23:56 Toxic Vacuolation 1+ 10/05/24 23:56 Polychromasia 1+ 10/05/24 23:56 Ovalocytes 1+ 10/05/24 23:56 PT 23.7 Seconds (9.0-12.0) H 10/05/24 23:56 INR 2.4 (0.9-1.1) H 10/05/24 23:56 APTT 29 Seconds (21-31) 10/05/24 23:56 PTT Ratio 1.1 10/05/24 23:56 VBG pH 7.36 (7.36-7.41) 10/06/24 00:01 VBG pCO2 48 mmHg (38-50) 10/06/24 00:01 VBG pO2 52 mmHg 10/06/24 00:01 VBG HCO3 27 mmol/L 10/06/24 00:01 VBG O2 Saturation 84.4 % 10/06/24 00:01 VBG Base Excess 1.0 mEq/L 10/06/24 00:01 Sodium 136 mmol/L (136-145) 10/05/24 23:56 Potassium 4.3 mmol/L (3.5-5.1) 10/05/24 23:56 Chloride 100 mmol/L (98-107) 10/05/24 23:56 Carbon Dioxide 28 mmol/L (21-32) 10/05/24 23:56 Anion Gap 8 (3-11) 10/05/24 23:56 BUN 19 mg/dl (6-23) 10/05/24 23:56 Creatinine 1.37 mg/dl (0.6-1.4) 10/05/24 23:56 Est Cr Clr Drug Dosing 53.8 ml/min 10/05/24 23:56 eGFR 52.47 10/05/24 23:56 BUN/Creatinine Ratio 13.9 (10-20) 10/05/24 23:56 Glucose 189 mg/dl (70-99(Fasting)) H 10/05/24 23:56 Calcium 8.6 mg/dl (8.6-10.3) 10/05/24 23:56 Magnesium 1.8 mg/dl (1.7-2.4) 10/05/24 23:56 Total Bilirubin 1.9 mg/dl (0.2-1.0) H 10/05/24 23:56 AST 23 U/L (13-39) 10/05/24 23:56 ALT 15 U/L (7-52) 10/05/24 23:56 Alkaline Phosphatase 87 U/L (34-104) 10/05/24 23:56 Troponin I High Sens 565.7 pg/ml (0-20) H* 10/05/24 23:56 B-Natriuretic Peptide 856 pg/ml (0-100) H 10/05/24 23:57 Total Protein 7.1 gm/dl (6.0-8.3) 10/05/24 23:56 Albumin 3.9 gm/dl (3.4-5.0) 10/05/24 23:56 Globulin 3.2 gm/dl (2.5-4.0) 10/05/24 23:56 Albumin/Globulin Ratio 1.2 (0.9-2) 10/05/24 23:56 Urine Color Yellow 10/06/24 00:30 Urine Appearance Clear (Clear) 10/06/24 00:30 Urine pH 5.0 (4.5-7.5) 10/06/24 00:30 Ur Specific [place] 1.007 (1.000-1.030) 10/06/24 00:30 Urine Protein Trace (Negative) H 10/06/24 00:30 Urine Glucose (UA) Negative (Negative) 10/06/24 00:30 Urine Ketones Negative (Negative) 10/06/24 00:30 Urine Blood 2+ (Negative) H 10/06/24 00:30 Urine Nitrite Negative (Negative) 10/06/24 00:30 Urine Bilirubin Negative (Negative) 10/06/24 00:30 Urine Urobilinogen Negative (Negative) 10/06/24 00:30 Ur Leukocyte Esterase Negative (Negative) 10/06/24 00:30 Urine WBC (Auto) 0-5 /hpf (0-5) 10/06/24 00:30 Urine RBC (Auto) 11-20 /hpf (0-2) H 10/06/24 00:30 U Hyaline Cast (Auto) 3-5 /lpf (0-2) H 10/06/24 00:30 U Epithel Cells (Auto) 0-2 /hpf (0-2) 10/06/24 00:30 Urine Bacteria (Auto) None Seen (None Seen) 10/06/24 00:30 Adenovirus (PCR) Not Detected (NotDetected) 10/06/24 00:34 B. pertussis DNA (PCR) Not Detected (NotDetected) 10/06/24 00:34 B.parapertussis DNA PCR Not Detected (NotDetected) 10/06/24 00:34 C. pneumoniae DNA (PCR) Not Detected (NotDetected) 10/06/24 00:34 Coronavirus OC43 (PCR) Not Detected (NotDetected) 10/06/24 00:34 Coronavirus HKU1 (PCR) Not Detected (NotDetected) 10/06/24 00:34 Coronavirus 229E (PCR) Not Detected (NotDetected) 10/06/24 00:34 SARS-CoV-2 (PCR) Not Detected (NotDetected) 10/06/24 00:34 Coronavirus NL63 (PCR) Not Detected (NotDetected) 10/06/24 00:34 Human Metapneumovir PCR Not Detected (NotDetected) 10/06/24 00:34 Influenza Type A (PCR) Not Detected (NotDetected) 10/06/24 00:34 Influenza Type B (PCR) Not Detected (NotDetected) 10/06/24 00:34 M. pneumoniae (PCR) Not Detected (NotDetected) 10/06/24 00:34 Parainfluenza 1 (PCR) Not Detected (NotDetected) 10/06/24 00:34 Parainfluenza 2 (PCR) Not Detected (NotDetected) 10/06/24 00:34 Parainfluenza 3 (PCR) Not Detected (NotDetected) 10/06/24 00:34 Parainfluenza 4 (PCR) Not Detected (NotDetected) 10/06/24 00:34 RSV (PCR) DETECTED (NotDetected) A 10/06/24 00:34 Entero/Rhino (PCR) Not Detected (NotDetected) 10/06/24 00:34 Impressions Chest X-Ray 10/05/24 23:56 EXAM: XR chest 1V portable CLINICAL HISTORY: Dyspnea TECHNIQUE: An X-ray image of the chest is obtained in AP projection. COMPARISON: Compared to the prior chest x-ray dated 03/29/2023. FINDINGS: Pulmonary Parenchyma: Lungs are clear bilaterally. No evidence of consolidation, collapse, or focal opacities. No pulmonary nodules are identified. No evidence of pleural effusion or pleural thickening. Heart and Mediastinum: Heart size is increased. There is mediastinal widening. No hilar or mediastinal lymphadenopathy. Implantable cardioverter defibrilator . Triple leads, two seen at the right ventricle and one at the right atrium. Bony Thorax: Median sternotomy metallic sutures. Soft Tissues: Soft tissues overlying the chest wall are unremarkable. IMPRESSION: 1. Cardiomegaly with mediastinal widening. Stable. 2. Implnatable cardioverter defibrilator . Triple leads, two seen at the right ventricle and one at the right atrium. Suggest a clinical assessment. (unchanged) Electronically signed by Jamison Ferguson 10-06-2024 01:[address] chest: 1. Patchy areas of ground-glass densities with interstitial thickening and consolidations are noted involving bilateral lung parenchyma, predominantly lower lobes. 2. Mild left and minimal right pleural effusion. 3. Mild cardiomegaly present. Possibility of pulmonary edema needs consideration. Suggested clinical correlation/follow up. Diagnostic Findings EKG as per my interpretation :Rate 105, paced rhythm
[2024-10-06] MEDS: methylPREDNISolone 125 MG/2 ML VIAL IV STA (02:43)
[2024-10-06] MEDS: MAGNESIUM SULFATE / D5W 1 GM/100 ML BAG IV ONE (02:43)
[2024-10-06 02:57] LABS: Thyroid Stimulating Hormone 1.092 uIu/ml (0.300-4.500); Troponin I High Sensitivity 3048.3 pg/ml (0-20)
--- NOTE | 2024-10-06 03:44 | Ultrasound Report ---
EXAM: US abdomen ltd ascites CLINICAL HISTORY: Distension. TECHNIQUE: Ultrasound examination of the Abdomen and pelvis limited to ascitis detection. Scanning was performed with the patient in the supine position: COMPARISON: None available. FINDINGS: Multiple images are taken through the abdomen and pelvis. No free fluid or collections could be seen in the abdomen or pelvis at the time of scan. IMPRESSION: No ascites is seen. RECOMMENDATIONS: Clinical correlation with symptoms and further evaluation as indicated. Electronically signed by Jamison Ferguson 10-06-2024 03:44 AM
--- NOTE | 2024-10-06 04:12 | CT Scan Report ---
EXAM: CT chest diagnostic wo con CLINICAL HISTORY: low o2 TECHNIQUE: Contiguous axial images were obtained from the neck base through the upper abdomen without contrast. In addition, sagittal and coronal reconstructions were performed to potentially increase the sensitivity for the detection of disease. CT scan was performed according to ALARA (as low as reasonably achievable). 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 Sternotomy sutures seen. Patchy areas of ground-glass densities with interstitial thickening and consolidations are noted involving bilateral lung parenchyma, predominantly lower lobes. Mild left and minimal right pleural effusion. Mild cardiomegaly present. The central airways are patent. No pneumothorax is seen. Evaluation of the mediastinum and antoine is limited due to the lack of intravenous contrast. No axillary or mediastinal adenopathy is identified. The aorta, and pulmonary arteries are of normal size and configuration. There are coronary artery and aortic atherosclerotic calcifications. No pericardial effusion is identified. Imaged portions of the upper abdomen shows a exophytic calcified lesion of size [id number] at caudate lobe of liver. No aggressive appearing osseous lesions are identified. Rest of the findings are unchanged compared to the previous CT scan. IMPRESSION: 1. Patchy areas of ground-glass densities with interstitial thickening and consolidations are noted involving bilateral lung parenchyma, predominantly lower lobes. 2. Mild left and minimal right pleural effusion. 3. Mild cardiomegaly present. Possibility of pulmonary edema needs consideration. Suggested clinical correlation/follow up. Previous study dated 24 March 2023 also showed similar changes of pulmonary edema, however the consolidations and effusion were more as compared to the current study. Electronically signed by Hakeem De Jesus 10-06-2024 04:11 AM
[2024-10-06] MEDS: METOPROLOL SUCC 25MG EXT REL TAB PO STA (06:42)
[2024-10-06] MEDS: LEVALBUTEROL 1.25 MG/3 ML NEB NEB SCH (07:10)
[2024-10-06] MEDS: IPRATROPIUM BROMIDE NEB SOLN 0.02% 0.5MG/2.5ML VIAL INH SCH (07:10)
[2024-10-06 08:01] LABS: Hematocrit (blood only) 40.4 % (42.0-52.0); Hemoglobin 13.1 g/dl (14.0-18.0); Mean Corpuscular Hemoglobin 29.9 pg (25.0-34.0); Mean Corpuscular Hgb Conc 32.4 g/dL (32.0-36.0); Mean Corpuscular Volume 92.2 fL (80.0-100.0); Mean Platelet Volume 10.3 fL (9.4-12.4); Platelet Count 181 K/uL (130-400); RDW Coefficient of Variation 17.5 % (11.5-14.5); Red Blood Count 4.38 M/uL (4.70-6.10)
[2024-10-06] MEDS: ASPIRIN 81 MG ECTAB PO SCH (08:10)
[2024-10-06] MEDS: CHOLECALCIFEROL 25 MCG (1000 UNITS) TAB PO SCH (08:13)
[2024-10-06] MEDS: SPIRONOLACTONE 12.5 MG TAB PO SCH (08:13)
[2024-10-06] MEDS: FLUTICASONE/VILANTEROL 100/25MCG 14 PUFFS/INHALER INH SCH (08:13)
[2024-10-06] MEDS: lisinopril 2.5 MG TAB PO SCH (08:14)
[2024-10-06] MEDS: OSELTAMIVIR PHOSPHATE 75 MG CAP PO SCH (08:14)
[2024-10-06] MEDS: FAMOTIDINE 20 MG TAB PO SCH (08:18)
[2024-10-06] MEDS: ARTIFICIAL TEARS OP SCH (08:19)
[2024-10-06] MEDS: ACETAMINOPHEN 500 MG TAB PO SCH (08:20)
[2024-10-06 08:21] LABS: BUN Creatinine Ratio 14.2 (10-20); Calcium 8.5 mg/dl (8.6-10.3); Creatinine Clr Calc Pharmacy 57.4 ml/min; Potassium 5.2 mmol/L (3.5-5.1)
[2024-10-06 08:23] LABS: Basophils # (auto) 0.01 K/uL (0.00-0.20); Basophils % (auto) 0.1 %; Immature Granulocytes # (auto) 0.08 K/uL (0.01-0.20); Immature Granulocytes % (auto) 0.7 %; Lymphocytes # (auto) 0.29 K/uL (1.20-3.40); Lymphocytes % (auto) 2.5 %; Monocytes # (auto) 0.31 K/uL (0.11-0.59); Monocytes % (auto) 2.6 %; Neutrophils # (auto) 11.11 K/uL (1.40-6.50); Neutrophils % (auto) 94.1 %
[2024-10-06 08:26] LABS: Troponin I High Sensitivity 4937.1 pg/ml (0-20)
[2024-10-06 08:28] LABS: INR 2.1 (0.9-1.1); Prothrombin Time 21.4 Seconds (9.0-12.0)
[2024-10-06] MEDS ORDERED: METOPROLOL SUCC 25MG EXT REL TAB PO SCH (09:00)
--- NOTE | 2024-10-06 12:07 | Hospitalist Progress Note ---
Date of Service October 06, 2024 Assessment & Plan (1) Acute hypoxemic respiratory failure: Plan Pt is a 79yoM with PMHx significant for chronic systolic heart failure status post ICD (EF 20 to 24%, TTE 2023), CAD status post CABG, PE/A-fib on Coumadin, moderate MR, hypertension, hyperlipidemia, CVA, COPD, chronic anemia (baseline hemoglobin 12), rheumatoid arthritis, prediabetes, hypothyroidism, mood disorder, past tobacco abuse presenting with hypoxia from [facility]. Acute hypoxemic respiratory failure Multifactorial:decompensated heart failure status post ICD, systolic dysfunction, COPD exacerbation, RSV illness Supplemental O2 Wean off BiPAP Diuretic Rx Strict I/Os, daily weights, CHF education, fluid restriction TTE, Cardiology consult re: decompensated heart failure Steroid course, nebs RTC for COPD exacerbation Pulmonology consult if without improvement Continue aspirin, metoprolol, atorvastatin, lisinopril On prophylactic Tamiflu from [facility] for outbreak there Continue to monitor Troponin elevation second to above EKG, echo Cardiology evaluation, appreciate recs Hypotension BP on the lower side Currently receiving metoprolol and low dose lisinopril Diuretic treatments Started on midodrine 2.5mg TID, titrate up as needed IV steroids to help BP and in setting of COPD exacerbation Albumin boluses prn Continue to monitor Other Medical Problems: hx CAD status post CABG hx of PE/A-fib on Coumadin, INR therapeutic, follow moderate MR hypertension, BP on the lower side hyperlipidemia, on statin Rx hx CVA chronic anemia, hemoglobin better than baseline prediabetes, hemoglobin A1c of 6 last year hypothyroidism, euthyroid as of today's TSH past tobacco abuse Diet: FR 2L DVT prophylaxis. Coumadin INR goal between 2 and 3 DNR as per prior directives. Admission and Anticipated Discharge Date Admission Date: October 06, 2024 Subjective Pt was seen multiple times during the day Initially in the AM, very drowsy Later called to bedside for pt's low blood pressure Pt asymptomatic, noting his blood pressure usually runs low Review of Systems Review of Systems: All systems reviewed & are unremarkable except as noted in Subjective Physical Exam Physical Exam: General: drowsy, No acute distress Neuro: drowsy HEENT: NC/AT CV: RRR Resp: Breath sounds clear bilaterally, no increased effort of breathing Abdomen:Soft, nontender Extremities: edema in lower extremities bilaterally. Results & Data Results & Data Vital Signs (Past 12 Hours) Vital Signs Temp Pulse Pulse Resp BP BP BP 10/06/24 11:31 37.6 C H 78 20 105/62 10/06/24 11:25 74 20 10/06/24 08:00 10/06/24 07:57 37.0 C 69 17 101/66 10/06/24 07:57 10/06/24 07:22 77 10/06/24 07:13 67 20 10/06/24 06:42 81 103/66 10/06/24 03:47 82 10/06/24 03:30 10/06/24 03:30 37 C 85 24 100/59 L 10/06/24 02:30 84 32 H 103/64 10/06/24 02:00 84 33 H 108/64 10/06/24 01:18 87 37 H 100/56 L 10/06/24 00:30 97 H 36 H 110/68 10/06/24 00:25 Pulse Ox Pulse Ox O2 Del Method O2 Del Method O2 Flow Rate O2 Flow Rate FiO2 10/06/24 11:31 94 Nasal Cannula 5 10/06/24 11:25 93 Nasal Cannula 5 10/06/24 08:00 97 Nasal Cannula 5 10/06/24 07:57 99 Nasal Cannula 5 10/06/24 07:57 Nasal Cannula 5 10/06/24 07:22 10/06/24 07:13 97 Nasal Cannula 5 10/06/24 06:42 10/06/24 03:47 10/06/24 03:30 Nasal Cannula 5 10/06/24 03:30 97 Nasal Cannula 5 10/06/24 02:30 94 Nasal Cannula 5 10/06/24 02:00 94 BiPAP 10 10/06/24 01:18 95 BiPAP 40 10/06/24 00:30 96 BiPAP 40 10/06/24 00:25 97 BiPAP 40 Diagnostic Findings Chest X-Ray 10/05/24 23:56 EXAM: XR chest 1V portable CLINICAL HISTORY: Dyspnea TECHNIQUE: An X-ray image of the chest is obtained in AP projection. COMPARISON: Compared to the prior chest x-ray dated 03/29/2023. FINDINGS: Pulmonary Parenchyma: Lungs are clear bilaterally. No evidence of consolidation, collapse, or focal opacities. No pulmonary nodules are identified. No evidence of pleural effusion or pleural thickening. Heart and Mediastinum: Heart size is increased. There is mediastinal widening. No hilar or mediastinal lymphadenopathy. Implantable cardioverter defibrilator . Triple leads, two seen at the right ventricle and one at the right atrium. Bony Thorax: Median sternotomy metallic sutures. Soft Tissues: Soft tissues overlying the chest wall are unremarkable. IMPRESSION: 1. Cardiomegaly with mediastinal widening. Stable. 2. Implnatable cardioverter defibrilator . Triple leads, two seen at the right ventricle and one at the right atrium. Suggest a clinical assessment. (unchanged) Electronically signed by Jamison Ferguson 10-06-2024 01:21 AM Abdomen Ultrasound 10/06/24 02:20 EXAM: US abdomen ltd ascites CLINICAL HISTORY: Distension. TECHNIQUE: Ultrasound examination of the Abdomen and pelvis limited to ascitis detection. Scanning was performed with the patient in the supine position: COMPARISON: None available. FINDINGS: Multiple images are taken through the abdomen and pelvis. No free fluid or collections could be seen in the abdomen or pelvis at the time of scan. IMPRESSION: No ascites is seen. RECOMMENDATIONS: Clinical correlation with symptoms and further evaluation as indicated. Electronically signed by Jamison Ferguson 10-06-2024 03:[address] 10/06/24 02:58 EXAM: CT chest diagnostic wo con CLINICAL HISTORY: low o2 TECHNIQUE: Contiguous axial images were obtained from the neck base through the upper abdomen without contrast. In addition, sagittal and coronal reconstructions were performed to potentially increase the sensitivity for the detection of disease. CT scan was performed according to ALARA (as low as reasonably achievable). 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 Sternotomy sutures seen. Patchy areas of ground-glass densities with interstitial thickening and consolidations are noted involving bilateral lung parenchyma, predominantly lower lobes. Mild left and minimal right pleural effusion. Mild cardiomegaly present. The central airways are patent. No pneumothorax is seen. Evaluation of the mediastinum and antoine is limited due to the lack of intravenous contrast. No axillary or mediastinal adenopathy is identified. The aorta, and pulmonary arteries are of normal size and configuration. There are coronary artery and aortic atherosclerotic calcifications. No pericardial effusion is identified. Imaged portions of the upper abdomen shows a exophytic calcified lesion of size [id number] at caudate lobe of liver. No aggressive appearing osseous lesions are identified. Rest of the findings are unchanged compared to the previous CT scan. IMPRESSION: 1. Patchy areas of ground-glass densities with interstitial thickening and consolidations are noted involving bilateral lung parenchyma, predominantly lower lobes. 2. Mild left and minimal right pleural effusion. 3. Mild cardiomegaly present. Possibility of pulmonary edema needs consideration. Suggested clinical correlation/follow up. Previous study dated 24 March 2023 also showed similar changes of pulmonary edema, however the consolidations and effusion were more as compared to the current study. Electronically signed by Hakeem De Jesus 10-06-2024 04:11 AM
--- NOTE | 2024-10-06 13:41 | Cardiology Consultation ---
Date of Consultation October 06, 2024 Assessment & Plan (1) RSV infection: (2) Acute hypoxemic respiratory failure: * Agree with Administration of inhaled bronchodilators and prednisone given RSV infection. (3) CHF (congestive heart failure): * Longstanding history of ischemic cardiomyopathy, chronic heart failure with reduced ejection fraction. Suspected acute decompensation, athough difficult to distinguish from the RSV. * The patient has had a total of 3 echocardiograms performed at this institution. In 2020, the ejection fraction was graded to be from 25-30%.In 2022, the left ventricular ejection fraction was graded to be between 15-20%. Today, 10/06/2024, left ventricular ejection fraction is less than 15% * In 2020 he has been hospitalized with an inappropriate AICD discharge and was found to have a fracture of the right ventricular ICD lead. The patient underwent pulse generator change with implantation of a Medtronic generator. The malfunctioning right ventricular AICD lead was capped and a new right ventricular AICD lead was placed. * Per review of the notes from that admission, upgrade to a biventricular device was considered at that time but the patient was fairly ventricular pacing, with sedentary without evidence of clinical heart failure decompensation, and EKG revealed sinus rhythm with an intraventricular conduction delay, QRS duration 130 ms. * The patient's conduction system disease however has progressed with EKG this hospital stay consistent with a left bundle branch block, and wide QRS duration of 168 ms * Since the initial EKG was performed, heart rate has improved with supportive care down to the 70s. * Continue aspirin, metoprolol,atorvastatin. * Continue lisinopril 2.5 mg daily. Spironolactone 12.5 mg daily on hold for mildly elevated potassium. * Patient received 1 dose of furosemide, 20 mg. Will observe off of diuretic for now with plans to proceed with furosemide 20 mg IV daily on 10/07. (4) Atrial fibrillation: * In SR * INR 2.1 * Continue [employer] metoprolol and coumadin dose History of Present Illness Attending Physician: Courtney Fuentes MD History of Present Illness Forrest Funez is a 79 year old male seen in cardiology consultation per the request of Dr Herrera for the evaluation of CHF. He resides at [facility]. He follows with [facility] in [place]. Patient presents with two days of worsening shortness of breath and fluid retention. Had recently been started on prophylactic Tamiflu at the detention due to an influenza outbreak at his facility. He tested positive for RSV in the emergency department. Patient resting comfortably at the time of my assessment. Problem List - Multivessel coronary artery disease status post remote CABG circa 2010 - Chronic heart failure with reduced ejection fraction ,CHF, EF 25 -30% via October 2022 echocardiogram, and 15-20% on echocardiogram at [facility] 03/24/23 - Status post Biotronik ICD implantation in 2012 with subsequent inappropriate shocks due to lead fracture, Medtronic generator and new RV lead placed at [facility] in 2020 - Paroxysmal atrial fibrillation - History of CVA with left-sided paralysis - Hypertension - Dyslipidemia - Reformed smoker - Hyponatremia - Rheumatoid arthritis Family History: Father with a CVA. Mother with cancer. Social History: Reformed smoker, 50 pack years. No significant alcohol. No illegal drug use. Resident of [facility] Allergies Allergy/AdvReac Type Severity Reaction Status Date / Time No Known Allergies Allergy Unverified 10/06/24 00:31 Home Medications Medication Instructions Recorded Confirmed Type acetaminophen 500 mg tablet 500 mg PO AMHS 03/24/23 10/06/24 History atorvastatin 40 mg tablet 40 mg PO HS 03/24/23 10/06/24 History fluticasone 500 mcg-salmeterol 50 1 inh inhalation AMHS 03/24/23 10/06/24 History mcg/dose blistr powdr for inhalation ipratropium 0.5 mg-albuterol 3 mg 3 ml inhalation Q4H PRN Shortness 03/24/23 10/06/24 History (2.5 mg base)/3 mL nebulization Of Breath Or Wheezing soln lisinopril 2.5 mg tablet 2.5 mg PO DAILY 03/24/23 10/06/24 History potassium chloride 10 mEq 10 meq PO DAILY 03/24/23 10/06/24 History capsule,extended release sennosides 8.6 mg tablet (senna) 17.2 mg PO DAILY 03/24/23 10/06/24 History warfarin 2 mg tablet 2 mg PO 3XWK 03/24/23 10/06/24 History warfarin 4 mg tablet 4 mg PO 4XWK 03/24/23 10/06/24 History furosemide 40 mg tablet 40 mg PO QAM #30 tabs 04/01/23 10/06/24 Rx acetaminophen 325 mg tablet 650 mg PO Q4 PRN MILD TO SEVERE 10/06/24 10/06/24 History PAIN acetaminophen 325 mg tablet 650 mg PO Q4 PRN TEMP >100 10/06/24 10/06/24 History cholecalciferol (vitamin D3) 25 25 mcg PO DAILY 10/06/24 10/06/24 History mcg (1,000 unit) tablet (Vitamin D3) dextran 70-hypromellose eye drops 2 drp OPB TID 10/06/24 10/06/24 History in a dropperette (Artificial Tears (PF) drops in a dropperette) famotidine 20 mg tablet 20 mg PO BID 10/06/24 10/06/24 History guaifenesin 100 mg/5 mL oral liquid 200 mg PO Q4H PRN Cough 10/06/24 10/06/24 History guaifenesin 600 mg tablet, 600 mg PO AMHS 10/06/24 10/06/24 History extended release 12 hr (Mucinex) metoprolol succinate 25 mg 12.5 mg PO DAILY 10/06/24 10/06/24 History tablet,extended release 24 hr oseltamivir 75 mg capsule 75 mg PO DAILY 10/06/24 10/06/24 History spironolactone 25 mg tablet 12.5 mg PO DAILY 10/06/24 10/06/24 History Patient History Medical History History of tobacco use ICD (implantable cardioverter-defibrillator) in place Surgical History Status post coronary artery bypass graft Social History Smoking Status: Former smoker Tobacco Type: Cigarettes Second Hand Exposure: No; Do You Dip or Chew Tobacco: No; Hx Alcohol Use: No Hx Substance Use: No Preferred Language: Serbian Communication Ability: Effective Housing And Residence Life Director Required: No Beliefs That Will Affect Care: None marital status: Current Living Situation: Other Current Living Situation Comment: [facility] How many Children do You have: 1 Feels Safe at Home: Yes Assistive Devices: Hospital Bed, Mechanical Lift and Wheelchair Review of Systems Review of Systems: All systems reviewed & are unremarkable except as noted in HPI & below Physical Exam Physical Exam: Temp Pulse Resp BP Pulse Ox O2 Del Method O2 Flow Rate 37.6 C H 78 20 105/62 94 Nasal Cannula 5 10/06/24 11:31 10/06/24 11:31 10/06/24 11:31 10/06/24 11:31 10/06/24 11:31 10/06/24 11:31 10/06/24 11:31 FiO2 10 10/06/24 02:00 General:chronically ill in appearance Eyes: conjunctiva are pink and non-injected, sclera clear Neck: normal jugular venous pulse, no hepatojugular reflux Chest: normal shape and normal respiratory effort Lungs: decreased BS at the bases Cardiac Exam: - regular heart sounds, no murmurs, rubs, or gallops Abdomen: abdomen soft, non-tender, no abnormal masses and no hepatosplenomegaly Musculoskeletal: no gait disturbance, no weakness Extremities: no edema and no cyanosis Neuro:awake, conversant, follows commands, no focal motor deficits Results & Data Vital Signs (Past 12 Hours) Vital Signs Temp Pulse Pulse Resp BP BP BP 10/06/24 11:31 37.6 C H 78 20 105/62 10/06/24 11:25 74 20 10/06/24 08:00 10/06/24 07:57 37.0 C 69 17 101/66 10/06/24 07:57 10/06/24 07:22 77 10/06/24 07:13 67 20 10/06/24 06:42 81 103/66 10/06/24 03:47 82 10/06/24 03:30 10/06/24 03:30 37 C 85 24 100/59 L 10/06/24 02:30 84 32 H 103/64 10/06/24 02:00 84 33 H 108/64 Pulse Ox Pulse Ox O2 Del Method O2 Del Method O2 Flow Rate O2 Flow Rate FiO2 10/06/24 11:31 94 Nasal Cannula 5 10/06/24 11:25 93 Nasal Cannula 5 10/06/24 08:00 97 Nasal Cannula 5 10/06/24 07:57 99 Nasal Cannula 5 10/06/24 07:57 Nasal Cannula 5 10/06/24 07:22 10/06/24 07:13 97 Nasal Cannula 5 10/06/24 06:42 10/06/24 03:47 10/06/24 03:30 Nasal Cannula 5 10/06/24 03:30 97 Nasal Cannula 5 10/06/24 02:30 94 Nasal Cannula 5 10/06/24 02:00 94 BiPAP 10 Diagnostic Findings Summary of transthoracic echocardiogram performed today 10/06/24 Left ventricular systolic function is severely reduced. Left Ventricular Ejection Fraction = <15%. The right ventricle is not visualized adequately enough to allow for, with regards to chamber size or systolic function. The aortic valve is mildly calcified. Moderate valvular aortic stenosis. Although low-flow low gradient aortic stenosis is a possibility, aortic valve cusps appear to be mobile without evidence of severe aortic stenosis. There is trace mitral regurgitation. Diastolic dysfunction, Grade II (pseudonormalization pattern). Compared to the report of the previous study dated 03/24/2023, the left ventricular ejection fraction was graded to be 15-20% at that time. EKG performed October 05, 2024 and interpreted independently: Sinus tachycardia 104 bpm with left bundle branch block, QRS duration 168 ms. - Compared to the previous tracing performed 03/26/2023, left bundle branch block has replaced AV sequential paced rhythm. Summary of CT chest : 1. Patchy areas of ground-glass densities with interstitial thickening and consolidations are noted involving bilateral lung parenchyma, predominantly lower lobes. 2. Mild left and minimal right pleural effusion. 3. Mild cardiomegaly present. Possibility of pulmonary edema needs consideration. Suggested clinical correlation/follow up. (1) RSV infection RSV infection type: unspecified Qualified Code(s): B33.8 - Other specified viral diseases (3) CHF (congestive heart failure) Heart failure chronicity: acute on chronic Heart failure type: unspecified Qualified Code(s): I50.9 - Heart failure, unspecified (4) Atrial fibrillation Atrial fibrillation type: paroxysmal Qualified Code(s): I48.0 - Paroxysmal atrial fibrillation
--- NOTE | 2024-10-06 15:29 | Cardiology Consultation ---
Date of Consultation October 06, 2024 History of Present Illness Attending Physician: Courtney Fuentes MD Allergies Allergy/AdvReac Type Severity Reaction Status Date / Time No Known Allergies Allergy Unverified 10/06/24 00:31 Home Medications Medication Instructions Recorded Confirmed Type acetaminophen 500 mg tablet 500 mg PO AMHS 03/24/23 10/06/24 History atorvastatin 40 mg tablet 40 mg PO HS 03/24/23 10/06/24 History fluticasone 500 mcg-salmeterol 50 1 inh inhalation AMHS 03/24/23 10/06/24 History mcg/dose blistr powdr for inhalation ipratropium 0.5 mg-albuterol 3 mg 3 ml inhalation Q4H PRN Shortness 03/24/23 10/06/24 History (2.5 mg base)/3 mL nebulization Of Breath Or Wheezing soln lisinopril 2.5 mg tablet 2.5 mg PO DAILY 03/24/23 10/06/24 History potassium chloride 10 mEq 10 meq PO DAILY 03/24/23 10/06/24 History capsule,extended release sennosides 8.6 mg tablet (senna) 17.2 mg PO DAILY 03/24/23 10/06/24 History warfarin 2 mg tablet 2 mg PO 3XWK 03/24/23 10/06/24 History warfarin 4 mg tablet 4 mg PO 4XWK 03/24/23 10/06/24 History furosemide 40 mg tablet 40 mg PO QAM #30 tabs 04/01/23 10/06/24 Rx acetaminophen 325 mg tablet 650 mg PO Q4 PRN MILD TO SEVERE 10/06/24 10/06/24 History PAIN acetaminophen 325 mg tablet 650 mg PO Q4 PRN TEMP >100 10/06/24 10/06/24 History cholecalciferol (vitamin D3) 25 25 mcg PO DAILY 10/06/24 10/06/24 History mcg (1,000 unit) tablet (Vitamin D3) dextran 70-hypromellose eye drops 2 drp OPB TID 10/06/24 10/06/24 History in a dropperette (Artificial Tears (PF) drops in a dropperette) famotidine 20 mg tablet 20 mg PO BID 10/06/24 10/06/24 History guaifenesin 100 mg/5 mL oral liquid 200 mg PO Q4H PRN Cough 10/06/24 10/06/24 History guaifenesin 600 mg tablet, 600 mg PO AMHS 10/06/24 10/06/24 History extended release 12 hr (Mucinex) metoprolol succinate 25 mg 12.5 mg PO DAILY 10/06/24 10/06/24 History tablet,extended release 24 hr oseltamivir 75 mg capsule 75 mg PO DAILY 10/06/24 10/06/24 History spironolactone 25 mg tablet 12.5 mg PO DAILY 10/06/24 10/06/24 History Patient History Medical History History of tobacco use ICD (implantable cardioverter-defibrillator) in place Surgical History Status post coronary artery bypass graft Social History Smoking Status: Former smoker Tobacco Type: Cigarettes Second Hand Exposure: No; Do You Dip or Chew Tobacco: No; Hx Alcohol Use: No Hx Substance Use: No Preferred Language: [place] Communication Ability: Effective Silk Finisher Required: No Beliefs That Will Affect Care: None marital status: Current Living Situation: Other Current Living Situation Comment: [facility] How many Children do You have: 1 Feels Safe at Home: Yes Assistive Devices: Hospital Bed, Mechanical Lift and Wheelchair Results & Data Vital Signs (Past 12 Hours) Vital Signs Temp Pulse Pulse Resp BP BP Pulse Ox 10/06/24 15:08 73 20 95 10/06/24 11:31 37.6 C H 78 20 105/62 94 10/06/24 11:25 74 20 93 10/06/24 08:00 10/06/24 07:57 37.0 C 69 17 101/66 99 10/06/24 07:57 10/06/24 07:22 77 10/06/24 07:13 67 20 97 10/06/24 06:42 81 103/66 10/06/24 03:47 82 10/06/24 03:30 10/06/24 03:30 37 C 85 24 100/59 L 97 Pulse Ox O2 Del Method O2 Del Method O2 Flow Rate O2 Flow Rate 10/06/24 15:08 Nasal Cannula 3 10/06/24 11:31 Nasal Cannula 5 10/06/24 11:25 Nasal Cannula 5 10/06/24 08:00 97 Nasal Cannula 5 10/06/24 07:57 Nasal Cannula 5 10/06/24 07:57 Nasal Cannula 5 10/06/24 07:22 10/06/24 07:13 Nasal Cannula 5 10/06/24 06:42 10/06/24 03:47 10/06/24 03:30 Nasal Cannula 5 10/06/24 03:30 Nasal Cannula 5
--- NOTE | 2024-10-06 17:56 | Electrocardiogram Report ---
Test Reason : Blood Pressure : */* mmHG Vent. Rate : 104 BPM Atrial Rate : * BPM P-R Int : * ms QRS Dur : 168 ms QT Int : 444 ms P-R-T Axes : * -7 151 degrees QTcB Int : 583 ms Sinus tachycardia Left bundle branch block Abnormal ECG When compared with ECG of 26-Mar-2023 05:19, Vent. rate has increased by 42 bpm Confirmed by Agustin Craft ([id number]) on 10/06/2024 5:56:00 PM Referred By: [facility] Confirmed By: Agustin Craft
[2024-10-06] MEDS: ALBUMIN 25% 25 GM/100 ML VIAL IV ONE (18:32)
[2024-10-06] MEDS: MIDODRINE HCL 2.5 MG TAB PO SCH (19:43)
[2024-10-06] MEDS: methylPREDNISolone 40 MG in SYRINGE 0 ML IV SCH (19:44)
[2024-10-06] MEDS: ATORVASTATIN 40 MG TAB PO SCH (20:15)
[2024-10-07 06:20] LABS: Hematocrit (blood only) 35.5 % (42.0-52.0); Hemoglobin 11.4 g/dl (14.0-18.0); Mean Corpuscular Hemoglobin 29.8 pg (25.0-34.0); Mean Corpuscular Hgb Conc 32.1 g/dL (32.0-36.0); Mean Corpuscular Volume 92.9 fL (80.0-100.0); Mean Platelet Volume 10.3 fL (9.4-12.4); Platelet Count 176 K/uL (130-400); RDW Coefficient of Variation 17.3 % (11.5-14.5); RDW Standard Deviation 59.4 fL (36.4-46.3); Red Blood Count 3.82 M/uL (4.70-6.10); White Blood Count 9.84 K/ul (4.8-10.8)
[2024-10-07 06:41] LABS: Albumin Globulin Ratio 1.4 (0.9-2); Albumin Level 3.9 gm/dl (3.4-5.0); BUN Creatinine Ratio 21.1 (10-20); Bilirubin,Total 1.6 mg/dl (0.2-1.0); Calcium 8.6 mg/dl (8.6-10.3); Creatinine Clr Calc Pharmacy 39.3 ml/min; Globulin 2.8 gm/dl (2.5-4.0); Magnesium 2.2 mg/dl (1.7-2.4); Phosphorus 3.4 mg/dl (2.5-4.9); Potassium 5.4 mmol/L (3.5-5.1); Total Protein 6.7 gm/dl (6.0-8.3)
[2024-10-07 06:51] LABS: Prothrombin Time 20.5 Seconds (9.0-12.0)
[2024-10-07 07:01] LABS: Basophils # (auto) 0.01 K/uL (0.00-0.20); Basophils % (auto) 0.1 %; Immature Granulocytes # (auto) 0.04 K/uL (0.01-0.20); Immature Granulocytes % (auto) 0.4 %; Monocytes # (auto) 0.18 K/uL (0.11-0.59); Monocytes % (auto) 1.8 %; Neutrophils # (auto) 9.31 K/uL (1.40-6.50); Neutrophils % (auto) 94.7 %; Ovalocytes 1+; Polychromasia 1+
[2024-10-07] MEDS: METOPROLOL SUCC 25MG EXT REL TAB PO SCH (08:00)
[2024-10-07] MEDS: FUROSEMIDE INJ 20 MG/2 ML VIAL IV SCH (08:02)
[2024-10-07] MEDS ORDERED: predniSONE 20 MG TAB PO SCH (09:00)
--- NOTE | 2024-10-07 13:05 | Cardiology Progress Note ---
<Statement entered by Vivian Ortiz, - 10/07/24 21:46> I have reviewed the advanced practitioner's documentation and agree with the plan of care. I accept the responsibility for the associated risk. pt seen in cardiology f/u due to acute on chronic heart failure with reduced EF- NYHA Class III in the setting of acute RSV pt was doing well from a CHF perspective until the RSV; continue IV lasix; will give an extra dose today and would transition back to home dose once his volume status is better as far as possible upgrade to a BiV device this will need to be evaluated more as an outpatient pt will need chf f/u upon discharge Date of Service October 07, 2024 Assessment & Plan (1) RSV infection: (2) Acute hypoxemic respiratory failure: Plan: . (3) CHF (congestive heart failure): (4) Atrial fibrillation: Plan * Longstanding history of ischemic cardiomyopathy, chronic heart failure with reduced ejection fraction. Suspected acute decompensation, although difficult to distinguish from the RSV. * The patient has had a total of 3 echocardiograms performed at this institution. In 2020, the ejection fraction was graded to be from 25-30%.In 2022, the left ventricular ejection fraction was graded to be between 15-20%. Today, 10/06/2024, left ventricular ejection fraction is less than 15% * In 2020 he has been hospitalized with an inappropriate AICD discharge and was found to have a fracture of the right ventricular ICD lead. The patient underwent pulse generator change with implantation of a [employer] generator. The malfunctioning right ventricular AICD lead was capped and a new right ventricular AICD lead was placed. * HR well controlled * BP trending on the low side * Continue aspirin, Toprol, warfarin, low dose lisinopril, atorvastatin, metoprolol. * Aldactone currently on hold due to hyperkalemia can consider resuming once potassium is corrected * Significant weight loss noted per documented weights not sure how accurate this is * Fluid balance appears largely Agata unchanged despite diuretic -200 cc * Still appears volume overloaded on exam we will give additional IV diuretics today * Once euvolemic can transition back to his home dose of furosemide 40 mg daily Case discussed with Dr. Ortiz. Please see attestation for additional recommendations. ANNIE Belcher Department of Cardiology, [facility] This chart was completed in part utilizing Speech Voice Recognition Software. Grammatical errors, random word insertions, pronoun errors, and incomplete sentences are an occasional consequence of this system due to software limit ations, ambient noise, and hardware issues. Any formal questions or concerns about the content, text, or information contained within the body of this dictation should be directly addressed to the provider for clarification. Admission and Anticipated Discharge Date Admission Date: October 06, 2024 Subjective 79-year-old male seen in cardiology follow-up in regards to acute on chronic CHF exacerbation secondary to hypoxemic respiratory failure with acute RSV. He symptomatically reported feeling improved today. Had been feeling well up until 1 day prior to presentation when he developed a cough and worsening shortness of breath. Subsequently brought into the hospital and diagnosed with RSV. Respiratory status he reports feels back to baseline but still feels somewhat volume overloaded. Review of Systems Constitutional: + fatigue; no fever and no chills Respiratory: + cough, + chest congestion and + dyspne a Cardiovascular: + edema; no chest pain and no palpitatio ns Physical Exam Constitutional: WD/WN, vitals as above well developed, well nourished and comfortable; no acute distress Eyes: PERRL, conjunctivae normal, anicteric sclerae Neck: trachea midline, no thyromegaly Respiratory: normal respiratory effort and + cough Auscultation: + rhonchi Cardiovascular: RRR, no murmur, no edema Rate/Rhythm: regular rate and regular rhythm Vessels: no JVD Extremities: + edema Gastrointestinal (Abdomen): normal bowel sounds, soft, nontender, no hepatosplenomegaly Skin: no rashes, warm and dry Psychiatric: A+Ox3, euthymic affect Results & Data Vital Signs (Past 12 Hours) Vital Signs Temp Pulse Pulse Resp BP Pulse Ox Pulse Ox 10/07/24 11:14 36.9 C 80 22 95/53 L 92 10/07/24 10:51 67 18 90 10/07/24 08:19 10/07/24 08:00 92 10/07/24 07:27 71 10/07/24 07:11 37.2 C 64 19 95/56 L 94 10/07/24 07:10 63 18 94 10/07/24 03:55 36.6 C 64 22 94/56 L 93 O2 Del Method O2 Del Method O2 Flow Rate O2 Flow Rate 10/07/24 11:14 Nasal Cannula 2 04/19/25 10:51 Nasal Cannula 2 10/07/24 08:19 Nasal Cannula 2 10/07/24 08:00 Nasal Cannula 2 10/07/24 07:27 10/07/24 07:11 Nasal Cannula 2 10/07/24 07:10 Nasal Cannula 2 10/07/24 03:55 Room Air Laboratory Results Cardiac Enzymes 10/07/24 Range/Units 05:45 AST 21 (13-39) U/L Coagulation 10/07/24 Range/Units 05:45 PT 20.5 H (9.0-12.0) Seconds CBC 10/07/24 Range/Units 05:45 WBC 9.84 (4.8-10.8) K/ul RBC 3.82 L (4.70-6.10) M/uL Hgb 11.4 L (14.0-18.0) g/dl Hct 35.5 L (42.0-52.0) % Plt Count 176 (130-400) K/uL Neut # (Auto) 9.31 H (1.40-6.50) K/uL Lymph # (Auto) 0.30 L (1.20-3.40) K/uL [place] # (Auto) 0.18 (0.11-0.59) K/uL Eos # (Auto) 0.00 (0.00-0.50) K/uL Baso # (Auto) 0.01 (0.00-0.20) K/uL Comprehensive Metabolic Panel 10/07/24 Range/Units 05:45 Sodium 132 L (136-145) mmol/L Potassium 5.4 H (3.5-5.1) mmol/L Chloride 96 L (98-107) mmol/L Carbon Dioxide 31 (21-32) mmol/L BUN 37 H (6-23) mg/dl Creatinine 1.75 H D (0.6-1.4) mg/dl Glucose 141 H (70-99(Fasting)) mg/dl Calcium 8.6 (8.6-10.3) mg/dl AST 21 (13-39) U/L ALT 11 (7-52) U/L Alkaline Phosphatase 59 (34-104) U/L Total Protein 6.7 (6.0-8.3) gm/dl Albumin 3.9 (3.4-5.0) gm/dl Intake and Output 10/06/24 10/07/24 10/07/24 22:59 06:59 14:59 Intake Total 420 / 420 Output Total 226 / 626 400 / 626 Balance 194 / -206 -400 / -206 Intake: IV 100 / 100 Albumin 25% 25 gm In 100 ml @ 100 / 100 50 mls/hr IV ONE ONE Rx#: [id number] Oral 320 / 320 Output: Urine Amount (Catheter) 400 / 625 Villatoro/Indwelling 400 / 625 # Bowel Movements Other: Weight 93.4 kg Weight Measurement Method Built in [facility] Diagnostic Findings Laboratory Results WBC 9.84 K/ul (4.8-10.8) 10/07/24 05:45 RBC 3.82 M/uL (4.70-6.10) L 10/07/24 05:45 Hgb 11.4 g/dl (14.0-18.0) L 10/07/24 05:45 Hct 35.5 % (42.0-52.0) L 10/07/24 05:45 MCV 92.9 fL (80.0-100.0) 10/07/24 05:45 MCH 29.8 pg (25.0-34.0) 10/07/24 05:45 MCHC 32.1 g/dL (32.0-36.0) 10/07/24 05:45 RDW Std Deviation 59.4 fL (36.4-46.3) H 10/07/24 05:45 RDW Coeff of Reyna 17.3 % (11.5-14.5) H 10/07/24 05:45 Plt Count 176 K/uL (130-400) 10/07/24 05:45 MPV 10.3 fL (9.4-12.4) 10/07/24 05:45 Immature Gran % (Auto) 0.4 % 10/07/24 05:45 Neut % (Auto) 94.7 % 10/07/24 05:45 Lymph % (Auto) 3.0 % 10/07/24 05:45 [place] % (Auto) 1.8 % 10/07/24 05:45 Eos % (Auto) 0.0 % 10/07/24 05:45 Baso % (Auto) 0.1 % 10/07/24 05:45 Neut # (Auto) 9.31 K/uL (1.40-6.50) H 10/07/24 05:45 Lymph # (Auto) 0.30 K/uL (1.20-3.40) L 10/07/24 05:45 [place] # (Auto) 0.18 K/uL (0.11-0.59) 10/07/24 05:45 Eos # (Auto) 0.00 K/uL (0.00-0.50) 10/07/24 05:45 Baso # (Auto) 0.01 K/uL (0.00-0.20) 10/07/24 05:45 Immature Gran # (Auto) 0.04 K/uL (0.01-0.20) 10/07/24 05:45 Toxic Granulation 1+ 10/05/24 23:56 Toxic Vacuolation 1+ 10/05/24 23:56 Polychromasia 1+ 10/07/24 05:45 Ovalocytes 1+ 10/07/24 05:45 PT 20.5 Seconds (9.0-12.0) H 10/07/24 05:45 INR 2.0 (0.9-1.1) H 10/07/24 05:45 APTT 29 Seconds (21-31) 10/05/24 23:56 PTT Ratio 1.1 10/05/24 23:56 VBG pH 7.36 (7.36-7.41) 10/06/24 00:01 VBG pCO2 48 mmHg (38-50) 10/06/24 00:01 VBG pO2 52 mmHg 10/06/24 00:01 VBG HCO3 27 mmol/L 10/06/24 00:01 VBG O2 Saturation 84.4 % 10/06/24 00:01 VBG Base Excess 1.0 mEq/L 10/06/24 00:01 Sodium 132 mmol/L (136-145) L 10/07/24 05:45 Potassium 5.4 mmol/L (3.5-5.1) H 10/07/24 05:45 Chloride 96 mmol/L (98-107) L 10/07/24 05:45 Carbon Dioxide 31 mmol/L (21-32) 10/07/24 05:45 Anion Gap 5 (3-11) 10/07/24 05:45 BUN 37 mg/dl (6-23) H 10/07/24 05:45 Creatinine 1.75 mg/dl (0.6-1.4) H D 10/07/24 05:45 Est Cr Clr Drug Dosing 39.3 ml/min 10/07/24 05:45 eGFR 39.12 10/07/24 05:45 BUN/Creatinine Ratio 21.1 (10-20) H 10/07/24 05:45 Glucose 141 mg/dl (70-99(Fasting)) H 10/07/24 05:45 Calcium 8.6 mg/dl (8.6-10.3) 10/07/24 05:45 Phosphorus 3.4 mg/dl (2.5-4.9) 10/07/24 05:45 Magnesium 2.2 mg/dl (1.7-2.4) 10/07/24 05:45 Total Bilirubin 1.6 mg/dl (0.2-1.0) H 10/07/24 05:45 AST 21 U/L (13-39) 10/07/24 05:45 ALT 11 U/L (7-52) 10/07/24 05:45 Alkaline Phosphatase 59 U/L (34-104) 10/07/24 05:45 Troponin I High Sens 4937.1 pg/ml (0-20) H* D 10/06/24 07:24 B-Natriuretic Peptide 856 pg/ml (0-100) H 10/05/24 23:57 Total Protein 6.7 gm/dl (6.0-8.3) 10/07/24 05:45 Albumin 3.9 gm/dl (3.4-5.0) 10/07/24 05:45 Globulin 2.8 gm/dl (2.5-4.0) 10/07/24 05:45 Albumin/Globulin Ratio 1.4 (0.9-2) 10/07/24 05:45 Procalcitonin 0.20 ng/ml (0-0.5) 10/06/24 01:27 TSH 1.092 uIu/ml (0.300-4.500) 10/06/24 02:00 Urine Color Yellow 10/06/24 00:30 Urine Appearance Clear (Clear) 10/06/24 00:30 Urine pH 5.0 (4.5-7.5) 10/06/24 00:30 Ur Specific [place] 1.007 (1.000-1.030) 10/06/24 00:30 Urine Protein Trace (Negative) H 10/06/24 00:30 Urine Glucose (UA) Negative (Negative) 10/06/24 00:30 Urine Ketones Negative (Negative) 10/06/24: Urine Blood 2+ (Negative) H 10/06/24 Urine Nitrite Negative (Negative) 10/06/24 Urine Bilirubin Negative (Negative) 10/06/24: Urine Urobilinogen Negative (Negative) 10/06/24 00: Ur Leukocyte Esterase Negative (Negative) 10/06/24 Urine WBC (Auto) 0-5 /hpf (0-5) 10/06/24:30 Urine RBC (Auto) 11-20 /hpf (0-2) H 10/06/24: U Hyaline Cast (Auto) 3-5 /lpf (0-2) H 10/06/24 00:30 U Epithel Cells (Auto) 0-2 /hpf (0-2) 10/06/24 00:30 Urine Bacteria (Auto) None Seen (None Seen) 10/06/24 00:30 Adenovirus (PCR) Not Detected (NotDetected) 10/06/24 00:34 B. pertussis DNA (PCR) Not Detected (NotDetected) 10/06/24 00:34 B.parapertussis DNA PCR Not Detected (NotDetected) 10/06/24 00:34 C. pneumoniae DNA (PCR) Not Detected (NotDetected) 10/06/24 00:34 Coronavirus OC43 (PCR) Not Detected (NotDetected) 10/06/24 00:34 Coronavirus HKU1 (PCR) Not Detected (NotDetected) 10/06/24 00:34 Coronavirus 229E (PCR) Not Detected (NotDetected) 10/06/24 00:34 SARS-CoV-2 (PCR) Not Detected (NotDetected) 10/06/24 00:34 Coronavirus NL63 (PCR) Not Detected (NotDetected) 10/06/24 00:34 Human Metapneumovir PCR Not Detected (NotDetected) 10/06/24 00:34 Influenza Type A (PCR) Not Detected (NotDetected) 10/06/24 00:34 Influenza Type B (PCR) Not Detected (NotDetected) 10/06/24 00:34 M. pneumoniae (PCR) Not Detected (NotDetected) 10/06/24 00:34 Parainfluenza 1 (PCR) Not Detected (NotDetected) 10/06/24 00:34 Parainfluenza 2 (PCR) Not Detected (NotDetected) 10/06/24 00:34 Parainfluenza 3 (PCR) Not Detected (NotDetected) 10/06/24 00:34 Parainfluenza 4 (PCR) Not Detected (NotDetected) 10/06/24 00:34 RSV (PCR) DETECTED (NotDetected) A 10/06/24 00:34 Entero/Rhino (PCR) Not Detected (NotDetected) 10/06/24 00:34 Impressions Chest X-Ray 10/05/24 23:56 EXAM: XR chest 1V portable CLINICAL HISTORY: Dyspnea TECHNIQUE: An X-ray image of the chest is obtained in AP projection. COMPARISON: Compared to the prior chest x-ray dated 03/29/2023. FINDINGS: Pulmonary Parenchyma: Lungs are clear bilaterally. No evidence of consolidation, collapse, or focal opacities. No pulmonary nodules are identified. No evidence of pleural effusion or pleural thickening. Heart and Mediastinum: Heart size is increased. There is mediastinal widening. No hilar or mediastinal lymphadenopathy. Implantable cardioverter defibrilator . Triple leads, two seen at the right ventricle and one at the right atrium. Bony Thorax: Median sternotomy metallic sutures. Soft Tissues: Soft tissues overlying the chest wall are unremarkable. IMPRESSION: 1. Cardiomegaly with mediastinal widening. Stable. 2. Implnatable cardioverter defibrilator . Triple leads, two seen at the right ventricle and one at the right atrium. Suggest a clinical assessment. (unchanged) Electronically signed by Jamison Ferguson 10-06-2024 01:21 AM Abdomen Ultrasound 10/06/24 02:20 EXAM: US abdomen ltd ascites CLINICAL HISTORY: Distension. TECHNIQUE: Ultrasound examination of the Abdomen and pelvis limited to ascitis detection. Scanning was performed with the patient in the supine position: COMPARISON: None available. FINDINGS: Multiple images are taken through the abdomen and pelvis. No free fluid or collections could be seen in the abdomen or pelvis at the time of scan. IMPRESSION: No ascites is seen. RECOMMENDATIONS: Clinical correlation with symptoms and further evaluation as indicated. Electronically signed by Jamison Ferguson 10-06-2024 03:[address] 10/06/24 02:58 EXAM: CT chest diagnostic wo con CLINICAL HISTORY: low o2 TECHNIQUE: Contiguous axial images were obtained from the neck base through the upper abdomen without contrast. In addition, sagittal and coronal reconstructions were performed to potentially increase the sensitivity for the detection of disease. CT scan was performed according to ALARA (as low as reasonably achievable). COMPARISON: 03/24/2023 06:32:01 [employer] ADJUSTER FINDINGS: Cardiac pacemaker seen in place. Sternotomy sutures seen. Patchy areas of ground-glass densities with interstitial thickening and consolidations are noted involving bilateral lung parenchyma, predominantly lower lobes. Mild left and minimal right pleural effusion. Mild cardiomegaly present. The central airways are patent. No pneumothorax is seen. Evaluation of the mediastinum and antoine is limited due to the lack of intravenous contrast. No axillary or mediastinal adenopathy is identified. The aorta, and pulmonary arteries are of normal size and configuration. There are coronary artery and aortic atherosclerotic calcifications. No pericardial effusion is identified. Imaged portions of the upper abdomen shows a exophytic calcified lesion of size [id number] at caudate lobe of liver. No aggressive appearing osseous lesions are identified. Rest of the findings are unchanged compared to the previous CT scan. IMPRESSION: 1. Patchy areas of ground-glass densities with interstitial thickening and consolidations are noted involving bilateral lung parenchyma, predominantly lower lobes. 2. Mild left and minimal right pleural effusion. 3. Mild cardiomegaly present. Possibility of pulmonary edema needs consideration. Suggested clinical correlation/follow up. Previous study dated 24 March 2023 also showed similar changes of pulmonary edema, however the consolidations and effusion were more as compared to the current study. Electronically signed by Hakeem De Jesus 10-06-2024 04:11 AM Medications Administered Current Inpatient Medications Acetaminophen (Acetaminophen 325 Mg Tab) 650 mg PO Q4 PRN PRN Reason: MILD TO SEVERE PAIN Stop: 11/05/24 02:22 Acetaminophen (Acetaminophen 500 Mg Tab) 500 mg PO AMHS TONYA Stop: 11/05/24 08:59 Last Admin: 10/07/24 08:02 Dose: 500 mg Artificial Tears (Artificial Tears) 2 drops OP TID TONYA Stop: 11/05/24 08:59 Last Admin: 10/07/24 07:57 Dose: 2 drops Aspirin (Aspirin 81 Mg Ectab) 81 mg PO DAILY TONYA Stop: 11/05/24 06:44 Last Admin: 10/07/24 07:58 Dose: 81 mg Atorvastatin Calcium (Atorvastatin 40 Mg Tab) 40 mg PO HS TONYA Stop: 11/05/24 20:59 Last Admin: 10/06/24 20:15 Dose: 40 mg Famotidine (Famotidine 20 Mg Tab) 20 mg PO BID TONYA Stop: 11/05/24 08:59 Last Admin: 10/07/24 08:02 Dose: 20 mg Fluticasone/Vilanterol (Fluticasone/Vilanterol 100/25mcg 14 Puffs/Inhaler) 1 puffs INH DAILY TONYA Stop: 11/05/24 08:59 Last Admin: 10/07/24 07:59 Dose: 1 puffs Furosemide (Furosemide Inj 20 Mg/2 Ml Vial) 20 mg IV DAILY TONYA Stop: 11/06/24 08:59 Last Admin: 10/07/24 08:02 Dose: 20 mg Methylprednisolone 40 mg/ (Syringe) 0.64 mls @ 1.5 mls/min IV Q8H TONYA Stop: 11/05/24 18:59 Last Admin: 10/07/24 11:45 Dose: 1.5 mls/min Ipratropium [place] (Ipratropium [place] Neb Soln 0.02% 0.5mg/2.5ml Vial) 0.5 mg INH QIDR TONYA Stop: 11/05/24 06:59 Last Admin: 10/07/24 10:51 Dose: 0.5 mg Levalbuterol HCl (Levalbuterol 1.25 Mg/3 Ml Neb) 1.25 mg NEB QIDR TONYA Stop: 11/05/24 06:59 Last Admin: 10/07/24 10:51 Dose: 1.25 mg Lisinopril (Lisinopril 2.5 Mg Tab) 2.5 mg PO DAILY TONYA Stop: 11/05/24 08:59 Last Admin: 10/07/24 07:58 Dose: 2.5 mg Metoprolol Succinate (Metoprolol Succ 25mg Ext Rel Tab) 12.5 mg PO DAILY [facility] Stop: 11/06/24 08:59 Last Admin: 10/07/24 08:00 Dose: Not Given Midodrine (Midodrine Hcl 2.5 Mg Tab) 2.5 mg PO TID@0800,1200,1700 [facility] Stop: 11/05/24 18:09 Last Admin: 10/07/24 11:46 Dose: 2.5 mg Oseltamivir Phosphate (Oseltamivir Phosphate Susp 30 Mg/5 Ml Udp) 30 mg PO DAILY [facility]; Protocol Stop: 10/19/24 09:01 Spironolactone (Spironolactone 12.5 Mg Tab) 12.5 mg PO DAILY [facility] Stop: 11/05/24 08:59 Last Admin: 10/06/24 08:13 Dose: 12.5 mg Vitamin D (Cholecalciferol 25 Mcg (1000 Units) Tab) 25 mcg PO DAILY [facility] Stop: 11/05/24 08:59 Last Admin: 10/07/24 08:00 Dose: 25 mcg (1) RSV infection RSV infection type: unspecified Qualified Code(s): B33.8 - Other specified viral diseases (3) CHF (congestive heart failure) Heart failure chronicity: acute on chronic Heart failure type: unspecified Qualified Code(s): I50.9 - Heart failure, unspecified (4) Atrial fibrillation Atrial fibrillation type: paroxysmal Qualified Code(s): I48.0 - Paroxysmal atrial fibrillation
[2024-10-07] MEDS: FUROSEMIDE INJ 20 MG/2 ML VIAL IV ONE (13:26)
--- NOTE | 2024-10-07 15:29 | Hospitalist Progress Note ---
Date of Service October 07, 2024 Assessment & Plan (1) Acute hypoxemic respiratory failure: Plan Pt is a 79yoM with PMHx significant for chronic systolic heart failure status post ICD (EF 20 to 24%, TTE 2023), CAD status post CABG, PE/A-fib on Coumadin, moderate MR, hypertension, hyperlipidemia, CVA, COPD, chronic anemia (baseline hemoglobin 12), rheumatoid arthritis, prediabetes, hypothyroidism, mood disorder, past tobacco abuse presenting with hypoxia from [facility]. Acute hypoxemic respiratory failure Multifactorial:decompensated heart failure status post ICD, systolic dysfunction, COPD exacerbation, RSV illness Supplemental O2 Wean off BiPAP Diuretic Rx Strict I/Os, daily weights, CHF education, fluid restriction TTE, Cardiology consult re: decompensated heart failure Steroid course, nebs RTC for COPD exacerbation Pulmonology consult if without improvement Continue aspirin, metoprolol, atorvastatin, lisinopril On prophylactic Tamiflu from [facility] for outbreak there Continue to monitor Troponin elevation second to above EKG, echo Cardiology evaluation, appreciate recs Hypotension BP on the lower side Currently receiving metoprolol and low dose lisinopril Diuretic treatments Started on midodrine 2.5mg TID, titrate up as needed IV steroids to help BP and in setting of COPD exacerbation Albumin boluses prn Continue to monitor Hyperkalemia Mildly elevated Holding home spironolactone Low potassium diet Continue to monitor Other Medical Problems: hx CAD status post CABG hx of PE/A-fib on Coumadin, INR therapeutic, follow moderate MR hypertension, BP on the lower side hyperlipidemia, on statin Rx hx CVA chronic anemia, hemoglobin better than baseline prediabetes, hemoglobin A1c of 6 last year hypothyroidism, euthyroid as of today's TSH past tobacco abuse Diet: FR 2L DVT prophylaxis. Coumadin INR goal between 2 and 3 DNR as per prior directives. Admission and Anticipated Discharge Date Admission Date: October 06, 2024 Subjective pt was seen in the AM Much more alert today talking, denying acute concerns Review of Systems Review of Systems: All systems reviewed & are unremarkable except as noted in Subjective Physical Exam Physical Exam: General:alert, No acute distress Neuro: alert HEENT: NC/AT CV: RRR Resp: Breath sounds clear bilaterally, no increased effort of breathing Abdomen:Soft, nontender Extremities: edema in lower extremities bilaterally. Results & Data Results & Data Vital Signs (Past 12 Hours) Vital Signs Temp Pulse Pulse Resp BP Pulse Ox Pulse Ox 10/07/24 15:24 37.1 C 80 21 103/59 L 93 10/07/24 14:47 72 18 93 10/07/24 11:14 36.9 C 80 22 95/53 L 92 10/07/24 10:51 67 18 90 10/07/24 08:19 10/07/24 08:00 92 10/07/24 07:27 71 10/07/24 07:11 37.2 C 64 19 95/56 L 94 10/07/24 07:10 63 18 94 10/07/24 03:55 36.6 C 64 22 94/56 L 93 O2 Del Method O2 Del Method O2 Flow Rate O2 Flow Rate 10/07/24 15:24 Nasal Cannula 2 10/07/24 14:47 Nasal Cannula 2 10/07/24 11:14 Nasal Cannula 2 10/07/24 10:51 Nasal Cannula 2 10/07/24 08:19 Nasal Cannula 2 10/07/24 08:00 Nasal Cannula 2 10/07/24 07:27 10/07/24 07:11 Nasal Cannula 2 10/07/24 07:10 Nasal Cannula 2 10/07/24 03:55 Room Air
[2024-10-07] MEDS: MIDODRINE HCL 2.5 MG TAB PO SCH (17:33)
[2024-10-08] MEDS: OSELTAMIVIR PHOSPHATE SUSP 30 MG/5 ML UDP PO SCH (07:59)
[2024-10-08 08:38] LABS: Hemoglobin 11.9 g/dl (14.0-18.0); Mean Corpuscular Hemoglobin 29.8 pg (25.0-34.0); Mean Corpuscular Hgb Conc 33.1 g/dL (32.0-36.0); Mean Corpuscular Volume 90.2 fL (80.0-100.0); Mean Platelet Volume 10.8 fL (9.4-12.4); Platelet Count 184 K/uL (130-400); RDW Coefficient of Variation 17.1 % (11.5-14.5); RDW Standard Deviation 57.3 fL (36.4-46.3); Red Blood Count 3.99 M/uL (4.70-6.10); White Blood Count 9.04 K/ul (4.8-10.8)
[2024-10-08 08:50] LABS: Albumin Globulin Ratio 1.4 (0.9-2); BUN Creatinine Ratio 36.6 (10-20); Bilirubin,Total 1.4 mg/dl (0.2-1.0); Calcium 8.8 mg/dl (8.6-10.3); Creatinine Clr Calc Pharmacy 51.3 ml/min; Globulin 2.9 gm/dl (2.5-4.0); Magnesium 2.3 mg/dl (1.7-2.4); Phosphorus 3.6 mg/dl (2.5-4.9); Potassium 4.8 mmol/L (3.5-5.1); Total Protein 6.9 gm/dl (6.0-8.3)
[2024-10-08 09:01] LABS: INR 1.6 (0.9-1.1); Prothrombin Time 16.9 Seconds (9.0-12.0)
[2024-10-08 09:03] LABS: Basophils # (auto) 0.01 K/uL (0.00-0.20); Basophils % (auto) 0.1 %; Immature Granulocytes # (auto) 0.06 K/uL (0.01-0.20); Immature Granulocytes % (auto) 0.7 %; Lymphocytes # (auto) 0.36 K/uL (1.20-3.40); Monocytes % (auto) 3.3 %; Neutrophils # (auto) 8.31 K/uL (1.40-6.50); Neutrophils % (auto) 91.9 %; Ovalocytes 1+; Polychromasia 1+
--- NOTE | 2024-10-08 10:06 | XRay Report ---
HISTORY: Hypoxia TECHNIQUE: Portable AP radiograph of the chest. COMPARISON: Chest CT dated 10/06/2024. Chest radiograph dated 10/05/2024. FINDINGS: No focal lung consolidation. No pneumothorax or pleural effusion. Mild vascular congestion.Mild interstitial pulmonary edema. Trace effusions. Cardiomegaly. Postsurgical changes of median sternotomy and CABG. Left subclavian approach pacer/AICD. Degenerative changes of the spine. Included upper abdomen is unremarkable. IMPRESSION: * Findings of CHF with cardiomegaly, vascular congestion, mild interstitial pulmonary edema, and trace effusions. * Postsurgical changes of median sternotomy and CABG. Electronically signed by Kobi Cagle 10-08-2024 10:05 AM
[2024-10-08] MEDS: FUROSEMIDE INJ 20 MG/2 ML VIAL IV ONE ×2 (10:29→21:05)
--- NOTE | 2024-10-08 11:35 | Hospitalist Progress Note ---
Date of Service October 08, 2024 Assessment & Plan (1) Acute hypoxemic respiratory failure: Plan Pt is a 79yoM with PMHx significant for chronic systolic heart failure status post ICD (EF 20 to 24%, TTE 2023), CAD status post CABG, PE/A-fib on Coumadin, moderate MR, hypertension, hyperlipidemia, CVA, COPD, chronic anemia (baseline hemoglobin 12), rheumatoid arthritis, prediabetes, hypothyroidism, mood disorder, past tobacco abuse presenting with hypoxia from [facility]. Acute hypoxemic respiratory failure Multifactorial:decompensated heart failure status post ICD, systolic dysfunction, COPD exacerbation, RSV illness Supplemental O2 Wean off BiPAP Diuretic Rx Strict I/Os, daily weights, CHF education, fluid restriction TTE, Cardiology consult re: decompensated heart failure Steroid course, nebs RTC for COPD exacerbation Pulmonology consult if without improvement Continue aspirin, metoprolol, atorvastatin, lisinopril On prophylactic Tamiflu from [facility] for outbreak there Continue to monitor Troponin elevation secondary to above EKG, echo Cardiology evaluation, appreciate recs Hypotension BP on the lower side Currently receiving metoprolol and low dose lisinopril Also Diuretic treatments Started on midodrine 2.5mg TID, titrate up as needed-currently on 5mg TID IV steroids to help BP and in setting of COPD exacerbation Albumin boluses prn Continue to monitor Hyperkalemia Mildly elevated Holding home spironolactone Low potassium diet Continue to monitor Improving Other Medical Problems: hx CAD status post CABG hx of PE/A-fib on Coumadin, follow INR, continue home warfarin moderate MR hypertension, BP on the lower side hyperlipidemia, on statin Rx hx CVA chronic anemia, hemoglobin better than baseline prediabetes, hemoglobin A1c of 6 last year hypothyroidism, euthyroid as of today's TSH past tobacco abuse Diet: HH FR 2L, low potassium diet DVT prophylaxis. Coumadin INR goal between 2 and 3 DNR as per prior directives. Admission and Anticipated Discharge Date Admission Date: October 06, 2024 Subjective Pt was seen multiple times during the day Initially in the AM, concerns by nursing about pt sounding "wet", on 2L oxygen, no Review of Systems Review of Systems: All systems reviewed & are unremarkable except as noted in Subjective Physical Exam Physical Exam: General:alert, No acute distress Neuro: alert HEENT: NC/AT CV: RRR Resp: Breath sounds clear bilaterally, no increased effort of breathing Abdomen:Soft, nontender Extremities: edema in lower extremities bilaterally. Results & Data Results & Data Vital Signs (Past 12 Hours) Vital Signs Temp Pulse Resp BP Pulse Ox Pulse Ox O2 Del Method 10/08/24 10:31 72 20 97 Nasal Cannula 10/08/24 08:45 81 110/63 10/08/24 08:00 93 10/08/24 07:36 Nasal Cannula 10/08/24 07:31 66 26 H 103/67 93 Nasal Cannula 10/08/24 07:12 80 28 H 98 Nasal Cannula 10/08/24 04:10 36.6 C 78 19 109/66 99 Nasal Cannula 10/08/24 00:12 36.6 C 71 21 114/67 95 Nasal Cannula O2 Del Method O2 Flow Rate O2 Flow Rate 10/08/24 10:31 2 10/08/24 08:45 10/08/24 08:00 Nasal Cannula 2 10/08/24 07:36 2 10/08/24 07:31 2 10/08/24 07:12 2 10/08/24 04:10 2 10/08/24 00:12 2
[2024-10-08] MEDS: WARFARIN SOD 2 MG TAB PO SCH (17:24)
[2024-10-08] MEDS ORDERED: ALBUT/IPRATROP 3MG/0.5MG NEB 3 ML VIAL NEB STA (19:57)
[2024-10-08 20:05] LABS: Urine Chloride < 15 mmol/L; Urine Potassium 28.1 mmol/L; Urine Sodium < 10 mmol/L
[2024-10-08] MEDS: ALBUMIN 25% 12.5 GM/50 ML VIAL IV ONE (20:59)
[2024-10-09 07:21] LABS: Hematocrit (blood only) 36.2 % (42.0-52.0); Hemoglobin 11.8 g/dl (14.0-18.0); Mean Corpuscular Hemoglobin 29.6 pg (25.0-34.0); Mean Corpuscular Hgb Conc 32.6 g/dL (32.0-36.0); Mean Platelet Volume 10.7 fL (9.4-12.4); Platelet Count 175 K/uL (130-400); RDW Coefficient of Variation 16.9 % (11.5-14.5); RDW Standard Deviation 56.8 fL (36.4-46.3); Red Blood Count 3.98 M/uL (4.70-6.10); White Blood Count 10.57 K/ul (4.8-10.8)
[2024-10-09 07:30] LABS: Albumin Globulin Ratio 1.4 (0.9-2); Albumin Level 3.9 gm/dl (3.4-5.0); BUN Creatinine Ratio 39.1 (10-20); Bilirubin,Total 1.4 mg/dl (0.2-1.0); Calcium 8.6 mg/dl (8.6-10.3); Globulin 2.8 gm/dl (2.5-4.0); Magnesium 2.4 mg/dl (1.7-2.4); Phosphorus 3.3 mg/dl (2.5-4.9); Total Protein 6.7 gm/dl (6.0-8.3)
[2024-10-09 07:48] LABS: INR 1.6 (0.9-1.1); Prothrombin Time 17.1 Seconds (9.0-12.0)
[2024-10-09 07:49] LABS: Basophils # (auto) 0.01 K/uL (0.00-0.20); Basophils % (auto) 0.1 %; Echinocytes 1+; Immature Granulocytes # (auto) 0.05 K/uL (0.01-0.20); Immature Granulocytes % (auto) 0.5 %; Lymphocytes # (auto) 0.28 K/uL (1.20-3.40); Lymphocytes % (auto) 2.6 %; Monocytes # (auto) 0.53 K/uL (0.11-0.59); Neutrophils % (auto) 91.8 %; Ovalocytes 1+
[2024-10-09] MEDS: FUROSEMIDE INJ 20 MG/2 ML VIAL IV ONE ×2 (09:11→18:15)
--- NOTE | 2024-10-09 15:33 | Hospitalist Progress Note ---
Date of Service October 09, 2024 Assessment & Plan (1) Acute hypoxemic respiratory failure: Plan Pt is a 79yoM with PMHx significant for chronic systolic heart failure status post ICD (EF 20 to 24%, TTE 2023), CAD status post CABG, PE/A-fib on Coumadin, moderate MR, hypertension, hyperlipidemia, CVA, COPD, chronic anemia (baseline hemoglobin 12), rheumatoid arthritis, prediabetes, hypothyroidism, mood disorder, past tobacco abuse presenting with hypoxia from [facility]. Acute hypoxemic respiratory failure Multifactorial:decompensated heart failure status post ICD, systolic dysfunction, COPD exacerbation, RSV illness Supplemental O2 Wean off BiPAP Diuretic Rx- IV Lasix 20mg BID, monitor blood pressure carefully. Continue midodrine Strict I/Os, daily weights, CHF education, fluid restriction TTE, Cardiology consult re: decompensated heart failure Steroid course, nebs RTC for COPD exacerbation Pulmonology consult if without improvement Continue aspirin, metoprolol, atorvastatin, lisinopril On prophylactic Tamiflu from [facility] for outbreak there Continue to monitor Troponin elevation secondary to above EKG, echo Cardiology evaluation, appreciate recs Hypotension BP on the lower side Currently receiving metoprolol and low dose lisinopril Also Diuretic treatment- with low BP receiving doses of IV Lasix 20mg as needed Started on midodrine 2.5mg TID, titrate up as needed-currently on 5mg TID IV steroids to help BP and in setting of COPD exacerbation Albumin boluses prn Continue to monitor Hyperkalemia Mildly elevated Holding home spironolactone Low potassium diet Continue to monitor Improving Other Medical Problems: hx CAD status post CABG hx of PE/A-fib on Coumadin, follow INR, continue home warfarin moderate MR hypertension, BP on the lower side hyperlipidemia, on statin Rx hx CVA chronic anemia, hemoglobin better than baseline prediabetes, hemoglobin A1c of 6 last year hypothyroidism, euthyroid as of today's TSH past tobacco abuse Diet: HH FR 2L, low potassium diet DVT prophylaxis. Coumadin INR goal between 2 and 3 DNR as per prior directives. Admission and Anticipated Discharge Date Admission Date: October 06, 2024 Subjective pt was seen in the AM Laying in bed, rhonchorus He denied acute concerns Review of Systems Review of Systems: All systems reviewed & are unremarkable except as noted in Subjective Physical Exam Physical Exam: General:alert, No acute distress Neuro: alert HEENT: NC/AT CV: RRR Resp: breath sounds rhonchorus Abdomen:Soft, nontender Extremities: trace edema in lower extremities bilaterally. Results & Data Results & Data Vital Signs (Past 12 Hours) Vital Signs Temp Pulse Pulse Pulse Resp BP Pulse Ox 10/09/24 15:19 65 10/09/24 15:01 36.4 C L 82 22 109/69 96 10/09/24 12:44 67 10/09/24 11:17 36.4 C L 65 20 96/61 L 96 10/09/24 10:51 60 18 90 10/09/24 08:00 10/09/24 07:26 36.4 C L 68 16 106/67 98 10/09/24 07:16 36.3 C L 64 19 110/74 94 10/09/24 06:51 69 20 89 L 10/09/24 04: 36.6 C 64 19 101/63 96 O2 Del Method O2 Flow Rate 10/09/24 15:19 10/09/24 15:01 Nasal Cannula 2 10/09/24 12:44 10/09/24 11:17 Nasal Cannula 2 10/09/24 10:51 Nasal Cannula 2 10/09/24 08:00 Nasal Cannula 2 10/09/24 07:26 Oxymask 7 10/09/24 07:16 Nasal Cannula 2 10/09/24 06:51 Room Air 10/09/24 04:25 Nasal Cannula 2
[2024-10-09] MEDS: WARFARIN SOD 4 MG TAB PO SCH (16:51)
[2024-10-09] MEDS: ACETAMINOPHEN 325 MG TAB PO PRN (20:10)
[2024-10-10 07:05] LABS: Basophils # (auto) 0.01 K/uL (0.00-0.20); Basophils % (auto) 0.1 %; Hematocrit (blood only) 38.1 % (42.0-52.0); Hemoglobin 12.3 g/dl (14.0-18.0); Immature Granulocytes # (auto) 0.08 K/uL (0.01-0.20); Immature Granulocytes % (auto) 0.7 %; Lymphocytes # (auto) 0.33 K/uL (1.20-3.40); Lymphocytes % (auto) 2.7 %; Mean Corpuscular Hemoglobin 29.4 pg (25.0-34.0); Mean Corpuscular Hgb Conc 32.3 g/dL (32.0-36.0); Mean Corpuscular Volume 91.1 fL (80.0-100.0); Mean Platelet Volume 10.6 fL (9.4-12.4); Monocytes % (auto) 12.3 %; Neutrophils # (auto) 10.27 K/uL (1.40-6.50); Neutrophils % (auto) 84.2 %; Platelet Count 161 K/uL (130-400); RDW Coefficient of Variation 16.9 % (11.5-14.5); RDW Standard Deviation 56.7 fL (36.4-46.3); Red Blood Count 4.18 M/uL (4.70-6.10); White Blood Count 12.19 K/ul (4.8-10.8)
[2024-10-10 07:30] LABS: INR 1.8 (0.9-1.1); Prothrombin Time 18.8 Seconds (9.0-12.0)
[2024-10-10 07:33] LABS: Albumin Globulin Ratio 1.4 (0.9-2); Albumin Level 3.8 gm/dl (3.4-5.0); BUN Creatinine Ratio 38.7 (10-20); Bilirubin,Total 1.7 mg/dl (0.2-1.0); Calcium 8.5 mg/dl (8.6-10.3); Creatinine Clr Calc Pharmacy 62.1 ml/min; Globulin 2.8 gm/dl (2.5-4.0); Magnesium 2.5 mg/dl (1.7-2.4); Phosphorus 3.5 mg/dl (2.5-4.9); Potassium 4.8 mmol/L (3.5-5.1); Total Protein 6.6 gm/dl (6.0-8.3)
[2024-10-10] MEDS: FUROSEMIDE INJ 20 MG/2 ML VIAL IV SCH (08:38)
[2024-10-10] MEDS: OSELTAMIVIR PHOSPHATE 75 MG CAP PO SCH (08:38)
[2024-10-10] MEDS: methylPREDNISolone 40 MG in SYRINGE 0 ML IV SCH (08:41)
--- NOTE | 2024-10-10 10:43 | XRay Report ---
XR chest 1V portable CLINICAL HISTORY: SOB, f/u chf COMPARISON STUDY: 10/08/2024 FINDINGS: Stable CABG and pacemaker. Stable cardiomegaly with pulmonary vascular congestion. There is increased stranding opacity at the left lung base. No other consolidation or pleural effusion. No pn eumothorax. IMPRESSION: 1. CHF. 2. Atelectasis versus early pneumonia left lung base. ACT 112: Negative or not required by law. Electronically signed by: Bartolo Camejo M.D. 10/10/2024 10:42 AM
--- NOTE | 2024-10-10 12:53 | Hospitalist Progress Note ---
Date of Service October 10, 2024 Assessment & Plan (1) Acute hypoxemic respiratory failure: Plan Pt is a 79yoM with PMHx significant for chronic systolic heart failure status post ICD (EF 20 to 24%, TTE 2023), CAD status post CABG, PE/A-fib on Coumadin, moderate MR, hypertension, hyperlipidemia, CVA, COPD, chronic anemia (baseline hemoglobin 12), rheumatoid arthritis, prediabetes, hypothyroidism, mood disorder, past tobacco abuse presenting with hypoxia from [facility]. 10/10/24- discussion with pt's at bedside. She was tearful, noting that it has been 14 years of "one thing after another" medically for the patient and she knows that his condition is serious and complex. Would like a palliative care consult to discuss goals of care. Palliative care consult placed. He is currently being treated for the following: Acute hypoxemic respiratory failure Multifactorial:decompensated heart failure status post ICD, systolic dysfunction, COPD exacerbation, RSV illness Supplemental O2 Wean off BiPAP Diuretic Rx- IV Lasix 20mg BID, monitor blood pressure carefully. Continue midodrine Strict I/Os, daily weights, CHF education, fluid restriction TTE, Cardiology consult re: decompensated heart failure Steroid course, nebs RTC for COPD exacerbation Pulmonology consult if without improvement Continue aspirin, metoprolol, atorvastatin, lisinopril On prophylactic Tamiflu from [facility] for outbreak there Continue to monitor Troponin elevation secondary to above EKG, echo Cardiology evaluation, appreciate recs Hypotension BP on the lower side Currently receiving metoprolol and low dose lisinopril Also Diuretic treatment- with low BP receiving doses of IV Lasix 20mg as needed Started on midodrine 2.5mg TID, titrate up as needed-currently on 5mg TID IV steroids to help BP and in setting of COPD exacerbation Albumin boluses prn Continue to monitor Hyperkalemia Mildly elevated Holding home spironolactone Low potassium diet Continue to monitor Improving Other Medical Problems: hx CAD status post CABG hx of PE/A-fib on Coumadin, follow INR, continue home warfarin moderate MR hypertension, BP on the lower side hyperlipidemia, on statin Rx hx CVA chronic anemia, hemoglobin better than baseline prediabetes, hemoglobin A1c of 6 last year hypothyroidism, euthyroid as of today's TSH past tobacco abuse Diet: HH FR 2L, low potassium diet DVT prophylaxis. Coumadin INR goal between 2 and 3 DNR as per prior directives. Admission and Anticipated Discharge Date Admission Date: October 06, 2024 Subjective pt was seen in the AM Laying in bed, rhonchorus He denied acute concerns Later discussion with pt's at bedside. She was tearful, noting that it has been 14 years of "one thing after another" and she knows that his condition is serious and complex Would like a palliative care consult Review of Systems Review of Systems: All systems reviewed & are unremarkable except as noted in Subjective Physical Exam Physical Exam: General:alert, No acute distress Neuro: alert HEENT: NC/AT CV: RRR Resp: breath sounds rhonchorus Abdomen:Soft, nontender Extremities: trace edema in lower extremities bilaterally. Results & Data Results & Data Vital Signs (Past 12 Hours) Vital Signs Temp Pulse Pulse Resp BP Pulse Ox O2 Del Method 10/10/24 11:37 36.6 C 68 18 111/78 98 Nasal Cannula 10/10/24 10:32 68 18 97 Nasal Cannula 10/10/24 08:33 36.3 C L 77 18 131/80 95 Nasal Cannula 10/10/24 07:14 Nasal Cannula 10/10/24 07:11 72 10/10/24 07:01 71 20 96 Nasal Cannula 10/10/24 02:43 36.6 C 77 20 112/68 94 Nasal Cannula O2 Flow Rate 10/10/24 11:37 3 10/10/24 10:32 2 10/10/24 08:33 2 10/10/24 07:14 2 10/10/24 07:11 10/10/24 07:01 4 10/10/24 02:43
[2024-10-10] MEDS: FUROSEMIDE INJ 20 MG/2 ML VIAL IV ONE (13:27)
[2024-10-10] MEDS: AMPICILLIN/SULBACTAM SOD 3,000 MG/100 ML BAG IV SCH (16:54)
[2024-10-11 07:16] LABS: Eosinophils # (auto) 0.01 K/uL (0.00-0.50); Eosinophils % (auto) 0.1 %; Hematocrit (blood only) 37.6 % (42.0-52.0); Hemoglobin 12.3 g/dl (14.0-18.0); Immature Granulocytes # (auto) 0.05 K/uL (0.01-0.20); Immature Granulocytes % (auto) 0.5 %; Lymphocytes # (auto) 0.56 K/uL (1.20-3.40); Lymphocytes % (auto) 5.8 %; Mean Corpuscular Hemoglobin 29.6 pg (25.0-34.0); Mean Corpuscular Hgb Conc 32.7 g/dL (32.0-36.0); Mean Corpuscular Volume 90.6 fL (80.0-100.0); Mean Platelet Volume 11.2 fL (9.4-12.4); Monocytes # (auto) 1.13 K/uL (0.11-0.59); Monocytes % (auto) 11.6 %; Neutrophils # (auto) 7.95 K/uL (1.40-6.50); Platelet Count 149 K/uL (130-400); RDW Coefficient of Variation 16.9 % (11.5-14.5); RDW Standard Deviation 56.6 fL (36.4-46.3); Red Blood Count 4.15 M/uL (4.70-6.10)
[2024-10-11 07:22] LABS: Albumin Globulin Ratio 1.3 (0.9-2); Albumin Level 3.5 gm/dl (3.4-5.0); BUN Creatinine Ratio 42.1 (10-20); Bilirubin,Total 1.8 mg/dl (0.2-1.0); Calcium 8.2 mg/dl (8.6-10.3); Creatinine Clr Calc Pharmacy 76.4 ml/min; Globulin 2.7 gm/dl (2.5-4.0); Magnesium 2.5 mg/dl (1.7-2.4); Phosphorus 3.3 mg/dl (2.5-4.9); Potassium 4.3 mmol/L (3.5-5.1); Total Protein 6.2 gm/dl (6.0-8.3)
[2024-10-11 07:24] LABS: INR 2.2 (0.9-1.1); Prothrombin Time 22.1 Seconds (9.0-12.0)
[2024-10-11] MEDS: methylPREDNISolone 40 MG in SYRINGE 0 ML IV SCH (08:44)
--- NOTE | 2024-10-11 10:10 | Palliative Care Consultation ---
Date of Consultation October 11, 2024 Assessment & Plan (1) Constipation: Bowel regimen ordered: Senlorena S 2 tabs PO daily + Dulcolax rectal suppository QD prn Given his mild struggle to swallow large volumes without feeling bloated/full/more SOB, would try to avoid Miralax. (2) Dyspnea and respiratory abnormalities: +RSV, +AECOPD (3) Intermittent confusion: was not confused during our visit but staff report intermittent confusion/waxes and wanes (4) Weakness generalized: left hemiplegia, h/o stroke, gen weakness (5) Advanced care planning/counseling discussion: A 45min face to face ACP meeting was held at bedside with pt and his : Forrest complains of constipation and wanting his fungal toenails addressed. he denies chest pain/SOB. Jolie our PA student and I met with Forrest and his . We spoke at length about adv HF, COPD, left hemiplegia/gen weakness and overall pattern of decline. We spoke about the progressive nature of his adv heart and lung disease, how these are not curable or fixable and we discussed options for his care after hospital including dc back to SNF with rehab vs back to SNF with usual care +/- OP Pall Med clinic vs back to SNF with +hospice. I provided education about the hospice benefit: an interdisciplinary program offered by nurses, nurses aides, social workers, chaplains and a phlebotomist medical lab assistant for patients with a terminal condition and a life expectancy of less than 6 months. This is covered by Medicare at 100%/no out of pocket expense to patient and all meds/supplies needed by patient for the reason they are on hospice are paid for/covered by hospice. The goal is assure quality of life of the patient in their home setting (home, jail, inpatient hospice setting) by providing symptoms management, psychosocial and spiritual support. However, they cannot offer 24 hours care and if the family is unable to provide that care, they will have to consider personal care with out of pocket cost vs. jail placement. We discussed the goals of hospice as a patient service and the goals of care; we discussed EOL trajectories and transitions nadine the emotional impact of realizing mortality as a concrete reality from prior abstract considerations. Pt was reassured that no matter where they are along this trajectory, they are not alone - their medical team will remain by their side through their journey. Discussed the pros/cons of accepting help when especially weakened and distressed by pain-which would also help provide relief/decrease caregiver burden/strain. He is disinclined for more rehab and says he is done with that track of care/he has had his fill of it. Mrs. Funez is interested in adding hospice to his care at [facility] (she had a very positive experience with hospice for her other in the past) but he needs more time to think about it. Their daughter is coming from [place] tomorrow but is not planning to come to [facility] as she will be helping watch their dog, a very troublesome/hyperactive Rohan Tzu mix. I will note he was fully intact mentally with us and answered all questions appropriately. Mild distraction/attention deficit but easily back on track. Mrs. Funez wants to know how long he will need isolation for RSV, can he return to [facility] even if he still needs iso, and how much longer do you anticipate he will need inpatient care? She also asked if a wholesale buyer could come see him about his fungal toenails which are very overdue to a trim. Ayleen and Jolie will see him tomorrow for reassessment of his symptom mgt needs and has our contact information if another family discussion is desired but for now she plans to let nursing/care mgt know of her decision AFTER giving pt some time to think about it and they have further conversations. There is no follow up meeting with Palliative Medicine planned at this time. All questions were answered to their apparent satisfaction. Update sent via [email or web address] to Dr Recio, Care mgt, nursing and Palliative Med teams. (6) Palliative care by specialist: Introduced Palliative Medicine and explained our role in patient's care. Patient and/or family were receptive to palliative services for goals of care discussions. Reviewed we are different from hospice, a home health nurse visiting service. Plan As above Thank you for allowing us to participate in the ongoing care of this patient. Please page with any additional concerns. Jose D Simmons DNP Director, Palliative Medicine History of Present Illness Reason for Consultation: "goc discussion" Attending Physician: Joe Recio MD History of Present Illness 79yo male admitted 10/06/24 with 2 days history of worsening SOB without chest pain or cough, pt c/o "fluid retention" and is reportedly compliant with meds. he was given prophylactic Tamiflu Rx at [facility] bc they have a flu outbreak. Chart review indicates his SpO2 was in the 70s upon EMS arrival at [facility] and he was mottled. +BiPAP initiated and +Lasix IM administered prior to ED transport. Admitted for mgt of: acute, multifactorial hypoxemic respiratory failure w/decompensated HF (s/p ICD & hx sys dysfxn), +AECOPD, +RSV Resident of [facility] SNF 10/10 Hospitpailist note states in part: "pt was seen in the AM Laying in bed, [email or web address] He denied acute concerns Later discussion with pt's at bedside. She was tearful, noting that it has been 14 years of "one thing after another" and she knows that his condition is serious and complex Would like a palliative care consult" PMH: chronic systolic heart failure status post ICD (EF 20 to 24%, TTE 2023), CAD status post CABG, PE/A-fib on Coumadin, moderate MR, hypertension, hyperlipidemia, CVA, COPD, chronic anemia (baseline hemoglobin 12), rheumatoid a rthritis, prediabetes, hypothyroidism, mood disorder, past tobacco abuse. 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 Ms. Romaine Funez, contact #[phone]. Allergies Allergy/AdvReac Type Severity Reaction Status Date / Time No Known Allergies Allergy Unverified 10/06/24 00:31 Home Medications Medication Instructions Recorded Confirmed Type acetaminophen 500 mg tablet 500 mg PO [facility] 03/24/23 10/06/24 History atorvastatin 40 mg tablet 40 mg PO HS 03/24/23 10/06/24 History fluticasone 500 mcg-salmeterol 50 1 inh inhalation [facility] 03/24/23 10/06/24 History mcg/dose blistr powdr for inhalation ipratropium 0.5 mg-albuterol 3 mg 3 ml inhalation Q4H PRN Shortness 03/24/23 10/06/24 History (2.5 mg base)/3 mL nebulization Of Breath Or Wheezing soln lisinopril 2.5 mg tablet 2.5 mg PO DAILY 03/24/23 10/06/24 History potassium chloride 10 mEq 10 meq PO DAILY 03/24/23 10/06/24 History capsule,extended release sennosides 8.6 mg tablet (senna) 17.2 mg PO DAILY 03/24/23 10/06/24 History warfarin 2 mg tablet 2 mg PO 3XWK 03/24/23 10/06/24 History warfarin 4 mg tablet 4 mg PO 4XWK 03/24/23 10/06/24 History furosemide 40 mg tablet 40 mg PO QAM #30 tabs 04/01/23 10/06/24 Rx acetaminophen 325 mg tablet 650 mg PO Q4 PRN MILD TO SEVERE 10/06/24 10/06/24 History PAIN acetaminophen 325 mg tablet 650 mg PO Q4 PRN TEMP >100 10/06/24 10/06/24 History cholecalciferol (vitamin D3) 25 25 mcg PO DAILY 10/06/24 10/06/24 History mcg (1,000 unit) tablet (Vitamin D3) dextran 70-hypromellose eye drops 2 drp OPB TID 10/06/24 10/06/24 History in a dropperette (Artificial Tears (PF) drops in a dropperette) famotidine 20 mg tablet 20 mg PO BID 10/06/24 10/06/24 History guaifenesin 100 mg/5 mL oral liquid 200 mg PO Q4H PRN Cough 10/06/24 10/06/24 History guaifenesin 600 mg tablet, 600 mg PO AMHS 10/06/24 10/06/24 History extended release 12 hr (Mucinex) metoprolol succinate 25 mg 12.5 mg PO DAILY 10/06/24 10/06/24 History tablet,extended release 24 hr oseltamivir 75 mg capsule 75 mg PO DAILY 10/06/24 10/06/24 History spironolactone 25 mg tablet 12.5 mg PO DAILY 10/06/24 10/06/24 History Patient History Medical History History of tobacco use ICD (implantable cardioverter-defibrillator) in place Surgical History Status post coronary artery bypass graft Social History Smoking Status: Former smoker Tobacco Type: Cigarettes Second Hand Exposure: No; Do You Dip or Chew Tobacco: No; Hx Alcohol Use: No Hx Substance Use: No Preferred Language: Latvian Communication Ability: Effective Sign Wirer Required: No Beliefs That Will Affect Care: None marital status: Current Living Situation: Other Current Living Situation Comment: [facility] How many Children do You have: 1 Feels Safe at Home: Yes Assistive Devices: Hospital Bed, Mechanical Lift and Wheelchair Review of Systems Constitutional: + fatigue and + weakness (left hemiplegi a/chronic) Eyes: + corrective lenses Ear, Nose, Mouth, Throat: + dry mouth and + dental caries (poor de ntition) Respiratory: + cough, + chest congestion, + dyspnea a nd + sputum production Cardiovascular: + dyspnea, + orthopnea and + edema Gastrointestinal: as per Subjective / HPI Genitourinary: + as per Subjective / HPI (+Villatoro) Musculoskeletal: left hemiplegia Integumentary: + lesions (multiple open lesions, red to purple color, bilat upper extremities, some with scabbing) Neurologic: + generalized weakness and + restless le gs; no confusion Physical Exam Constitutional: + ill appearing, + obese, + physical [place] itations (left hemiplegia), cooperative and comfortable Eyes: PERRL, conjunctivae normal, anicteric sclerae ENMT: Ears: no hearing impairment and no external ear abnormality Mouth: + poor dentition (multiple missing teeth) and + chipped teeth +nasal cannula Neck: + short neck and + thick neck +pickwickian neck c/w VIANIA/OSH Respiratory: normal respiratory effort, + cough (bronchitic), able to speak in complete sentences and symmetric chest movement; does not use accessory muscles, not tachypneic, no pursed lip breathing and no paradoxical chest wall movement Auscultation: + diminished lung sounds, + crackles (?poss fine rales, overshadowed by rhonchi, limited by body habitus) and + rhonchi Cardiovascular: distant S1S2, no obvious murmur Gastrointestinal (Abdomen): obese, +pannus, BS hyperactive, soft to palpation, NTP, no guarding or rigidity Musculoskeletal: +gen weakness Left hemiparesis bilat heel boots +onychomycotic toenails, overgrown toena ils Skin: normal turgor, + lesion (red to purple on BUE) and + dry skin Neurologic: Awake and alert to self able to report PMH fairly reliably recalls he had a stroke with left hemiparesis less clear about reason for this admission recalls marriage of 59 years pleasant and cooperative Genitourinary: +Villatoro Results & Data Vital Signs (Past 12 Hours) Vital Signs Temp Pulse Pulse Resp BP Pulse Ox Pulse Ox 10/11/24 07:59 62 18 94 10/11/24 07:48 36.6 C 78 18 119/72 97 10/11/24 07:41 10/11/24 07:07 65 10/11/24 04:10 36.5 C 61 18 108/67 96 10/11/24 00:00 92 10/10/24 23:13 37.0 C 62 18 105/67 94 O2 Del Method O2 Flow Rate 10/11/24 07:59 Nasal Cannula 2 10/11/24 07:48 Nasal Cannula 10/11/24 07:41 Nasal Cannula 2 10/11/24 07:07 10/11/24 04:10 Nasal Cannula 10/11/24 00:00 10/10/24 23:13 Nasal Cannula Laboratory Results 10/11/24 10/10/24 10/10/24 Range/Units 06:19 12:44 06:29 WBC 9.70 12.19 H (4.8-10.8) K/ul RBC 4.15 L 4.18 L (4.70-6.10) M/uL Hgb 12.3 L 12.3 L (14.0-18.0) g/dl Hct 37.6 L 38.1 L (42.0-52.0) % MCV 90.6 91.1 (80.0-100.0) fL MCH 29.6 29.4 (25.0-34.0) pg MCHC 32.7 32.3 (32.0-36.0) g/dL RDW Std Deviation 56.6 H 56.7 H (36.4-46.3) fL RDW Coeff of Reyna 16.9 H 16.9 H (11.5-14.5) % Plt Count 149 161 (130-400) K/uL MPV 11.2 10.6 (9.4-12.4) fL Immature Gran % (Auto) 0.5 0.7 % Neut % (Auto) 82.0 84.2 % Lymph % (Auto) 5.8 2.7 % [place] % (Auto) 11.6 12.3 % Eos % (Auto) 0.1 0.0 % Baso % (Auto) 0.0 0.1 % Neut # (Auto) 7.95 H 10.27 H (1.40-6.50) K/uL Lymph # (Auto) 0.56 L 0.33 L (1.20-3.40) K/uL [place] # (Auto) 1.13 H 1.50 H (0.11-0.59) K/uL Eos # (Auto) 0.01 0.00 (0.00-0.50) K/uL Baso # (Auto) 0.00 0.01 (0.00-0.20) K/uL Immature Gran # (Auto) 0.05 0.08 (0.01-0.20) K/uL Toxic Granulation Toxic Vacuolation Polychromasia Ovalocytes Echinocytes PT 22.1 H 18.8 H (9.0-12.0) Seconds INR 2.2 H 1.8 H (0.9-1.1) APTT (21-31) Seconds PTT Ratio VBG pH (7.36-7.41) VBG pCO2 (38-50) mmHg VBG pO2 mmHg VBG HCO3 mmol/L VBG O2 Saturation % VBG Base Excess mEq/L Sodium 134 L 131 L (136-145) mmol/L Potassium 4.3 4.8 (3.5-5.1) mmol/L Chloride 92 L 92 L (98-107) mmol/L Carbon Dioxide 37 H 35 H (21-32) mmol/L Anion Gap 5 4 (3-11) BUN 40 H 43 H (6-23) mg/dl Creatinine 0.95 1.11 (0.6-1.4) mg/dl Est Cr Clr Drug Dosing 76.4 62.1 ml/min eGFR 81.42 67.55 BUN/Creatinine Ratio 42.1 H 38.7 H (10-20) Glucose 105 H 139 H (70-99(Fasting)) mg/dl Calcium 8.2 L 8.5 L (8.6-10.3) mg/dl Phosphorus 3.3 3.5 (2.5-4.9) mg/dl Magnesium 2.5 H 2.5 H (1.7-2.4) mg/dl Total Bilirubin 1.8 H 1.7 H (0.2-1.0) mg/dl AST 16 18 (13-39) U/L ALT 26 22 (7-52) U/L Alkaline Phosphatase 48 51 (34-104) U/L Troponin I High Sens (0-20) pg/ml B-Natriuretic Peptide (0-100) pg/ml Total Protein 6.2 6.6 (6.0-8.3) gm/dl Albumin 3.5 3.8 (3.4-5.0) gm/dl Globulin 2.7 2.8 (2.5-4.0) gm/dl Albumin/Globulin Ratio 1.3 1.4 (0.9-2) Procalcitonin 0.24 (0-0.5) ng/ml TSH (0.300-4.500) uIu/ml Urine Color Urine Appearance (Clear) Urine pH (4.5-7.5) Ur Specific [place] (1.000-1.030) Urine Protein (Negative) Urine Glucose (UA) (Negative) Urine Ketones (Negative) Urine Blood (Negative) Urine Nitrite (Negative) Urine Bilirubin (Negative) Urine Urobilinogen (Negative) Ur Leukocyte Esterase (Negative) Urine WBC (Auto) (0-5) /hpf Urine RBC (Auto) (0-2) /hpf U Hyaline Cast (Auto) (0-2) /lpf U Epithel Cells (Auto) (0-2) /hpf Urine Bacteria (Auto) (None Seen) Urine Osmolality Urine Sodium mmol/L Urine Potassium mmol/L Urine Chloride mmol/L Adenovirus (PCR) (NotDetected) B. pertussis DNA (PCR) (NotDetected) B.parapertussis DNA PCR (NotDetected) C. pneumoniae DNA (PCR) (NotDetected) Coronavirus OC43 (PCR) (NotDetected) Coronavirus HKU1 (PCR) (NotDetected) Coronavirus 229E (PCR) (NotDetected) SARS-CoV-2 (PCR) (NotDetected) Coronavirus NL63 (PCR) (NotDetected) Human Metapneumovir PCR (NotDetected) Influenza Type A (PCR) (NotDetected) Influenza Type B (PCR) (NotDetected) M. pneumoniae (PCR) (NotDetected) Parainfluenza 1 (PCR) (NotDetected) Parainfluenza 2 (PCR) (NotDetected) Parainfluenza 3 (PCR) (NotDetected) Parainfluenza 4 (PCR) (NotDetected) RSV (PCR) (NotDetected) Entero/Rhino (PCR) (NotDetected) Miscellaneous Test 10/09/24 10/08/24 10/08/24 Range/Units 06:36 19:30 07:49 WBC 10.57 9.04 (4.8-10.8) K/ul RBC 3.98 L 3.99 L (4.70-6.10) M/uL Hgb 11.8 L 11.9 L (14.0-18.0) g/dl Hct 36.2 L 36.0 L (42.0-52.0) % MCV 91.0 90.2 (80.0-100.0) fL MCH 29.6 29.8 (25.0-34.0) pg MCHC 32.6 33.1 (32.0-36.0) g/dL RDW Std Deviation 56.8 H 57.3 H (36.4-46.3) fL RDW Coeff of Reyna 16.9 H 17.1 H (11.5-14.5) % Plt Count 175 184 (130-400) K/uL MPV 10.7 10.8 (9.4-12.4) fL Immature Gran % (Auto) 0.5 0.7 % Neut % (Auto) 91.8 91.9 % Lymph % (Auto) 2.6 4.0 % [place] % (Auto) 5.0 3.3 % Eos % (Auto) 0.0 0.0 % Baso % (Auto) 0.1 0.1 % Neut # (Auto) 9.70 H 8.31 H (1.40-6.50) K/uL Lymph # (Auto) 0.28 L 0.36 L (1.20-3.40) K/uL [place] # (Auto) 0.53 0.30 (0.11-0.59) K/uL Eos # (Auto) 0.00 0.00 (0.00-0.50) K/uL Baso # (Auto) 0.01 0.01 (0.00-0.20) K/uL Immature Gran # (Auto) 0.05 0.06 (0.01-0.20) K/uL Toxic Granulation Toxic Vacuolation Polychromasia 1+ Ovalocytes 1+ 1+ Echinocytes 1+ PT 17.1 H 16.9 H (9.0-12.0) Seconds INR 1.6 H 1.6 H (0.9-1.1) APTT (21-31) Seconds PTT Ratio VBG pH (7.36-7.41) VBG pCO2 (38-50) mmHg VBG pO2 mmHg VBG HCO3 mmol/L VBG O2 Saturation % VBG Base Excess mEq/L Sodium 130 L 130 L (136-145) mmol/L Potassium 5.0 4.8 (3.5-5.1) mmol/L Chloride 93 L 94 L (98-107) mmol/L Carbon Dioxide 31 30 (21-32) mmol/L Anion Gap 6 6 (3-11) BUN 45 H 49 H (6-23) mg/dl Creatinine 1.15 1.34 D (0.6-1.4) mg/dl Est Cr Clr Drug Dosing 60.0 51.3 ml/min eGFR 64.74 53.89 BUN/Creatinine Ratio 39.1 H 36.6 H (10-20) Glucose 160 H 167 H (70-99(Fasting)) mg/dl Calcium 8.6 8.8 (8.6-10.3) mg/dl Phosphorus 3.3 3.6 (2.5-4.9) mg/dl Magnesium 2.4 2.3 (1.7-2.4) mg/dl Total Bilirubin 1.4 H 1.4 H (0.2-1.0) mg/dl AST 14 15 (13-39) U/L ALT 13 11 (7-52) U/L Alkaline Phosphatase 52 57 (34-104) U/L Troponin I High Sens (0-20) pg/ml B-Natriuretic Peptide (0-100) pg/ml Total Protein 6.7 6.9 (6.0-8.3) gm/dl Albumin 3.9 4.0 (3.4-5.0) gm/dl Globulin 2.8 2.9 (2.5-4.0) gm/dl Albumin/Globulin Ratio 1.4 1.4 (0.9-2) Procalcitonin (0-0.5) ng/ml TSH (0.300-4.500) uIu/ml Urine Color Urine Appearance (Clear) Urine pH (4.5-7.5) Ur Specific [place] (1.000-1.030) Urine Protein (Negative) Urine Glucose (UA) (Negative) Urine Ketones (Negative) Urine Blood (Negative) Urine Nitrite (Negative) Urine Bilirubin (Negative) Urine Urobilinogen (Negative) Ur Leukocyte Esterase (Negative) Urine WBC (Auto) (0-5) /hpf Urine RBC (Auto) (0-2) /hpf U Hyaline Cast (Auto) (0-2) /lpf U Epithel Cells (Auto) (0-2) /hpf Urine Bacteria (Auto) (None Seen) Urine Osmolality Cancelled Urine Sodium < 10 mmol/L Urine Potassium 28.1 mmol/L Urine Chloride < 15 mmol/L Adenovirus (PCR) (NotDetected) B. pertussis DNA (PCR) (NotDetected) B.parapertussis DNA PCR (NotDetected) C. pneumoniae DNA (PCR) (NotDetected) Coronavirus OC43 (PCR) (NotDetected) Coronavirus HKU1 (PCR) (NotDetected) Coronavirus 229E (PCR) (NotDetected) SARS-CoV-2 (PCR) (NotDetected) Coronavirus NL63 (PCR) (NotDetected) Human Metapneumovir PCR (NotDetected) Influenza Type A (PCR) (NotDetected) Influenza Type B (PCR) (NotDetected) M. pneumoniae (PCR) (NotDetected) Parainfluenza 1 (PCR) (NotDetected) Parainfluenza 2 (PCR) (NotDetected) Parainfluenza 3 (PCR) (NotDetected) Parainfluenza 4 (PCR) (NotDetected) RSV (PCR) (NotDetected) Entero/Rhino (PCR) (NotDetected) Miscellaneous Test REPORT 10/07/24 10/06/24 10/06/24 Range/Units 05:45 07:24 02:00 WBC 9.84 11.80 H (4.8-10.8) K/ul RBC 3.82 L 4.38 L (4.70-6.10) M/uL Hgb 11.4 L 13.1 L (14.0-18.0) g/dl Hct 35.5 L 40.4 L (42.0-52.0) % MCV 92.9 92.2 (80.0-100.0) fL MCH 29.8 29.9 (25.0-34.0) pg MCHC 32.1 32.4 (32.0-36.0) g/dL RDW Std Deviation 59.4 H 60.0 H (36.4-46.3) fL RDW Coeff of Reyna 17.3 H 17.5 H (11.5-14.5) % Plt Count 176 181 (130-400) K/uL MPV 10.3 10.3 (9.4-12.4) fL Immature Gran % (Auto) 0.4 0.7 % Neut % (Auto) 94.7 94.1 % Lymph % (Auto) 3.0 2.5 % [place] % (Auto) 1.8 2.6 % Eos % (Auto) 0.0 0.0 % Baso % (Auto) 0.1 0.1 % Neut # (Auto) 9.31 H 11.11 H (1.40-6.50) K/uL Lymph # (Auto) 0.30 L 0.29 L (1.20-3.40) K/uL [place] # (Auto) 0.18 0.31 (0.11-0.59) K/uL Eos # (Auto) 0.00 0.00 (0.00-0.50) K/uL Baso # (Auto) 0.01 0.01 (0.00-0.20) K/uL Immature Gran # (Auto) 0.04 0.08 (0.01-0.20) K/uL Toxic Granulation Toxic Vacuolation Polychromasia 1+ Ovalocytes 1+ Echinocytes PT 20.5 H 21.4 H (9.0-12.0) Seconds INR 2.0 H 2.1 H (0.9-1.1) APTT (21-31) Seconds PTT Ratio VBG pH (7.36-7.41) VBG pCO2 (38-50) mmHg VBG pO2 mmHg VBG HCO3 mmol/L VBG O2 Saturation % VBG Base Excess mEq/L Sodium 132 L 135 L (136-145) mmol/L Potassium 5.4 H 5.2 H D (3.5-5.1) mmol/L Chloride 96 L 98 (98-107) mmol/L Carbon Dioxide 31 31 (21-32) mmol/L Anion Gap 5 6 (3-11) BUN 37 H 18 (6-23) mg/dl Creatinine 1.75 H D 1.27 (0.6-1.4) mg/dl Est Cr Clr Drug Dosing 39.3 57.4 ml/min eGFR 39.12 57.47 BUN/Creatinine Ratio 21.1 H 14.2 (10-20) Glucose 141 H 165 H (70-99(Fasting)) mg/dl Calcium 8.6 8.5 L (8.6-10.3) mg/dl Phosphorus 3.4 (2.5-4.9) mg/dl Magnesium 2.2 (1.7-2.4) mg/dl Total Bilirubin 1.6 H (0.2-1.0) mg/dl AST 21 (13-39) U/L ALT 11 (7-52) U/L Alkaline Phosphatase 59 (34-104) U/L Troponin I High Sens 4937.1 H* D 3048.3 H* D (0-20) pg/ml B-Natriuretic Peptide (0-100) pg/ml Total Protein 6.7 (6.0-8.3) gm/dl Albumin 3.9 (3.4-5.0) gm/dl Globulin 2.8 (2.5-4.0) gm/dl Albumin/Globulin Ratio 1.4 (0.9-2) Procalcitonin (0-0.5) ng/ml TSH 1.092 (0.300-4.500) uIu/ml Urine Color Urine Appearance (Clear) Urine pH (4.5-7.5) Ur Specific [place] (1.000-1.030) Urine Protein (Negative) Urine Glucose (UA) (Negative) Urine Ketones (Negative) Urine Blood (Negative) Urine Nitrite (Negative) Urine Bilirubin (Negative) Urine Urobilinogen (Negative) Ur Leukocyte Esterase (Negative) Urine WBC (Auto) (0-5) /hpf Urine RBC (Auto) (0-2) /hpf U Hyaline Cast (Auto) (0-2) /lpf U Epithel Cells (Auto) (0-2) /hpf Urine Bacteria (Auto) (None Seen) Urine Osmolality Urine Sodium mmol/L Urine Potassium mmol/L Urine Chloride mmol/L Adenovirus (PCR) (NotDetected) B. pertussis DNA (PCR) (NotDetected) B.parapertussis DNA PCR (NotDetected) C. pneumoniae DNA (PCR) (NotDetected) Coronavirus OC43 (PCR) (NotDetected) Coronavirus HKU1 (PCR) (NotDetected) Coronavirus 229E (PCR) (NotDetected) SARS-CoV-2 (PCR) (NotDetected) Coronavirus NL63 (PCR) (NotDetected) Human Metapneumovir PCR (NotDetected) Influenza Type A (PCR) (NotDetected) Influenza Type B (PCR) (NotDetected) M. pneumoniae (PCR) (NotDetected) Parainfluenza 1 (PCR) (NotDetected) Parainfluenza 2 (PCR) (NotDetected) Parainfluenza 3 (PCR) (NotDetected) Parainfluenza 4 (PCR) (NotDetected) RSV (PCR) (NotDetected) Entero/Rhino (PCR) (NotDetected) Miscellaneous Test 10/06/24 10/06/24 10/06/24 Range/Units 01:27 00:34 00:30 WBC (4.8-10.8) K/ul RBC (4.70-6.10) M/uL Hgb (14.0-18.0) g/dl Hct (42.0-52.0) % MCV (80.0-100.0) fL MCH (25.0-34.0) pg MCHC (32.0-36.0) g/dL RDW Std Deviation (36.4-46.3) fL RDW Coeff of Reyna (11.5-14.5) % Plt Count (130-400) K/uL MPV (9.4-12.4) fL Immature Gran % (Auto) % Neut % (Auto) % Lymph % (Auto) % [place] % (Auto) % Eos % (Auto) % Baso % (Auto) % Neut # (Auto) (1.40-6.50) K/uL Lymph # (Auto) (1.20-3.40) K/uL [place] # (Auto) (0.11-0.59) K/uL Eos # (Auto) (0.00-0.50) K/uL Baso # (Auto) (0.00-0.20) K/uL Immature Gran # (Auto) (0.01-0.20) K/uL Toxic Granulation Toxic Vacuolation Polychromasia Ovalocytes Echinocytes PT (9.0-12.0) Seconds INR (0.9-1.1) APTT (21-31) Seconds PTT Ratio VBG pH (7.36-7.41) VBG pCO2 (38-50) mmHg VBG pO2 mmHg VBG HCO3 mmol/L VBG O2 Saturation % VBG Base Excess mEq/L Sodium (136-145) mmol/L Potassium (3.5-5.1) mmol/L Chloride (98-107) mmol/L Carbon Dioxide (21-32) mmol/L Anion Gap (3-11) BUN (6-23) mg/dl Creatinine (0.6-1.4) mg/dl Est Cr Clr Drug Dosing ml/min eGFR BUN/Creatinine Ratio (10-20) Glucose (70-99(Fasting)) mg/dl Calcium (8.6-10.3) mg/dl Phosphorus (2.5-4.9) mg/dl Magnesium (1.7-2.4) mg/dl Total Bilirubin (0.2-1.0) mg/dl AST (13-39) U/L ALT (7-52) U/L Alkaline Phosphatase (34-104) U/L Troponin I High Sens (0-20) pg/ml B-Natriuretic Peptide (0-100) pg/ml Total Protein (6.0-8.3) gm/dl Albumin (3.4-5.0) gm/dl Globulin (2.5-4.0) gm/dl Albumin/Globulin Ratio (0.9-2) Procalcitonin 0.20 (0-0.5) ng/ml TSH (0.300-4.500) uIu/ml Urine Color Yellow Urine Appearance Clear (Clear) Urine pH 5.0 (4.5-7.5) Ur Specific [place] 1.007 (1.000-1.030) Urine Protein Trace H (Negative) Urine Glucose (UA) Negative (Negative) Urine Ketones Negative (Negative) Urine Blood 2+ H (Negative) Urine Nitrite Negative (Negative) Urine Bilirubin Negative (Negative) Urine Urobilinogen Negative (Negative) Ur Leukocyte Esterase Negative (Negative) Urine WBC (Auto) 0-5 (0-5) /hpf Urine RBC (Auto) 11-20 H (0-2) /hpf U Hyaline Cast (Auto) 3-5 H (0-2) /lpf U Epithel Cells (Auto) 0-2 (0-2) /hpf Urine Bacteria (Auto) None Seen (None Seen) Urine Osmolality Urine Sodium mmol/L Urine Potassium mmol/L Urine Chloride mmol/L Adenovirus (PCR) Not Detected (NotDetected) B. pertussis DNA (PCR) Not Detected (NotDetected) B.parapertussis DNA PCR Not Detected (NotDetected) C. pneumoniae DNA (PCR) Not Detected (NotDetected) Coronavirus OC43 (PCR) Not Detected (NotDetected) Coronavirus HKU1 (PCR) Not Detected (NotDetected) Coronavirus 229E (PCR) Not Detected (NotDetected) SARS-CoV-2 (PCR) Not Detected (NotDetected) Coronavirus NL63 (PCR) Not Detected (NotDetected) Human Metapneumovir PCR Not Detected (NotDetected) Influenza Type A (PCR) Not Detected (NotDetected) Influenza Type B (PCR) Not Detected (NotDetected) M. pneumoniae (PCR) Not Detected (NotDetected) Parainfluenza 1 (PCR) Not Detected (NotDetected) Parainfluenza 2 (PCR) Not Detected (NotDetected) Parainfluenza 3 (PCR) Not Detected (NotDetected) Parainfluenza 4 (PCR) Not Detected (NotDetected) RSV (PCR) DETECTED A (NotDetected) Entero/Rhino (PCR) Not Detected (NotDetected) Miscellaneous Test 10/06/24 10/05/24 10/05/24 Range/Units 00:01 23:57 23:56 WBC 12.90 H (4.8-10.8) K/ul RBC 4.57 L (4.70-6.10) M/uL Hgb 13.4 L (14.0-18.0) g/dl Hct 42.1 (42.0-52.0) % MCV 92.1 (80.0-100.0) fL MCH 29.3 (25.0-34.0) pg MCHC 31.8 L (32.0-36.0) g/dL RDW Std Deviation 59.3 H (36.4-46.3) fL RDW Coeff of Reyna 17.6 H (11.5-14.5) % Plt Count 194 (130-400) K/uL MPV 10.1 (9.4-12.4) fL Immature Gran % (Auto) 0.4 % Neut % (Auto) 91.8 % Lymph % (Auto) 2.0 % [place] % (Auto) 5.5 % Eos % (Auto) 0.1 % Baso % (Auto) 0.2 % Neut # (Auto) 11.85 H (1.40-6.50) K/uL Lymph # (Auto) 0.26 L (1.20-3.40) K/uL [place] # (Auto) 0.71 H (0.11-0.59) K/uL Eos # (Auto) 0.01 (0.00-0.50) K/uL Baso # (Auto) 0.02 (0.00-0.20) K/uL Immature Gran # (Auto) 0.05 (0.01-0.20) K/uL Toxic Granulation 1+ Toxic Vacuolation 1+ Polychromasia 1+ Ovalocytes 1+ Echinocytes PT 23.7 H (9.0-12.0) Seconds INR 2.4 H (0.9-1.1) APTT 29 (21-31) Seconds PTT Ratio 1.1 VBG pH 7.36 (7.36-7.41) VBG pCO2 48 (38-50) mmHg VBG pO2 52 mmHg VBG HCO3 27 mmol/L VBG O2 Saturation 84.4 % VBG Base Excess 1.0 mEq/L Sodium 136 (136-145) mmol/L Potassium 4.3 (3.5-5.1) mmol/L Chloride 100 (98-107) mmol/L Carbon Dioxide 28 (21-32) mmol/L Anion Gap 8 (3-11) BUN 19 (6-23) mg/dl Creatinine 1.37 (0.6-1.4) mg/dl Est Cr Clr Drug Dosing 53.8 ml/min eGFR 52.47 BUN/Creatinine Ratio 13.9 (10-20) Glucose 189 H (70-99(Fasting)) mg/dl Calcium 8.6 (8.6-10.3) mg/dl Phosphorus (2.5-4.9) mg/dl Magnesium 1.8 (1.7-2.4) mg/dl Total Bilirubin 1.9 H (0.2-1.0) mg/dl AST 23 (13-39) U/L ALT 15 (7-52) U/L Alkaline Phosphatase 87 (34-104) U/L Troponin I High Sens 565.7 H* (0-20) pg/ml B-Natriuretic Peptide 856 H (0-100) pg/ml Total Protein 7.1 (6.0-8.3) gm/dl Albumin 3.9 (3.4-5.0) gm/dl Globulin 3.2 (2.5-4.0) gm/dl Albumin/Globulin Ratio 1.2 (0.9-2) Procalcitonin (0-0.5) ng/ml TSH (0.300-4.500) uIu/ml Urine Color Urine Appearance (Clear) Urine pH (4.5-7.5) Ur Specific [place] (1.000-1.030) Urine Protein (Negative) Urine Glucose (UA) (Negative) Urine Ketones (Negative) Urine Blood (Negative) Urine Nitrite (Negative) Urine Bilirubin (Negative) Urine Urobilinogen (Negative) Ur Leukocyte Esterase (Negative) Urine WBC (Auto) (0-5) /hpf Urine RBC (Auto) (0-2) /hpf U Hyaline Cast (Auto) (0-2) /lpf U Epithel Cells (Auto) (0-2) /hpf Urine Bacteria (Auto) (None Seen) Urine Osmolality Urine Sodium mmol/L Urine Potassium mmol/L Urine Chloride mmol/L Adenovirus (PCR) (NotDetected) B. pertussis DNA (PCR) (NotDetected) B.parapertussis DNA PCR (NotDetected) C. pneumoniae DNA (PCR) (NotDetected) Coronavirus OC43 (PCR) (NotDetected) Coronavirus HKU1 (PCR) (NotDetected) Coronavirus 229E (PCR) (NotDetected) SARS-CoV-2 (PCR) (NotDetected) Coronavirus NL63 (PCR) (NotDetected) Human Metapneumovir PCR (NotDetected) Influenza Type A (PCR) (NotDetected) Influenza Type B (PCR) (NotDetected) M. pneumoniae (PCR) (NotDetected) Parainfluenza 1 (PCR) (NotDetected) Parainfluenza 2 (PCR) (NotDetected) Parainfluenza 3 (PCR) (NotDetected) Parainfluenza 4 (PCR) (NotDetected) RSV (PCR) (NotDetected) Entero/Rhino (PCR) (NotDetected) Miscellaneous Test Diagnostic Findings Chest X-Ray 10/05/24 23:56 EXAM: XR chest 1V portable CLINICAL HISTORY: Dyspnea TECHNIQUE: An X-ray image of the chest is obtained in AP projection. COMPARISON: Compared to the prior chest x-ray dated 03/29/2023. FINDINGS: Pulmonary Parenchyma: Lungs are clear bilaterally. No evidence of consolidation, collapse, or focal opacities. No pulmonary nodules are identified. No evidence of pleural effusion or pleural thickening. Heart and Mediastinum: Heart size is increased. There is mediastinal widening. No hilar or mediastinal lymphadenopathy. Implantable cardioverter defibrilator . Triple leads, two seen at the right ventricle and one at the right atrium. Bony Thorax: Median sternotomy metallic sutures. Soft Tissues: Soft tissues overlying the chest wall are unremarkable. IMPRESSION: 1. Cardiomegaly with mediastinal widening. Stable. 2. Implnatable cardioverter defibrilator . Triple leads, two seen at the right ventricle and one at the right atrium. Suggest a clinical assessment. (unchanged) Electronically signed by Jamison Ferguson 10-06-2024 01:21 AM Abdomen Ultrasound 10/06/24 02:20 EXAM: US abdomen ltd ascites CLINICAL HISTORY: Distension. TECHNIQUE: Ultrasound examination of the Abdomen and pelvis limited to ascitis detection. Scanning was performed with the patient in the supine position: COMPARISON: None available. FINDINGS: Multiple images are taken through the abdomen and pelvis. No free fluid or collections could be seen in the abdomen or pelvis at the time of scan. IMPRESSION: No ascites is seen. RECOMMENDATIONS: Clinical correlation with symptoms and further evaluation as indicated. Electronically signed by Jamison Ferguson 10-06-2024 03:[address] 10/06/24 02:58 EXAM: CT chest diagnostic wo con CLINICAL HISTORY: low o2 TECHNIQUE: Contiguous axial images were obtained from the neck base through the upper abdomen without contrast. In addition, sagittal and coronal reconstructions were performed to potentially increase the sensitivity for the detection of disease. CT scan was performed according to ALARA (as low as reasonably achievable). COMPARISON: 03/24/2023 06:32:01 [employer]NATIONAL [employer]IST[employer] ANALYST FINDINGS: Cardiac pacemaker seen in place. Sternotomy sutures seen. Patchy areas of ground-glass densities with interstitial thickening and consolidations are noted involving bilateral lung parenchyma, predominantly lower lobes. Mild left and minimal right pleural effusion. Mild cardiomegaly present. The central airways are patent. No pneumothorax is seen. Evaluation of the mediastinum and antoine is limited due to the lack of intravenous contrast. No axillary or mediastinal adenopathy is identified. The aorta, and pulmonary arteries are of normal size and configuration. There are coronary artery and aortic atherosclerotic calcifications. No pericardial effusion is identified. Imaged portions of the upper abdomen shows a exophytic calcified lesion of size 57m72bm at caudate lobe of liver. No aggressive appearing osseous lesions are identified. Rest of the findings are unchanged compared to the previous CT scan. IMPRESSION: 1. Patchy areas of ground-glass densities with interstitial thickening and consolidations are noted involving bilateral lung parenchyma, predominantly lower lobes. 2. Mild left and minimal right pleural effusion. 3. Mild cardiomegaly present. Possibility of pulmonary edema needs consideration. Suggested clinical correlation/follow up. Previous study dated 24 March 2023 also showed similar changes of pulmonary edema, however the consolidations and effusion were more as compared to the current study. Electronically signed by Hakeem De Jesus 10-06-2024 04:11 AM Chest X-Ray 10/08/24 09:33 HISTORY: Hypoxia TECHNIQUE: Portable AP radiograph of the chest. COMPARISON: Chest CT dated 10/06/2024. Chest radiograph dated 10/05/2024. FINDINGS: No focal lung consolidation. No pneumothorax or pleural effusion. Mild vascular congestion.Mild interstitial pulmonary edema. Trace effusions. Cardiomegaly. Postsurgical changes of median sternotomy and CABG. Left subclavian approach pacer/AICD. Degenerative changes of the spine. Included upper abdomen is unremarkable. IMPRESSION: * Findings of CHF with cardiomegaly, vascular congestion, mild interstitial pulmonary edema, and trace effusions. * Postsurgical changes of median sternotomy and CABG. Electronically signed by Kobi Cagle 10-08-2024 10:05 AM Chest X-Ray 10/10/24 10:09 XR chest 1V portable CLINICAL HISTORY: SOB, f/u chf COMPARISON STUDY: 10/08/2024 FINDINGS: Stable CABG and pacemaker. Stable cardiomegaly with pulmonary vascular congestion. There is increased stranding opacity at the left lung base. No other consolidation or pleural effusion. No pneumothorax. IMPRESSION: 1. CHF. 2. Atelectasis versus early pneumonia left lung base. ACT 112: Negative or not required by law. Electronically signed by: Bartolo Camejo M.D. 10/10/2024 10:42 AM PG Care Time/CCT Total # of Minutes Spent Total Time Spent with Patient: Total time spent is greater than 50% in coordination of care (as documented) at patient's floor/unit and/or counseling patient: I spent 125 minutes overall addressing this case: 15 min in medical data review/discussion with referring provider(s) and/or preparation for the visit 25 min in direct interaction with the patient/exam 45 min in Advance Care Planning/Goals of Care discussions as detailed above in note (must be >16min) 15 min in subsequent review and synthesis of assessment and plan 25 min communicating with other providers regarding the patient's case: nursing, care mgt, primary team Advanced Care Planning 19836 Advanced Care Planning 30 Min [id number] Advanced Care Planning Additional 30 [place] [address] IN/OBS CONSULT LVL 5,80M (25 - SIGNIFICANT, SEPARATELY IDENTIFIABLE ) Patient Type New Medical Decision Making High Complexity Diagnoses Constipation K59.00 Dyspnea and respiratory abnormalities R06.00; R06.89 Intermittent confusion R41.0 Weakness generalized R53.1 Advanced care planning/counseling discussion Z71.89 Palliative care by specialist Z51.5 Additional Codes Advanced Care Planning - 49201 Advanced Care Planning 30 Min: 17371 Advanced Care Planning 30 Min ([id number]) Advanced Care Planning - 61718 Advanced Care Planning Additional 30 Min: 02017 Advanced Care Planning Additional 30 Min ([id number]) Time Spent (min) 125 Comment [id number], [id number]
[2024-10-11] MEDS ORDERED: bisacodyL 10 MG SUPP PR PRN (13:42)
[2024-10-11] MEDS: DOCUSATE SODIUM/SENNA 50/8.6MG TAB PO SCH (14:12)
--- NOTE | 2024-10-11 21:01 | Hospitalist Progress Note ---
Date of Service October 11, 2024 Assessment & Plan (1) Acute hypoxemic respiratory failure: Plan Per previous hospitalist w/ addendum Pt is a 79yoM with PMHx significant for chronic systolic heart failure status post ICD (EF 20 to 24%, TTE 2023), CAD status post CABG, PE/A-fib on Coumadin, moderate MR, hypertension, hyperlipidemia, CVA, COPD, chronic anemia (baseline hemoglobin 12), rheumatoid arthritis, prediabetes, hypothyroidism, mood disorder, past tobacco abuse presenting with hypoxia from [facility]. 10/10/24- discussion with pt's at bedside. She was tearful, noting that it has been 14 years of "one thing after another" medically for the patient and she knows that his condition is serious and complex. Would like a palliative care consult to discuss goals of care. Palliative care consult placed. He is currently being treated for the following: Acute hypoxemic respiratory failure Multifactorial:decompensated heart failure status post ICD, systolic dysfunction, COPD exacerbation, RSV illness Supplemental O2 Wean off BiPAP Diuretic Rx- IV Lasix 20mg BID, monitor blood pressure carefully. Continue mido drine Strict I/Os, daily weights, CHF education, fluid restriction TTE, Cardiology consult re: decompensated heart failure Steroid course, nebs RTC for COPD exacerbation Pulmonology consult if without improvement Continue aspirin, metoprolol, atorvastatin, lisinopril On prophylactic Tamiflu from [facility] for outbreak there Continue to monitor 10/10 - per previous hospitalist addendum Repeat chest xray noting concern for pneumonia New leukocytosis, noted pt also on steroids Procalcitonin wnl Started on empiric Unasyn Continue to monitor 10/11 Oxygen requirement down to 2L this PM however pt sounds rhonchorus - cont. current management, close monitor - add guaifenesin, flutter valve, IS Troponin elevation secondary to above EKG, echo Cardiology evaluation, appreciate recs Per cardiology - continue IV lasix; transition back to home dose once his volume status is better. as far as possible upgrade to a BiV device this will need to be evaluated more as an outpatient. pt will need chf f/u upon discharge Hypotension BP on the lower side Currently receiving metoprolol and low dose lisinopril Also Diuretic treatment- with low BP receiving doses of IV Lasix 20mg as needed Started on midodrine 2.5mg TID, titrate up as needed-currently on 5mg TID IV steroids to help BP and in setting of COPD exacerbation Albumin boluses prn Continue to monitor Hyperkalemia Mildly elevated Holding home spironolactone Low potassium diet Continue to monitor resolved Other Medical Problems: hx CAD status post CABG hx of PE/A-fib on Coumadin, follow INR, continue home warfarin moderate MR hypertension, BP on the lower side hyperlipidemia, on statin Rx hx CVA chronic anemia, hemoglobin better than baseline prediabetes, hemoglobin A1c of 6 last year hypothyroidism, euthyroid as of current TSH past tobacco abuse Diet: HH FR 2L, low potassium diet DVT prophylaxis. Coumadin INR goal between 2 and 3 DNR as per prior directives. Admission and Anticipated Discharge Date Admission Date: October 06, 2024 Subjective Pt seen in follow up of hypoxia, CHF, + RSV Pt sitting up in bed in NAD, awake,a and alert. on suppl. O2. Pt's present at the bedside. Seen by palliative med. earlier today. Pt currently has no complaints, no chest pain, increased shortness of breath but has cough (weak), and sounds rhonchorus Review of Systems Review of Systems: All systems reviewed & are unremarkable except as noted in Subjective Physical Exam Physical Exam: General: obese M, on suppl. O2, chronically ill appearing. in NAD HEENT: NC/AT CV: RRR Resp: breath sounds rhonchorus Abdomen:Soft, nontender, + obese Extremities: trace edema in lower extremities bilaterally. Neuro: awake, alert, answers appropriately Results & Data Results & Data Vital Signs (Past 12 Hours) Vital Signs Temp Pulse Pulse Pulse Resp BP Pulse Ox 10/11/24 19:56 60 18 96 10/11/24 19:36 36.5 C 58 L 20 99/60 L 93 10/11/24 19:32 10/11/24 16:25 60 10/11/24 16:00 10/11/24 15:20 60 22 96 10/11/24 15:13 36.8 C 98 H 18 132/68 97 10/11/24 11:30 36.7 C 88 20 125/70 96 10/11/24 11:22 24 96 O2 Del Method O2 Del Method O2 Flow Rate O2 Flow Rate 10/11/24 19:56 Nasal Cannula 2 10/11/24 19:36 Nasal Cannula 10/11/24 19:32 Nasal Cannula 2 10/11/24 16:25 10/11/24 16:00 Nasal Cannula 2 10/11/24 15:20 Nasal Cannula 2 10/11/24 15:13 Nasal Cannula 10/11/24 11:30 Nasal Cannula 10/11/24 11:22 Nasal Cannula 2 Laboratory Results 10/11/24 10/10/24 Range/Units 06:19 12:44 WBC 9.70 (4.8-10.8) K/ul RBC 4.15 L (4.70-6.10) M/uL Hgb 12.3 L (14.0-18.0) g/dl Hct 37.6 L (42.0-52.0) % MCV 90.6 (80.0-100.0) fL MCH 29.6 (25.0-34.0) pg MCHC 32.7 (32.0-36.0) g/dL RDW Std Deviation 56.6 H (36.4-46.3) fL RDW Coeff of Reyna 16.9 H (11.5-14.5) % Plt Count 149 (130-400) K/uL MPV 11.2 (9.4-12.4) fL Immature Gran % (Auto) 0.5 % Neut % (Auto) 82.0 % Lymph % (Auto) 5.8 % [place] % (Auto) 11.6 % Eos % (Auto) 0.1 % Baso % (Auto) 0.0 % Neut # (Auto) 7.95 H (1.40-6.50) K/uL Lymph # (Auto) 0.56 L (1.20-3.40) K/uL [place] # (Auto) 1.13 H (0.11-0.59) K/uL Eos # (Auto) 0.01 (0.00-0.50) K/uL Baso # (Auto) 0.00 (0.00-0.20) K/uL Immature Gran # (Auto) 0.05 (0.01-0.20) K/uL PT 22.1 H (9.0-12.0) Seconds INR 2.2 H (0.9-1.1) Sodium 134 L (136-145) mmol/L Potassium 4.3 (3.5-5.1) mmol/L Chloride 92 L (98-107) mmol/L Carbon Dioxide 37 H (21-32) mmol/L Anion Gap 5 (3-11) BUN 40 H (6-23) mg/dl Creatinine 0.95 (0.6-1.4) mg/dl Est Cr Clr Drug Dosing 76.4 ml/min eGFR 81.42 BUN/Creatinine Ratio 42.1 H (10-20) Glucose 105 H (70-99(Fasting)) mg/dl Calcium 8.2 L (8.6-10.3) mg/dl Phosphorus 3.3 (2.5-4.9) mg/dl Magnesium 2.5 H (1.7-2.4) mg/dl Total Bilirubin 1.8 H (0.2-1.0) mg/dl AST 16 (13-39) U/L ALT 26 (7-52) U/L Alkaline Phosphatase 48 (34-104) U/L Total Protein 6.2 (6.0-8.3) gm/dl Albumin 3.5 (3.4-5.0) gm/dl Globulin 2.7 (2.5-4.0) gm/dl Albumin/Globulin Ratio 1.3 (0.9-2) Procalcitonin 0.24 (0-0.5) ng/ml Medications Administered Current Inpatient Medications Acetaminophen (Acetaminophen 325 Mg Tab) 650 mg PO Q4 PRN PRN Reason: MILD TO SEVERE PAIN Stop: 11/05/24 02:22 Last Admin: 10/09/24 20:10 Dose: 650 mg Acetaminophen (Acetaminophen 500 Mg Tab) 500 mg PO AMHS TONYA Stop: 11/05/24 08:59 Last Admin: 10/11/24 20:38 Dose: 500 mg Artificial Tears (Artificial Tears) 2 drops OP TID TONYA Stop: 11/05/24 08:59 Last Admin: 10/11/24 20:35 Dose: 2 drops Aspirin (Aspirin 81 Mg Ectab) 81 mg PO DAILY TONYA Stop: 11/05/24 06:44 Last Admin: 10/11/24 08:43 Dose: 81 mg Atorvastatin Calcium (Atorvastatin 40 Mg Tab) 40 mg PO HS TONYA Stop: 11/05/24 20:59 Last Admin: 10/11/24 20:35 Dose: 40 mg Bisacodyl (Bisacodyl 10 Mg Supp) 10 mg ID DAILY PRN PRN Reason: Constipation Stop: 11/10/24 13:41 Famotidine (Famotidine 20 Mg Tab) 20 mg PO BID TONYA Stop: 11/05/24 08:59 Last Admin: 10/11/24 20:38 Dose: 20 mg Fluticasone/Vilanterol (Fluticasone/Vilanterol 100/25mcg 14 Puffs/Inhaler) 1 puffs INH DAILY TONYA Stop: 11/05/24 08:59 Last Admin: 10/11/24 08:44 Dose: 1 puffs Furosemide (Furosemide Inj 20 Mg/2 Ml Vial) 20 mg IV [id number] TONYA Stop: 11/09/24 08:59 Last Admin: 10/11/24 17:14 Dose: 20 mg Methylprednisolone 40 mg/ (Syringe) 0.64 mls @ 1.5 mls/min IV DAILY TONYA Stop: 11/10/24 08:59 Last Admin: 10/11/24 08:44 Dose: 1.5 mls/min Ampicillin Sodium/Sulbactam Sodium (Unasyn) 3,000 mg in 100 mls @ 200 mls/hr IV Q6H TONYA Stop: 10/15/24 16:29 Last Admin: 10/11/24 20:36 Dose: 200 mls/hr Ipratropium [place] (Ipratropium [place] Neb Soln 0.02% 0.5mg/2.5ml Vial) 0.5 mg INH QIDR TONYA Stop: 11/05/24 06:59 Last Admin: 10/11/24 19:55 Dose: 0.5 mg Levalbuterol HCl (Levalbuterol 1.25 Mg/3 Ml Neb) 1.25 mg NEB QIDR TONYA Stop: 11/05/24 06:59 Last Admin: 10/11/24 19:55 Dose: 1.25 mg Lisinopril (Lisinopril 2.5 Mg Tab) 2.5 mg PO DAILY TONYA Stop: 11/05/24 08:59 Last Admin: 10/11/24 08:42 Dose: 2.5 mg Metoprolol Succinate (Metoprolol Succ 25mg Ext Rel Tab) 12.5 mg PO DAILY TONYA Stop: 11/06/24 08:59 Last Admin: 10/11/24 08:42 Dose: 12.5 mg Midodrine (Midodrine Hcl 2.5 Mg Tab) 5 mg PO TID@0800,1200,1700 [facility] Stop: 11/06/24 17:14 Last Admin: 10/11/24 17:15 Dose: 5 mg Oseltamivir Phosphate (Oseltamivir Phosphate 75 Mg Cap) 75 mg PO DAILY [facility]; Protocol Stop: 10/19/24 09:01 Last Admin: 10/11/24 08:42 Dose: 75 mg Senna/Docusate Sodium (Docusate Sodium/Senna 50/8.6mg Tab) 2 tab PO QAM [facility] Stop: 11/10/24 13:44 Last Admin: 10/11/24 14:12 Dose: 2 tab Spironolactone (Spironolactone 12.5 Mg Tab) 12.5 mg PO DAILY [facility] Stop: 11/05/24 08:59 Last Admin: 10/06/24 08:13 Dose: 12.5 mg Vitamin D (Cholecalciferol 25 Mcg (1000 Units) Tab) 25 mcg PO DAILY [facility] Stop: 11/05/24 08:59 Last Admin: 10/11/24 08:42 Dose: 25 mcg Warfarin Sodium (Warfarin Sod 2 Mg Tab) 2 mg PO [id number] [facility] Stop: 11/07/24 16:29 Last Admin: 10/10/24 17:00 Dose: 2 mg Warfarin Sodium (Warfarin Sod 4 Mg Tab) 4 mg PO [email or web address] [facility] Stop: 11/08/24 15:59 Last Admin: 10/11/24 17:15 Dose: 4 mg
[2024-10-12 06:59] LABS: Basophils # (auto) 0.01 K/uL (0.00-0.20); Basophils % (auto) 0.1 %; Eosinophils # (auto) 0.02 K/uL (0.00-0.50); Eosinophils % (auto) 0.2 %; Hematocrit (blood only) 38.6 % (42.0-52.0); Hemoglobin 12.5 g/dl (14.0-18.0); Immature Granulocytes # (auto) 0.07 K/uL (0.01-0.20); Immature Granulocytes % (auto) 0.6 %; Lymphocytes # (auto) 0.61 K/uL (1.20-3.40); Lymphocytes % (auto) 4.9 %; Mean Corpuscular Hemoglobin 29.6 pg (25.0-34.0); Mean Corpuscular Hgb Conc 32.4 g/dL (32.0-36.0); Mean Corpuscular Volume 91.3 fL (80.0-100.0); Mean Platelet Volume 10.7 fL (9.4-12.4); Monocytes # (auto) 1.18 K/uL (0.11-0.59); Monocytes % (auto) 9.4 %; Neutrophils # (auto) 10.65 K/uL (1.40-6.50); Neutrophils % (auto) 84.8 %; Platelet Count 159 K/uL (130-400); RDW Coefficient of Variation 16.7 % (11.5-14.5); RDW Standard Deviation 56.3 fL (36.4-46.3); Red Blood Count 4.23 M/uL (4.70-6.10); White Blood Count 12.54 K/ul (4.8-10.8)
[2024-10-12 07:14] LABS: Albumin Globulin Ratio 1.3 (0.9-2); Albumin Level 3.5 gm/dl (3.4-5.0); BUN Creatinine Ratio 40.4 (10-20); Bilirubin,Total 1.7 mg/dl (0.2-1.0); Calcium 8.3 mg/dl (8.6-10.3); Creatinine Clr Calc Pharmacy 80.8 ml/min; Globulin 2.6 gm/dl (2.5-4.0); Magnesium 2.5 mg/dl (1.7-2.4); Phosphorus 3.2 mg/dl (2.5-4.9); Total Protein 6.1 gm/dl (6.0-8.3)
[2024-10-12 07:33] LABS: INR 2.5 (0.9-1.1); Prothrombin Time 25.3 Seconds (9.0-12.0)
--- NOTE | 2024-10-12 08:14 | Hospitalist Progress Note ---
Date of Service October 12, 2024 Assessment & Plan (1) Acute hypoxemic respiratory failure: Plan Per previous hospitalist w/ addendum Pt is a 79yoM with PMHx significant for chronic systolic heart failure status post ICD (EF 20 to 24%, TTE 2023), CAD status post CABG, PE/A-fib on Coumadin, moderate MR, hypertension, hyperlipidemia, CVA, COPD, chronic anemia (baseline hemoglobin 12), rheumatoid arthritis, prediabetes, hypothyroidism, mood disorder, past tobacco abuse presenting with hypoxia from [facility]. 10/10/24- discussion with pt's at bedside. She was tearful, noting that it has been 14 years of "one thing after another" medically for the patient and she knows that his condition is serious and complex. Would like a palliative care consult to discuss goals of care. Palliative care consult placed. He is currently being treated for the following: Acute hypoxemic respiratory failure Multifactorial:decompensated heart failure status post ICD, systolic dysfunction, COPD exacerbation, RSV illness Supplemental O2 Wean off BiPAP Diuretic Rx- IV Lasix 20mg BID, monitor blood pressure carefully. Continue mido drine Strict I/Os, daily weights, CHF education, fluid restriction TTE, Cardiology consult re: decompensated heart failure Steroid course, nebs RTC for COPD exacerbation Pulmonology consult if without improvement Continue aspirin, metoprolol, atorvastatin, lisinopril On prophylactic Tamiflu from [facility] for outbreak there Continue to monitor 10/10 - per previous hospitalist addendum Repeat chest xray noting concern for pneumonia New leukocytosis, noted pt also on steroids Procalcitonin wnl Started on empiric Unasyn Continue to monitor 10/11 Oxygen requirement down to 2L this PM however pt sounds rhonchorus - cont. current management, close monitor - add guaifenesin, flutter valve, IS 10/12 Pt on 2L of suppl. O2, + rhonchi on exam but improved from yesterday Goals of care addressed - palliative med. consulted - plan for DC back to [facility] w/ poss. hospice support Troponin elevation secondary to above EKG, echo Cardiology evaluation, appreciate recs Per cardiology - continue IV lasix; transition back to home dose once his volume status is better. as far as possible upgrade to a BiV device this will need to be evaluated more as an outpatient. pt will need chf f/u upon discharge Hypotension BP on the lower side Currently receiving metoprolol and low dose lisinopril Also Diuretic treatment- with low BP receiving doses of IV Lasix 20mg as needed Started on midodrine 2.5mg TID, titrate up as needed-currently on 5mg TID IV steroids to help BP and in setting of COPD exacerbation Albumin boluses prn Continue to monitor Hyperkalemia Mildly elevated Holding home spironolactone Low potassium diet Continue to monitor resolved Other Medical Problems: hx CAD status post CABG hx of PE/A-fib on Coumadin, follow INR, continue home warfarin moderate MR hypertension, BP on the lower side hyperlipidemia, on statin Rx hx CVA chronic anemia, hemoglobin better than baseline prediabetes, hemoglobin A1c of 6 last year hypothyroidism, euthyroid as of current TSH past tobacco abuse Diet: FR 2L, low potassium diet DVT prophylaxis. Coumadin INR goal between 2 and 3 DNR as per prior directives. Admission and Anticipated Discharge Date Admission Date: October 06, 2024 Subjective Pt seen in follow up of hypoxia, CHF, + RSV Pt sitting up in bed in NAD, awake,a and alert. on suppl. O2. Pt's present at the bedside in the afternoon and discussed with. Pt seen in the morning earlier as well. Pt currently has no complaints, no chest pain, increased shortness of breath but has cough (weak), and sounds rhonchorus - however seems somewhat improved compared to yesterday. And currently on 2L of suppl. O2 - baseline Pt seen by palliative and plan for pt to go back to [facility] w/ poss. hospice support. Review of Systems Review of Systems: All systems reviewed & are unremarkable except as noted in Subjective Physical Exam Physical Exam: General: obese M, on suppl. O2, chronically ill appearing. in NAD HEENT: NC/AT CV: RRR Resp: breath sounds rhonchorus but improved from previous exam Abdomen:Soft, nontender, + obese Extremities: trace edema in lower extremities bilaterally. Neuro: awake, alert, answers appropriately Results & Data Results & Data Vital Signs (Past 12 Hours) Vital Signs Temp Pulse Pulse Resp BP Pulse Ox Pulse Ox 10/12/24 08:02 60 10/12/24 08:01 36.5 C 61 18 133/76 95 10/12/24 06:18 62 16 98 10/12/24 02:16 36.5 C 81 20 99/60 L 93 10/12/24 00:00 97 10/11/24 23:57 60 10/11/24 22:47 36.5 C 60 20 105/63 90 O2 Del Method O2 Del Method O2 Flow Rate O2 Flow Rate 10/12/24 08:02 10/12/24 08:01 Nasal Cannula 2 10/12/24 06:18 Nasal Cannula 2 10/12/24 02:16 Nasal Cannula 10/12/24 00:00 Nasal Cannula 2 10/11/24 23:57 10/11/24 22:47 Nasal Cannula Laboratory Results 10/12/24 Range/Units 06:15 WBC 12.54 H (4.8-10.8) K/ul RBC 4.23 L (4.70-6.10) M/uL Hgb 12.5 L (14.0-18.0) g/dl Hct 38.6 L (42.0-52.0) % MCV 91.3 (80.0-100.0) fL MCH 29.6 (25.0-34.0) pg MCHC 32.4 (32.0-36.0) g/dL RDW Std Deviation 56.3 H (36.4-46.3) fL RDW Coeff of Reyna 16.7 H (11.5-14.5) % Plt Count 159 (130-400) K/uL MPV 10.7 (9.4-12.4) fL Immature Gran % (Auto) 0.6 % Neut % (Auto) 84.8 % Lymph % (Auto) 4.9 % [place] % (Auto) 9.4 % Eos % (Auto) 0.2 % Baso % (Auto) 0.1 % Neut # (Auto) 10.65 H (1.40-6.50) K/uL Lymph # (Auto) 0.61 L (1.20-3.40) K/uL [place] # (Auto) 1.18 H (0.11-0.59) K/uL Eos # (Auto) 0.02 (0.00-0.50) K/uL Baso # (Auto) 0.01 (0.00-0.20) K/uL Immature Gran # (Auto) 0.07 (0.01-0.20) K/uL PT 25.3 H (9.0-12.0) Seconds INR 2.5 H (0.9-1.1) Sodium 136 (136-145) mmol/L Potassium 4.0 (3.5-5.1) mmol/L Chloride 92 L (98-107) mmol/L Carbon Dioxide 41 H* (21-32) mmol/L Anion Gap 3 (3-11) BUN 36 H (6-23) mg/dl Creatinine 0.89 (0.6-1.4) mg/dl Est Cr Clr Drug Dosing 80.8 ml/min eGFR 87.17 BUN/Creatinine Ratio 40.4 H (10-20) Glucose 106 H (70-99(Fasting)) mg/dl Calcium 8.3 L (8.6-10.3) mg/dl Phosphorus 3.2 (2.5-4.9) mg/dl Magnesium 2.5 H (1.7-2.4) mg/dl Total Bilirubin 1.7 H (0.2-1.0) mg/dl AST 17 (13-39) U/L ALT 27 (7-52) U/L Alkaline Phosphatase 50 (34-104) U/L Total Protein 6.1 (6.0-8.3) gm/dl Albumin 3.5 (3.4-5.0) gm/dl Globulin 2.6 (2.5-4.0) gm/dl Albumin/Globulin Ratio 1.3 (0.9-2) Medications Administered Current Inpatient Medications Acetaminophen (Acetaminophen 325 Mg Tab) 650 mg PO Q4 PRN PRN Reason: MILD TO SEVERE PAIN Stop: 11/05/24 02:22 Last Admin: 10/09/24 20:10 Dose: 650 mg Acetaminophen (Acetaminophen 500 Mg Tab) 500 mg PO AMHS [facility] Stop: 11/05/24 08:59 Last Admin: 10/11/24 20:38 Dose: 500 mg Artificial Tears (Artificial Tears) 2 drops OP TID TONYA Stop: 11/05/24 08:59 Last Admin: 10/11/24 20:35 Dose: 2 drops Aspirin (Aspirin 81 Mg Ectab) 81 mg PO DAILY TONYA Stop: 11/05/24 06:44 Last Admin: 10/11/24 08:43 Dose: 81 mg Atorvastatin Calcium (Atorvastatin 40 Mg Tab) 40 mg PO HS [facility] Stop: 11/05/24 20:59 Last Admin: 10/11/24 20:35 Dose: 40 mg Bisacodyl (Bisacodyl 10 Mg Supp) 10 mg SC DAILY PRN PRN Reason: Constipation Stop: 11/10/24 13:41 Famotidine (Famotidine 20 Mg Tab) 20 mg PO BID TONYA Stop: 11/05/24 08:59 Last Admin: 10/11/24 20:38 Dose: 20 mg Fluticasone/Vilanterol (Fluticasone/Vilanterol 100/25mcg 14 Puffs/Inhaler) 1 puffs INH DAILY TONYA Stop: 11/05/24 08:59 Last Admin: 10/11/24 08:44 Dose: 1 puffs Furosemide (Furosemide Inj 20 Mg/2 Ml Vial) 20 mg IV BID17 TONYA Stop: 11/09/24 08:59 Last Admin: 10/11/24 17:14 Dose: 20 mg Guaifenesin (Guaifenesin 600 Mg Tabcr) 600 mg PO Q12 [facility]ONYA Stop: 11/11/24 08:59 Methylprednisolone 40 mg/ (Syringe) 0.64 mls @ 1.5 mls/min IV DAILY TONYA Stop: 11/10/24 08:59 Last Admin: 10/11/24 08:44 Dose: 1.5 mls/min Ampicillin Sodium/Sulbactam Sodium (Unasyn) 3,000 mg in 100 mls @ 200 mls/hr IV Q6H TONYA Stop: 10/15/24 16:29 Last Infusion: 10/12/24 06:06 Dose: Infused Ipratropium [place] (Ipratropium [place] Neb Soln 0.02% 0.5mg/2.5ml Vial) 0.5 mg INH QIDR TONYA Stop: 11/05/24 06:59 Last Admin: 10/12/24 06:18 Dose: 0.5 mg Levalbuterol HCl (Levalbuterol 1.25 Mg/3 Ml Neb) 1.25 mg NEB QIDR TONYA Stop: 11/05/24 06:59 Last Admin: 10/12/24 06:18 Dose: 1.25 mg Lisinopril (Lisinopril 2.5 Mg Tab) 2.5 mg PO DAILY TONYA Stop: 11/05/24 08:59 Last Admin: 10/11/24 08:42 Dose: 2.5 mg Metoprolol Succinate (Metoprolol Succ 25mg Ext Rel Tab) 12.5 mg PO DAILY [facility] Stop: 11/06/24 08:59 Last Admin: 10/11/24 08:42 Dose: 12.5 mg Midodrine (Midodrine Hcl 2.5 Mg Tab) 5 mg PO TID@0800,1200,1700 [facility] Stop: 11/06/24 17:14 Last Admin: 10/11/24 17:15 Dose: 5 mg Oseltamivir Phosphate (Oseltamivir Phosphate 75 Mg Cap) 75 mg PO DAILY [facility]; Protocol Stop: 10/19/24 09:01 Last Admin: 10/11/24 08:42 Dose: 75 mg Senna/Docusate Sodium (Docusate Sodium/Senna 50/8.6mg Tab) 2 tab PO QAM [facility] Stop: 11/10/24 13:44 Last Admin: 10/11/24 14:12 Dose: 2 tab Spironolactone (Spironolactone 12.5 Mg Tab) 12.5 mg PO DAILY [facility] Stop: 11/05/24 08:59 Last Admin: 10/06/24 08:13 Dose: 12.5 mg Vitamin D (Cholecalciferol 25 Mcg (1000 Units) Tab) 25 mcg PO DAILY [facility] Stop: 11/05/24 08:59 Last Admin: 10/11/24 08:42 Dose: 25 mcg Warfarin Sodium (Warfarin Sod 2 Mg Tab) 2 mg PO SuTuTh@1600 [facility] Stop: 11/07/24 16:29 Last Admin: 10/10/24 17:00 Dose: 2 mg Warfarin Sodium (Warfarin Sod 4 Mg Tab) 4 mg PO MoWeFrSa@1600 [facility] Stop: 11/08/24 15:59 Last Admin: 10/11/24 17:15 Dose: 4 mg
[2024-10-12] MEDS: guaiFENesin 600 MG TABCR PO SCH (09:58)
--- NOTE | 2024-10-12 10:05 | Palliative Care Progress Note ---
Date of Service October 12, 2024 Assessment & Plan (1) Palliative care by specialist: Plan: Pt assessed as continuation of the care offered by previous Palliative care senior engineering team leader. Pt has no palliative symptom management needs at this time, seen as follow up to previous ACP discussions. Palliative care will continue to follow for ongoing ACP discussions and patient/family support. (2) Advanced care planning/counseling discussion: Plan: Met with pt and his at bedside this afternoon. Pt was more alert than in morning but confused and participated minimally in conversation. shared that she and pt have decided to return to [facility] for ongoing hospice care. She shared that she would like the palliative care team to manage pt's comfort care at [facility]. Discussed Palliative Medicine and explained our role in advanced care planning, symptom management and navigation through the progression of life limiting disease. Reviewed we are different from hospice, a home health nurse visiting service and that we do not offer service in the home or SNF setting. Discussed hospice benefit: an interdisciplinary program offered by nurses, nurses aides, social workers, chaplains and a biomedical engineering technologist for patients with a terminal condition and a life expectancy of less than 6 months. This is covered by Medicare at 100%/no out of pocket expense to patient and all meds/supplies needed by patient for the reason they are on hospice are paid for/covered by hospice. The goal is assure quality of life of the patient in their home setting (home, custodial, inpatient hospice setting) by providing symptoms management, psychosocial and spiritual support. However, they cannot offer 24 hours care and if the family is unable to provide that care, they will have to consider personal care with out of pocket cost vs. custodial placement. We discussed the goals of hospice as a patient service and the goals of care; we discussed EOL trajectories and transitions nadine the emotional impact of realizing mortality as a concrete reality from prior abstract considerations. Pt was reassured that no matter where they are along this trajectory, they are not alone - their medical team will remain by their side through their journey. Discussed the pros/cons of accepting help when especially weakened and distressed by pain-which would also help provide relief/decrease caregiver burden/strain. She shared that she has a bed hold at [facility] and would like pt to return there as soon as able. Discussed that CM would assist with discharge plan and transportation. She requested that transition to SPECIMEN COLLECTOR begin in hospital and pt vocalized agreement. Discussed this with Dr Recio (attending) as well as CM and BSRN. Dr Recio requested time to discuss with pt and his and agreed to enter appropriate orders for comfort care, pending her discussion. (3) Dyspnea and respiratory abnormalities: Plan: Pt resting comfortably on 4L NC, NAD with normal respiratory effort while at rest. Plan Pt and his request SPECIMEN COLLECTOR with hope to return to [facility] for ongoing hospice care. Palliative care will continue to follow for ongoing EOL pt care and family support. Although patient currently appears comfortable, I recommend the following for EOL symptom management: Pain/dyspnea/tachypnea morphine 2mg IVP PRN [id number] Consider titratable morphine drip if pt requires >3 PRN doses in under two consecutive hours. Nausea/vomitting zofran 4mg IVP q4h PRN Agitation ativan 0.5mg IVP q4h PRN Hyperactive delirium haldol 5mg IVP q6h PRN Secretions - if repositioning not effective robinul 0.4mg IV q4h PRN atropine SL 3 drops Q1h PRN Nursing care: Discontinue all medications not directed towards comfort. Detether pt from IV tubing, monitor cables, and check vitals once per shift. Please continue HFNC and titrate down as able for patient comfort. Use medications above PRN for dyspnea/tachypnea and do not increase oxygen once titrated down. Assess q1h for pain/dyspnea and treat accordingly. NO orders placed at this time on request of attending Dr. Recio. Admission and Anticipated Discharge Date Admission Date: October 06, 2024 Subjective Assessed pt at bedside this morning, he was sleeping soundly and in NAD. Yecenia athing nonlabored, VSS. No visitors present. Review of Systems Review of Systems: All systems reviewed & are unremarkable except as noted in Subjective Physical Exam Constitutional: + ill appearing, + obese, + physical [place] itations (left hemipl egia) and comfortable Eyes: PERRL, conjunctivae normal, anicteric sclerae ENMT: Mouth: + poor dentition (multiple missing teeth) and + chipped teeth Neck: trachea midline, + short neck and + thick neck Respiratory: normal respiratory effort, + labored breathing, + uses accessory muscles, + tachypneic and symmetric chest movement Auscultation: + diminished lung sounds, + crackles (?poss fine rales, overshadowed by rhonchi, limited by body habitus) and + rhonchi Cardiovascular: RRR, no murmur, no edema Gastrointestinal (Abdomen): obese, +pannus, BS hyperactive, soft to palpation, NTP, no guarding or rigidity Musculoskeletal: +gen weakness; Left hemiparesis at basel ine Skin: normal turgor, + lesion (red to purple on BUE) and + dry skin Neurologic: Genitourinary: +Villatoro Results & Data Vital Signs (Past 12 Hours) Vital Signs Temp Pulse Pulse Resp BP Pulse Ox Pulse Ox 10/12/24 08:02 60 10/12/24 08:01 36.5 C 61 18 133/76 95 10/12/24 06:18 62 16 98 10/12/24 02:16 36.5 C 81 20 99/60 L 93 10/12/24 00:00 97 10/11/24 23:57 60 10/11/24 22:47 36.5 C 60 20 105/63 90 O2 Del Method O2 Del Method O2 Flow Rate O2 Flow Rate 10/12/24 08:02 10/12/24 08:01 Nasal Cannula 2 10/12/24 06:18 Nasal Cannula 2 10/12/24 02:16 Nasal Cannula 10/12/24 00:00 Nasal Cannula 2 10/11/24 23:57 10/11/24 22:47 Nasal Cannula Laboratory Results Abnormal lab results 10/12/24 Range/Units 06:15 WBC 12.54 H (4.8-10.8) K/ul RBC 4.23 L (4.70-6.10) M/uL Hgb 12.5 L (14.0-18.0) g/dl Hct 38.6 L (42.0-52.0) % RDW Std Deviation 56.3 H (36.4-46.3) fL RDW Coeff of Reyna 16.7 H (11.5-14.5) % Neut # (Auto) 10.65 H (1.40-6.50) K/uL Lymph # (Auto) 0.61 L (1.20-3.40) K/uL [place] # (Auto) 1.18 H (0.11-0.59) K/uL PT 25.3 H (9.0-12.0) Seconds INR 2.5 H (0.9-1.1) Chloride 92 L (98-107) mmol/L Carbon Dioxide 41 H* (21-32) mmol/L BUN 36 H (6-23) mg/dl BUN/Creatinine Ratio 40.4 H (10-20) Glucose 106 H (70-99(Fasting)) mg/dl Calcium 8.3 L (8.6-10.3) mg/dl Magnesium 2.5 H (1.7-2.4) mg/dl Total Bilirubin 1.7 H (0.2-1.0) mg/dl Diagnostic Findings Abdomen Ultrasound 10/06/24 02:20 EXAM: US abdomen ltd ascites CLINICAL HISTORY: Distension. TECHNIQUE: Ultrasound examination of the Abdomen and pelvis limited to ascitis detection. Scanning was performed with the patient in the supine position: COMPARISON: None available. FINDINGS: Multiple images are taken through the abdomen and pelvis. No free fluid or collections could be seen in the abdomen or pelvis at the time of scan. IMPRESSION: No ascites is seen. RECOMMENDATIONS: Clinical correlation with symptoms and further evaluation as indicated. Electronically signed by Jamison Ferguson 10-06-2024 03:[address] 10/06/24 02:58 EXAM: CT chest diagnostic wo con CLINICAL HISTORY: low o2 TECHNIQUE: Contiguous axial images were obtained from the neck base through the upper abdomen without contrast. In addition, sagittal and coronal reconstructions were performed to potentially increase the sensitivity for the detection of disease. CT scan was performed according to ALARA (as low as reasonably achievable). COMPARISON: 03/24/2023 06:32:01 OFFICE ANALYST FINDINGS: Cardiac pacemaker seen in place. Sternotomy sutures seen. Patchy areas of ground-glass densities with interstitial thickening and consolidations are noted involving bilateral lung parenchyma, predominantly lower lobes. Mild left and minimal right pleural effusion. Mild cardiomegaly present. The central airways are patent. No pneumothorax is seen. Evaluation of the mediastinum and antoine is limited due to the lack of intravenous contrast. No axillary or mediastinal adenopathy is identified. The aorta, and pulmonary arteries are of normal size and configuration. There are coronary artery and aortic atherosclerotic calcifications. No pericardial effusion is identified. Imaged portions of the upper abdomen shows a exophytic calcified lesion of size [id number] at caudate lobe of liver. No aggressive appearing osseous lesions are identified. Rest of the findings are unchanged compared to the previous CT scan. IMPRESSION: 1. Patchy areas of ground-glass densities with interstitial thickening and consolidations are noted involving bilateral lung parenchyma, predominantly lower lobes. 2. Mild left and minimal right pleural effusion. 3. Mild cardiomegaly present. Possibility of pulmonary edema needs consideration. Suggested clinical correlation/follow up. Previous study dated 24 March 2023 also showed similar changes of pulmonary edema, however the consolidations and effusion were more as compared to the current study. Electronically signed by Hakeem De Jesus 10-06-2024 04:11 AM Chest X-Ray 10/10/24 10:09 XR chest 1V portable CLINICAL HISTORY: SOB, f/u chf COMPARISON STUDY: 10/08/2024 FINDINGS: Stable CABG and pacemaker. Stable cardiomegaly with pulmonary vascular congestion. There is increased stranding opacity at the left lung base. No other consolidation or pleural effusion. No pneumothorax. IMPRESSION: 1. CHF. 2. Atelectasis versus early pneumonia left lung base. ACT 112: Negative or not required by law. Electronically signed by: Bartolo Camejo M.D. 10/10/2024 10:42 AM Medications Administered Current Inpatient Medications Acetaminophen (Acetaminophen 325 Mg Tab) 650 mg PO Q4 PRN PRN Reason: MILD TO SEVERE PAIN Stop: 11/05/24 02:22 Last Admin: 10/09/24 20:10 Dose: 650 mg Acetaminophen (Acetaminophen 500 Mg Tab) 500 mg PO AMHS [facility] Stop: 11/05/24 08:59 Last Admin: 10/11/24 20:38 Dose: 500 mg Artificial Tears (Artificial Tears) 2 drops OP TID TONYA Stop: 11/05/24 08:59 Last Admin: 10/11/24 20:35 Dose: 2 drops Aspirin (Aspirin 81 Mg Ectab) 81 mg PO DAILY [facility] Stop: 11/05/24 06:44 Last Admin: 10/11/24 08:43 Dose: 81 mg Atorvastatin Calcium (Atorvastatin 40 Mg Tab) 40 mg PO HS [facility] Stop: 11/05/24 20:59 Last Admin: 10/11/24 20:35 Dose: 40 mg Bisacodyl (Bisacodyl 10 Mg Supp) 10 mg [place] DAILY PRN PRN Reason: Constipation Stop: 11/10/24 13:41 Famotidine (Famotidine 20 Mg Tab) 20 mg PO BID [facility]ONYA Stop: 11/05/24 08:59 Last Admin: 10/11/24 20:38 Dose: 20 mg Fluticasone/Vilanterol (Fluticasone/Vilanterol 100/25mcg 14 Puffs/Inhaler) 1 puffs INH DAILY [facility] Stop: 11/05/24 08:59 Last Admin: 10/11/24 08:44 Dose: 1 puffs Furosemide (Furosemide Inj 20 Mg/2 Ml Vial) 20 mg IV BID17 [facility]ON[facility] Stop: 11/09/24 08:59 Last Admin: 10/11/24 17:14 Dose: 20 mg Guaifenesin (Guaifenesin 600 Mg Tabcr) 600 mg PO Q12 [facility] Stop: 11/11/24 08:59 Methylprednisolone 40 mg/ (Syringe) 0.64 mls @ 1.5 mls/min IV DAILY [facility] Stop: 11/10/24 08:59 Last Admin: 10/11/24 08:44 Dose: 1.5 mls/min Ampicillin Sodium/Sulbactam Sodium (Unasyn) 3,000 mg in 100 mls @ 200 mls/hr IV Q6H [facility] Stop: 10/15/24 16:29 Last Infusion: 10/12/24 06:06 Dose: Infused Ipratropium [place] (Ipratropium [place] Neb Soln 0.02% 0.5mg/2.5ml Vial) 0.5 mg INH QIDR [facility]ONYA Stop: 11/05/24 06:59 Last Admin: 10/12/24 06:18 Dose: 0.5 mg Levalbuterol HCl (Levalbuterol 1.25 Mg/3 Ml Neb) 1.25 mg NEB QIDR [facility]ONYA Stop: 11/05/24 06:59 Last Admin: 10/12/24 06:18 Dose: 1.25 mg Lisinopril (Lisinopril 2.5 Mg Tab) 2.5 mg PO DAILY [facility] Stop: 11/05/24 08:59 Last Admin: 10/11/24 08:42 Dose: 2.5 mg Metoprolol Succinate (Metoprolol Succ 25mg Ext Rel Tab) 12.5 mg PO DAILY [facility] Stop: 11/06/24 08:59 Last Admin: 10/11/24 08:42 Dose: 12.5 mg Midodrine (Midodrine Hcl 2.5 Mg Tab) 5 mg PO TID@0800,1200,1700 [facility] Stop: 11/06/24 17:14 Last Admin: 10/11/24 17:15 Dose: 5 mg Oseltamivir Phosphate (Oseltamivir Phosphate 75 Mg Cap) 75 mg PO DAILY [facility]; Protocol Stop: 10/19/24 09:01 Last Admin: 10/11/24 08:42 Dose: 75 mg Senna/Docusate Sodium (Docusate Sodium/Senna 50/8.6mg Tab) 2 tab PO QAM [facility] Stop: 11/10/24 13:44 Last Admin: 10/12/24 09:18 Dose: Not Given Spironolactone (Spironolactone 12.5 Mg Tab) 12.5 mg PO DAILY [facility] Stop: 11/05/24 08:59 Last Admin: 10/06/24 08:13 Dose: 12.5 mg Vitamin D (Cholecalciferol 25 Mcg (1000 Units) Tab) 25 mcg PO DAILY [facility] Stop: 11/05/24 08:59 Last Admin: 10/11/24 08:42 Dose: 25 mcg Warfarin Sodium (Warfarin Sod 2 Mg Tab) 2 mg PO SuTuTh@1600 [facility] Stop: 11/07/24 16:29 Last Admin: 10/10/24 17:00 Dose: 2 mg Warfarin Sodium (Warfarin Sod 4 Mg Tab) 4 mg PO MoWeFrSa@1600 [facility] Stop: 11/08/24 15:59 Last Admin: 10/11/24 17:15 Dose: 4 mg PG Care Time/CCT Total # of Minutes Spent Total Time Spent with Patient: Total time spent is greater than 50% in coordination of care (as documented) at patient's floor/unit and/or counseling patient: [place] [address] SUB INP/OBS CARE 2/35MIN Patient Type Established Medical Decision Making Low Complexity Diagnoses Palliative care by specialist Z51.5 Advanced care planning/counseling discussion Z71.89 Dyspnea and respiratory abnormalities R06.00; R06.89
[2024-10-13 07:38] LABS: Hematocrit (blood only) 38.7 % (42.0-52.0); Hemoglobin 12.3 g/dl (14.0-18.0); Mean Corpuscular Hemoglobin 29.5 pg (25.0-34.0); Mean Corpuscular Hgb Conc 31.8 g/dL (32.0-36.0); Mean Corpuscular Volume 92.8 fL (80.0-100.0); Platelet Count 173 K/uL (130-400); RDW Coefficient of Variation 16.6 % (11.5-14.5); RDW Standard Deviation 56.8 fL (36.4-46.3); Red Blood Count 4.17 M/uL (4.70-6.10); White Blood Count 12.03 K/ul (4.8-10.8)
[2024-10-13 07:56] LABS: BUN Creatinine Ratio 35.2 (10-20); Calcium 8.2 mg/dl (8.6-10.3); Creatinine Clr Calc Pharmacy 82.6 ml/min; Magnesium 2.4 mg/dl (1.7-2.4); Phosphorus 2.6 mg/dl (2.5-4.9)
--- NOTE | 2024-10-13 10:59 | Discharge Summary ---
Date of Service October 13, 2024 Admission HPI Per Admitting Provider History obtained from patient, family, and records. Medical history significant for chronic systolic heart failure status post ICD (EF 20 to 24%, TTE 2023), CAD status post CABG, PE/A-fib on Coumadin, moderate MR, hypertension, hyperlipidemia, CVA, COPD, chronic anemia (baseline hemoglobin 12), rheumatoid arthritis, prediabetes, hypothyroidism, mood disorder, past tobacco abuse. Last confinement March 2023 for respiratory failure secondary to CHF/COPD exacerbation. 2 days history of worsening SOB without chest pain or cough. Fluid retention as per patient. Compliant with home meds. Patient started on prophylactic Tamiflu Rx at [facility] due to flu outbreak as per [facility] staff. O2 sats 70s upon EMS arrival at [facility]. Patient noted to be mottled. BiPAP initiated. Lasix IM administered prior to ED transport. 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 Admission Exam Per Admitting Provider GENERAL: Slightly uncomfortable, obese, minimal respiratory distress SKIN: Normal color, warm HEENT: [place] palpebral conjunctivae, no ptosis, dry buccal mucosa, BiPAP in place NECK : Supple, short neck, no tenderness CHEST : Decreased breath sounds, no tenderness HEART : Tachycardic, systolic murmur ABDOMEN: Some distention, nontender EXTREMITIES : Minimal LE swelling without LE tenderness, palpable pulses, no other conspicuous deformities noted NEUROLOGIC : Coherent, no facial asymmetry, chronic left hemiplegia, gait and stance not assessed Principal Diagnosis Acute hypoxemic respiratory failure + RSV infection decompensated heart failure status post ICD, systolic dysfunction COPD exacerbation Discharge Exam General: obese M, on suppl. O2, chronically ill appearing. in NAD HEENT: NC/AT CV: RRR Resp: breath sounds rhonchorus Abdomen:Soft, nontender, + obese Extremities: trace edema in lower extremities bilaterally. Neuro: awake, alert, answers appropriately Discharge Data Allergies Allergy/AdvReac Type Severity Reaction Status Date / Time No Known Allergies Allergy Unverified 10/06/24 00:31 Consultations 10/06/24 01:46 ED Decision to Admit Stat 10/06/24 04:48 Consult Cardiology Routine 10/10/24 15:40 Consult Palliative Care Routine Ordered Studies 10/06/24 02:20 US abdomen ltd ascites Stat FINDINGS: Multiple images are taken through the abdomen and pelvis. No free fluid or collections could be seen in the abdomen or pelvis at the time of scan. IMPRESSION: No ascites is seen. 10/06/24 02:58 CT chest diagnostic wo con Stat IMPRESSION: 1. Patchy areas of ground-glass densities with interstitial thickening and consolidations are noted involving bilateral lung parenchyma, predominantly lower lobes. 2. Mild left and minimal right pleural effusion. 3. Mild cardiomegaly present. Possibility of pulmonary edema needs consideration. Suggested clinical correlation/follow up. Hospital Course (1) Acute hypoxemic respiratory failure: Plan Pt is a 79yoM with PMHx significant for chronic systolic heart failure status post ICD (EF 20 to 24%, TTE 2023), CAD status post CABG, PE/A-fib on Coumadin, moderate MR, hypertension, hyperlipidemia, CVA, COPD, chronic anemia (baseline hemoglobin 12), rheumatoid arthritis, prediabetes, hypothyroidism, mood disorder, past tobacco abuse presenting with hypoxia from [facility]. 10/10/24- discussion with pt's at bedside. She was tearful, noting that it has been 14 years of "one thing after another" medically for the patient and she knows that his condition is serious and complex. Would like a palliative care consult to discuss goals of care. Palliative care consult placed. He is currently being treated for the following: Acute hypoxemic respiratory failure Multifactorial:decompensated heart failure status post ICD, systolic dysfunction, COPD exacerbation, RSV illness Supplemental O2 Wean off BiPAP Diuretic Rx- IV Lasix 20mg BID, monitor blood pressure carefully. Continue midodrine Strict I/Os, daily weights, CHF education, fluid restriction TTE, Cardiology consult re: decompensated heart failure Steroid course, banner RTC for COPD exacerbation Pulmonology consult if without improvement Continued aspirin, metoprolol, atorvastatin, ->recommend to hold lisinopril given lower BP On prophylactic Tamiflu from [facility] for outbreak there Continue to monitor 10/10 - per previous hospitalist addendum Repeat chest xray noting concern for pneumonia New leukocytosis, noted pt also on steroids Procalcitonin wnl Started on empiric Unasyn Continue to monitor 10/11 Oxygen requirement down to 2L this PM however pt sounds rhonchorus - cont. current management, close monitor - add guaifenesin, flutter valve, IS 10/12 Pt on 2L of suppl. O2, + rhonchi on exam but improved from yesterday cont. abx + steroid Goals of care addressed - palliative med. consulted - plan for DC back to [facility] w/ poss. hospice support Troponin elevation secondary to above EKG, echo Cardiology evaluation, appreciate recs Per cardiology - continue IV lasix; transition back to home dose once his volume status is better. as far as possible upgrade to a BiV device this will need to be evaluated more as an outpatient. pt will need chf f/u upon discharge Hypotension BP on the lower side Currently receiving metoprolol and low dose lisinopril (will stop lisinopril) Also Diuretic treatment- with low BP receiving doses of IV Lasix 20mg as needed Started on midodrine 2.5mg TID, titrate up as needed-> currently on 5mg TID IV steroids to help BP and in setting of COPD exacerbation Albumin boluses prn Continue to monitor plan to DC on prednisone Hyperkalemia Mildly elevated Holding home spironolactone Low potassium diet Continue to monitor resolved Other Medical Problems: hx CAD status post CABG hx of PE/A-fib on Coumadin, follow INR, continue home warfarin moderate MR hypertension, BP on the lower side hyperlipidemia, on statin Rx hx CVA chronic anemia, hemoglobin better than baseline prediabetes, hemoglobin A1c of 6 last year hypothyroidism, euthyroid as of current TSH past tobacco abuse Diet: HH FR 2L, low potassium diet DVT prophylaxis. Coumadin INR goal between 2 and 3 DNR as per prior directives. Total Time Total Time Spent Total Time Spent (In Minutes): 40 Discharge Plan Discharge Items Patient Disposition: Transfer [facility] Fac Reason For Visit: RESP FAILURE,TROP ELEV Discharge Diagnosis: Acute hypoxemic respiratory failure + RSV infection decompensated heart failure status post ICD, systolic dysfunction COPD exacerbation Condition on Discharge: Fair Activity: Per Instructions section Non-emergency contact: Primary Care Provider and Specialist Call non-emergency contact if: you have any medication questions and your symptoms worsen Follow-up/Referrals: Lurdes Salter MD [Primary Care Provider] - Diet: Heart Healthy and Low Potassium (2gm) Fluids: 2000ml (8 cups) Addtl Attending Provider Instructions: Patient is to return to [facility], where he can possibly start hospice. Follow up with primary care physician and possibly with hospice. Finish antibiotic treatment and prednisone. You were also started on midodrine to help with your blood pressure. Stop taking lisinopril and spironolactone as your blood pressure has been low. Discuss further with your physician and possibly with hospice which other medications you should stop. Pending Studies at Discharge: No Stand-Alone Forms: My [facility] Skilled Items Patient informed of condition?: Yes DNR: Yes Discharge Level of Care: Skilled Communicable Disease: No Discharge Prognosis: Deteriorating Lines: None Urinary Catheter: Yes Medications and DC Order Prescriptions: New prednisone 20 mg tablet 20 mg PO DAILY Qty: 4 0RF amoxicillin-pot clavulanate 875-125 mg tablet 1 tab PO BID 4 Days Qty: 8 0RF Continued atorvastatin 40 mg tablet 40 mg PO HS sennosides [senna] 8.6 mg tablet 17.2 mg PO DAILY ipratropium-albuterol 0.5 mg-3 mg(2.5 mg base)/3 mL solution for nebulization 3 ml INHALATION Q4H PRN (Reason: Shortness Of Breath Or Wheezing) acetaminophen 500 mg tablet 500 mg PO [facility]HS warfarin 4 mg tablet 4 mg PO 4XWK Rx Instructions: coumadin 4mg daily I THE EVENING on wed, wed , wed and wednesday warfarin 2 mg tablet 2 mg PO 3XWK Rx Instructions: 2 MG IN EVENING OF TUESDAYS,THURSDAYS AND SUNDAYS fluticasone propion-salmeterol 500-50 mcg/dose blister with device 1 inh INHALATION [facility] potassium chloride 10 mEq Capsule, Extended Release 10 meq PO DAILY furosemide 40 mg Tablet 40 mg PO QAM Qty: 30 0RF famotidine 20 mg tablet 20 mg PO BID metoprolol succinate 25 mg tablet extended release 24 hr 12.5 mg PO DAILY Rx Instructions: 1/2 TABLET DOSE... HOLD IF SBP <100 OR HR <60 oseltamivir 75 mg capsule 75 mg PO DAILY Rx Instructions: TAKE FOR 14 DAYS ..END DATE 10/19/24 cholecalciferol (vitamin D3) [Vitamin D3] 25 mcg (1,000 unit) Tablet 25 mcg PO DAILY guaifenesin [Robafen] 100 mg/5 mL Liquid 200 mg PO Q4H PRN (Reason: Cough) Artificial Tears (PF) Dropperette 2 drp OPB TID guaifenesin [Mucinex] 600 mg Tablet Extended Release 12hr 600 mg PO AMHS acetaminophen 325 mg Tablet 650 mg PO Q4 MDD 3G PRN (Reason: TEMP >100) acetaminophen 325 mg Tablet 650 mg PO Q4 MDD 3G PRN (Reason: MILD TO SEVERE PAIN ) Discontinued lisinopril 2.5 mg tablet 2.5 mg PO DAILY Rx Instructions: HOLD IF SBP <100 spironolactone 25 mg tablet 12.5 mg PO DAILY Rx Instructions: HOLD FOR SBP <90 Discharge Orders: Discharge Order- CHF (Routine); Ordered 10/13/24 Ordered By: Joe Recio Admission Data Admit Date/Time: 10/06/24 02:06 Attending Provider: Joe Recio Admit Provider: Edgar Herrera Primary Care Provider: Lurdes Salter Other Providers: Edgar Herrera; Preethi Quinonez; Sebas Granado; Jama Carnes; Antwan Hoskins; Gurvinder Josue; Juarez Hernandez; Tammy Hernandez; Vivian Ortiz Sowmya; Enciso, Ashley M.; Pablo Banda; Ricky Parada; Mary Brown; Liv Palma; Tg Gregg; Elis Malin; Milo Lindsey; Sarah Gilman; Shira Conteh; Archana Bartholomew; Rakel Simmons; Courtney Fuentes
[2024-10-13 11:02] VITALS: BP 123/69; RESP 18; TEMP 97.5
[2024-10-13 11:09] VITALS: PULSE 64; O2SAT 96
--- NOTE | 2024-10-13 14:39 | Palliative Care Progress Note ---
Date of Service October 13, 2024 Assessment & Plan (1) Palliative care by specialist: Plan: Palliative care will continue to follow for ongoing EOL care and patient/family support. (2) Dyspnea and respiratory abnormalities: Plan: Pt resting comfortably on 4L NC, NAD with normal respiratory effort while at rest. 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 Plan Pt and his request [employer] SAL[employer] with hope to return to [facility] for ongoing hospice care. Palliative care will continue to follow for ongoing EOL pt care and family support. Although patient currently appears comfortable, I recommend the following for EOL symptom management: Pain/dyspnea/tachypnea morphine 2mg IVP PRN [id number] Consider titratable morphine drip if pt requires >3 PRN doses in under two consecutive hours. Nausea/vomitting zofran 4mg IVP q4h PRN Agitation ativan 0.5mg IVP q4h PRN Hyperactive delirium haldol 5mg IVP q6h PRN Secretions - if repositioning not effective robinul 0.4mg IV q4h PRN atropine SL 3 drops Q1h PRN Nursing care: Discontinue all medications not directed towards comfort. Detether pt from IV tubing, monitor cables, and check vitals once per shift. Please continue HFNC and titrate down as able for patient comfort. Use medications above PRN for dyspnea/tachypnea and do not increase oxygen once titrated down. Assess q1h for pain/dyspnea and treat accordingly. NO orders placed at this time on request of attending Dr. Recio. Admission and Anticipated Discharge Date Admission Date: October 06, 2024 Subjective Assessed pt at bedside this morning, he was sleeping soundly and in NAD. Breathing nonlabored, VSS. No visitors present. Review of Systems Review of Systems: Unobtainable due to reduced consciousness Physical Exam Constitutional: + ill appearing, + obese, + physical [place] itations (left hemiplegia) and comfortable Eyes: PERRL, conjunctivae normal, anicteric sclerae ENMT: Mouth: + poor dentition (multiple missing teeth) and + chipped teeth Neck: trachea midline, + short neck and + thick neck Respiratory: normal respiratory effort, + labored breathing, + uses accessory muscles, + tachypneic and symmetric chest movement Auscultation: + diminished lung sounds, + crackles (?poss fine rales, overshadowed by rhonchi, limited by body habitus) and + rhonchi Cardiovascular: RRR, no murmur, no edema Gastrointestinal (Abdomen): obese, +pannus, BS hyperactive, soft to palpation, NTP, no guarding or rigidity Musculoskeletal: +gen weakness; Left hemiparesis at basel ine Skin: normal turgor, + lesion (red to purple on BUE) and + dry skin Neurologic: Genitourinary: +Villatoro Results & Data Vital Signs (Past 12 Hours) Vital Signs Temp Pulse Pulse Pulse Resp BP Pulse Ox 10/13/24 12:58 36.4 C L 64 63 18 123/69 96 10/13/24 11:04 64 18 96 10/13/24 11:01 36.4 C L 63 18 123/69 97 10/13/24 07:46 36.5 C 64 20 113/62 94 10/13/24 07:41 60 10/13/24 07:22 71 17 97 10/13/24 07:15 10/13/24 03:00 36.5 C 81 20 109/67 93 O2 Del Method O2 Flow Rate 10/13/24 12:58 10/13/24 11:04 Nasal Cannula 3 10/13/24 11:01 Nasal Cannula 3 10/13/24 07:46 Nasal Cannula 3 10/13/24 07:41 10/13/24 07:22 Nasal Cannula 2 10/13/24 07:15 Nasal Cannula 2 10/13/24 03:00 Nasal Cannula Laboratory Results No further labs or diagnostics in concert with comfort directed care. Diagnostic Findings No further labs or diagnostics in concert with comfort directed care. Medications Administered Current Inpatient Medications Acetaminophen (Acetaminophen 325 Mg Tab) 650 mg PO Q4 PRN PRN Reason: MILD TO SEVERE PAIN Stop: 11/05/24 02:22 Last Admin: 10/09/24 20:10 Dose: 650 mg Acetaminophen (Acetaminophen 500 Mg Tab) 500 mg PO [facility]HS [facility] Stop: 11/05/24 08:59 Last Admin: 10/13/24 09:12 Dose: 500 mg Artificial Tears (Artificial Tears) 2 drops OP TID [facility] Stop: 11/05/24 08:59 Last Admin: 10/13/24 14:12 Dose: 2 drops Aspirin (Aspirin 81 Mg Ectab) 81 mg PO DAILY [facility] Stop: 11/05/24 06:44 Last Admin: 10/13/24 09:15 Dose: 81 mg Atorvastatin Calcium (Atorvastatin 40 Mg Tab) 40 mg PO HS TONYA Stop: 11/05/24 20:59 Last Admin: 10/12/24 21:30 Dose: 40 mg Bisacodyl (Bisacodyl 10 Mg Supp) 10 mg WI DAILY PRN PRN Reason: Constipation Stop: 11/10/24 13:41 Famotidine (Famotidine 20 Mg Tab) 20 mg PO BID TONYA Stop: 11/05/24 08:59 Last Admin: 10/13/24 09:23 Dose: 20 mg Fluticasone/Vilanterol (Fluticasone/Vilanterol 100/25mcg 14 Puffs/Inhaler) 1 puffs INH DAILY TONYA Stop: 11/05/24 08:59 Last Admin: 10/13/24 09:23 Dose: 1 puffs Furosemide (Furosemide Inj 20 Mg/2 Ml Vial) 20 mg IV BID17 TONYA Stop: 11/09/24 08:59 Last Admin: 10/11/24 17:14 Dose: 20 mg Guaifenesin (Guaifenesin 600 Mg Tabcr) 600 mg PO Q12 TONYA Stop: 11/11/24 08:59 Last Admin: 10/13/24 09:17 Dose: 600 mg Methylprednisolone 40 mg/ (Syringe) 0.64 mls @ 1.5 mls/min IV DAILY TONYA Stop: 11/10/24 08:59 Last Admin: 10/13/24 09:18 Dose: 1.5 mls/min Ampicillin Sodium/Sulbactam Sodium (Unasyn) 3,000 mg in 100 mls @ 200 mls/hr IV Q6H TONYA Stop: 10/15/24 16:29 Last Infusion: 10/13/24 10:52 Dose: Infused Ipratropium [place] (Ipratropium [place] Neb Soln 0.02% 0.5mg/2.5ml Vial) 0.5 mg INH QIDR TONYA Stop: 11/05/24 06:59 Last Admin: 10/13/24 11:04 Dose: 0.5 mg Levalbuterol HCl (Levalbuterol 1.25 Mg/3 Ml Neb) 1.25 mg NEB QIDR TONYA Stop: 11/05/24 06:59 Last Admin: 10/13/24 11:04 Dose: 1.25 mg Metoprolol Succinate (Metoprolol Succ 25mg Ext Rel Tab) 12.5 mg PO DAILY [facility] Stop: 11/06/24 08:59 Last Admin: 10/13/24 09:15 Dose: 12.5 mg Midodrine (Midodrine Hcl 2.5 Mg Tab) 5 mg PO TID@0800,1200,1700 [facility] Stop: 11/06/24 17:14 Last Admin: 10/13/24 11:58 Dose: 5 mg Oseltamivir Phosphate (Oseltamivir Phosphate 75 Mg Cap) 75 mg PO DAILY [facility]; Protocol Stop: 10/19/24 09:01 Last Admin: 10/13/24 09:15 Dose: 75 mg Senna/Docusate Sodium (Docusate Sodium/Senna 50/8.6mg Tab) 2 tab PO QAM [facility] Stop: 11/10/24 13:44 Last Admin: 10/13/24 07:57 Dose: Not Given Spironolactone (Spironolactone 12.5 Mg Tab) 12.5 mg PO DAILY [facility] Stop: 11/05/24 08:59 Last Admin: 10/06/24 08:13 Dose: 12.5 mg Vitamin D (Cholecalciferol 25 Mcg (1000 Units) Tab) 25 mcg PO DAILY [facility] Stop: 11/05/24 08:59 Last Admin: 10/13/24 09:14 Dose: 25 mcg Warfarin Sodium (Warfarin Sod 2 Mg Tab) 2 mg PO [id number] [facility] Stop: 11/07/24 16:29 Last Admin: 10/12/24 16:42 Dose: 2 mg Warfarin Sodium (Warfarin Sod 4 Mg Tab) 4 mg PO [id number] [facility] Stop: 11/08/24 15:59 Last Admin: 10/11/24 17:15 Dose: 4 mg PG Care Time/CCT Total # of Minutes Spent Total Time Spent with Patient: Total time spent is greater than 50% in coordination of care (as documented) at patient's floor/unit and/or counseling patient: [place] [address] SUB INP/OBS CARE 1/25MIN Patient Type Established History Problem Focused Exam Problem Focused Medical Decision Making Low Complexity Diagnoses Palliative care by specialist Z51.5 Dyspnea and respiratory abnormalities R06.00; R06.89 Comfort measures only status Z51.5
== END 2024-10-13 15:47 | DRG 291 ==
LOC: ED 23:42 → 2S 10-06 02:06 → SUATTDRO 10-06 02:06 → 2S 10-06 03:02